=== PATIENT | female | born 1945 | race Caucasian/White ===

== ENCOUNTER 2020-01-05 12:52 | Outpatient (CLI) | payer MEDICARE, SELFPAY ==
--- NOTE | 2020-01-05 13:01 | CT_ITS ---
WS: [id number] CT LUMBAR SPINE TECHNIQUE: Noncontrast CT of the lumbar spine with coronal and sagittal reformatted images. CLINICAL INFORMATION: LOW BACK PAIN COMPARISON: None. DLP: 2000.[address] scans at [facility] use at least one of these dose optimization techniques: automat ed exposure control; mA and/or kV adjustment per patient size (includes targeted exams where dose is matched to clinical indication); or iterative reconstruction. FINDINGS: Mild lumbar curve convex right. No acute compression fractures. No high-grade central canal stenosis. Mild disc bulging L4-L5 and L5-S1. Bilobed abdominal aortic aneurysm with moderate calcification the largest segment measuring 2.3 x 2.8 x 3.3 cm. Normal adrenal glands. Hypoplastic right kidney. L1-L2: Normal. L2-L3: Mild disc bulging with slight effacement of ventral thecal sac. Mild left and no significant r ight foraminal narrowing. L3-L4: Mild disc bulging with slight narrowing of the left subarticular recess. Mild left and no sign ificant right foraminal narrowing. Moderate facet arthropathy. L4-L5: Mild disc bulging with slight effacement of ventral thecal sac. Mild central canal stenosis. M ild left and no right foraminal narrowing. Moderate facet arthropathy. L5-S1: Mild disc bulging with a shallow central protrusion. Mild central canal stenosis. Moderate to advanced facet arthropathy. Narrowing of the subarticular recess bilaterally. Mild right and no signi ficant left foraminal narrowing. CT/CT lumbar spine wo con* [id number] IMPRESSION: 1. Mild lumbar curve. No acute compression. 2. Mild disc bulging L4-L5 and L5-S1 3. No evidence of bony metastatic disease. 4. Mild central canal stenosis L3-L4, L4-L5, and L5-S1. 5. Mild foraminal narrowing worse at left L3-4 and left L4-5 6. Advanced facet arthropathy L5-S1. 7. Infrarenal lobulated bilobed abdominal aortic aneurysm the largest componen t measuring 2.3 x 2.8 x 3.3 cm AP by transverse by craniocaudal. 8. Aplastic right kidney.
--- NOTE | 2020-01-05 13:01 | XR_ITS ---
WS: [id number] LUMBAR SPINE FLEXION AND EXTENSION TECHNIQUE: 3 views of the lumbar spine: Lateral neutral, flexion, and extension views. CLINICAL INFORMATION: LOW BACK PAIN COMPARISON: None. FINDINGS: Slight anterolisthesis L5 on S1 measuring 3 mm. This increases on flexion to 4 mm and is stable on e xtension measuring 4 mm.Disc space narrowing worse L4-L5 and L5-S1. Moderate facet arthropathy L4-L5 and L5-S1. XR/XR lumbar spine f/e only [id number] IMPRESSION: 1. Mild flexion instability L5-S1. 2. Small abdominal aortic aneurysm described on the lumbar spine CT. 3. Disc space narrowing worse L4-L5 and L5-S1. 4. Moderate to advanced facet arthropathy L5-S1.
== END 2020-01-05 12:53 | disposition home or self-care (01) ==
LOC: RADWPI 13:00
PROVIDERS: Family Provider Nurse Practitioner Family; PCP Nurse Practitioner Family; Visit Provider Nurse Practitioner
DX: M53.2X7 Spinal instabilities, lumbosacral region (principal); I71.4 Abdominal aortic aneurysm, without rupture; M47.817 Spondylosis without myelopathy or radiculopathy, lumbosacral region; M51.26 Other intervertebral disc displacement, lumbar region; M51.27 Other intervertebral disc displacement, lumbosacral region; M48.061 Spinal stenosis, lumbar region without neurogenic claudication; M48.07 Spinal stenosis, lumbosacral region; N28.89 Other specified disorders of kidney and ureter
CPT/HCPCS: 72120; 72131

== ENCOUNTER 2020-01-17 19:51 | Emergency (ER) | payer MEDICARE, SELFPAY ==
[2020-01-17] VITALS (7 sets, daily range): BP systolic 132–162; BP diastolic 72–99; PULSE 63–77; RESP 17–21; TEMP 36.5; O2SAT 96–99; BMI 22.8
--- NOTE | 2020-01-17 | XRR_ITS ---
PROCEDURE INFORMATION: Exam: XR Chest, 1 View Exam date and time: 01/17/2020 10:21 PM Age: 74 years old Clinical indication: Cough; Additional info: SOB TECHNIQUE: Imaging protocol: XR of the chest Views: 1 view. COMPARISON: No relevant prior studies available. FINDINGS: Lungs: COPD and interstitial prominence. Pleural space: No significant pleural effusion. Heart/Mediastinum: No cardiomegaly. Bones/joints: Osteopenia and degenerative change. XR/XR chest 1V portable [id number] IMPRESSION: COPD and interstitial prominence.
--- NOTE | 2020-01-17 20:12 | ECG_ITS ---
[facility] Test Date: 2020-01-17 Pat Name: Michelle Lopez Department: Room: Gender: Female Medicine Man: : 1945 Requested By: Arcadio Parsons Order Number: [id number] Miguel MD: Nahomi Garcia M.D. Measurements Intervals [place] Rate: 63 P: 66 [place]: 124 QRS: 29 QRSD: 82 T: 51 QT: 403 QTc: 415 Interpretive Statements SINUS RHYTHM POSSIBLE RIGHT VENTRICULAR CONDUCTION DELAY [RSR (QR) IN V1/V2] No previous ECG available for comparison Electronically Signed On 01-18-2020 19:32:07 CDT by Nahomi Garcia M.D. [id number]
--- NOTE | 2020-01-17 20:18 | W.ED.SOB ---
HPI - SOB/Dyspnea General: Chief Complaint: Shortness of Breath/Dyspnea Stated Complaint: SOB Time Seen by Provider: 01/17/20 20:05 Source: patient Mode of arrival: ambulatory Limitations: no limitations History of Present Illness: HPI Narrative: 74-year-old female who has a history of COPD states she is been having increasing shortness of breath over the last 2 to 4 days. States she had a slight cough and is felt like she cannot get a great breath then. She denies any fever. Patient is currently on 3 L which is her baseline and is in no distress. She denies any chest pain. Denies any vomiting or diarrhea. MD elicited complaint: shortness of breath Associated symptoms: Deny abdominal pain, chest pain, fever(s), nausea or vomiting Review of Systems Const: Denies: fever(s), chills, body aches or change in appetite Eyes: Denies: blurry vision or eye discomfort ENMT: Denies: throat pain or dental pain Card: Denies: chest pain Resp: Reports: dyspnea and wheezing GI: Denies: abdominal pain, nausea, vomiting or diarrhea : Denies: dysuria Musc: Denies: neck pain or back pain Skin/Breast: Denies: rash Neuro: Denies: headache(s) Psych: Denies: depression Abhishek/Lymph: Denies: easy bruising All/Imm: Denies: urticaria Physical Exam Const: COMMON NORMALS: no acute distress, patient oriented x3 and healthy appearing HENMT: COMMON NORMALS: normocephalic and atraumatic HEAD & SCALP: normocephalic and atraumatic Eye: COMMON NORMALS: Equal, round and reactive pupils present and EOMs intact bilaterally PUPIL: Yes Equal, round and reactive pupils present Neck/C-Spine: COMMON NORMALS: full ROM and supple Chest: COMMONS NORMALS: normal inspection of the chest and normal palpation of entire chest wall Resp: COMMON NORMALS: normal respiratory effort, No retractions and No use of accessory muscles AUSCULTATION: wheezes Cardio: COMMON NORMALS: regular rate, regular rhythm and No murmurs present (Cardio) RATE: regular rate RHYTHM: regular rhythm GI: COMMON NORMALS: Normal to inspection, nondistended, normoactive bowel sounds present, Soft to palpation, non-tender and no masses PALPATION: Yes Soft to palpation Extremity: COMMON NORMALS: normal to inspection and full ROM Neuro: COMMON NORMALS: patient oriented x3, moves all extremities and no focal motor deficits Psych: COMMON NORMALS: mental status grossly normal, Normal thought process present and cooperative THOUGHT PROCESS: Normal thought process present Skin: COMMON NORMALS: no rashes or lesions noted and no wounds GENERAL SKIN EXAM: no rashes or lesions noted Course Vital Signs: Vital signs: Vital Signs Temperature 97.7 F 01/17/20 19:54 Pulse Rate 77 01/17/20 22:34 Respiratory Rate 20 H 01/17/20 22:34 Blood Pressure 132/72 01/17/20 22:34 Pulse Oximetry 98 01/17/20 22:34 MDM - SOB/Dyspnea MDM Narrative: Medical decision making narrative: Patient presents here with COPD exacerbation. Patient has no signs of pneumonia and is well-appearing here. Patient's blood work is normal. She is stable for discharge and is to follow-up with PCP in 2 to 4 days. Did do an outpatient COVID test will be sent out. Will follow. She is to return if her breathing worsens. Lab Data: Labs: Lab Results 01/17/20 01/17/20 01/17/20 Range/Units 21:00 21:00 21:00 WBC 7.6 (4.0-10.0) 10^3/ uL RBC 4.00 L (4.1-5.3) 10^6/u L Hgb 12.7 (11.5-15.3) g/dL Hct 39.3 (37.0-47.0) % MCV 98.3 (81-99) fL MCH 31.8 (28.0-34.0) pg MCHC 32.3 (30.0-36.0) g/dL RDW 12.5 (12.1-15.1) % Plt Count 242 (130-400) 10^3/c mm MPV 9.6 (7.4-10.4) fL Neut % (Auto) 72.8 % Lymph % (Auto) 16.3 % Pitkin % (Auto) 8.0 % Eos % (Auto) 2.1 % Baso % (Auto) 0.7 % Neut # (Auto) 5.54 (1.8-7.7) 10^3/u L Lymph # (Auto) 1.2 (0.8-4.8) 10^3/u L Pitkin # (Auto) 0.6 (0.2-0.9) 10^3/u L Eos # (Auto) 0.2 (0.0-0.8) 10^3/u L Baso # (Auto) 0.1 (0.0-0.1) 10^3/u L Nucleated RBC % (a uto) 0 % Nucleated RBCs # 0.0 /100WBC PT 12.40 (12.1-14.9) SECO NDS INR 0.90 (0.8-1.2) Sodium 140 (136-145) mmol/L Potassium 3.9 (3.5-5.1) mmol/L Chloride 102 (98-107) mmol/L Carbon Dioxide 25 (22-29) mmol/L Anion Gap 16.9 (5-19) BUN 33 H (8-23) mg/dL Creatinine 1.4 H (0.5-0.9) mg/dL GFR Calculation Not Reportable Glucose 106 (65-115) mg/dL Calculated Osmolal ity 298 H (285-295) mOsm/k g Calcium 9.1 (8.5-10.5) mg/dL Total Bilirubin 0.3 (0.15-1.2) mg/dL AST 28 (0-32) U/L ALT 17 (0-33) U/L Alkaline Phosphata se 65 (35-105) IU/L NT-Pro-B Natriuret Pep 556 H (0-450) pg/mL Total Protein 8.2 (6.6-8.7) g/dL Albumin 4.5 (3.5-5.2) g/dL Globulin 3.7 (1.3-4.6) g/dL Imaging Data^: CXR: Attestation: I personally reviewed and interpreted this imaging study as follows: My impression: no acute abnormality EKG Data^: EKG 1: Attestation: I personally reviewed and interpreted this EKG as follows: EKG Interpretation Date: 01/17/20 EKG interpretation time: 20:35 Interpretation: nsr hr [address] or t wave abnormalities qrs 82 qtc 411 Discharge Plan Discharge Patient Disposition: Home Clinical Impression: Acute exacerbation of chronic obstructive airways disease Condition: Stable Prescriptions: New prednisone 50 mg tablet 50 mg PO DAILY Qty: 5 RF: 0 No Action Advair Diskus 250-50 mcg/dose blister with device 1 inh INHALATION BID RF: 0 tizanidine 2 mg tablet 2 mg PO BID PRN (Reason: MUSCLE SPASMS) RF: 0 pravastatin 40 mg tablet 40 mg PO DAILY RF: 0 albuterol sulfate 1.25 mg/3 mL solution for nebulization See Rx Instructions .ROUTE .COMPLEX RF: 0 Synthroid 75 mcg tablet 75 mcg PO BID RF: 0 alprazolam 0.5 mg tablet 0.25 mg PO DAILY PRN (Reason: Anxiety) RF: 0 trazodone 100 mg tablet 100 mg PO BID RF: 0 hydrocodone-acetaminophen 7.5-325 mg tablet 1 tab PO BID PRN (Reason: Pain) RF: 0 penicillin V potassium 500 mg tablet 500 mg PO Q6H RF: 0 Discharge Orders: Discharge Order (Routine); Ordered 01/17/20 Ordered By: Arcadio Parsons Referrals: Koby Martinez NP [Primary Care Provider] - 1-3 days Discharge Diet: Advance as tolerated Discharge Activity: Resume usual activity Patient Instructions: Chronic Obstructive Pulmonary Disease (ED) Discharge Date/Time: 01/17/20 22:36 Coding Level of Care Code ED Oleo Hasher And Renderer for [place] Fwd Exam Comprehensive
--- NOTE | 2020-01-17 21:06 | PC.NURSE ---
patient swabbed for COVID at this time
[2020-01-17 21:16] LABS: Basophils # 0.1 10^3/uL (0.0-0.1); Basophils % 0.7 %; Eosinophils # 0.2 10^3/uL (0.0-0.8); Eosinophils % 2.1 %; Hematocrit 39.3 % (37.0-47.0); Hemoglobin 12.7 g/dL (11.5-15.3); Lymphocytes # 1.2 10^3/uL (0.8-4.8); Lymphocytes % 16.3 %; Mean Corpuscular HGB Conc 32.3 g/dL (30.0-36.0); Mean Corpuscular Hemoglobin 31.8 pg (28.0-34.0); Mean Corpuscular Volume 98.3 fL (81-99); Mean Platelet Volume 9.6 fL (7.4-10.4); Monocytes # 0.6 10^3/uL (0.2-0.9); Neutrophils # 5.54 10^3/uL (1.8-7.7); Neutrophils % 72.8 %; Nucleated Red Blood Cells % 0 %; Platelet Count 242 10^3/cmm (130-400); Red Cell Distribution Width 12.5 % (12.1-15.1); White Blood Count 7.6 10^3/uL (4.0-10.0)
[2020-01-17 21:43] LABS: Alanine Aminotransferase 17 U/L (0-33); Albumin Level 4.5 g/dL (3.5-5.2); Alkaline Phosphatase 65 IU/L (35-105); Anion Gap 16.9 (5-19); Aspartate Amino Transferase 28 U/L (0-32); Blood Urea Nitrogen 33 mg/dL (8-23); Calcium 9.1 mg/dL (8.5-10.5); Carbon Dioxide 25 mmol/L (22-29); Chloride 102 mmol/L (98-107); Globulin 3.7 g/dL (1.3-4.6); Glucose 106 mg/dL (65-115); NT Pro B Type Natriuretic Pept 556 pg/mL (0-450); Osmolality Calculated 298 mOsm/kg (285-295); Potassium 3.9 mmol/L (3.5-5.1); Sodium 140 mmol/L (136-145); Total Bilirubin 0.3 mg/dL (0.15-1.2); Total Protein 8.2 g/dL (6.6-8.7)
[2020-01-17] MEDS: albuterol 8 gm MDI 2 PUFF INHALATION (22:19)
[2020-01-19 17:32] LABS: Quest SARS-CoV-2 RNA NOT DETECTED (NOT DETECTED)
== END 2020-01-17 22:36 | disposition home or self-care (01) ==
PROVIDERS: Emergency Provider Emergency Medicine; Family Provider Nurse Practitioner Family; PCP Nurse Practitioner Family
DX: J44.1 Chronic obstructive pulmonary disease with (acute) exacerbation (principal)
CPT/HCPCS: 12345; 71045; 80053; 83880; 85025; 85610; 87635; 93005; 94640; 96374; 99284; J2930

== ENCOUNTER 2020-02-16 19:10 | Emergency (ER) | payer MEDICARE, SELFPAY ==
[2020-02-16 19:17] VITALS: BP 131/71; PULSE 72; RESP 20; TEMP 36.8; O2SAT 92; BMI 21.9
--- NOTE | 2020-02-16 19:55 | XRR_ITS ---
PROCEDURE INFORMATION: Exam: XR Chest, 1 View Exam date and time: 02/16/2020 8:09 PM Age: 74 years old Clinical indication: Shortness of breath; Prior surgery; Additional info: Increase SOB, history of copd TECHNIQUE: Imaging protocol: XR of the chest Views: 1 view. COMPARISON: CR XR chest 1V portable [id number] 01/17/2020 10:10 PM FINDINGS: Lungs: Linear parenchymal densities seen in the left perihilar region new since prior examination. There is mild interstitial congestion left lower lobe Pleural space: Small left lower lobe pleural effusion. No pneumothorax. Heart/Mediastinum: Unremarkable. No cardiomegaly. Bones/joints: Unremarkable. XR/XR chest 1V portable [id number] IMPRESSION: 1. Left perihilar fibrotic densities new since prior 2. Left lower lobe interstitial congestion 3. Small left lower lobe pleural effusion
--- NOTE | 2020-02-16 19:55 | W.ED.SOB ---
HPI - SOB/Dyspnea General: Chief Complaint: Shortness of Breath/Dyspnea Stated Complaint: copd flare up Time Seen by Provider: 02/16/20 19:54 Source: patient Mode of arrival: ambulatory Limitations: no limitations History of Present Illness: HPI Narrative: Well-appearing adult lady comes in today with feelings of malaise. Patient reports that she feels like her COPD just has not cleared up enough yet. Patient was seen at the end of January in the emergency room and diagnosed of exacerbation of COPD. Patient is in no acute respiratory distress. Skin is warm and dry. Vital signs are normal. Patient is on oxygen all the time at 3 L per nasal cannula. Patient has a history of COPD, hypothyroidism, hypercholesteremia, and muscle spasms Review of Systems General: Reports: 10 or more systems reviewed and unremarkable except in HPI and below Resp: Reports: dyspnea Physical Exam Const: COMMON NORMALS: no acute distress and patient oriented x3 GENERAL APPEARANCE: cooperative HENMT: COMMON NORMALS: normocephalic and Normal external nose present HEAD & SCALP: normal to inspection and normocephalic NOSE: Normal external nose present MOUTH: Normal oral and palatal mucosa present THROAT: posterior oropharynx normal Eye: GENERAL EYE: appearance normal, both eyes and all related structures Neck/C-Spine: COMMON NORMALS: full ROM Chest: COMMONS NORMALS: normal inspection of the chest Resp: COMMON NORMALS: normal respiratory effort EFFORT & INSPECTION: Yes able to speak in complete sentences Cardio: COMMON NORMALS: regular rate and regular rhythm RATE: regular rate RHYTHM: regular rhythm GI: COMMON NORMALS: non-tender Back/Pelvis: COMMON NORMALS: thoracic and lumbar spine normal to inspection Extremity: COMMON NORMALS: normal to inspection Neuro: COMMON NORMALS: patient oriented x3 and moves all extremities Psych: COMMON NORMALS: mental status grossly normal and cooperative Skin: COMMON NORMALS: no rashes or lesions noted GENERAL SKIN EXAM: no rashes or lesions noted Course Vital Signs: Vital signs: Vital Signs Temperature 98.2 F 02/16/20 19:17 Pulse Rate 72 02/16/20 19:17 Respiratory Rate 20 H 02/16/20 19:17 Blood Pressure 131/71 02/16/20 19:17 Pulse Oximetry 92 02/16/20 19:17 MDM - SOB/Dyspnea MDM Narrative: Medical decision making narrative: Patient comes in for concerns of not feeling at her baseline. Patient states that over 2 weeks ago she had been seen in the ER and diagnosed with exacerbation of COPD. Patient states that the medications did help but she does not feel like she is completely over her flare. Patient denies any fever or chills. Patient looks in no acute distress. Lungs have air movement throughout lung de la cruz. Differential diagnosis includes but not limited to COPD, pneumonia, CHF. X-rays noted atelectasis versus infiltrate to the left upper lung. COVID is negative. Reviewed exam with patient with recommendations for treatment and follow-up. Patient reported understanding. Lab Data: Labs: Lab Results 02/16/20 Range/Units 20:42 SARS-CoV-2 Ag (Rap id) Negative (Negative) Discharge Plan Discharge Patient Disposition: Home Clinical Impression: PND (post-nasal drip) Community acquired pneumonia Qualifiers: Laterality: left Lung location: upper lobe of lung Qualified Code(s): J18.9 - Pneumonia, unspecified organism COPD (chronic obstructive pulmonary disease) Qualifiers: COPD type: unspecified COPD Qualified Code(s): J44.9 - Chronic obstructive pulmonary disease, unspecified Condition: Stable Prescriptions: New doxycycline hyclate 100 mg capsule 100 mg PO BID 10 Days Qty: 20 RF: 0 azelastine-fluticasone 137-50 mcg/spray spray,non-aerosol 1 spray INTRANASAL BID Qty: 23 RF: 0 prednisone 50 mg tablet 50 mg PO DAILY Qty: 5 RF: 0 No Action Advair Diskus 250-50 mcg/dose blister with device 1 inh INHALATION BID RF: 0 tizanidine 2 mg tablet 2 mg PO BID PRN (Reason: MUSCLE SPASMS) RF: 0 pravastatin 40 mg tablet 40 mg PO DAILY RF: 0 albuterol sulfate 1.25 mg/3 mL solution for nebulization See Rx Instructions .ROUTE .COMPLEX RF: 0 Synthroid 75 mcg tablet 75 mcg PO BID RF: 0 alprazolam 0.5 mg tablet 0.25 mg PO DAILY PRN (Reason: Anxiety) RF: 0 trazodone 100 mg tablet 100 mg PO BID RF: 0 hydrocodone-acetaminophen 7.5-325 mg tablet 1 tab PO BID PRN (Reason: Pain) RF: 0 penicillin V potassium 500 mg tablet 500 mg PO Q6H RF: 0 prednisone 50 mg tablet 50 mg PO DAILY Qty: 5 RF: 0 Discharge Orders: Discharge Order (Routine); Ordered 02/16/20 Ordered By: Curt White Referrals: Koby Martinez NP [Primary Care Provider] - Discharge Diet: Usual diet Discharge Activity: Increase activity as tolerated Patient Instructions: Community-acquired Pneumonia (ED) Activity Restrictions/Additional Instructions: Take medications as directed. Drink plenty of fluids with medications. Follow-up with primary care in 1 week. Return to the emergency department for worsening symptoms. Coding Level of Care Code ED [employer] Attendant for Mari Zambrano Exam Comprehensive
[2020-02-16] MEDS: dexamethasone 10 mg/mL INJ IM (20:49)
[2020-02-16] MEDS: doxycycline 100 mg Tablet PO (20:49)
[2020-02-16 21:31] LABS: SARS Covid-2 Antigen Negative (Negative)
[2020-02-16 22:13] VITALS: PULSE 64; RESP 22; O2SAT 94
== END 2020-02-16 22:13 | disposition home or self-care (01) ==
PROVIDERS: Emergency Provider Nurse Practitioner Family; PCP Nurse Practitioner Family
DX: J18.9 Pneumonia, unspecified organism (principal); J44.9 Chronic obstructive pulmonary disease, unspecified; R09.82 Postnasal drip
CPT/HCPCS: 12345; 71045; 87426; 96372; 99282; 99283; J1100

== ENCOUNTER 2020-03-28 15:54 | Emergency (ER) | payer MEDICARE, SELFPAY ==
[2020-03-28 16:18] VITALS: BP 126/64; PULSE 63; RESP 20; TEMP 36.6; O2SAT 98; BMI 19.9
--- NOTE | 2020-03-28 16:28 | XRR_ITS ---
PROCEDURE INFORMATION: Exam: XR Chest, 1 View Exam date and time: 03/28/2020 4:30 PM Age: 75 years old Clinical indication: Cough and shortness of breath; Prior surgery; Surgery type: Breast; Additional info: Dyspnea/cough TECHNIQUE: Imaging protocol: XR of the chest Views: 1 view. COMPARISON: CR XR chest 1V portable [id number] 02/16/2020 7:57 PM FINDINGS: Lungs: Emphysema. Mild basilar and left mid lung atelectasis or scarring. The lungs are otherwise clear. Pleural space: Unremarkable. No pleural effusion. No pneumothorax. Heart/Mediastinum: Unremarkable. No cardiomegaly. Bones/joints: Unremarkable. XR/XR chest 1V portable [id number] IMPRESSION: No acute findings.
--- NOTE | 2020-03-28 16:28 | ECG_ITS ---
[facility] Test Date: 2020-03-28 Pat Name: Michelle Lopez Department: Room: Gender: Female Scientific Aide: : 1945 Requested By: Renan Licona Order Number: [id number] Miguel MD: ROSANNE MONIQUE Measurements Intervals [place] Rate: 58 P: 74 MN: 138 QRS: 32 QRSD: 86 T: 59 QT: 423 QTc: 416 Interpretive Statements SINUS BRADYCARDIA LOW QRS VOLTAGE IN PRECORDIAL LEADS [QRS DEFLECTION < 1.0 mV IN CHEST LEADS] POSSIBLE RIGHT VENTRICULAR CONDUCTION DELAY [RSR (QR) IN V1/V2] Compared to ECG 01/17/2020 20:35:00 Low QRS voltage now present Sinus rhythm no longer present Electronically Signed On 03-29-2020 20:05:54 DIRECTOR OF MEDICARE by ROSANNE MONIQUE [id number]
--- NOTE | 2020-03-28 16:31 | W.ED.SOB ---
Documented by User: Renan Ochoa DO 03/29/20 06:19 HPI - SOB/Dyspnea General: Chief Complaint: Shortness of Breath/Dyspnea Stated Complaint: cough,SOB Time Seen by Provider: 03/28/20 16:18 History of Present Illness: HPI Narrative: 75-year-old female comes in complaining of increasing cough and shortness of breath began within the last couple of days. Has had some loose stools no anosmia. She has had some myalgias but she states she has a certain baseline level of myalgias that has not really changed that much. She has had the increase in cough and shortness of breath. She has a history of COPD she is on maintenance meds as well as rescue meds they do not seem to be working as well. Cough is nonproductive. She denies any chest pain. MD elicited complaint: shortness of breath and cough Pertinent past history: COPD Onset (ago): day(s) Context: occurred during exertion Timing: constant Severity: moderate Exacerbating factors: exertion and coughing Relieving factors: rest Known history of: COPD Associated symptoms: Reports cough; Deny abdominal pain, chest congestion, chest pain, diaphoresis, dizziness, extremity pain, fever(s), hemoptysis, lightheadedness, myalgias, nausea, orthopnea, palpitations, paresthesias, polydipsia, polyuria, rash, sense of impending doom, syncope or vomiting Treatment prior to arrival: bronchodilator Review of Systems Const: Denies: fever(s) or diaphoresis ENMT: Denies: throat pain, ear or mastoid pain, nasal discharge or nasal congestion Card: Denies: chest pain, palpitations, lightheadedness, syncope or orthopnea Resp: Denies: hemoptysis or chest congestion GI: Denies: abdominal pain or nausea : Denies: flank pain, difficulty voiding, dysuria, urinary frequency or urinary urgency Musc: Denies: extremity pain Skin/Breast: Denies: rash or pruritus Neuro: Denies: dizziness Endo: Denies: polyuria or polydipsia PFS ED PFSH: Medical History (Updated 03/28/20 @ 19:36 by Arcadio Parsons MD) Chronic back pain COPD (chronic obstructive pulmonary disease) Hyperlipidemia Physical Exam Const: COMMON NORMALS: no acute distress GENERAL APPEARANCE: cooperative and comfortable HENMT: COMMON NORMALS: normocephalic, atraumatic and hearing grossly normal bilaterally HEAD & SCALP: normocephalic and atraumatic Eye: COMMON NORMALS: Equal, round and reactive pupils present, EOMs intact bilaterally, conjunctivae normal and no scleral icterus CONJUNCTIVA: Yes conjunctivae normal PUPIL: Yes Equal, round and reactive pupils present Neck/C-Spine: COMMON NORMALS: full ROM, no lymphadenopathy, supple and no JVD Lymph: LYMPHATIC: no lymphadenopathy noted and no lymphedema noted Resp: COMMON NORMALS: normal respiratory effort, No retractions, No use of accessory muscles and clear to auscultation bilaterally AUSCULTATION: clear to auscultation bilaterally and diminished lung sounds Cardio: COMMON NORMALS: no JVD, regular rate, regular rhythm and No murmurs present (Cardio) RATE: regular rate RHYTHM: regular rhythm GI: COMMON NORMALS: Soft to palpation and No hepatosplenomegaly present AUSCULTATION: Yes normoactive bowel sounds PALPATION: Yes Soft to palpation, No Tenderness to palpation present (GI), No Guarding due to palpation present (GI) and Yes No hepatosplenomegaly present Extremity: COMMON NORMALS: normal to inspection, capillary refill normal, no clubbing, cyanosis or edema, no calf tenderness and no pedal edema Skin: COMMON NORMALS: no rashes or lesions noted GENERAL SKIN EXAM: no rashes or lesions noted Course Vital Signs: Vital signs: Vital Signs Temperature 97.8 F 03/28/20 16:18 Pulse Rate 68 03/28/20 19:53 Respiratory Rate 20 H 03/28/20 19:53 Blood Pressure 156/90 03/28/20 19:53 Pulse Oximetry 100 03/28/20 19:53 MDM - SOB/Dyspnea MDM Narrative: Medical decision making narrative: Care turned over to Dr. Parsons at change of shift Lab Data: Labs: Lab Results 03/28/20 03/28/20 03/28/20 Range/Units 17:04 17:04 17:04 WBC 7.3 (4.0-10.0) 10^3/ uL RBC 3.51 L (4.1-5.3) 10^6/u L Hgb 10.9 L (11.5-15.3) g/dL Hct 35.7 L (37.0-47.0) % MCV 101.7 H (81-99) fL MCH 31.1 (28.0-34.0) pg MCHC 30.5 (30.0-36.0) g/dL RDW 15.1 (12.1-15.1) % Plt Count 159 (130-400) 10^3/c mm MPV 10.4 (7.4-10.4) fL Neut % (Auto) 69.0 % Lymph % (Auto) 18.6 % [place] % (Auto) 10.1 % Eos % (Auto) 1.4 % Baso % (Auto) 0.6 % Neut # (Auto) 5.02 (1.8-7.7) 10^3/u L Lymph # (Auto) 1.4 (0.8-4.8) 10^3/u L [place] # (Auto) 0.7 (0.2-0.9) 10^3/u L Eos # (Auto) 0.1 (0.0-0.8) 10^3/u L Baso # (Auto) 0.0 (0.0-0.1) 10^3/u L Nucleated RBC % (a uto) 0 % Nucleated RBCs # 0.0 /100WBC D-Dimer 1.74 H (0-0.59) ug/mIFE U Sodium 141 (136-145) mmol/L Potassium 3.8 (3.5-5.1) mmol/L Chloride 106 (98-107) mmol/L Carbon Dioxide 27 (22-29) mmol/L Anion Gap 11.8 (5-19) BUN 23 (8-23) mg/dL Creatinine 1.0 H (0.5-0.9) mg/dL GFR Calculation Not Reportable Glucose 112 (65-115) mg/dL Calculated Osmolal ity 296 H (285-295) mOsm/k g Calcium 8.9 (8.5-10.5) mg/dL Total Bilirubin 0.3 (0.15-1.2) mg/dL AST 19 (0-32) U/L ALT 11 (0-33) U/L Alkaline Phosphata se 61 (35-105) IU/L Total Protein 6.3 L (6.6-8.7) g/dL Albumin 3.6 (3.5-5.2) g/dL Globulin 2.7 (1.3-4.6) g/dL SARS-CoV-2 Ag (Rap id) (Negative) 03/28/20 Range/Units 17:18 WBC (4.0-10.0) 10^3/ uL RBC (4.1-5.3) 10^6/u L Hgb (11.5-15.3) g/dL Hct (37.0-47.0) % MCV (81-99) fL MCH (28.0-34.0) pg MCHC (30.0-36.0) g/dL RDW (12.1-15.1) % Plt Count (130-400) 10^3/c mm MPV (7.4-10.4) fL Neut % (Auto) % Lymph % (Auto) % [place] % (Auto) % Eos % (Auto) % Baso % (Auto) % Neut # (Auto) (1.8-7.7) 10^3/u L Lymph # (Auto) (0.8-4.8) 10^3/u L [place] # (Auto) (0.2-0.9) 10^3/u L Eos # (Auto) (0.0-0.8) 10^3/u L Baso # (Auto) (0.0-0.1) 10^3/u L Nucleated RBC % (a uto) % Nucleated RBCs # /100WBC D-Dimer (0-0.59) ug/mIFE U Sodium (136-145) mmol/L Potassium (3.5-5.1) mmol/L Chloride (98-107) mmol/L Carbon Dioxide (22-29) mmol/L Anion Gap (5-19) BUN (8-23) mg/dL Creatinine (0.5-0.9) mg/dL GFR Calculation Glucose (65-115) mg/dL Calculated Osmolal ity (285-295) mOsm/k g Calcium (8.5-10.5) mg/dL Total Bilirubin (0.15-1.2) mg/dL AST (0-32) U/L ALT (0-33) U/L Alkaline Phosphata se (35-105) IU/L Total Protein (6.6-8.7) g/dL Albumin (3.5-5.2) g/dL Globulin (1.3-4.6) g/dL SARS-CoV-2 Ag (Rap id) Negative (Negative) Discharge Plan Discharge Patient Disposition: Home Clinical Impression: COPD (chronic obstructive pulmonary disease) Qualifiers: COPD type: unspecified COPD Qualified Code(s): J44.9 - Chronic obstructive pulmonary disease, unspecified Condition: Stable Prescriptions: New prednisone 50 mg tablet 50 mg PO DAILY Qty: 5 RF: 0 No Action Advair Diskus 250-50 mcg/dose blister with device 1 inh INHALATION BID RF: 0 tizanidine 2 mg tablet 2 mg PO BID PRN (Reason: MUSCLE SPASMS) RF: 0 pravastatin 40 mg tablet 40 mg PO DAILY RF: 0 albuterol sulfate 1.25 mg/3 mL solution for nebulization See Rx Instructions .ROUTE .COMPLEX RF: 0 Synthroid 75 mcg tablet 75 mcg PO BID RF: 0 alprazolam 0.5 mg tablet 0.25 mg PO DAILY PRN (Reason: Anxiety) RF: 0 trazodone 100 mg tablet 100 mg PO BID RF: 0 hydrocodone-acetaminophen 7.5-325 mg tablet 1 tab PO BID PRN (Reason: Pain) RF: 0 penicillin V potassium 500 mg tablet 500 mg PO Q6H RF: 0 prednisone 50 mg tablet 50 mg PO DAILY Qty: 5 RF: 0 azelastine-fluticasone 137-50 mcg/spray spray,non-aerosol 1 spray INTRANASAL BID Qty: 23 RF: 0 prednisone 50 mg tablet 50 mg PO DAILY Qty: 5 RF: 0 Discharge Orders: Discharge Order (Routine); Ordered 03/28/20 Ordered By: Arcadio Parsons Referrals: Koby Martinez NP [Primary Care Provider] - 1-3 days Discharge Diet: Advance as tolerated Discharge Activity: Resume usual activity Patient Instructions: Chronic Obstructive Pulmonary Disease (ED) Coding Level of Care Code ED Food Porter for g Fwd Exam Comprehensive Documented by User: Arcadio Parsons MD 03/28/20 20:02 HPI - SOB/Dyspnea General: Chief Complaint: Shortness of Breath/Dyspnea Stated Complaint: cough,SOB Time Seen by Provider: 03/28/20 16:18 PFSH ED PFSH: Medical History (Updated 03/28/20 @ 19:36 by Arcadio Parsons MD) Chronic back pain COPD (chronic obstructive pulmonary disease) Hyperlipidemia Course Vital Signs: Vital signs: Vital Signs Temperature 97.8 F 03/28/20 16:18 Pulse Rate 68 03/28/20 19:53 Respiratory Rate 20 H 03/28/20 19:53 Blood Pressure 156/90 03/28/20 19:53 Pulse Oximetry 100 03/28/20 19:53 MDM - SOB/Dyspnea MDM Narrative: Medical decision making narrative: Patient presents here with shortness of breath likely COPD exacerbation. Patient CT showed no signs of pulmonary embolism and rapid Covid was negative. We will swab her with a PTC as well. We will place her on steroids and she is stable for discharge and return if worsening. Lab Data: Labs: Lab Results 03/28/20 03/28/20 03/28/20 Range/Units 17:04 17:04 17:04 WBC 7.3 (4.0-10.0) 10^3/ uL RBC 3.51 L (4.1-5.3) 10^6/u L Hgb 10.9 L (11.5-15.3) g/dL Hct 35.7 L (37.0-47.0) % MCV 101.7 H (81-99) fL MCH 31.1 (28.0-34.0) pg MCHC 30.5 (30.0-36.0) g/dL RDW 15.1 (12.1-15.1) % Plt Count 159 (130-400) 10^3/c mm MPV 10.4 (7.4-10.4) fL Neut % (Auto) 69.0 % Lymph % (Auto) 18.6 % [place] % (Auto) 10.1 % Eos % (Auto) 1.4 % Baso % (Auto) 0.6 % Neut # (Auto) 5.02 (1.8-7.7) 10^3/u L Lymph # (Auto) 1.4 (0.8-4.8) 10^3/u L [place] # (Auto) 0.7 (0.2-0.9) 10^3/u L Eos # (Auto) 0.1 (0.0-0.8) 10^3/u L Baso # (Auto) 0.0 (0.0-0.1) 10^3/u L Nucleated RBC % (a uto) 0 % Nucleated RBCs # 0.0 /100WBC D-Dimer 1.74 H (0-0.59) ug/mIFE U Sodium 141 (136-145) mmol/L Potassium 3.8 (3.5-5.1) mmol/L Chloride 106 (98-107) mmol/L Carbon Dioxide 27 (22-29) mmol/L Anion Gap 11.8 (5-19) BUN 23 (8-23) mg/dL Creatinine 1.0 H (0.5-0.9) mg/dL GFR Calculation Not Reportable Glucose 112 (65-115) mg/dL Calculated Osmolal ity 296 H (285-295) mOsm/k g Calcium 8.9 (8.5-10.5) mg/dL Total Bilirubin 0.3 (0.15-1.2) mg/dL AST 19 (0-32) U/L ALT 11 (0-33) U/L Alkaline Phosphata se 61 (35-105) IU/L Total Protein 6.3 L (6.6-8.7) g/dL Albumin 3.6 (3.5-5.2) g/dL Globulin 2.7 (1.3-4.6) g/dL SARS-CoV-2 Ag (Rap id) (Negative) 03/28/20 Range/Units 17:18 WBC (4.0-10.0) 10^3/ uL RBC (4.1-5.3) 10^6/u L Hgb (11.5-15.3) g/dL Hct (37.0-47.0) % MCV (81-99) fL MCH (28.0-34.0) pg MCHC (30.0-36.0) g/dL RDW (12.1-15.1) % Plt Count (130-400) 10^3/c mm MPV (7.4-10.4) fL Neut % (Auto) % Lymph % (Auto) % [place] % (Auto) % Eos % (Auto) % Baso % (Auto) % Neut # (Auto) (1.8-7.7) 10^3/u L Lymph # (Auto) (0.8-4.8) 10^3/u L [place] # (Auto) (0.2-0.9) 10^3/u L Eos # (Auto) (0.0-0.8) 10^3/u L Baso # (Auto) (0.0-0.1) 10^3/u L Nucleated RBC % (a uto) % Nucleated RBCs # /100WBC D-Dimer (0-0.59) ug/mIFE U Sodium (136-145) mmol/L Potassium (3.5-5.1) mmol/L Chloride (98-107) mmol/L Carbon Dioxide (22-29) mmol/L Anion Gap (5-19) BUN (8-23) mg/dL Creatinine (0.5-0.9) mg/dL GFR Calculation Glucose (65-115) mg/dL Calculated Osmolal ity (285-295) mOsm/k g Calcium (8.5-10.5) mg/dL Total Bilirubin (0.15-1.2) mg/dL AST (0-32) U/L ALT (0-33) U/L Alkaline Phosphata se (35-105) IU/L Total Protein (6.6-8.7) g/dL Albumin (3.5-5.2) g/dL Globulin (1.3-4.6) g/dL SARS-CoV-2 Ag (Rap id) Negative (Negative) Imaging Data^: CXR: Attestation: I personally reviewed and interpreted this imaging study as follows: Radiologist's impression: [address] [place] [address] XRay Report Signed Patient: Michelle Lopez Unit #: [id number] : 1945 Age/Sex: 75 / F ADM Date: 03/28/20 Loc: ER Room/Bed: Attending Dr: Ordering Provider/Ordering MD: Renan Ochoa DO Date of Service: 03/28/20 Procedure(s): XR chest 1V portable [id number] Accession Number(s): [id number] Report Number: [id number] PROCEDURE INFORMATION: Exam: XR Chest, 1 View Exam date and time: 03/28/2020 4:30 PM Age: 75 years old Clinical indication: Cough and shortness of breath; Prior surgery; Surgery type: Breast; Additional info: Dyspnea/cough TECHNIQUE: Imaging protocol: XR of the chest Views: 1 view. COMPARISON: CR XR chest 1V portable [id number] 02/16/2020 7:57 PM FINDINGS: Lungs: Emphysema. Mild basilar and left mid lung atelectasis or scarring. The lungs are otherwise clear. Pleural space: Unremarkable. No pleural effusion. No pneumothorax. Heart/Mediastinum: Unremarkable. No cardiomegaly. Bones/joints: Unremarkable. XR/XR chest 1V portable [id number] IMPRESSION: No acute findings. CT Chest: Radiologist's impression: [place] [address] CT Scan Report Signed Patient: Michelle Lopez Unit #: [id number] : 1945 Age/Sex: 75 / F ADM Date: 03/28/20 Loc: ER Room/Bed: Attending Dr: Ordering Provider/Ordering MD: Arcadio Parsons MD Date of Service: 03/28/20 Procedure(s): CT angio chest PE protcl [id number] Accession Number(s): [id number] Report Number: [id number] PROCEDURE INFORMATION: Exam: CT Angiography Chest With Contrast Exam date and time: 03/28/2020 5:59 PM Age: 75 years old Clinical indication: Shortness of breath; Additional info: SOB TECHNIQUE: Imaging protocol: Computed tomographic angiography of the chest with intravenous contrast. 3D rendering (Not supervised by radiologist): MIP and/or 3D reconstructed images were created by the technologist. Radiation optimization: All CT scans at this facility use at least one of these dose optimization techniques: automated exposure control; mA and/or kV adjustment per patient size (includes targeted exams where dose is matched to clinical indication); or iterative reconstruction. Contrast material: [id number]; Contrast volume: 45 ml; Contrast route: INTRAVENOUS (IV); COMPARISON: CR XR chest 1V portable [id number] 03/28/2020 4:32 PM RADIATION DOSE METRICS: Total DLP (mGy-cm): 438.78 FINDINGS: Pulmonary arteries: Normal. No pulmonary emboli. Aorta: Unremarkable. No aortic aneurysm. No aortic dissection. Lungs: Emphysema. Scarring in the lung apices. Scattered subpleural atelectasis and scarring in both lung bases Pleural space: Unremarkable. No pneumothorax. No pleural effusion. Heart: Coronary artery calcifications. Small pericardial effusion. Lymph nodes: Unremarkable. No enlarged lymph nodes. Gallbladder and bile ducts: Mildly dilated bile ducts which partially visualized. Kidneys and ureters: Atrophic right kidney. Cortical defect with dystrophic calcification in the posterior left kidney. Bones/joints: Mild scoliosis. No compression fracture. Soft tissues: Irregular density with coarse calcifications in the superior right breast is most likely postsurgical change. CT/CT angio chest PE protcl [id number] IMPRESSION: 1. No evidence for pulmonary embolus. 2. Emphysema with scattered atelectasis and scarring. 3. Small pericardial effusion. 4. Mildly dilated bile ducts which are incompletely visualized. This could represent reservoir effect from prior cholecystectomy. Correlation with prior surgical history recommended. Radiation Dose CTDIVOL = (mGy): DLP = 438.78 (mGy-cm) Discharge Plan Discharge Patient Disposition: Home Clinical Impression: COPD (chronic obstructive pulmonary disease) Qualifiers: COPD type: unspecified COPD Qualified Code(s): J44.9 - Chronic obstructive pulmonary disease, unspecified Condition: Stable Prescriptions: New prednisone 50 mg tablet 50 mg PO DAILY Qty: 5 RF: 0 No Action Advair Diskus 250-50 mcg/dose blister with device 1 inh INHALATION BID RF: 0 tizanidine 2 mg tablet 2 mg PO BID PRN (Reason: MUSCLE SPASMS) RF: 0 pravastatin 40 mg tablet 40 mg PO DAILY RF: 0 albuterol sulfate 1.25 mg/3 mL solution for nebulization See Rx Instructions .ROUTE .COMPLEX RF: 0 Synthroid 75 mcg tablet 75 mcg PO BID RF: 0 alprazolam 0.5 mg tablet 0.25 mg PO DAILY PRN (Reason: Anxiety) RF: 0 trazodone 100 mg tablet 100 mg PO BID RF: 0 hydrocodone-acetaminophen 7.5-325 mg tablet 1 tab PO BID PRN (Reason: Pain) RF: 0 penicillin V potassium 500 mg tablet 500 mg PO Q6H RF: 0 prednisone 50 mg tablet 50 mg PO DAILY Qty: 5 RF: 0 azelastine-fluticasone 137-50 mcg/spray spray,non-aerosol 1 spray INTRANASAL BID Qty: 23 RF: 0 prednisone 50 mg tablet 50 mg PO DAILY Qty: 5 RF: 0 Discharge Orders: Discharge Order (Routine); Ordered 03/28/20 Ordered By: Arcadio Parsons Referrals: Koby Martinez NP [Primary Care Provider] - 1-3 days Discharge Diet: Advance as tolerated Discharge Activity: Resume usual activity Patient Instructions: Chronic Obstructive Pulmonary Disease (ED) Coding Level of Care Code ED Food Porter for Mari Fwd Exam Comprehensive
[2020-03-28 17:00] VITALS: BP 126/64; PULSE 56; RESP 18; O2SAT 100
[2020-03-28 17:12] LABS: Basophils % 0.6 %; Eosinophils # 0.1 10^3/uL (0.0-0.8); Eosinophils % 1.4 %; Hematocrit 35.7 % (37.0-47.0); Hemoglobin 10.9 g/dL (11.5-15.3); Lymphocytes # 1.4 10^3/uL (0.8-4.8); Lymphocytes % 18.6 %; Mean Corpuscular HGB Conc 30.5 g/dL (30.0-36.0); Mean Corpuscular Hemoglobin 31.1 pg (28.0-34.0); Mean Corpuscular Volume 101.7 fL (81-99); Mean Platelet Volume 10.4 fL (7.4-10.4); Monocytes # 0.7 10^3/uL (0.2-0.9); Monocytes % 10.1 %; Neutrophils # 5.02 10^3/uL (1.8-7.7); Nucleated Red Blood Cells % 0 %; Platelet Count 159 10^3/cmm (130-400); Red Blood Count 3.51 10^6/uL (4.1-5.3); Red Cell Distribution Width 15.1 % (12.1-15.1); White Blood Count 7.3 10^3/uL (4.0-10.0)
[2020-03-28 17:24] LABS: D Dimer 1.74 ug/mIFEU (0-0.59)
[2020-03-28 17:26] LABS: Alanine Aminotransferase 11 U/L (0-33); Albumin Level 3.6 g/dL (3.5-5.2); Alkaline Phosphatase 61 IU/L (35-105); Anion Gap 11.8 (5-19); Aspartate Amino Transferase 19 U/L (0-32); Blood Urea Nitrogen 23 mg/dL (8-23); Calcium 8.9 mg/dL (8.5-10.5); Carbon Dioxide 27 mmol/L (22-29); Chloride 106 mmol/L (98-107); Globulin 2.7 g/dL (1.3-4.6); Glucose 112 mg/dL (65-115); Osmolality Calculated 296 mOsm/kg (285-295); Potassium 3.8 mmol/L (3.5-5.1); Sodium 141 mmol/L (136-145); Total Bilirubin 0.3 mg/dL (0.15-1.2); Total Protein 6.3 g/dL (6.6-8.7)
--- NOTE | 2020-03-28 17:57 | CTR_ITS ---
PROCEDURE INFORMATION: Exam: CT Angiography Chest With Contrast Exam date and time: 03/28/2020 5:59 PM Age: 75 years old Clinical indication: Shortness of breath; Additional info: SOB TECHNIQUE: Imaging protocol: Computed tomographic angiography of the chest with intravenous contrast. 3D rendering (Not supervised by radiologist): MIP and/or 3D reconstructed images were created by the technologist. Radiation optimization: All CT scans at this facility use at least one of these dose optimization techniques: automated exposure control; mA and/or kV adjustment per patient size (includes targeted exams where dose is matched to clinical indication); or iterative reconstruction. Contrast material: [id number]; Contrast volume: 45 ml; Contrast route: INTRAVENOUS (IV); COMPARISON: CR XR chest 1V portable [id number] 03/28/2020 4:32 PM RADIATION DOSE METRICS: Total DLP (mGy-cm): 438.78 FINDINGS: Pulmonary arteries: Normal. No pulmonary emboli. Aorta: Unremarkable. No aortic aneurysm. No aortic dissection. Lungs: Emphysema. Scarring in the lung apices. Scattered subpleural atelectasis and scarring in both lung bases Pleural space: Unremarkable. No pneumothorax. No pleural effusion. Heart: Coronary artery calcifications. Small pericardial effusion. Lymph nodes: Unremarkable. No enlarged lymph nodes. Gallbladder and bile ducts: Mildly dilated bile ducts which partially visualized. Kidneys and ureters: Atrophic right kidney. Cortical defect with dystrophic calcification in the posterior left kidney. Bones/joints: Mild scoliosis. No compression fracture. Soft tissues: Irregular density with coarse calcifications in the superior right breast is most likely postsurgical change. CT/CT angio chest PE protcl [id number] IMPRESSION: 1. No evidence for pulmonary embolus. 2. Emphysema with scattered atelectasis and scarring. 3. Small pericardial effusion. 4. Mildly dilated bile ducts which are incompletely visualized. This could represent reservoir effect from prior cholecystectomy. Correlation with prior surgical history recommended. Radiation Dose CTDIVOL = (mGy): DLP = 438.78 (mGy-cm)
[2020-03-28 18:00] VITALS: PULSE 55; RESP 18; O2SAT 100
[2020-03-28 18:08] LABS: SARS Covid-2 Antigen Negative (Negative)
[2020-03-28 18:35] VITALS: PULSE 55; RESP 22; O2SAT 100
[2020-03-28] MEDS: iodixanol 320 mg/mL 100mL Btl IV (19:15)
[2020-03-28 19:53] VITALS: BP 156/90; PULSE 68; RESP 20; O2SAT 100
[2020-04-01 06:43] LABS: Coronavirus Lab Test PTC Negative
== END 2020-03-28 19:54 | disposition home or self-care (01) ==
PROVIDERS: Family Medicine; Emergency Provider Emergency Medicine; PCP Nurse Practitioner Family
DX: J44.9 Chronic obstructive pulmonary disease, unspecified (principal); E78.5 Hyperlipidemia, unspecified
CPT/HCPCS: 12345; 71045; 71275; 80053; 85025; 85378; 87426; 87635; 93005; 99282; 99283; Q9967

== ENCOUNTER 2020-05-25 14:05 | Inpatient (IN) | payer MEDICARE, SELFPAY ==
[2020-05-25] VITALS (7 sets, daily range): BP systolic 132–167; BP diastolic 75–105; PULSE 56–82; RESP 14–19; TEMP 36.7–36.9; O2SAT 94–100; BMI 20.1
--- NOTE | 2020-05-25 14:31 | CTR_ITS ---
PROCEDURE INFORMATION: Exam: CT Abdomen And Pelvis Without Contrast Exam date and time: 05/25/2020 2:43 PM Age: 75 years old Clinical indication: Prior surgery; Surgery date: 6+ months; Surgery type: R neph; Patient HX: C/O constipation TECHNIQUE: Imaging protocol: Computed tomography of the abdomen and pelvis without contrast. Radiation optimization: All CT scans at this facility use at least one of these dose optimization techniques: automated exposure control; mA and/or kV adjustment per patient size (includes targeted exams where dose is matched to clinical indication); or iterative reconstruction. COMPARISON: CR Hip 2-3v LEFT wwo Pelv* [id number] 08/16/2017 3:35 PM RADIATION DOSE METRICS: Total DLP (mGy-cm): 274.74 FINDINGS: Lungs: There are multiple noncalcified nodular densities which appear to be in a tree in bud configuration in the bilateral lungs most consistent with sequela of atypical infection. Largest noncalcified nodular density measures 4.7 mm. Liver: Normal. No mass. Gallbladder and bile ducts: The gallbladder has been removed. Pancreas: Normal. No ductal dilation. Spleen: Normal. No splenomegaly. Adrenal glands: Normal. No mass. Kidneys and ureters: Atrophic right kidney. There is scarring with underlying parenchymal calcification in the left kidney. Stomach and bowel: Colonic constipation is present. There are multiple colonic diverticula. Associated mucosal thickening and mesenteric inflammatory stranding is present at the junction of the distal descending and sigmoid colon consistent with diverticulitis. There is a 2.2 by 1.9 cm adjacent fluid collection with mild internal complexity raising concern for a developing abscess formation. Appendix: No evidence of appendicitis. Intraperitoneal space: Unremarkable. No free air. No significant fluid collection. Vasculature: Multivessel atherosclerotic disease which involves the coronary arteries. Lymph nodes: Unremarkable. No enlarged lymph nodes. Urinary bladder: Unremarkable as visualized. Reproductive: The uterus is not visualized, consistent with hysterectomy. Bones/joints: Chronic left L5 pars defect. There are degenerative changes in the visualized spine. There is a transitional lumbosacral vertebra designated S1 for the purposes of this study. Soft tissues: There are postoperative changes in the ventral abdominal wall. CT/CT abdomen pelvis wo con [id number] IMPRESSION: 1. Findings consistent with acute diverticulitis. An adjacent 2.2 cm fluid collection with internal complexity raises concern for a developing abscess formation. 2. Colonic constipation is present. 3. There are multiple noncalcified nodular densities which appear to be in a tree in bud configuration in the bilateral lungs most consistent with sequela of atypical infection. Largest noncalcified nodular density measures 4.7 mm. For patients at low risk (minimal or absent history of smoking and of other known risk factors), no routine follow-up is indicated. For patients at high risk (history of smoking or of other known risk factors), consider optional CT Chest at 12 months. (Reference: Cathleen) REFERENCES: Cathleen Castillo, et al. Guidelines for Management of Incidental Pulmonary Nodules Detected on CT Images: From the Fleischner Society 2017. Radiology. 2017;284(1):228-243. Radiation Dose CTDIVOL = (mGy): DLP = 274.74 (mGy-cm)
--- NOTE | 2020-05-25 14:31 | XRR_ITS ---
PROCEDURE INFORMATION: Exam: XR Chest, 2 Views Exam date and time: 05/25/2020 2:38 PM Age: 75 years old Clinical indication: Shortness of breath; Patient HX: HX of copd C/O SOB TECHNIQUE: Imaging protocol: XR of the chest Views: 2 views. COMPARISON: CR XR chest 1V portable [id number] 03/28/2020 4:32 PM FINDINGS: Lungs: Unremarkable. No consolidation. Pleural space: Unremarkable. No pleural effusion. No pneumothorax. Heart/Mediastinum: Unremarkable. No cardiomegaly. Bones/joints: Generalized osteopenia. There are degenerative changes in the thoracic spine and across the acromioclavicular joints. Soft tissues: COPD morphology of the chest. XR/XR chest 2V* [id number] IMPRESSION: COPD morphology of the chest. No evidence for acute cardiopulmonary disease.
--- NOTE | 2020-05-25 14:52 | ED_ITS ---
HPI - General Adult General: Chief complaint: General Medical Stated complaint: CONSTIPATION Time Seen by Provider: 05/25/20 14:28 Source: patient Mode of arrival: ambulatory Limitations: no limitations History of Present Illness: HPI narrative: The patient is a 75 year old female with a history of COPD, hypothyroidism, who presents to the ED with constipation of a weeks duration. She says normal for her is every other day. She complains of pain in her LLQ and suprapubic pain. No fever, no nausea or vomiting. No fever. She also believes her COPD is flaring up and she is coughing more than usual with some shortness of breath Onset (ago): week(s) (1) Associated symptoms: Deny dyspnea, headache(s), nausea, rash, palpitations or vomiting Review of Systems General: Reports: 10 or more systems reviewed and unremarkable except in HPI and below Const: Denies: fever(s), chills or body aches Eyes: Denies: change in vision or blurry vision ENMT: Denies: throat pain, enlarged tonsils, odynophagia, hoarseness, mouth pain or swelling of lips/tongue Card: Denies: palpitations, irregular heart rhythm, edema or swelling of feet/ankles Resp: Denies: dyspnea, productive cough or non-productive cough GI: Reports: abdominal pain and constipation; Denies: nausea or vomiting : Denies: flank pain, difficulty voiding, dysuria, urinary frequency, urinary urgency or urinary hesitancy Musc: Denies: neck pain, back pain or extremity swelling Skin/Breast: Denies: rash, pruritus or erythema Neuro: Denies: headache(s), numbness in extremities or weakness in extremities Endo: Denies: polyuria, polydipsia or tired all the time [facility] PFSH: Medical History Chronic back pain COPD (chronic obstructive pulmonary disease) Hyperlipidemia Physical Exam Const: COMMON NORMALS: no acute distress, average body habitus, patient oriented x3, no limitations, healthy appearing, alert and well nourished HENMT: COMMON NORMALS: normocephalic, atraumatic and moist oral mucous membranes HEAD & SCALP: normocephalic and atraumatic Neck/C-Spine: COMMON NORMALS: no meningeal signs and no JVD Resp: COMMON NORMALS: normal respiratory effort, No retractions, No use of accessory muscles, clear to auscultation bilaterally and percussion normal AUSCULTATION: clear to auscultation bilaterally PERCUSSION: percussion normal Cardio: COMMON NORMALS: no JVD, regular rate, regular rhythm, S1 normal heart sound present, S2 normal heart sound present, No gallops present (Cardio), No clicks present (Cardio), No murmurs present (Cardio), No rub (Cardio) and Peripheral pulses 2+ throughout RATE: regular rate RHYTHM: regular rhythm HEART SOUNDS: S1 normal heart sound present and S2 normal heart sound present PERIPHERAL PULSES: Peripheral pulses 2+ throughout GI: COMMON NORMALS: Normal to inspection, nondistended, normoactive bowel sounds present, Soft to palpation, No hepatosplenomegaly present, no masses and no bruits PALPATION: Yes Soft to palpation, Yes Tenderness to palpation present (GI) Details: LLQ and other (suprapubic) and Yes No hepatosplenomegaly present Extremity: COMMON NORMALS: normal to inspection, full ROM, capillary refill normal, no calf tenderness and no pedal edema Neuro: COMMON NORMALS: patient oriented x3 SENSORIUM/ORIENTATION: Yes alert MENINGEAL SIGNS: Yes no meningeal signs Skin: COMMON NORMALS: no rashes or lesions noted, no wounds, turgor normal, no jaundice, no petechiae and no mottling GENERAL SKIN EXAM: no rashes or lesions noted and turgor normal Course Reevaluation(s): Reevaluation #1: Discussed her lab and imaging findings with her. She has acute diverticulitis and a possible abscess. Advised that she receive IV antibiotics and admission to the hospital. She voiced understanding and is in agreement with the plan. Time: 16:07 Consultations: Consultation #1: Discussed the patient with Dr. Quintanilla, hospitalist. He kindly accepted the patient to his service. Time: 16:10 Vital Signs: Vital signs: Vital Signs Temperature 98.2 F 05/25/20 18:34 Pulse Rate 56 L 05/25/20 18:34 Respiratory Rate 18 05/25/20 18:34 Blood Pressure 150/77 05/25/20 18:34 Pulse Oximetry 100 05/25/20 18:34 MDM - General Adult MDM Narrative: Medical decision making narrative: 75-year-old female patient who came to the emergency department with abdominal pain and constipation. Evaluation shows she has acute diverticulitis with a small abscess formation. Concerned about a COPD exacerbation. She is admitted to the hospital for further evaluation and management including IV antibiotics. Medical Records: Attestation: I reviewed the patient's medical records. Lab Data: Attestation: I reviewed the patient's lab results. Labs: Lab Results 05/25/20 05/25/20 05/25/20 Range/Units 14:40 14:40 15:05 WBC 11.6 H (4.0-10.0) 10^3/ uL RBC 3.62 L (4.1-5.3) 10^6/u L Hgb 11.3 L (11.5-15.3) g/dL Hct 36.9 L (37.0-47.0) % MCV 101.9 H (81-99) fL MCH 31.2 (28.0-34.0) pg MCHC 30.6 (30.0-36.0) g/dL RDW 13.7 (12.1-15.1) % Plt Count 276 (130-400) 10^3/c mm MPV 10.1 (7.4-10.4) fL Neut % (Auto) 80.3 % Lymph % (Auto) 12.1 % Nelson % (Auto) 6.6 % Eos % (Auto) 0.4 % Baso % (Auto) 0.3 % Neut # (Auto) 9.31 H (1.8-7.7) 10^3/u L Lymph # (Auto) 1.4 (0.8-4.8) 10^3/u L Nelson # (Auto) 0.8 (0.2-0.9) 10^3/u L Eos # (Auto) 0.1 (0.0-0.8) 10^3/u L Baso # (Auto) 0.0 (0.0-0.1) 10^3/u L Nucleated RBC % (a uto) 0 % Nucleated RBCs # 0.0 /100WBC Sodium 137 (136-145) mmol/L Potassium 3.9 (3.5-5.1) mmol/L Chloride 100 (98-107) mmol/L Carbon Dioxide 29 (22-29) mmol/L Anion Gap 11.9 (5-19) BUN 22 (8-23) mg/dL Creatinine 1.1 H (0.5-0.9) mg/dL GFR Calculation Not Reportable Glucose 142 H (65-115) mg/dL Calculated Osmolal ity 290 (285-295) mOsm/k g Calcium 9.2 (8.5-10.5) mg/dL Total Bilirubin 0.3 (0.15-1.2) mg/dL AST 13 (0-32) U/L ALT 6 (0-33) U/L Alkaline Phosphata se 62 (35-105) IU/L C-Reactive Protein 119.0 H (0.0-4.9) mg/L Total Protein 9.1 H (6.6-8.7) g/dL Albumin 3.7 (3.5-5.2) g/dL Globulin 5.4 H (1.3-4.6) g/dL Lipase 35 (13-60) U/L Urine Color (Yellow) Urine Appearance (CLEAR) Urine pH (5-7) Ur Specific Gravit y (1.005-1.030) Urine Protein (Negative) Urine Glucose (UA) (Normal) Urine Ketones (Negative) Urine Blood (Negative) Urine Nitrate (Negative) Urine Bilirubin (Negative) Urine Urobilinogen (Negative) mg/dL Ur Leukocyte Alondra ase (Negative) Urine RBC (0-2) /hpf Urine WBC (0-5) /hpf Ur Squamous Epith Cells (0-5) /hpf Amorphous Sediment Urine Bacteria (NONE) /hpf Hyaline Casts /lpf Urine Mucus /hpf Influenza Type A A g Negative (Negative) Influenza Type B A g Negative (Negative) SARS-CoV-2 Ag (Rap id) (Negative) 05/25/20 05/25/20 Range/Units 15:05 15:56 WBC (4.0-10.0) 10^3/ uL RBC (4.1-5.3) 10^6/u L Hgb (11.5-15.3) g/dL Hct (37.0-47.0) % MCV (81-99) fL MCH (28.0-34.0) pg MCHC (30.0-36.0) g/dL RDW (12.1-15.1) % Plt Count (130-400) 10^3/c mm MPV (7.4-10.4) fL Neut % (Auto) % Lymph % (Auto) % Nelson % (Auto) % Eos % (Auto) % Baso % (Auto) % Neut # (Auto) (1.8-7.7) 10^3/u L Lymph # (Auto) (0.8-4.8) 10^3/u L Nelson # (Auto) (0.2-0.9) 10^3/u L Eos # (Auto) (0.0-0.8) 10^3/u L Baso # (Auto) (0.0-0.1) 10^3/u L Nucleated RBC % (a uto) % Nucleated RBCs # /100WBC Sodium (136-145) mmol/L Potassium (3.5-5.1) mmol/L Chloride (98-107) mmol/L Carbon Dioxide (22-29) mmol/L Anion Gap (5-19) BUN (8-23) mg/dL Creatinine (0.5-0.9) mg/dL GFR Calculation Glucose (65-115) mg/dL Calculated Osmolal ity (285-295) mOsm/k g Calcium (8.5-10.5) mg/dL Total Bilirubin (0.15-1.2) mg/dL AST (0-32) U/L ALT (0-33) U/L Alkaline Phosphata se (35-105) IU/L C-Reactive Protein (0.0-4.9) mg/L Total Protein (6.6-8.7) g/dL Albumin (3.5-5.2) g/dL Globulin (1.3-4.6) g/dL Lipase (13-60) U/L Urine Color Yellow (Yellow) Urine Appearance Clear (CLEAR) Urine pH 5 (5-7) Ur Specific Gravit y 1.020 (1.005-1.030) Urine Protein Trace (Negative) Urine Glucose (UA) Norm (Normal) Urine Ketones Negative (Negative) Urine Blood Neg (Negative) Urine Nitrate Negative (Negative) Urine Bilirubin 1+ H (Negative) Urine Urobilinogen Norm (Negative) mg/dL Ur Leukocyte Alondra ase Negative (Negative) Urine RBC None (0-2) /hpf Urine WBC Rare (0-5) /hpf Ur Squamous Epith Cells 0-4 H (0-5) /hpf Amorphous Sediment Not Reportable Urine Bacteria Trace (NONE) /hpf Hyaline Casts 0-4 H /lpf Urine Mucus 2+ /hpf Influenza Type A A g (Negative) Influenza Type B A g (Negative) SARS-CoV-2 Ag (Rap id) Negative (Negative) Imaging Data^: CT Abd/Pel: Attestation: I personally reviewed and interpreted this imaging study as follows: Radiologist's impression: [facility] [address] [address] Scan Report Signed with Addenda Patient: Colette Lopez AUnit #: [id number] : [id number]#:[id number] Age/Sex: 75 / FADM Date: 05/25/20 Loc: [facility]/Bed: Attending Dr: Ordering Provider/Ordering MD: Eric Shelton MD, [facility] Date of Service: 05/25/20 Procedure(s): CT abdomen pelvis wo con [id number] Accession Number(s): [id number] Report Number: [id number]/CT abdomen pelvis wo con [id number] CRITICAL RESULT: The study was personally discussed on the telephone with ERIC Arteaga on 05/25/2020 4:00 PM COMPUTER SCIENCE PROFESSOR. The results were understood and acknowledged. Radiation Dose CTDIVOL = (mGy): DLP = 274.74 (mGy-cm) Addendum Dictated By: Ana Irene MD Addendum Signed By: Ana Irene MDSigned Date/Time:05/25/20 1601 Addendum Cosigned By: PROCEDURE INFORMATION: Exam: CT Abdomen And Pelvis Without Contrast Exam date and time: 05/25/2020 2:43 PM Age: 75 years old Clinical indication: Prior surgery; Surgery date: 6+ months; Surgery type: R neph; Patient HX: C/O constipation TECHNIQUE: Imaging protocol: Computed tomography of the abdomen and pelvis without contrast. Radiation optimization: All CT scans at this facility use at least one of these dose optimization techniques: automated exposure control; mA and/or kV adjustment per patient size (includes targeted exams where dose is matched to clinical indication); or iterative reconstruction. COMPARISON: CR Hip 2-3v LEFT wwo Pelv* [id number] 08/16/2017 3:35 PM RADIATION DOSE METRICS: Total DLP (mGy-cm): 274.74 FINDINGS: Lungs: There are multiple noncalcified nodular densities which appear to be in a tree in bud configuration in the bilateral lungs most consistent with sequela of atypical infection. Largest noncalcified nodular density measures 4.7 mm. Liver: Normal. No mass. Gallbladder and bile ducts: The gallbladder has been removed. Pancreas: Normal. No ductal dilation. Spleen: Normal. No splenomegaly. Adrenal glands: Normal. No mass. Kidneys and ureters: Atrophic right kidney. There is scarring with underlying parenchymal calcification in the left kidney. Stomach and bowel: Colonic constipation is present. There are multiple colonic diverticula. Associated mucosal thickening and mesenteric inflammatory stranding is present at the junction of the distal descending and sigmoid colon consistent with diverticulitis. There is a 2.2 by 1.9 cm adjacent fluid collection with mild internal complexity raising concern for a developing abscess formation. Appendix: No evidence of appendicitis. Intraperitoneal space: Unremarkable. No free air. No significant fluid collection. Vasculature: Multivessel atherosclerotic disease which involves the coronary arteries. Lymph nodes: Unremarkable. No enlarged lymph nodes. Urinary bladder: Unremarkable as visualized. Reproductive: The uterus is not visualized, consistent with hysterectomy. Bones/joints: Chronic left L5 pars defect. There are degenerative changes in the visualized spine. There is a transitional lumbosacral vertebra designated S1 for the purposes of this study. Soft tissues: There are postoperative changes in the ventral abdominal wall. CT/CT abdomen pelvis wo con [id number] IMPRESSION: 1. Findings consistent with acute diverticulitis. An adjacent 2.2 cm fluid collection with internal complexity raises concern for a developing abscess formation. 2. Colonic constipation is present. 3. There are multiple noncalcified nodular densities which appear to be in a tree in bud configuration in the bilateral lungs most consistent with sequela of atypical infection. Largest noncalcified nodular density measures 4.7 mm. For patients at low risk (minimal or absent history of smoking and of other known risk factors), no routine follow-up is indicated. For patients at high risk (history of smoking or of other known risk factors), consider optional CT Chest at 12 months. (Reference: Cathleen) REFERENCES: Cathleen Castillo, et al. Guidelines for Management of Incidental Pulmonary Nodules Detected on CT Images: From the Fleischner Society 2017. Radiology. 2017;284(1):228-243. Radiation Dose CTDIVOL = (mGy): DLP = 274.74 (mGy-cm) Dictated By:Ana Irene MD Signed By:Ana Irene MDSigned Date/Time:05/25/201551 DD/ 51 CXR: Attestation: I personally reviewed and interpreted this imaging study as follows: Radiologist's impression: [address] [address] XRay Report Signed Patient: Colette Lopez #: [id number] : [id number]#:[id number] Age/Sex: 75 / FADM Date: 05/25/20 Loc: [facility]/Bed: Attending Dr: Ordering Provider/Ordering MD: Eric Shelton MD, [facility] [place] Date of Service: 05/25/20 Procedure(s): XR chest 2V* [id number] Accession Number(s): [id number] Report Number: [id number] PROCEDURE INFORMATION: Exam: XR Chest, 2 Views Exam date and time: 05/25/2020 2:38 PM Age: 75 years old Clinical indication: Shortness of breath; Patient HX: HX of copd C/O SOB TECHNIQUE: Imaging protocol: XR of the chest Views: 2 views. COMPARISON: CR XR chest 1V portable [id number] 03/28/2020 4:32 PM FINDINGS: Lungs: Unremarkable. No consolidation. Pleural space: Unremarkable. No pleural effusion. No pneumothorax. Heart/Mediastinum: Unremarkable. No cardiomegaly. Bones/joints: Generalized osteopenia. There are degenerative changes in the thoracic spine and across the acromioclavicular joints. Soft tissues: COPD morphology of the chest. XR/XR chest 2V* [id number] IMPRESSION: COPD morphology of the chest. No evidence for acute cardiopulmonary disease. 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
[2020-05-25 14:57] LABS: Basophils % 0.3 %; Eosinophils # 0.1 10^3/uL (0.0-0.8); Eosinophils % 0.4 %; Hematocrit 36.9 % (37.0-47.0); Hemoglobin 11.3 g/dL (11.5-15.3); Lymphocytes # 1.4 10^3/uL (0.8-4.8); Lymphocytes % 12.1 %; Mean Corpuscular HGB Conc 30.6 g/dL (30.0-36.0); Mean Corpuscular Hemoglobin 31.2 pg (28.0-34.0); Mean Corpuscular Volume 101.9 fL (81-99); Mean Platelet Volume 10.1 fL (7.4-10.4); Monocytes # 0.8 10^3/uL (0.2-0.9); Monocytes % 6.6 %; Neutrophils # 9.31 10^3/uL (1.8-7.7); Neutrophils % 80.3 %; Nucleated Red Blood Cells % 0 %; Platelet Count 276 10^3/cmm (130-400); Red Blood Count 3.62 10^6/uL (4.1-5.3); Red Cell Distribution Width 13.7 % (12.1-15.1); White Blood Count 11.6 10^3/uL (4.0-10.0)
[2020-05-25 15:25] LABS: Alanine Aminotransferase 6 U/L (0-33); Albumin Level 3.7 g/dL (3.5-5.2); Alkaline Phosphatase 62 IU/L (35-105); Anion Gap 11.9 (5-19); Aspartate Amino Transferase 13 U/L (0-32); Blood Urea Nitrogen 22 mg/dL (8-23); Calcium 9.2 mg/dL (8.5-10.5); Carbon Dioxide 29 mmol/L (22-29); Chloride 100 mmol/L (98-107); Globulin 5.4 g/dL (1.3-4.6); Glucose 142 mg/dL (65-115); Lipase 35 U/L (13-60); Osmolality Calculated 290 mOsm/kg (285-295); Potassium 3.9 mmol/L (3.5-5.1); Sodium 137 mmol/L (136-145); Total Bilirubin 0.3 mg/dL (0.15-1.2); Total Protein 9.1 g/dL (6.6-8.7)
[2020-05-25 15:44] LABS: Influenza A by IFA Negative (Negative); Influenza B by IFA Negative (Negative); SARS Covid-2 Antigen Negative (Negative)
[2020-05-25] MEDS: ciprofloxacin 400 MG/200 ML PREMIX 200 MG IV (16:08)
[2020-05-25 16:30] LABS: Urine Appearance Clear (CLEAR); Urine Color Yellow (Yellow); pH Urine 5 (5-7)
[2020-05-25 16:31] LABS: Add Urine Microscopic? YES; Bilirubin Urine 1+ (Negative); Blood Urine Neg (Negative); Glucose Urine UA Norm (Normal); Ketones Urine Negative (Negative); Leukocyte Esterase Urine Negative (Negative); Nitrate Urine Negative (Negative); Protein Urine Trace (Negative); Urobilinogen Urine Norm (Negative)
[2020-05-25 16:32] LABS: Add Urine Culture? No; Bacteria Urine TRACE /hpf; Hyaline Casts Urine 0-4 /lpf; Mucus Urine 2+ /hpf; Squamous Epithelial Cell Urine 0-4 /hpf (0-5); WBC Urine RARE /hpf (0-5)
[2020-05-25] MEDS: metroNIDAZOLE IV 500 MG/100 ML PREMIX 100 MG IV (17:17)
--- NOTE | 2020-05-25 17:22 | PC.NURSE ---
report called to sonido hough
--- NOTE | 2020-05-25 18:18 | P.HP_ITS ---
Providers/Chief Complaint Admitting Physician: Ema Quintanilla Primary Care Provider: Koby Martinez NP Chief Complaint: CONSTIPATION History of Present Illness 75 year old female with a past medical history significant for anxiety, depression, arthritis, hypertension, hypercholesterolemia, invasive ductal carcinoma right breast in 2010, hypothyroidism, tobacco abuse and O2 dependent chronic obstructive pulmonary disease on 3 L via nasal cannula who is presenting to ER with Left lower quadrant abdominal pain. Patient stated the symptoms have been going on for the past 3 days. Pain has been fairly constant. Denied nausea however chest had a poor appetite. In addition to this she stated her COPD has been worsening as well. However this has been mild and primary with exertion, She denies fever, chills, nausea vomiting. Denies chest pain. Laboratory workup on arrival showed a WBC of 11.6, hemoglobin of 11, hematocrit of 36.9 and platelet count of 276. sodium 137, potassium 3.9, chloride 100, bicarb 29, BUN 22 and creatinine of 1.1. Glucose of 142. CRP of 119. lipase of 35. Urinalysis was negative. Influenza A/B and COVID-19 antigen were negative. Imaging studies included chest x-ray which did not show any acute cardiopulmonary abnormalities. CT abdomen pelvis was then performed which showed findings consistent with acute diverticulitis with an adjacent 2.2 cm fluid collection with internal complexity raising the concern for possible developing abscess formation. Additionally was found to have colonic constipation. also was noted to have multiple noncalcified nodular densities which appear to be in a tree-in-bud configuration bilateral lungs. Patient was given ciprofloxacin 400 mg IV x1, metronidazole 500 mg IV x1 and DuoNeb treatment. Of note initial vital signs on arrival showed a blood pressure 167/86, heart rate of 57, respiratory rate 15, pulse ox of 100 with a temperature of 98.2?. Review of Systems General: Reports: 10 or more systems reviewed and unremarkable except in HPI and below Medications/Allergies Home Medications Medication Instructions Recorded Confirmed Last Taken Type albuterol sulfate See Rx Instructions .ROUTE .COMPLEX 01/17/20 05/25/20 01/17/20 History hydrocodone-acetaminophen 1 tab PO TID@ PRN 01/17/20 05/25/20 05/25/20 09:00 History levothyroxine [Synthroid] 37.5 mcg PO DAILY@01/17/20 05/25/20 05/25/20 History pravastatin 40 mg PO DAILY@17 01/17/20 05/25/20 05/24/20 History trazodone 200 mg PO DAILY@21 01/17/20 05/25/20 05/24/20 History albuterol sulfate [ProAir HFA] 1 - 2 puff INHALATION Q4H PRN 05/25/20 05/25/20 Unknown History azelastine-fluticasone 1 spray INTRANASAL BID PRN 05/25/20 05/25/20 Unknown History mbzuecpqrhv-hyulitmuy-omkeaqxz 1 inh INHALATION DAILY 05/25/20 05/25/20 Unknown History [Trelegy Ellipta] ondansetron HCl 4 mg PO Q8H PRN 05/25/20 05/25/20 Unknown History paroxetine HCl See Rx Instructions .ROUTE .COMPLEX 05/25/20 05/25/20 Unknown History Allergies Allergy/AdvReac Type Severity Reaction Status Date / Time ibuprofen Allergy ALGY-Rash Verified 05/25/20 16:29 naproxen [From Aleve] Allergy ALGY-Rash Verified 05/25/20 16:29 PFSH Acute PFSH: Medical History Chronic back pain COPD (chronic obstructive pulmonary disease) Hyperlipidemia Vitals/I&O/Wt Last Vital Signs Temp 98.4 F 05/25/20 19:25 Pulse 56 L 05/25/20 19:25 Resp 18 05/25/20 19:25 BP 148/80 05/25/20 19:25 Pulse Ox 100 05/25/20 19:25 Weight last 48 hrs Weight 49.895 kg Physical Exam Narrative: EXAM NARRATIVE: General -alert awake oriented no apparent distress HEENT -grossly unremarkable CVS- bradycardia, no obvious murmurs Chest-clear to auscultation bilaterally Abdomen- mild tenderness to deep palpation in left lower quadrant Extremities-no edema Data : 05/25/20 14:40 05/25/20 14:40 A&P Assessment and plan (1) Acute diverticulitis: Status: Acute (2) Constipation: Status: Acute Qualifiers: Constipation type: unspecified constipation type Qualified Code(s): K59.00 - Constipation, unspecified (3) Pulmonary nodules: Status: Acute (4) Hyperlipidemia: Status: Acute (5) Chronic back pain: Status: Acute (6) Hypothyroidism: Status: Acute (7) COPD (chronic obstructive pulmonary disease): Status: Acute Qualifiers: COPD type: unspecified COPD Qualified Code(s): J44.9 - Chronic obstructive pulmonary disease, unspecified Acute Diverticulitis with suspected abscess - S/p Ciprofloxacin / Flagyl x 1 in ER - Will change to Zosyn 3.375g IV q8hr - Follow up on blood culture - CLD for now - NPO if pain increasing - Louis plan to consult surgery in am - NS at 75 cc/hr - Zofran PRN for nausea 02 dependent COPD on 3L via NC - Does not appear to be in exacerbation - At baseline 02 - Use patients home trilogy - Duoneb q6hr - Will hold off on steroids - Chest -xray - Negative Hypothyroidism - Synthroid 37.5 mg PO daily Dyslipidemia - Statin Anxiety/depression - Paroxitine 10 mg PO daily GI ppx - Protonix 40 mg PO daily DVT ppx - Lovenox 40 mg SQ daily Attestations Medical Necessity Statement*: Anticipate over 2 midnights stay in hospital for evaluation treatment of acute diverticulitis requiring IV antibiotics with the possibility of abscess development. Time Spent in Patient Care: Greater than 35 minutes (>than 50% of time spent in counselling and/or direct pt care on unit) . Coding Level of Care Code Acute Building Maintenance Supervisor for [facility] Fwd Diagnoses Acute diverticulitis K57.92 Constipation K59.00 Constipation type: unspecified constipation type Pulmonary nodules R91.8 Hyperlipidemia E78.5 Chronic back pain M54.9; G89.29 Hypothyroidism E03.9 COPD (chronic obstructive pulmonary disease) J44.9 COPD type: unspecified COPD
[2020-05-25] MEDS: sodium chloride 0.9% 1,000 ML 75 ML IV (21:55)
[2020-05-25] MEDS: enoxaparin 40 mg/0.4 mL Syringe SUBCUT (21:56)
[2020-05-25] MEDS: piperacillin-tazobactam 3.375 GM in sodium chloride 0.9% (plus) 50 ML IV (22:06)
--- NOTE | 2020-05-25 22:14 | PC.NURSE ---
Patient states, If I do not get my home medications and my Trelegy Ellipta that I use at night I am going to get up and go home. I have been sitting here watching TV and waiting for my night medications. I want my Trazodone and my Hydrocodone 7.5mgs that I take every night at bedtime. This development writer has messaged Dr. Farah and Dr. Quintanilla and requested this medications.
--- NOTE | 2020-05-25 22:30 | PC.NURSE ---
Patient's grandson brought patient her Trelegy Ellipta inhaler which only had one dose left on it. Patient used inhaler stating, Thank you I feel so much better. I won't have to leave now if you give me my night medications. Awaiting an order for patient's trazodone and hydrocodone from Dr. Farah . Patient has home medication of Pravastatin in her room box of 267.
[2020-05-25] MEDS: trazodone 100 mg Tablet 200 MG PO (23:06)
[2020-05-25] MEDS: HYDROcodone-acetaminophen 7.5-325 mg Tablet 1 TAB PO (23:06)
[2020-05-26] VITALS (8 sets, daily range): BP systolic 113–168; BP diastolic 74–87; PULSE 54–77; RESP 17–19; TEMP 36.3–36.8; O2SAT 96–100
[2020-05-26] MEDS: piperacillin-tazobactam 3.375 GM in sodium chloride 0.9% (plus) 50 ML IV ×3 (05:26→20:43)
[2020-05-26 05:49] LABS: Procalcitonin 0.11 ng/mL (0-0.5)
[2020-05-26 06:06] LABS: Alanine Aminotransferase 7 U/L (0-33); Alkaline Phosphatase 50 IU/L (35-105); Anion Gap 11.1 (5-19); Aspartate Amino Transferase 13 U/L (0-32); Blood Urea Nitrogen 19 mg/dL (8-23); Calcium 8.7 mg/dL (8.5-10.5); Carbon Dioxide 27 mmol/L (22-29); Chloride 108 mmol/L (98-107); Globulin 2.7 g/dL (1.3-4.6); Glucose 96 mg/dL (65-115); Osmolality Calculated 296 mOsm/kg (285-295); Potassium 4.1 mmol/L (3.5-5.1); Sodium 142 mmol/L (136-145); Total Bilirubin 0.3 mg/dL (0.15-1.2); Total Protein 5.7 g/dL (6.6-8.7)
[2020-05-26] MEDS: levothyroxine 75 mcg Tablet 37.5 MCG PO (08:15)
[2020-05-26] MEDS: pantoprazole DR 40 mg Tablet PO (08:16)
[2020-05-26] MEDS: sodium chloride 0.9% 1,000 ML 75 ML IV (10:10)
--- NOTE | 2020-05-26 10:32 | PC.CHAP ---
Pastoral Care Encounter/Spiritual Assessment Type of Contact [] Declined professor of education visit [] Patient/Family/Request visit [] Outpatient visit [] Follow-up visit [] Physician referral [] Code/Alert [x] Routine visit [] Staff referral [] Actively dying [] Patient sleeping [] Family support [] [] Out of room [] Palliative care [] [] Receiving care in room [] Pre-surgical visit [] Trauma [] Long length of stay [] ICU visit [] Other: Relational/Emotional Strength [x] Patient feels connected with others/family/visitors/staff [] Distress [] Loneliness/isolation [] Abandonment Spirituality of Patient [x] Person of Ita [] Attends Latter-Day of their Ita [x] Believes in Prayer [] Reads Bible or Holiness materials [] There are Spiritual issues to be addressed [place] Interventions [x] Prayer [x] Active listening [x] Non-anxious presence [x] Spiritual/emotional support [] Crisis/trauma care [] Spiritual counseling [] Bereavement support [] Provided bereavement packet [] Provided Bible/devotional materials [] Provided toy/stuffed animal, coloring book to patient or family member [] Provided Communion [] Anointing/[place] [] Salvation [x] Completed spiritual assessment [] Other: Impact on Illness or Injury [] Angry [] Fearful [] Anxious [] Often cries [] Exhaustion [] Unable to work [] Unable to attend anabaptist [] Unable to walk/stand [] Unable to read [] Unable to drive [] Unable to eat/drink [] Unable to sleep [] Unable to be with family [] Patient intubated [] Other: Summary Chaplains talked to and prayed with Patient. Time spent with patient 7 minutes.
[2020-05-26] MEDS: HYDROcodone-acetaminophen 7.5-325 mg Tablet 1 TAB PO ×2 (12:14→21:26)
--- NOTE | 2020-05-26 15:08 | PM.PN ---
Subjective Subjective: Interval history: Doing well overnight. Noted a BM in am, no longer having abdominal discomfort, No fever, or chills. Respiratory status is stable Medications: Reviewed: Yes Vitals/I&O/Wt Last Vital Signs Temp 97.5 F L 05/26/20 12:00 Pulse 57 L 05/26/20 12:00 Resp 17 05/26/20 12:00 BP 152/78 05/26/20 12:00 Pulse Ox 98 05/26/20 12:00 05/26/20 05/26/20 05/26/20 06:59 14:59 22:59 Intake Total 50 / 50 1088.75 / 1088.75 Output Total 450 / 450 300 / 300 Balance -400 / -400 788.75 / 788.75 Weight last 48 hrs Weight 49.895 kg Physical Exam Narrative: EXAM NARRATIVE: General -alert awake oriented no apparent distress HEENT -grossly unremarkable CVS- bradycardia, no obvious murmurs Chest-clear to auscultation bilaterally Abdomen- Soft, NT,ND Extremities-no edema Data : 05/25/20 14:40 05/26/20 04:50 A&P Assessment and plan (1) Acute diverticulitis: Status: Acute (2) Constipation: Status: Acute Qualifiers: Constipation type: unspecified constipation type Qualified Code(s): K59.00 - Constipation, unspecified (3) Pulmonary nodules: Status: Acute (4) Hyperlipidemia: Status: Acute (5) Chronic back pain: Status: Acute (6) Hypothyroidism: Status: Acute (7) COPD (chronic obstructive pulmonary disease): Status: Acute Qualifiers: COPD type: unspecified COPD Qualified Code(s): J44.9 - Chronic obstructive pulmonary disease, unspecified Acute Diverticulitis with suspected abscess - S/p Ciprofloxacin / Flagyl x 1 in ER - Will change to Zosyn 3.375g IV q8hr - Follow up on blood culture - NGTD - CLD - > increase to FLD - D/W surgery - will advance diet slowly - If tolerating khadar go to low residue in am - NS at 75 cc/hr - decrease to 50 cc/hr - Zofran PRN for nausea 02 dependent COPD on 3L via NC - Does not appear to be in exacerbation - At baseline 02 - Use patients home trilogy - Duoneb q6hr - Will hold off on steroids - Chest -xray - Negative - Stable Hypothyroidism - Synthroid 37.5 mg PO daily Dyslipidemia - Statin Anxiety/depression - Paroxitine 10 mg PO daily GI ppx - Protonix 40 mg PO daily DVT ppx - Lovenox 40 mg SQ daily Attestations Medical Necessity Statement*: Continue hospitalization for management of acute diverticulitis. Time Spent in Patient Care: Greater than 35 minutes (>than 50% of time spent in counselling and/or direct pt care on unit). Coding Level of Care Code Acute [place] Agent for [facility] Fwd Diagnoses Acute diverticulitis K57.92 Constipation K59.00 Constipation type: unspecified constipation type Pulmonary nodules R91.8 Hyperlipidemia E78.5 Chronic back pain M54.9; G89.29 Hypothyroidism E03.9 COPD (chronic obstructive pulmonary disease) J44.9 COPD type: unspecified COPD
[2020-05-26] MEDS: atorvastatin 40 mg Tablet 20 MG PO (17:51)
[2020-05-26] MEDS: trazodone 100 mg Tablet 200 MG PO (21:26)
[2020-05-26] MEDS: enoxaparin 40 mg/0.4 mL Syringe SUBCUT (21:27)
[2020-05-27] VITALS: BP 134/80; PULSE 51; RESP 18; TEMP 36.8; O2SAT 98
[2020-05-27] MEDS: sodium chloride 0.9% 1,000 ML 75 ML IV (00:04)
[2020-05-27 04:00] VITALS: BP 169/79; PULSE 48; RESP 16; TEMP 36.6; O2SAT 100
[2020-05-27] MEDS: piperacillin-tazobactam 3.375 GM in sodium chloride 0.9% (plus) 50 ML IV (05:14)
[2020-05-27 05:26] LABS: Alanine Aminotransferase 7 U/L (0-33); Alkaline Phosphatase 48 IU/L (35-105); Anion Gap 13.3 (5-19); Aspartate Amino Transferase 13 U/L (0-32); Blood Urea Nitrogen 11 mg/dL (8-23); Calcium 8.6 mg/dL (8.5-10.5); Carbon Dioxide 25 mmol/L (22-29); Chloride 111 mmol/L (98-107); Glucose 86 mg/dL (65-115); Osmolality Calculated 299 mOsm/kg (285-295); Potassium 4.3 mmol/L (3.5-5.1); Sodium 145 mmol/L (136-145); Total Bilirubin 0.2 mg/dL (0.15-1.2)
--- NOTE | 2020-05-27 07:15 | PC.NURSE ---
Report to Jennifer HERNANDEZ
[2020-05-27 07:27] VITALS: BP 138/76; PULSE 78; RESP 18; TEMP 36.2; O2SAT 98
[2020-05-27] MEDS: levothyroxine 75 mcg Tablet 37.5 MCG PO (09:17)
[2020-05-27] MEDS: pantoprazole DR 40 mg Tablet PO (09:17)
[2020-05-27] MEDS: HYDROcodone-acetaminophen 7.5-325 mg Tablet 1 TAB PO (11:43)
[2020-05-27 11:53] VITALS: BP 169/80; PULSE 51; RESP 18; TEMP 36.6; O2SAT 98
[2020-05-27 11:55] LABS: Basophils # 0.1 10^3/uL (0.0-0.1); Basophils % 1.3 %; Eosinophils # 0.2 10^3/uL (0.0-0.8); Hematocrit 32.9 % (37.0-47.0); Lymphocytes % 19.7 %; Mean Corpuscular HGB Conc 30.4 g/dL (30.0-36.0); Mean Corpuscular Hemoglobin 30.7 pg (28.0-34.0); Mean Corpuscular Volume 100.9 fL (81-99); Monocytes # 0.5 10^3/uL (0.2-0.9); Monocytes % 9.1 %; Neutrophils # 3.46 10^3/uL (1.8-7.7); Neutrophils % 65.5 %; Nucleated Red Blood Cells % 0 %; Platelet Count 237 10^3/cmm (130-400); Red Blood Count 3.26 10^6/uL (4.1-5.3); Red Cell Distribution Width 13.2 % (12.1-15.1); White Blood Count 5.3 10^3/uL (4.0-10.0)
--- NOTE | 2020-05-27 13:02 | PM.DCS ---
Discharge Providers Date of Admission: 05/25/20 16:16 Date of Discharge: May 27, 2020 Attending Provider at Admission: Ema Quintanilla Attending Provider at Discharge: Ema Quintanilla Primary Care Provider: Koby Martinez NP Diagnoses at Discharge Discharge Diagnosis (1) Acute diverticulitis: Status: Acute (2) Constipation: Status: Acute Qualifiers: Constipation type: unspecified constipation type Qualified Code(s): K59.00 - Constipation, unspecified (3) Pulmonary nodules: Status: Acute (4) Hyperlipidemia: Status: Acute (5) Chronic back pain: Status: Acute (6) Hypothyroidism: Status: Acute (7) COPD (chronic obstructive pulmonary disease): Status: Acute Qualifiers: COPD type: unspecified COPD Qualified Code(s): J44.9 - Chronic obstructive pulmonary disease, unspecified Reason for Visit Reason for Visit: CONSTIPATION Hospital Course Hospital Course 75 year old female with a past medical history significant for anxiety, depression, arthritis, hypertension, hypercholesterolemia, invasive ductal carcinoma right breast in 2010, hypothyroidism, tobacco abuse and O2 dependent chronic obstructive pulmonary disease on 3 L via nasal cannula who is presenting to ER with Left lower quadrant abdominal pain. Patient stated the symptoms have been going on for the past 3 days. Pain has been fairly constant. Denied nausea however chest had a poor appetite. In addition to this she stated her COPD has been worsening as well. However this has been mild and primary with exertion, She denies fever, chills, nausea vomiting. Denies chest pain. Laboratory workup on arrival showed a WBC of 11.6, hemoglobin of 11, hematocrit of 36.9 and platelet count of 276. sodium 137, potassium 3.9, chloride 100, bicarb 29, BUN 22 and creatinine of 1.1. Glucose of 142. CRP of 119. lipase of 35. Urinalysis was negative. Influenza A/B and COVID-19 antigen were negative. Imaging studies included chest x-ray which did not show any acute cardiopulmonary abnormalities. CT abdomen pelvis was then performed which showed findings consistent with acute diverticulitis with an adjacent 2.2 cm fluid collection with internal complexity raising the concern for possible developing abscess formation. Additionally was found to have colonic constipation. also was noted to have multiple noncalcified nodular densities which appear to be in a tree-in-bud configuration bilateral lungs. Patient was given ciprofloxacin 400 mg IV x1, metronidazole 500 mg IV x1 and DuoNeb treatment. Of note initial vital signs on arrival showed a blood pressure 167/86, heart rate of 57, respiratory rate 15, pulse ox of 100 with a temperature of 98.2?. Upon admission patient was started on zosyn 3.375g IV q8hr. After first night in hospital patient did have a bowel movement and subsequently felt back to baseline. Did not have any recurrence of abdominal pain. Was very upset with slow advancement of diet. She was started on CLD which she tolerated well. No episode of fever during stay. Diet was further advanced to full liquid diet. Patient was adamant on being discharged. She was advised to remain on FLD diet for an additional few days post discharge and then increase to low residue diet, her antibiotics were change to oral Augmentin. close outpatient follow up with general surgery was scheduled. Patient understood plan. Physical Exam Narrative: EXAM NARRATIVE: General -alert awake oriented no apparent distress HEENT -grossly unremarkable CVS- bradycardia, no obvious murmurs Chest-clear to auscultation bilaterally Abdomen- Soft, NT,ND Extremities-no edema Discharge Data Data Completed and Pending: Completed Studies During Hospitalization Category Date Time Status CT abdomen pelvis wo con [id number] Urge nt Cat Scan 05/25/20 14:31 Completed XR chest 2V* [id number] Urgent Exams 05/25/20 14:31 Completed Pending at discharge Category Date Time Status Basic Metabolic P humphrey AM LABS Lab 05/28/20 04:00 Ordered Comprehensive Met abolic Panel AM LA BS Lab 05/28/20 04:00 Ordered Labs from last 24 hours 05/27/20 05/27/20 05/27/20 11:32 04:35 04:35 WBC 5.3 Cancelled Corrected WBC Cancelled RBC 3.26 L Cancelled Hgb 10.0 L Cancelled Hct 32.9 L Cancelled MCV 100.9 H Cancelled MCH 30.7 Cancelled MCHC 30.4 Cancelled RDW 13.2 Cancelled Plt Count 237 Cancelled MPV 10.0 Cancelled Gran % Cancelled Neut % (Auto) 65.5 Cancelled Lymph % (Auto) 19.7 Cancelled [place] % (Auto) 9.1 Cancelled Eos % (Auto) 4.0 Cancelled Baso % (Auto) 1.3 Cancelled Neut # (Auto) 3.46 Cancelled Lymph # (Auto) 1.0 Cancelled [place] # (Auto) 0.5 Cancelled Eos # (Auto) 0.2 Cancelled Baso # (Auto) 0.1 Cancelled Absolute Gran (aut o) Cancelled Nucleated RBC % (a uto) 0 Cancelled Nucleated RBCs # 0.0 Cancelled Sodium 145 Potassium 4.3 Chloride 111 H Carbon Dioxide 25 Anion Gap 13.3 BUN 11 Creatinine 1.0 H GFR Calculation Not Reportable Glucose 86 Calculated Osmolal ity 299 H Calcium 8.6 Total Bilirubin 0.2 AST 13 ALT 7 Alkaline Phosphata se 48 Total Protein 7.0 D Albumin 3.0 L Globulin 4.0 Vitals: Last Vital Signs Temp 97.8 F 05/27/20 11:53 Pulse 51 L 05/27/20 11:53 Resp 18 05/27/20 11:53 BP 169/80 05/27/20 11:53 Pulse Ox 98 05/27/20 11:53 Discharge Plan Discharge Patient Disposition: Home Condition: Stable Prescriptions: New Augmentin 875-125 mg tablet 1 tab PO BID Qty: 20 RF: 0 Continued pravastatin 40 mg tablet 40 mg PO DAILY@17 RF: 0 albuterol sulfate 1.25 mg/3 mL solution for nebulization See Rx Instructions .ROUTE .COMPLEX RF: 0 levothyroxine [Synthroid] 75 mcg tablet 37.5 mcg PO DAILY@09 RF: 0 trazodone 100 mg tablet 200 mg PO DAILY@21 RF: 0 hydrocodone-acetaminophen 7.5-325 mg tablet 1 tab PO TID@09,16,21 PRN (Reason: Pain) RF: 0 paroxetine HCl 10 mg tablet See Rx Instructions .ROUTE .COMPLEX RF: 0 ondansetron HCl 4 mg tablet 4 mg PO Q8H PRN (Reason: Nausea And Vomiting) RF: 0 Trelegy Ellipta 100-62.5-25 mcg blister with device 1 inh INHALATION DAILY RF: 0 azelastine-fluticasone 137-50 mcg/spray spray,non-aerosol 1 spray INTRANASAL BID PRN (Reason: unknown) RF: 0 ProAir HFA 90 mcg/actuation Hfa Aerosol Inhaler 1 - 2 puff INHALATION Q4H PRN (Reason: Shortness Of Breath) RF: 0 Discharge Orders: Discharge Order (Routine); Ordered 05/27/20 Ordered By: Ema Quintanilla Referrals: Otto Sanches MD [Physician] - 06/04/20 2:00 pm (Please make appoint prior to discharge) Koby Martinez NP [Primary Care Provider] - 06/05/20 2:30 pm Discharge Diet: As Directed Discharge Activity: Resume usual activity Patient Instructions: Diverticulitis, Amoxicillin/Clavulanate Potassium (By mouth), Diverticulitis Diet (GEN), Perforated Bowel (GEN) Activity Restrictions/Additional Instructions: Please continue a low residue diet until seen by general surgery. Return to hospital if any recurrence of abdominal pain, fever, or chills. Discharge Attestations Time Spent in Discharge Care*: greater than 30 min Specific Discharge Activities: educating patient, educating and/or supporting family/caregiver, discussing with pcp/other providers, discussing with case operator/social workers/dc planners, documenting/other paperwork and evaluating patient/reviewing data Status at Discharge: Cognitive status at discharge: cognitively intact, Behavioral status at discharge: cooperative, Functional status at discharge: independent ambulation Overall status at discharge: patient is back to baseline Quality Metrics Clinical Quality Measures During this hospital stay, did patient experience: None Coding Level of Care Code Acute [employer] Sales Specialist for [facility] Fwd Diagnoses Acute diverticulitis K57.92 Constipation K59.00 Constipation type: unspecified constipation type Pulmonary nodules R91.8 Hyperlipidemia E78.5 Chronic back pain M54.9; G89.29 Hypothyroidism E03.9 COPD (chronic obstructive pulmonary disease) J44.9 COPD type: unspecified COPD
--- NOTE | 2020-05-27 14:48 | PC.NURSE ---
Patient discharged at this time in stable condition. IV removed. Patients home meds sent home with her. Gave patient discharge instructions. All questions answered.
[2020-05-27 14:50] VITALS: BP 169/80; PULSE 51; RESP 18; TEMP 36.6; O2SAT 98
[2020-05-27 14:51] LABS: Globulin 2.2 g/dL (1.3-4.6); Total Protein 5.2 g/dL (6.6-8.7)
--- NOTE | 2020-05-27 16:27 | PC.RESP ---
Pulmonary Rehab information sent to patient.
== END 2020-05-27 14:35 | disposition home or self-care (01) | DRG 392 ==
LOC: ER 14:28 → MEDSURG 16:50
PROVIDERS: Admitting Provider Hospitalist; Emergency Provider Family Medicine; PCP Nurse Practitioner Family; Visit Provider Hospitalist
DX: K57.92 Diverticulitis of intestine, part unspecified, without perforation or abscess without bleeding (principal); J44.9 Chronic obstructive pulmonary disease, unspecified; E78.5 Hyperlipidemia, unspecified; E03.9 Hypothyroidism, unspecified; G89.29 Other chronic pain; M54.9 Dorsalgia, unspecified; K59.00 Constipation, unspecified; F41.8 Other specified anxiety disorders; M19.90 Unspecified osteoarthritis, unspecified site; I10 Essential (primary) hypertension; E78.00 Pure hypercholesterolemia, unspecified; Z99.81 Dependence on supplemental oxygen; Z85.3 Personal history of malignant neoplasm of breast
CPT/HCPCS: 12345; 36415; 71046; 74176; 80048; 80053; 81001; 83690; 84145; 85025; 86140; 87426; 87804; 94664; 96372; 97161; 99282; J0744; J1650; J2543; J7030; S0030

== ENCOUNTER 2021-05-17 15:11 | Emergency (ER) | payer OTHER, SELFPAY ==
[2021-05-17 15:18] VITALS: BP 159/75; PULSE 71; RESP 16; TEMP 36.9; O2SAT 94
--- NOTE | 2021-05-17 16:45 | XRR_ITS ---
PROCEDURE INFORMATION: Exam: XR Chest Exam date and time: 05/17/2021 4:45 PM Age: 76 years old Clinical indication: Cough and dyspnea; Additional info: Dyspnea/cough TECHNIQUE: Imaging protocol: XR of the chest. Views: 1 view. COMPARISON: CR XR chest 2V* [id number] 05/25/2020 2:36 PM FINDINGS: Lungs: Lungs are clear bilaterally. Pleural spaces: No pleural effusion. No pneumothorax. Heart/Mediastinum: Stable mild enlargement of the cardiac silhouette. Mediastinal contours are unremarkable. Vasculature: Stable vascular calcifications in the aorta. Bones/joints: Unremarkable for age. XR/XR chest 1V portable [id number] IMPRESSION: 1. No acute cardiopulmonary process. 2. Incidental/nonacute findings are listed in the report.
--- NOTE | 2021-05-17 16:55 | W.ED.SOB ---
Documented by User: Renan Ochoa DO 05/27/21 16:29 HPI - SOB/Dyspnea General: Chief Complaint: Shortness of Breath/Dyspnea Stated Complaint: Diff Breathing, Congestion all through chest Time Seen by Provider: 05/17/21 16:43 History of Present Illness: HPI Narrative: 76-year-old female presents emergency room complaining difficulty breathing congestion and cough. She has had it for the last week getting progressively worse she denies any fever denies any diarrhea no anosmia. No myalgias. She has not previously been diagnosed with COVID nor is she been vaccinated. Patient is normally on oxygen at 2 and half liters per minute for her COPD. She has not had to increase her oxygen use. MD elicited complaint: shortness of breath and cough Pertinent past history: COPD Onset (ago): week(s) Timing: constant Severity: mild Exacerbating factors: exertion and coughing Relieving factors: nothing Known history of: COPD Associated symptoms: Deny abdominal pain, chest congestion, chest pain, cough, diaphoresis, dizziness, extremity pain, fever(s), hemoptysis, lightheadedness, myalgias, nausea, orthopnea, palpitations, paresthesias, polydipsia, polyuria, rash, sense of impending doom, syncope or vomiting Treatment prior to arrival: oxygen Review of Systems Const: Denies: fever(s) or diaphoresis ENMT: Denies: throat pain, ear or mastoid pain, nasal discharge or nasal congestion Card: Denies: chest pain, palpitations, lightheadedness, syncope or orthopnea Resp: Denies: hemoptysis or chest congestion GI: Denies: abdominal pain, nausea or vomiting : Denies: flank pain, difficulty voiding, dysuria, urinary frequency or urinary urgency Musc: Denies: extremity pain Skin/Breast: Denies: rash or pruritus Neuro: Denies: dizziness Endo: Denies: polyuria or polydipsia PFS ED PFSH: Medical History Chronic back pain COPD (chronic obstructive pulmonary disease) Hyperlipidemia Physical Exam Const: GENERAL APPEARANCE: cooperative and comfortable ORIENTATION/CONSCIOUSNESS: Yes awake, Yes oriented to person, Yes oriented to place and Yes oriented to time HENMT: COMMON NORMALS: normocephalic, atraumatic and hearing grossly normal bilaterally HEAD & SCALP: normocephalic and atraumatic Neck/C-Spine: COMMON NORMALS: no JVD Lymph: LYMPHATIC: no lymphadenopathy noted and no lymphedema noted Resp: COMMON NORMALS: normal respiratory effort and No use of accessory muscles AUSCULTATION: rales, wheezes and diminished lung sounds Cardio: COMMON NORMALS: no JVD, regular rate, regular rhythm and No murmurs present (Cardio) RATE: regular rate RHYTHM: regular rhythm GI: COMMON NORMALS: Soft to palpation and No hepatosplenomegaly present AUSCULTATION: Yes normoactive bowel sounds PALPATION: Yes Soft to palpation, No Tenderness to palpation present (GI), No Guarding due to palpation present (GI) and Yes No hepatosplenomegaly present Extremity: COMMON NORMALS: normal to inspection, capillary refill normal, no clubbing, cyanosis or edema, no calf tenderness and no pedal edema Neuro: SENSORIUM/ORIENTATION: Yes oriented to person, Yes oriented to place and Yes oriented to time Skin: COMMON NORMALS: no rashes or lesions noted GENERAL SKIN EXAM: no rashes or lesions noted Course Vital Signs: Vital signs: Vital Signs Temperature 98.4 F 05/17/21 15:18 Pulse Rate 71 05/17/21 15:18 Respiratory Rate 16 05/17/21 15:18 Blood Pressure 159/75 05/17/21 15:18 Pulse Oximetry 94 05/17/21 15:18 MDM - SOB/Dyspnea MDM Narrative Medical decision making narrative: Care turned over to Dr. Parsons at change of shifr see his notes for final diagnosis and disposition. Medical Records Attestation: I reviewed the patient's medical records. Lab Data Attestation: I reviewed the patient's lab results. Result diagrams: 05/17/21 17:53 05/17/21 17:53 Labs: Lab Results 05/17/21 05/17/21 05/17/21 17:25 17:53 17:53 WBC 8.1 10^3/uL 10^3/uL (4.0-10.0) RBC 3.63 10^6/uL L 10^6/uL (4.1-5.3) Hgb 11.5 g/dL g/dL (11.5-15.3) Hct 36.7 % L % (37.0-47.0) MCV 101.1 fl H fl (81-99) MCH 31.7 pg pg (28.0-34.0) MCHC 31.3 g/dL g/dL (30.0-36.0) RDW 14.0 % % (12.1-15.1) Plt Count 235 10^3/cmm 10^3/cmm (130-400) MPV 9.7 fL fL (7.4-10.4) Neut % (Auto) 63.4 % % Lymph % (Auto) 25.4 % % [place] % (Auto) 8.4 % % Eos % (Auto) 1.7 % % Baso % (Auto) 0.7 % % Neut # (Auto) 5.11 10^3/uL 10^3/uL (1.8-7.7) Lymph # (Auto) 2.1 10^3/uL 10^3/uL (0.8-4.8) [place] # (Auto) 0.7 10^3/uL 10^3/uL (0.2-0.9) Eos # (Auto) 0.1 10^3/uL 10^3/uL (0.0-0.8) Baso # (Auto) 0.1 10^3/uL 10^3/uL (0.0-0.1) Nucleated RBC % (auto) 0 % % Nucleated RBCs # 0.0 /100WBC /100WBC Sodium 142 mmol/L mmol/L (136-145) Potassium 4.3 mmol/L mmol/L (3.5-5.1) Chloride 103 mmol/L mmol/L (98-107) Carbon Dioxide 25 mmol/L mmol/L (22-29) Anion Gap 18.3 (5-19) BUN 24 mg/dL H mg/dL (8-23) Creatinine 1.2 mg/dL H mg/dL (0.5-0.9) GFR Calculation Not Reportable Glucose 83 mg/dL mg/dL (65-115) Calculated Osmolality 297 mOsm/kg H mOsm/kg (285-295) Calcium 9.0 mg/dL mg/dL (8.5-10.5) Total Bilirubin 0.3 mg/dL mg/dL (0.15-1.2) AST 17 U/L U/L (0-32) ALT 8 U/L U/L (0-33) Alkaline Phosphatase 79 IU/L IU/L (35-105) Total Protein 7.1 g/dL g/dL (6.6-8.7) Albumin 4.0 g/dL g/dL (3.5-5.2) Globulin 3.1 g/dL g/dL (1.3-4.6) SARS-CoV-2 RNA (RT-PCR) Not detected (NOT DETECTED) Discharge Plan Discharge Patient Disposition: Home Clinical Impression: COPD (chronic obstructive pulmonary disease) Qualifiers: COPD type: unspecified COPD Qualified Code(s): J44.9 - Chronic obstructive pulmonary disease, unspecified Condition: Stable Prescriptions: New prednisone 50 mg tablet 50 mg PO DAILY Qty: 5 0RF No Action pravastatin 40 mg tablet 40 mg PO DAILY@17 0RF albuterol sulfate 1.25 mg/3 mL solution for nebulization See Rx Instructions .ROUTE .COMPLEX 0RF Rx Instructions: USE DIRECTED levothyroxine [Synthroid] 75 mcg tablet 37.5 mcg PO DAILY@09 0RF trazodone 100 mg tablet 200 mg PO DAILY@21 0RF hydrocodone-acetaminophen 7.5-325 mg tablet 1 tab PO TID@09,16,21 PRN (Reason: Pain) 0RF paroxetine HCl 10 mg tablet See Rx Instructions .ROUTE .COMPLEX 0RF Rx Instructions: see pharmacy comments ondansetron HCl 4 mg tablet 4 mg PO Q8H PRN (Reason: Nausea And Vomiting) 0RF Trelegy Ellipta 100-62.5-25 mcg blister with device 1 inh INHALATION DAILY 0RF azelastine-fluticasone 137-50 mcg/spray spray,non-aerosol 1 spray INTRANASAL BID PRN (Reason: unknown) 0RF Rx Instructions: administer into each nostril ProAir HFA 90 mcg/actuation Hfa Aerosol Inhaler 1 - 2 puff INHALATION Q4H PRN (Reason: Shortness Of Breath) 0RF Augmentin 875-125 mg tablet 1 tab PO BID Qty: 20 0RF Discharge Orders: Discharge ED (Routine); Ordered 05/17/21 Ordered By: Arcadio Parsons Referrals: Koby Martinez NP [Primary Care Provider] - 1-3 days Discharge Diet: Advance as tolerated Discharge Activity: Resume usual activity Patient Instructions: COPD (Chronic Obstructive Pulmonary Disease) (ED) Coding Level of Care Code ED Coffee Farmer for [facility] Fwd Exam Comprehensive Documented by User: Arcadio Parsons MD 05/17/21 18:44 HPI - SOB/Dyspnea General: Chief Complaint: Shortness of Breath/Dyspnea Stated Complaint: Diff Breathing, Congestion all through chest Time Seen by Provider: 05/17/21 16:43 PFSH ED PFSH: Medical History Chronic back pain COPD (chronic obstructive pulmonary disease) Hyperlipidemia Course Vital Signs: Vital signs: Vital Signs Temperature 98.4 F 05/17/21 15:18 Pulse Rate 71 05/17/21 15:18 Respiratory Rate 16 05/17/21 15:18 Blood Pressure 159/75 05/17/21 15:18 Pulse Oximetry 94 05/17/21 15:18 MDM - SOB/Dyspnea MDM Narrative Medical decision making narrative: Patient presents here with a COPD exacerbation. X-ray here shows no pneumonia blood work is normal as well she is on her baseline 2 L oxygen and having no increased work of breathing at this time we will start her on prednisone 5-day course have her follow-up with PCP in 4 to 5 days return if worsening. Lab Data Result diagrams: 05/17/21 17:53 05/17/21 17:53 Labs: Lab Results 05/17/21 05/17/21 05/17/21 17:25 17:53 17:53 WBC 8.1 10^3/uL 10^3/uL (4.0-10.0) RBC 3.63 10^6/uL L 10^6/uL (4.1-5.3) Hgb 11.5 g/dL g/dL (11.5-15.3) Hct 36.7 % L % (37.0-47.0) MCV 101.1 fl H fl (81-99) MCH 31.7 pg pg (28.0-34.0) MCHC 31.3 g/dL g/dL (30.0-36.0) RDW 14.0 % % (12.1-15.1) Plt Count 235 10^3/cmm 10^3/cmm (130-400) MPV 9.7 fL fL (7.4-10.4) Neut % (Auto) 63.4 % % Lymph % (Auto) 25.4 % % [place] % (Auto) 8.4 % % Eos % (Auto) 1.7 % % Baso % (Auto) 0.7 % % Neut # (Auto) 5.11 10^3/uL 10^3/uL (1.8-7.7) Lymph # (Auto) 2.1 10^3/uL 10^3/uL (0.8-4.8) [place] # (Auto) 0.7 10^3/uL 10^3/uL (0.2-0.9) Eos # (Auto) 0.1 10^3/uL 10^3/uL (0.0-0.8) Baso # (Auto) 0.1 10^3/uL 10^3/uL (0.0-0.1) Nucleated RBC % (auto) 0 % % Nucleated RBCs # 0.0 /100WBC /100WBC Sodium 142 mmol/L mmol/L (136-145) Potassium 4.3 mmol/L mmol/L (3.5-5.1) Chloride 103 mmol/L mmol/L (98-107) Carbon Dioxide 25 mmol/L mmol/L (22-29) Anion Gap 18.3 (5-19) BUN 24 mg/dL H mg/dL (8-23) Creatinine 1.2 mg/dL H mg/dL (0.5-0.9) GFR Calculation Not Reportable Glucose 83 mg/dL mg/dL (65-115) Calculated Osmolality 297 mOsm/kg H mOsm/kg (285-295) Calcium 9.0 mg/dL mg/dL (8.5-10.5) Total Bilirubin 0.3 mg/dL mg/dL (0.15-1.2) AST 17 U/L U/L (0-32) ALT 8 U/L U/L (0-33) Alkaline Phosphatase 79 IU/L IU/L (35-105) Total Protein 7.1 g/dL g/dL (6.6-8.7) Albumin 4.0 g/dL g/dL (3.5-5.2) Globulin 3.1 g/dL g/dL (1.3-4.6) SARS-CoV-2 RNA (RT-PCR) Not detected (NOT DETECTED) Imaging Data^ CXR: Attestation: I personally reviewed and interpreted this imaging study as follows: Radiologist's impression: 1. No acute cardiopulmonary process. 2. Incidental/nonacute findings are listed in the report. Discharge Plan Discharge Patient Disposition: Home Clinical Impression: COPD (chronic obstructive pulmonary disease) Qualifiers: COPD type: unspecified COPD Qualified Code(s): J44.9 - Chronic obstructive pulmonary disease, unspecified Condition: Stable Prescriptions: New prednisone 50 mg tablet 50 mg PO DAILY Qty: 5 0RF No Action pravastatin 40 mg tablet 40 mg PO DAILY@17 0RF albuterol sulfate 1.25 mg/3 mL solution for nebulization See Rx Instructions .ROUTE .COMPLEX 0RF Rx Instructions: USE DIRECTED levothyroxine [Synthroid] 75 mcg tablet 37.5 mcg PO DAILY@09 0RF trazodone 100 mg tablet 200 mg PO DAILY@21 0RF hydrocodone-acetaminophen 7.5-325 mg tablet 1 tab PO TID@09,16,21 PRN (Reason: Pain) 0RF paroxetine HCl 10 mg tablet See Rx Instructions .ROUTE .COMPLEX 0RF Rx Instructions: see pharmacy comments ondansetron HCl 4 mg tablet 4 mg PO Q8H PRN (Reason: Nausea And Vomiting) 0RF Trelegy Ellipta 100-62.5-25 mcg blister with device 1 inh INHALATION DAILY 0RF azelastine-fluticasone 137-50 mcg/spray spray,non-aerosol 1 spray INTRANASAL BID PRN (Reason: unknown) 0RF Rx Instructions: administer into each nostril ProAir HFA 90 mcg/actuation Hfa Aerosol Inhaler 1 - 2 puff INHALATION Q4H PRN (Reason: Shortness Of Breath) 0RF Augmentin 875-125 mg tablet 1 tab PO BID Qty: 20 0RF Discharge Orders: Discharge ED (Routine); Ordered 05/17/21 Ordered By: Arcadio Parsons Referrals: Koby Martinez NP [Primary Care Provider] - 1-3 days Discharge Diet: Advance as tolerated Discharge Activity: Resume usual activity Patient Instructions: COPD (Chronic Obstructive Pulmonary Disease) (ED) Coding Level of Care Code ED Coffee Farmer for [facility] Fwd Exam Comprehensive
[2021-05-17 18:01] LABS: Basophils # 0.1 10^3/uL (0.0-0.1); Basophils % 0.7 %; Eosinophils # 0.1 10^3/uL (0.0-0.8); Eosinophils % 1.7 %; Hematocrit 36.7 % (37.0-47.0); Hemoglobin 11.5 g/dL (11.5-15.3); Lymphocytes # 2.1 10^3/uL (0.8-4.8); Lymphocytes % 25.4 %; Mean Corpuscular HGB Conc 31.3 g/dL (30.0-36.0); Mean Corpuscular Hemoglobin 31.7 pg (28.0-34.0); Mean Corpuscular Volume 101.1 fl (81-99); Mean Platelet Volume 9.7 fL (7.4-10.4); Monocytes # 0.7 10^3/uL (0.2-0.9); Monocytes % 8.4 %; Neutrophils # 5.11 10^3/uL (1.8-7.7); Neutrophils % 63.4 %; Nucleated Red Blood Cells % 0 %; Platelet Count 235 10^3/cmm (130-400); Red Blood Count 3.63 10^6/uL (4.1-5.3); White Blood Count 8.1 10^3/uL (4.0-10.0)
[2021-05-17 18:21] LABS: Alanine Aminotransferase 8 U/L (0-33); Alkaline Phosphatase 79 IU/L (35-105); Anion Gap 18.3 (5-19); Aspartate Amino Transferase 17 U/L (0-32); Blood Urea Nitrogen 24 mg/dL (8-23); Carbon Dioxide 25 mmol/L (22-29); Chloride 103 mmol/L (98-107); Globulin 3.1 g/dL (1.3-4.6); Glucose 83 mg/dL (65-115); Osmolality Calculated 297 mOsm/kg (285-295); Potassium 4.3 mmol/L (3.5-5.1); Sodium 142 mmol/L (136-145); Total Bilirubin 0.3 mg/dL (0.15-1.2); Total Protein 7.1 g/dL (6.6-8.7)
[2021-05-19 20:13] LABS: Quest SARS-CoV-2 RNA NOT DETECTED (NOT DETECTED)
== END 2021-05-17 18:45 | disposition home or self-care (01) ==
PROVIDERS: Family Medicine; Emergency Provider Emergency Medicine; PCP Nurse Practitioner Family
DX: J44.9 Chronic obstructive pulmonary disease, unspecified (principal); E78.5 Hyperlipidemia, unspecified; Z20.822 Contact with and (suspected) exposure to COVID-19
CPT/HCPCS: 71045; 80053; 85025; 87635; 96374; 99283; J2930

== ENCOUNTER 2021-06-24 16:38 | Outpatient (CLI) | payer MEDICARE, SELFPAY ==
--- NOTE | 2021-06-24 | XR_ITS ---
WS: [id number] Exam: XR foot LT min 3V* [id number] Date/Time of Exam: 06/24/2021 12:00 AM Reason For Exam: LEFT HEEL PAIN No acute fracture or dislocation. Osteopenia. Degenerative changes in the midfoot joints. No soft tis maddie foreign bodies are seen. XR/XR foot LT min 3V* [id number] IMPRESSION: 1. Degenerative changes and osteopenia. Number 2. No fracture or other significant finding.
== END 2021-06-24 16:39 | disposition home or self-care (01) ==
PROVIDERS: PCP Nurse Practitioner Family; Visit Provider Nurse Practitioner Family
DX: M79.672 Pain in left foot (principal)
CPT/HCPCS: 73630

== ENCOUNTER 2021-08-24 08:51 | Emergency (ER) | payer MEDICARE, SELFPAY ==
[2021-08-24 09:15] VITALS: BP 166/69; PULSE 61; RESP 16; TEMP 36.6; O2SAT 94; BMI 22.6
--- NOTE | 2021-08-24 09:19 | ED_ITS ---
HPI - Extremity Problem General: Chief complaint: Extremity Injury, Upper Stated complaint: Rt arm injury Time Seen by Provider: 08/24/21 08:52 Source: patient Mode of arrival: ambulatory Limitations: no limitations History of Present Illness: Patient is a 76-year-old female presents to ED today with a complaint of a skin tear to her right forearm that she sustained after getting tangled in her oxygen cord and bumping it against a wall. Tetanus is up-to-date. She has no other complaints at this time. No bony tenderness or decreased range of motion. MD Complaint: extremity pain Onset (ago): hour(s) Pain Consistency: constant Location: right and upper extremity Radiation: none Exacerbating factors: palpation Associated symptoms: Reports no associated symptoms Review of Systems Musc: Reports: extremity pain; Denies: extremity swelling, joint pain or joint swelling Skin/Breast: Reports: other (skin tear) Neuro: Denies: numbness in extremities, weakness in extremities or sensory changes PFS ED PFSH: Medical History Chronic back pain COPD (chronic obstructive pulmonary disease) Hyperlipidemia Physical Exam Const: COMMON NORMALS: no acute distress, average body habitus, patient oriented x3, no limitations, healthy appearing, alert and well nourished Extremity: COMMON NORMALS: full ROM NARRATIVE EXTREMITY EXAM: large skin tear present to dorsal surface of proximal forearm; no bleeding GENERAL: Yes normal exam except as noted Neuro: COMMON NORMALS: patient oriented x3, moves all extremities, no focal motor deficits and no sensory deficits noted SENSORIUM/ORIENTATION: Yes alert Skin: NARRATIVE SKIN EXAM: see extremity assessment Course Vital Signs: Vital signs: Vital Signs Temperature 97.9 F 08/24/21 09:15 Pulse Rate 61 08/24/21 09:15 Respiratory Rate 16 08/24/21 09:15 Blood Pressure 166/69 08/24/21 09:15 Pulse Oximetry 94 08/24/21 09:15 MDM - Extremity (Nontraumatic) Medical Decision Making Area cleansed and skin flap was re-approximated. Skin is so thin that it would not hold a suture. We discussed possibly applying some steri strips but patient states she would just like it dressed. Tetanus UTD. No bleeding/oozing present. Patient states she will follow up with primary care this week for re-evaluation if needed. Discharge Plan Discharge Patient Disposition: Home Clinical Impression: Skin tear of right forearm without complication Qualifiers: Encounter type: initial encounter Qualified Code(s): S51.811A - Laceration without foreign body of right forearm, initial encounter Condition: Stable Prescriptions: No Action pravastatin 40 mg tablet 40 mg PO DAILY@17 0RF albuterol sulfate 1.25 mg/3 mL solution for nebulization See Rx Instructions .ROUTE .COMPLEX 0RF Rx Instructions: USE DIRECTED levothyroxine [Synthroid] 75 mcg tablet 37.5 mcg PO DAILY@09 0RF trazodone 100 mg tablet 200 mg PO DAILY@21 0RF hydrocodone-acetaminophen 7.5-325 mg tablet 1 tab PO TID@09,16,21 PRN (Reason: Pain) 0RF paroxetine HCl 10 mg tablet See Rx Instructions .ROUTE .COMPLEX 0RF Rx Instructions: see pharmacy comments ondansetron HCl 4 mg tablet 4 mg PO Q8H PRN (Reason: Nausea And Vomiting) 0RF Trelegy Ellipta 100-62.5-25 mcg blister with device 1 inh INHALATION DAILY 0RF azelastine-fluticasone 137-50 mcg/spray spray,non-aerosol 1 spray INTRANASAL BID PRN (Reason: unknown) 0RF Rx Instructions: administer into each nostril ProAir HFA 90 mcg/actuation Hfa Aerosol Inhaler 1 - 2 puff INHALATION Q4H PRN (Reason: Shortness Of Breath) 0RF Augmentin 875-125 mg tablet 1 tab PO BID Qty: 20 0RF prednisone 50 mg tablet 50 mg PO DAILY Qty: 5 0RF Discharge Orders: Discharge ED (Routine); Ordered 08/24/21 Ordered By: Therese Carrero Referrals: Koby Martinez NP [Primary Care Provider] - Patient Instructions: Skin Tear (ED) Coding Level of Care Code ED Waste Water Treatment Plant Operator for Mari Zambrano
[2021-08-24 10:20] VITALS: BP 157/93; PULSE 55; RESP 18; O2SAT 97
== END 2021-08-24 10:15 | disposition home or self-care (01) ==
PROVIDERS: Emergency Provider Physician Assistant; PCP Nurse Practitioner Family
DX: S51.811A Laceration without foreign body of right forearm, initial encounter (principal); W18.49XA Other slipping, tripping and stumbling without falling, initial encounter; J44.9 Chronic obstructive pulmonary disease, unspecified; Z79.891 Long term (current) use of opiate analgesic; Z99.81 Dependence on supplemental oxygen
CPT/HCPCS: 99282

== ENCOUNTER 2022-03-09 18:35 | Inpatient (IN) | payer MEDICARE, SELFPAY ==
[2022-03-09] VITALS (7 sets, daily range): BP systolic 125–169; BP diastolic 70–95; PULSE 68–75; RESP 13–22; TEMP 36.5–36.6; O2SAT 93–100
--- NOTE | 2022-03-09 18:49 | ECG_ITS ---
[facility] Test Date: 2022-03-09 Pat Name: Colette Lopez Department: Room: Gender: Female Management Lead: : 1945 Requested By: Arcadio Parsons Order Number: [id number] Miguel MD: Stacy Juarez M.D. Measurements Intervals [place] Rate: 70 P: 66 VA: 138 QRS: 63 QRSD: 82 T: 66 QT: 409 QTc: 443 Interpretive Statements SINUS RHYTHM LOW QRS VOLTAGE IN PRECORDIAL LEADS [QRS DEFLECTION < 1.0 mV IN CHEST LEADS] Compared to ECG 03/28/2020 17:07:41 Sinus bradycardia no longer present Electronically Signed On 03-10-2022 12:10:56 SURVEY WORKER by Stacy Juarez M.D. [id number] f
--- NOTE | 2022-03-09 18:54 | XRR_ITS ---
PROCEDURE INFORMATION: Exam: XR Chest Exam date and time: 03/09/2022 8:21 PM Age: 76 years old Clinical indication: Other: Burning in chest; Additional info: Cp TECHNIQUE: Imaging protocol: Radiologic exam of the chest. Views: 1 view. COMPARISON: CR (CHEST, ) 05/17/2021 4:51 PM FINDINGS: Lungs: Linear scarring along the left mid lung. No consolidation. Pleural spaces: Unremarkable. No pleural effusion. No pneumothorax. Heart/Mediastinum: Unremarkable. No cardiomegaly. Bones/joints: Unremarkable. XR/XR chest 1V portable [id number] IMPRESSION: No acute findings.
--- NOTE | 2022-03-09 19:30 | W.ED.SOB ---
HPI - SOB/Dyspnea General: Chief Complaint: Shortness of Breath/Dyspnea Stated Complaint: sob Time Seen by Provider: 03/09/22 19:14 Source: patient Mode of arrival: ambulatory Limitations: no limitations History of Present Illness: HPI Narrative: 76-year-old female who states that she had bent over at 5:00 and stood back up and had this headache along with some chest pain and pain in her gums she states that lasted for few minutes and then resolved she had some slight lightheadedness. States and since then she been feeling completely normal and denies any chest pain currently denies a headache currently states she does have some dyspnea but has chronic shortness of breath due to her COPD her pulse ox 100% on 2 L she wears 2 L at home. Associated symptoms: Reports chest pain; Deny abdominal pain, fever(s), nausea or vomiting Review of Systems Const: Denies: fever(s), chills, body aches or change in appetite Eyes: Denies: blurry vision or eye discomfort ENMT: Denies: throat pain or dental pain Card: Reports: chest pain Resp: Reports: wheezing; Denies: dyspnea GI: Denies: abdominal pain, nausea, vomiting or diarrhea : Denies: dysuria Musc: Denies: neck pain or back pain Skin/Breast: Denies: rash Neuro: Reports: headache(s) Psych: Denies: depression Abhishek/Lymph: Denies: easy bruising All/Imm: Denies: urticaria PFS ED PFSH: Medical History Chronic back pain COPD (chronic obstructive pulmonary disease) Hyperlipidemia Physical Exam Const: COMMON NORMALS: no acute distress, patient oriented x3 and healthy appearing HENMT: COMMON NORMALS: normocephalic and atraumatic HEAD & SCALP: normocephalic and atraumatic Eye: COMMON NORMALS: Equal, round and reactive pupils present and EOMs intact bilaterally PUPIL: Yes Equal, round and reactive pupils present Neck/C-Spine: COMMON NORMALS: full ROM and supple Chest: COMMONS NORMALS: normal inspection of the chest and normal palpation of entire chest wall Resp: COMMON NORMALS: normal respiratory effort, No retractions, No use of accessory muscles and clear to auscultation bilaterally AUSCULTATION: clear to auscultation bilaterally Cardio: COMMON NORMALS: regular rate, regular rhythm and No murmurs present (Cardio) RATE: regular rate RHYTHM: regular rhythm GI: COMMON NORMALS: Normal to inspection, nondistended, normoactive bowel sounds present, Soft to palpation, non-tender and no masses PALPATION: Yes Soft to palpation Extremity: COMMON NORMALS: normal to inspection and full ROM Neuro: COMMON NORMALS: patient oriented x3, moves all extremities and no focal motor deficits Psych: COMMON NORMALS: mental status grossly normal, Normal thought process present and cooperative THOUGHT PROCESS: Normal thought process present Skin: COMMON NORMALS: no rashes or lesions noted and no wounds GENERAL SKIN EXAM: no rashes or lesions noted Course Vital Signs: Vital signs: Vital Signs Temperature 97.7 F 03/09/22 18:43 Pulse Rate 71 03/09/22 20:00 Respiratory Rate 14 03/09/22 20:00 Blood Pressure 137/78 03/09/22 20:00 Pulse Oximetry 98 03/09/22 20:00 MDM - SOB/Dyspnea Medical Decision Making Patient presents for chest pain is since resolved she is well-appearing here EKG is normal she does have an elevated troponin consistent with an NSTEMI spoke to the hospitalist along with cardiology and will admit at this time. Lab Data : 03/09/22 19:54 03/09/22 19:54 Labs/Radiology: Radiology Impressions Chest X-Ray 03/09/22 18:54 IMPRESSION: No acute findings. Laboratory Results WBC 11.3 10^3/uL (4.0-10.0) H 03/09/22 19:54 RBC 4.13 10^6/uL (4.1-5.3) 03/09/22 19:54 Hgb 12.7 g/dL (11.5-15.3) 03/09/22 19:54 Hct 40.4 % (37.0-47.0) 03/09/22 19:54 MCV 97.8 fl (81-99) 03/09/22 19:54 MCH 30.8 pg (28.0-34.0) 03/09/22 19:54 MCHC 31.4 g/dL (30.0-36.0) 03/09/22 19:54 RDW 14.3 % (12.1-15.1) 03/09/22 19:54 Plt Count 288 10^3/cmm (130-400) 03/09/22 19:54 MPV 9.6 fL (7.4-10.4) 03/09/22 19:54 Neut % (Auto) 80.2 % 03/09/22 19:54 Lymph % (Auto) 11.0 % 03/09/22 19:54 [place] % (Auto) 6.9 % 03/09/22 19:54 Eos % (Auto) 1.0 % 03/09/22 19:54 Baso % (Auto) 0.6 % 03/09/22 19:54 Neut # (Auto) 9.05 10^3/uL (1.8-7.7) H 03/09/22 19:54 Lymph # (Auto) 1.2 10^3/uL (0.8-4.8) 03/09/22 19:54 [place] # (Auto) 0.8 10^3/uL (0.2-0.9) 03/09/22 19:54 Eos # (Auto) 0.1 10^3/uL (0.0-0.8) 03/09/22 19:54 Baso # (Auto) 0.1 10^3/uL (0.0-0.1) 03/09/22 19:54 Nucleated RBC % (auto) 0 % 03/09/22 19:54 Nucleated RBCs # 0.0 /100WBC 03/09/22 19:54 Sodium 138 mmol/L (136-145) 03/09/22 19:54 Potassium 3.9 mmol/L (3.5-5.1) 03/09/22 19:54 Chloride 101 mmol/L (98-107) 03/09/22 19:54 Carbon Dioxide 26 mmol/L (22-29) 03/09/22 19:54 Anion Gap 14.9 (5-19) 03/09/22 19:54 BUN 23 mg/dL (8-23) 03/09/22 19:54 Creatinine 1.1 mg/dL (0.5-0.9) H 03/09/22 19:54 GFR Calculation Not Reportable 03/09/22 19:54 Glucose 102 mg/dL (65-115) 03/09/22 19:54 Calculated Osmolality 290 mOsm/kg (285-295) 03/09/22 19:54 Calcium 9.6 mg/dL (8.5-10.5) 03/09/22 19:54 Total Bilirubin 0.3 mg/dL (0.15-1.2) 03/09/22 19:54 AST 27 U/L (0-32) 03/09/22 19:54 ALT 10 U/L (0-33) 03/09/22 19:54 Alkaline Phosphatase 84 U/L (35-105) 03/09/22 19:54 Troponin T Baseline 860 ng/L (0-10) H* 03/09/22 19:54 Total Protein 7.8 g/dL (6.6-8.7) 03/09/22 19:54 Albumin 4.0 g/dL (3.5-5.2) 03/09/22 19:54 Globulin 3.8 g/dL (1.3-4.6) 03/09/22 19:54 EKG Data EKG 1: I personally reviewed and interpreted this EKG as follows: EKG Interpretation Date: 03/09/22 EKG interpretation time: 19:47 Interpretation: nsr hr [address] or t wave abnormalities qrs 79 qtc 420 Discharge Plan Discharge Patient Disposition: Admitted As Inpatient Clinical Impression: Non-ST elevation MS (NSTEMI) Condition: Stable Coding Level of Care Code ED Progressive Assembler And Fitter for Chg Fwd Exam Comprehensive
--- NOTE | 2022-03-09 19:47 | ECG_ITS ---
[facility] Test Date: 2022-03-09 Pat Name: Colette Lopez Department: Room: Gender: Female Application Helper: : 1945 Requested By: Arcadio Parsons Order Number: [id number] Miguel MD: Stacy Juarez M.D. Measurements Intervals [place] Rate: 66 P: 43 UT: 124 QRS: 23 QRSD: 79 T: 40 QT: 407 QTc: 426 Interpretive Statements SINUS RHYTHM LOW QRS VOLTAGE IN PRECORDIAL LEADS [QRS DEFLECTION < 1.0 mV IN CHEST LEADS] POSSIBLE ANTERIOR MYOCARDIAL INFARCTION , OF INDETERMINATE AGE Compared to ECG 03/28/2020 17:07:41 Myocardial infarct finding now present Sinus bradycardia no longer present Electronically Signed On 03-10-2022 12:01:15 DRAWING MACHINE OPERATOR by Stacy Juarez M.D. [id number] f
[2022-03-09] MEDS: hyDRALAzine 20 mg/mL INJ 1 mL 10 MG IVP (19:52)
[2022-03-09 20:01] LABS: Basophils # 0.1 10^3/uL (0.0-0.1); Basophils % 0.6 %; Eosinophils # 0.1 10^3/uL (0.0-0.8); Hematocrit 40.4 % (37.0-47.0); Hemoglobin 12.7 g/dL (11.5-15.3); Lymphocytes # 1.2 10^3/uL (0.8-4.8); Mean Corpuscular HGB Conc 31.4 g/dL (30.0-36.0); Mean Corpuscular Hemoglobin 30.8 pg (28.0-34.0); Mean Corpuscular Volume 97.8 fl (81-99); Mean Platelet Volume 9.6 fL (7.4-10.4); Monocytes # 0.8 10^3/uL (0.2-0.9); Monocytes % 6.9 %; Neutrophils # 9.05 10^3/uL (1.8-7.7); Neutrophils % 80.2 %; Nucleated Red Blood Cells % 0 %; Platelet Count 288 10^3/cmm (130-400); Red Blood Count 4.13 10^6/uL (4.1-5.3); Red Cell Distribution Width 14.3 % (12.1-15.1); White Blood Count 11.3 10^3/uL (4.0-10.0)
[2022-03-09] MEDS: ipratropium-albuterol 3 mL Neb INHALATION (20:17)
[2022-03-09 20:24] LABS: Alanine Aminotransferase 10 U/L (0-33); Alkaline Phosphatase 84 U/L (35-105); Anion Gap 14.9 (5-19); Aspartate Amino Transferase 27 U/L (0-32); Blood Urea Nitrogen 23 mg/dL (8-23); Calcium 9.6 mg/dL (8.5-10.5); Carbon Dioxide 26 mmol/L (22-29); Chloride 101 mmol/L (98-107); Globulin 3.8 g/dL (1.3-4.6); Glucose 102 mg/dL (65-115); Osmolality Calculated 290 mOsm/kg (285-295); Potassium 3.9 mmol/L (3.5-5.1); Sodium 138 mmol/L (136-145); Total Bilirubin 0.3 mg/dL (0.15-1.2); Total Protein 7.8 g/dL (6.6-8.7)
[2022-03-09 20:46] LABS: Troponin(5th) Baseline 860 ng/L (0-10)
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
[2022-03-09] MEDS: enoxaparin 60 mg/0.6 mL Syringe SUBCUT (21:43)
[2022-03-09] MEDS: clopidogrel 300 mg Tablet PO (21:44)
[2022-03-09] MEDS: aspirin 81 mg Chew Tablet 324 MG PO (21:44)
[2022-03-09] MEDS: metoprolol tartrate 25 mg Tablet PO (21:45)
--- NOTE | 2022-03-09 23:08 | USCV_ITS ---
Colette Lopez Age: 76 Gender: F : 1945 Exam Date: 03/09/2022 23:26 Ordering Phys: Edy Harris MD Technologist: FREDDY Exam Location: [facility] Indication: chest pain this evening. No history of cardiac intervention per patient. BP: 141 / 78 HR: 68 Rhythm: Sinus Technical Quality: Adequate MEASUREMENTS (Male / Female) Normal Values 2D ECHO LV Diastolic Diameter PLAX 4.2 cm 4.2 - 5.9 / 3.9 - 5.3 cm LV Systolic Diameter PLAX 2.8 cm IVS Diastolic Thickness 1.1 cm 0.6 - 1.0 / 0.6 - 0.9 cm IVS Systolic Thickness 1.5 cm LVPW Diastolic Thickness 1.1 cm 0.6 - 1.0 / 0.6 - 0.9 cm LVPW Systolic Thickness 1.4 cm LVOT Diameter 1.8 cm LV Ejection Fraction 2D Teich 61.0 % LV Ejection Fraction MOD 2C 49.5 % LV Ejection Fraction 2C AL 48.9 % LA Diameter 3.7 cm LA Width 3.8 cm LA Height 5.0 cm RA Width 2.2 cm RA Height 4.5 cm Aorta at Sinotubular Diameter 2.4 cm IVC Diameter 1.7 cm M-MODE Aortic Annulus Diameter 2.3 cm LA Ao Ratio MM 1.6 MV E Point Septal Separation 0.5 cm DOPPLER AV Peak Velocity 111.0 cm/s LVOT Peak Velocity 81.0 cm/s AV Area Cont Eq vti 1.7 cm squared AV Area Cont Eq pk 1.8 cm squared MV Area PHT 4.0 cm squared Mitral E to A Ratio 1.5 MV E' Velocity 51.0 cm/s Mitral E to MV E' Ratio 10.9 Mitral E to LV E' Lateral Ratio 10.2 Mitral E to LV E' Septal Ratio 11.9 TR Peak Velocity 322.7 cm/s TR Peak Gradient 41.6 mmHg TV Peak E Velocity 37.0 cm/s Right Atrial Pressure 5.0 mmHg Pulmonary Artery Systolic Pressu 46.6 mmHg PV Peak Velocity 85.0 cm/s RV Acceleration Time 0.1 s RV Ejection Time 0.4 s RV AcT/ET 0.3 FINDINGS Left Ventricle Normal LV size with diminished ejection fraction of 45%(visual). Severe diffuse hypokinesis of the LV apex. Echodensity at the LV apex, suggesting organized thrombus.Grade I/IV diastolic dysfunction (abnormal relaxation filling pattern), normal to mildly elevated filling pressures. Right Ventricle Normal right ventricular size and systolic function. Right Atrium Normal right atrial size. Left Atrium Mildly increased left atrial size. Mitral Valve Moderate mitral valve regurgitation. Moderate mitral annular calcification. Aortic Valve Thickened aortic valve. Tricuspid Valve Brdf-yy-aylskujo tricuspid valve regurgitation. Estimated pulmonary artery peak systolic pressure 47 mmHg Pulmonic Valve Mild pulmonary valve regurgitation. Pericardium Echo-free space posteriorly suggesting pericardial effusion Aorta Normal aortic annulus size. IVC Normal inferior vena cava. CONCLUSIONS Normal LV size with diminished ejection fraction of 45%(visual). Severe diffuse hypokinesis of the LV apex. Echodensity at the LV apex, suggesting organized thrombus. Grade 1 left-ventricular diastolic dysfunction Mildly increased left atrial size. Moderate mitral valve regurgitation. Moderate mitral annular calcification. Vhdh-mu-lijgzljc tricuspid valve regurgitation. Mild pulmonary hypertension.Estimated pulmonary artery peak systolic pressure 47 mmHg. Mild pulmonary valve regurgitation. Features of small pericardial effusion. Thickened aortic valve. No similar previous studies are available for comparison Dr Nahomi Garcia MD [facility] (Electronically Signed) Final Date: 10 March 2022 08:11 S
--- NOTE | 2022-03-09 23:10 | PM.HP ---
Providers/Chief Complaint Admitting Physician: Edy Harris Primary Care Provider: Koby Martinez NP Chief Complaint: sob, chest pain History of Present Illness 76-year-old lady presented for evaluation due to episode of burning in her chest, reports previously it was worse, although with some improvement now after initial treatment in ER. She is minimally hypertensive in ER. CXR is unremarkable. EKG nonspecific. Some flattening of T wave in aVL. Initial troponin 860. 2-hour troponin 950. In ER she receives aspirin, Lovenox, beta-lebron, is also seen by cardiology and started on loading dose of Plavix. She is currently still having some mild burning sensation in central chest. She denies prior history of [place], has not had a work-up previously. She is normally on oxygen and so states because of that has never had a stress test. Her brother has had history of [place] at a younger age than she is currently. Review of Systems Const: Denies: fever(s), chills, body aches or malaise Eyes: Denies: change in vision, eye discomfort or eye redness ENMT: Denies: throat pain, oral sores or ear or mastoid pain Card: Reports: chest pain; Denies: edema, pre-syncope or dyspnea on exertion Resp: Denies: dyspnea, productive cough, change in phlegm color or hemoptysis GI: Denies: abdominal pain, nausea, vomiting, diarrhea, constipation, hematochezia or melena : Denies: flank pain, urinary frequency or hematuria Musc: Denies: back pain, joint swelling or joint redness Skin/Breast: Denies: rash or new lesions Neuro: Denies: headache(s), numbness in extremities, weakness in extremities, dizziness, confusion or seizure-like activity Endo: Denies: polyuria or polydipsia Abhishek/Lymph: Denies: easy bleeding or tender lymph nodes All/Imm: Denies: urticaria or tongue swelling Medications/Allergies Home Medications Medication Instructions Recorded Confirmed Last Taken Type albuterol sulfate 1.25 mg/3 mL See Rx Instructions .Route .COMPLEX 01/17/20 05/25/20 01/17/20 History solution for nebulization hydrocodone 7.5 mg-acetaminophen 1 tab PO TID@ PRN Pain 01/17/20 05/25/20 05/25/20 09:00 History 325 mg tablet levothyroxine 75 mcg tablet 37.5 mcg PO DAILY@01/17/20 05/25/20 05/25/20 History (Synthroid) pravastatin 40 mg tablet 40 mg PO DAILY@17 01/17/20 05/25/20 05/24/20 History trazodone 100 mg tablet 200 mg PO DAILY@01/17/20 05/25/20 05/24/20 History albuterol sulfate 90 mcg/actuation 1 - 2 puff inhalation Q4H PRN 05/25/20 05/25/20 Unknown History aerosol inhaler (ProAir HFA) Shortness Of Breath azelastine-fluticasone 137 mcg-50 1 spray intranasal BID PRN unknown 05/25/20 05/25/20 Unknown History mcg/spray nasal spray fluticasone fur. 100 mcg-umeclid 1 inh inhalation DAILY 05/25/20 05/25/20 Unknown History 62.5 mcg-vilant 25 mcg inhalat.powder (Trelegy Ellipta) ondansetron HCl 4 mg tablet 4 mg PO Q8H PRN Nausea And Vomiting 05/25/20 05/25/20 Unknown History paroxetine HCl 10 mg tablet See Rx Instructions .Route .COMPLEX 05/25/20 05/25/20 Unknown History amoxicillin 875 mg-potassium 1 tab PO BID #20 tabs 05/27/20 Unknown Rx clavulanate 125 mg tablet (Augmentin) prednisone 50 mg tablet 50 mg PO DAILY #5 tabs 05/17/21 Unknown Rx Allergies Allergy/AdvReac Type Severity Reaction Status Date / Time ibuprofen Allergy ALGY-Rash Verified 05/17/21 15:23 naproxen [From Aleve] Allergy ALGY-Rash Verified 05/17/21 15:23 PFSH Acute PFSH: Medical History Breast cancer Chronic back pain COPD (chronic obstructive pulmonary disease) Depression HTN (hypertension) Hyperlipidemia Supplemental oxygen dependent Surgical History H/O lumpectomy Family History Other CAD (coronary artery disease) Social History Smoking and tobacco status: former smoker Alcohol intake: never Substance/Drug Use: never Marital status: / Marital status details: She lost her 6 months ago Vitals/I&O/Wt Last Vital Signs Temp 97.7 F 03/09/22 18:43 Pulse 75 03/09/22 21:53 Resp 16 03/09/22 21:53 BP 141/78 03/09/22 21:53 Pulse Ox 97 03/09/22 21:53 O2 Del Method 03/09/22 21:00 O2 Flow Rate 2 03/09/22 21:00 Weight last 48 hrs Weight 56.699 kg Physical Exam Const: COMMON NORMALS: patient oriented x3 and alert GENERAL APPEARANCE: cooperative ORIENTATION/CONSCIOUSNESS: Yes awake HENMT: COMMON NORMALS: oropharynx normal Neck/C-Spine: COMMON NORMALS: no JVD Resp: COMMON NORMALS: normal respiratory effort and clear to auscultation bilaterally AUSCULTATION: clear to auscultation bilaterally Cardio: COMMON NORMALS: no JVD, regular rhythm, S1 normal heart sound present, S2 normal heart sound present and No murmurs present (Cardio) RHYTHM: regular rhythm HEART SOUNDS: S1 normal heart sound present and S2 normal heart sound present GI: COMMON NORMALS: Normal to inspection, nondistended, normoactive bowel sounds present, Soft to palpation and non-tender PALPATION: Yes Soft to palpation Extremity: COMMON NORMALS: no joint enlargement and no pedal edema Neuro: COMMON NORMALS: patient oriented x3 and moves all extremities SENSORIUM/ORIENTATION: Yes alert Skin: COMMON NORMALS: no rashes or lesions noted GENERAL SKIN EXAM: no rashes or lesions noted Data : 03/09/22 19:54 03/09/22 19:54 A&P Assessment and plan (1) Non-ST elevation [place] (NSTEMI): Noted instead with troponin elevation. Nonspecific changes on EKG. Former smoker, history of HTN, HLD, family history of CAD. Discussed with cardiology. As she is having residual symptoms, start nitroglycerin drip. Continue anticoagulation, continue aspirin, has been loaded with Plavix. Continue. Continue B-lebron, statin. Complete troponin EKG series. Monitor on telemetry. Assess TTE. Further cardiac recommendations to follow. Plan MedicationSupplemental oxygen dependent COPD: Feels has been having some phlegm, will bit harder time to bring it up. Add flutter valve, Mucinex. Continue breathing treatments with DuoNeb scheduled and as needed. Budesonide. Depression HTN HLD To be confirmed. Please review and reconcile once available. Attestations Medical Necessity Statement*: Admission of over 2 midnights anticipated for assessment of management due to NSTEMI. Coding Level of Care Code Acute Fire Safety Inspector for Mari Zambrano Diagnoses Non-ST elevation [place] (NSTEMI) I21.4
[2022-03-10] VITALS (48 sets, daily range): BP systolic 91–137; BP diastolic 51–92; PULSE 59–85; RESP 11–29; TEMP 36.7–37.1; O2SAT 93–100
[2022-03-10] MEDS: pantoprazole DR 40 mg Tablet PO ×2 (00:16→10:27)
[2022-03-10] MEDS: guaiFENesin 600 mg Tablet PO ×3 (00:16→18:37)
[2022-03-10] MEDS: nitroglycerin drip 50 MG/250 ML PREMIX IV (00:18)
[2022-03-10] MEDS: trazodone 100 mg Tablet 200 MG PO (01:27)
--- NOTE | 2022-03-10 01:59 | ECG_ITS ---
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 Measurements Intervals [place] Rate: 63 P: 74 MI: 141 QRS: 41 QRSD: 81 T: 59 QT: 433 QTc: 444 Interpretive Statements SINUS RHYTHM LOW QRS VOLTAGE IN PRECORDIAL LEADS [QRS DEFLECTION < 1.0 mV IN CHEST LEADS] POSSIBLE ANTERIOR MYOCARDIAL INFARCTION , OF INDETERMINATE AGE [30 ms Q WAVE IN V3/V4, OR R < 0.2 mV IN V4] Compared to ECG 03/09/2022 20:54:41 No significant changes Electronically Signed On 03-10-2022 21:05:08 CLINICAL MASSAGE THERAPIST by Nahomi Garcia M.D. [id number]
[2022-03-10] MEDS: ipratropium-albuterol 3 mL Neb INHALATION ×3 (02:09→22:31)
[2022-03-10 03:12] LABS: Basophils # 0.1 10^3/uL (0.0-0.1); Basophils % 0.6 %; Eosinophils # 0.1 10^3/uL (0.0-0.8); Eosinophils % 0.7 %; Hematocrit 39.5 % (37.0-47.0); Hemoglobin 11.7 g/dL (11.5-15.3); Lymphocytes # 1.7 10^3/uL (0.8-4.8); Lymphocytes % 15.8 %; Mean Corpuscular HGB Conc 29.6 g/dL (30.0-36.0); Mean Corpuscular Hemoglobin 30.5 pg (28.0-34.0); Mean Corpuscular Volume 102.9 fl (81-99); Mean Platelet Volume 10.3 fL (7.4-10.4); Monocytes # 0.7 10^3/uL (0.2-0.9); Monocytes % 6.3 %; Neutrophils # 8.24 10^3/uL (1.8-7.7); Nucleated Red Blood Cells % 0 %; Platelet Count 274 10^3/cmm (130-400); Red Blood Count 3.84 10^6/uL (4.1-5.3); Red Cell Distribution Width 14.5 % (12.1-15.1); White Blood Count 10.8 10^3/uL (4.0-10.0)
[2022-03-10 04:20] LABS: Troponin 5 6HR 1127 ng/L (0-10); Troponin 5 6HR Delta 267 ng/L (0-12)
[2022-03-10 05:16] LABS: Alanine Aminotransferase 10 U/L (0-33); Albumin Level 3.4 g/dL (3.5-5.2); Alkaline Phosphatase 69 U/L (35-105); Anion Gap 15.1 (5-19); Aspartate Amino Transferase 48 U/L (0-32); Blood Urea Nitrogen 21 mg/dL (8-23); Calcium 9.1 mg/dL (8.5-10.5); Carbon Dioxide 22 mmol/L (22-29); Chloride 104 mmol/L (98-107); Glucose 95 mg/dL (65-115); Osmolality Calculated 287 mOsm/kg (285-295); Potassium 4.1 mmol/L (3.5-5.1); Sodium 137 mmol/L (136-145); Total Bilirubin 0.5 mg/dL (0.15-1.2); Total Protein 6.4 g/dL (6.6-8.7)
--- NOTE | 2022-03-10 07:59 | XACV_ITS ---
Exam Room: [facility] Ht: 157 cm Wt: 59 kg BSA: 1.62 m2 Gender: Female : 1945 Exam Priority: Routine Procedure(s): Procedure Description: Diagnostic procedure Procedure Description: PCI procedure Procedure Description: Left Heart Catheterization Procedure Description: Drug Eluting Coronary Stent Procedure Description: PTCA Procedure Description: Coronary Angiography Diagnostic Cath Status: Urgent Diagnostic Findings * Left main is extremely short vessel. The left anterior descending artery and the circumflex artery appears to have almost separate ostia. * The left anterior descending artery is a medium caliber vessel which appears to wrap around the LV apex minimally. Exam proximal and mid LAD was found to mild diffuse disease. The first diagonal branch was found to have an ostial around 60% stenosis. After giving of his small side branch, the artery appears to have a high-grade around 90% segmental stenosis. No other significant stenotic lesions were noted.. * The left circumflex artery is a medium to large caliber dominant vessel which was found to have mild to moderate diffuse irregular narrowing in the proximal of the mid segment. The lesions were ranging anywhere from 30 to 60%. The terminal circumflex artery was found to give off the PDA branch. There is a 95% stenosis at the ostium of this vessel. No other significant is noted lesions were noted.. * The right coronary artery is a small to medium caliber nondominant vessel with no significant stenotic lesions. PCI Status: Urgent PCI LVEF Assessed: No PCI Indication: NSTE - ACS Interventional Findings * Initially, the first small diagonal underwent plain old balloon angioplasty with a 2.5 x 15 mm balloon with an excellent result. Secondly, the distal circumflex which would be the third obtuse marginal or also the ostial posterior descending artery underwent balloon angioplasty followed by stenting with a 2.5 x 12 mm stent. The second lesion required predilatation with a balloon. The final result was excellent. Patient has a left dominant system. Decision for PCI with Surgical Consult: No PCI for Multi-vessel Disease: Yes Multi-vessel Procedure Type: Initial PCI Conclusions 1. This is a 76-year-old white female with a history of dyslipidemia and smoking abuse, presented with a features of an acute non-ST relation myocardial infarction. She was having episodes of burning sensation in the chest while being in the hospital. Her troponin I kept going up to 1100 from 800 at the time of admission. The echocardiogram revealed a severe diffuse hypokinesia of the LV apex with an apical thrombus. Ejection fraction was around 40%. For further management of her condition, cardiac relative this was told to be appropriate. Risk and benefits were explained to the patient in detail which is understood well and consented to proceed. Patient underwent left heart catheterization with left and right coronary angiogram today. The findings are as follows. 2. Left main is extremely short vessel with a separate ostia for the LAD and circumflex artery. A high-grade lesion in the first diagonal branch of the left anterior descending artery of around 80%. Ostium of this vessel was found to have around 50 to 60% narrowing. Left circumflex artery was found to be the dominant vessel which gives of the PDA branch. At the ostium of the PDA, there was a high-grade 95% lesion. Mild to moderate diffuse disease was noted circumflex artery. Right coronary was found to be a small caliber nondominant vessel with no significant stenotic lesion. LVEDP of 14 mmHg. 3. I have reviewed and discussed the cardiac catheterization data with the Dr. Beckman. Does not to be appropriate to consider PCI of the diagonal and the PLV branch of the left circumflex artery. Dr. Beckman concurred with this plan and took over further management of this patient at this point. Diagnostic RX Recommendation: PCI w/o planned CABG LV EDP: 14 mmHg Left Ventriculography Findings: * The LV gram was not performed because of the concern about dye overload. The LVEDP was 14 mmHg. Pressures Phase:Rest AO : 92 / 61 ( 76 ) @ 8:44:00 AM 101 / 67 ( 84 ) @ 8:52:00 AM 127 / 52 ( 83 ) @ 8:57:00 AM 127 / 50 ( 84 ) @ 8:57:00 AM 109 / 66 ( 86 ) @ 9:12:00 AM LV : 130 / -5 / 14 @ 8:57:00 AM 120 / -7 / 13 @ 8:57:00 AM Valves Phase:DefaultPhase AV : 0.0 @ 9:53:15 AM AV Mean Gradient: 0.0 @ 9:53:15 AM Clinical Evaluation EBL: 5mL-10mL Procedural Details Procedure Consent Obtained. Admit Source: In Patient. Pre-Procedure Time Out. Identified patient by full name and date of as verbalized by the patient/guarantor. Does the consent match the physician's order: Yes. Accurate & Complete Informed Consent: Yes. Inpatient/Outpatient History & Physical on Chart: Yes. If H&P is completed, is and addenduem needed: No; If yes, is the addendum complete: N/A. Visualize and Verify Site with Patient/Guarantor: N/A. Relevant Radiology Images available: N/A. The risks, benefits, and alternatives of sedation and/or procedure were discussed by physician. The patient agrees to continue. Procedure started. Correct patient, site and procedure confirmed by cath team. PERRLA. Strong, equal hand land conservation specialist bilaterally. Lungs clear x 5 lobes. IV Site on Arrival: 22 gauge in the left anticubital. IV Fluids: 0.9% NaCl at KVO. 0 mL infused prior to pathology laboratory aides teacher. Pre Procedural Pulses: bilateral radial was 2+. Oxygen started at 2liters/min via nasal canula. right groin was prepped with chloroprep then draped in the usual sterile fashion. Physician notified. Baseline sample Acquired. HR: 75 BPM. Current diagnosis: NSTEMI. Physician arrived. Physician scrubbed in. Immediate Pre-Procedure Time Out. Correct Patient: Yes; Correct Procedure: Yes; Correct Site: Yes; Correct Patient Position: Yes; Correct Supplies: Yes; Dried Flammable Prep: Yes; Blood Products Available: N/A;. Lidocaine 1% infiltrated to the right groin. Arterial access obtained with micropuncture set. A 5 mexican JL4 catheter in over wire. wire out. Multiple views taken of left coronary artery. Catheter removed over the standard wire. A 5 mexican JR4 catheter in over wire. wire out. Multiple views taken of right coronary artery. Physician review of cine films. Catheter out. A 5 mexican Angled Pig catheter in over wire. wire out. EDP Sample taken: LV 130/-6,14; HR: 68 BPM; SpO2: 99%. Pullback taken: LV 120/-8,13; AO 127/52(83); Mean: 0mmHg, Peak to Peak: 0mmHg, SEP: 7sec/min; HR: 68 BPM; SpO2: 99%. Catheter out. wire out. dr garcia scrubbed out and dr beckman scrubbed in to perform intervention. [facility] Clinical Fraility Score: 3: Managing Well. Joint Machine Operator Indications: ACS <= 24 hours. Chest Pain Symptom Assessment: Typical Angina Symptoms. Cardiovascular Instability: No,. Patient's family updated. Sheath upsized to a 6 Fr. 6 mexican XB 3 guide catheter was inserted over the wire. wire out. Inventory is HealthyTweetgar XT .014 190cm Str. Guidewire. Avalon guidewire was advanced through the guide catheter to lesion in the diaganol. Balloon inserted to lesion in the diaganol. Inflation number : 1 A AB TREK 2.50X12 RX BALLOON was prepped and advanced across the 1st Diag , then inflated to 8 MARIO for 0:31 seconds. Results checked. Avalon guidewire was advanced through the guide catheter to lesion in the LPDA. baloon postitioned to 3rd om. unable to cross lesion with baloon. new 2.5x12mm baloon inserted. Inflation number : 1 A AB TREK 2.50X12 RX BALLOON was prepped and advanced across the 3rd Ob Marg1 , then inflated to 8 MARIO for 0:31 seconds. balloon out. Stent inserted to lesion in the 3rdOM. Inflation Number : 2 A WINIFRED Yuen MALGORZATA 2.5X12 DEBORAH -Lot Number# [id number] exp. 11/11/24 was prepped and advanced across the 3rd Ob Marg1. The stent was deployed at 12 MARIO for 0:31 seconds. Results checked. guide and stent balloon and wire out. Sheath(s) sutured into position with 2-0 silk and sterile 4x4's and Op-site applied over the site. No oozing or signs and symptoms of hematoma noted. A Suture was successful obtaining hemostatsis at the Right Femoral artery insertion site. Post Procedure: Pulses reassessed and unchanged. Arterial sheath flushed and connected to tranducer and pressure bag with heparinized saline. PERRLA. Strong, equal hand land conservation specialist bilaterally. No VTE prophylaxis required. Medication's Wasted: Heparin = 4000 unit. Total IV fluids: 391 mL. PCI Indication: NSTE. Post-op diagnosis: NSTEMI. Estimated blood loss: 5mL-10mL. Responsiveness - Normal response to verbal stimuli; alert and oriented, PERRLA. Complications: none. Airway - Unaffected, no intervention required; spontaneous ventilation. Circulation: W/N/L, pulses unchanged. Nausea/Vomiting: No. Procedure completed. Patient transferred by bed to 1st floor. Vital chart was stopped. Access Site Site: Right Femoral artery Sheath Size: 5 Fr Hemostasis Method: Suture Hemostasis Success: Successful Procedure Medications Start: 8:34 AM Stop: 8:34 AM Medication: Versed 1 mg and Fentanyl 25 mcg Start: 8:35 AM Stop: 8:35 AM Medication: Fentanyl Amount: 25 mcg Route: I.V. Start: 8:37 AM Stop: 8:37 AM Medication: Versed Amount: 1 mg Route: I.V. Start: 8:42 AM Stop: 8:42 AM Medication: 0.9% Saline Amount: ml/hr Route: I.V. bolus Start: 9:08 AM Stop: 9:08 AM Medication: Versed Amount: 1 mg Route: I.V. Start: 9:14 AM Stop: 9:14 AM Medication: Versed 1 mg and Fentanyl 25 mcg Start: 9:16 AM Stop: 9:16 AM Medication: Heparin Amount: 5000 units Route: I.V. Start: 9:29 AM Stop: 9:29 AM Medication: Versed Amount: 1 mg Route: I.V. Start: 9:36 AM Stop: 9:36 AM Medication: Fentanyl Amount: 25 mcg Route: I.V. Start: 9:42 AM Stop: 9:42 AM Medication: Fentanyl Amount: 25 mcg Route: I.V. I, the attending physician, have reviewed and verified all procedure medications. Yes, all medications given per verbal order History/Risk Factors Hypertension: Yes Dyslipidemia: Yes Peripheral Arterial Disease (PAD): No Myocardial Infarction (GA): No Obesity: No Renal Disease: No Prior Interventions PCI: No CABG: No Valve Surgery: No Report Signatures Diagnostic Workflow Finalized by Dr Nahomi Garcia MD [facility] on 03/10/2022 07:26 PM Interventional Workflow Finalized by Dr. Neal Beckman MD on 03/10/2022 09:57 AM
--- NOTE | 2022-03-10 08:29 | W.PM.OPSUD ---
Surgery/Procedure H&P Update DATE OF PROCEDURE: March 10, 2022 DATE H&P PERFORMED: 03/09/22 H&P UPDATE INFORMATION: I have reviewed H&P completed within last 30 days, I have examined patient prior to procedure and No changes to prior documentation PREOP DIAGNOSIS: NSTEMI PRIMARY INDICATION FOR PROCEDURE: NSTEMI/ Rising troponin T PLANNED PROCEDURE: Left heart catheterization with left and right coronary angiogram and possible PCI PATIENT REASSESSED PRIOR TO SEDATION, WITH NO CHANGE NOTED: Yes PHYSICAL EXAM: alert, oriented x 3, clear to auscultation bilaterally and regular rate & rhythm AIRWAY EVAL/ANESTHESIA PLAN: normal airway, see other exam findings, ASA III, Monitored Anesthesia, Local Anesthesia, Risks, benefits & alternatives of sedation and/or procedure discussed and Patient agrees to continue as planned
--- NOTE | 2022-03-10 08:37 | PC.PHAR ---
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
[2022-03-10] MEDS: clopidogrel 75 mg Tablet PO (10:27)
[2022-03-10] MEDS: metoprolol tartrate 25 mg Tablet PO ×2 (10:27→21:13)
[2022-03-10] MEDS: sodium chloride 0.9% 1,000 ML 100 ML IV ×2 (10:28→21:10)
--- NOTE | 2022-03-10 11:23 | PM.MISC ---
Miscellaneous Note Note: Patient had lesion in posterior descending artery and diagonal Dr. Garcia notified about the results Patient was chest pain-free blood pressure stable On nitro drip [address] Garcia also noted left apical thrombus Awake and alert S1, S2 Abdomen soft Pleasant and cooperative Nonfocal neuro exam Considering left apical thrombus and recent stent placement she will get Eliquis with Plavix Wean off nitro drip Blood pressure is stable currently chest pain-free Wean off oxygen She was with a friend who is also 80 years old Will start Eliquis 24 hours after that she has been removed She will have cardiac diet after her procedure
[2022-03-10 11:41] LABS: Partial Thromboplastin Time 237.8 SECONDS (23.9-36.7)
--- NOTE | 2022-03-10 11:53 | PC.CHAP ---
Pastoral Care Encounter/Spiritual Assessment Type of Contact [] Declined technology trainer visit [] Patient/Family/Request visit [] Outpatient visit [] Follow-up visit [] Physician referral [] Code/Alert [] Routine visit [] Staff referral [] Actively dying [] Patient sleeping [] Family support [] [x] Out of room [] Palliative care [] [] Receiving care in room [] Pre-surgical visit [] Trauma [] Long length of stay [] ICU visit [x] Other: testing Relational/Emotional Strength [] Patient feels connected with others/family/visitors/staff [] Distress [] Loneliness/isolation [] Abandonment Spirituality of Patient [] Person of Ita [] Attends Protestant of their Ita [] Believes in Prayer [] Reads Bible or Jewish materials [] There are Spiritual issues to be addressed Tare Worker Interventions [x] Prayer [] Active listening [] Non-anxious presence [] Spiritual/emotional support [] Crisis/trauma care [] Spiritual counseling [] Bereavement support [] Provided bereavement packet [] Provided Bible/devotional materials [] Provided toy/stuffed animal, coloring book to patient or family member [] Provided Communion [] Anointing/[place] [] Salvation [x] Completed spiritual assessment [] Other: Impact on Illness or Injury [] Angry [] Fearful [] Anxious [] Often cries [] Exhaustion [] Unable to work [] Unable to attend anabaptism [] Unable to walk/stand [] Unable to read [] Unable to drive [] Unable to eat/drink [] Unable to sleep [] Unable to be with family [] Patient intubated [] Other: Summary Time spent with patient
[2022-03-10 14:01] LABS: Partial Thromboplastin Time 69.1 SECONDS (23.9-36.7)
[2022-03-10] MEDS: HYDROcodone-acetaminophen 7.5-325 mg Tablet 1 TAB PO ×2 (14:56→21:14)
[2022-03-10 15:54] LABS: Partial Thromboplastin Time 24.5 SECONDS (23.9-36.7)
[2022-03-10] MEDS: fentaNYL 50 mcg/mL INJ 2mL IVP ×2 (16:16→17:29)
--- NOTE | 2022-03-10 16:55 | PC.NURSE ---
sheath removal explained procedure to pt. premedicated pt w/fentanyl as ordered prior to sheath removal. right femoral artery palpated. Pressure held but puncture site started to ooze and small hematoma formation noted. 2nd dose of fentanyl given as ordered. pressure held for 20 mins and hemostasis achieved. bruising noted on right groin, hematoma dessipated, small blood oozing noted on puncture site. pt denies any back pain or unusual burning sensation, no more increase hematoma formation noted. educated pt to call nurse if any unusual pain, burning sensation or wetness on groin areas. educated pt on bedrest for 6 hrs and hob elevated no more than 30 deg. call light provided. pt verbalizes understanding.
--- NOTE | 2022-03-10 18:56 | P.PN_ITS ---
Subjective Subjective: Patient had an echocardiogram which revealed severe diffuse hypokinesia of the LV apex. LV ejection fraction was around 40%. Apical thrombus was noted. She underwent left heart catheterization with left and right coronary angiogram today. Was found to have a high-grade lesion in the first diagonal branch and the of the left artery descending artery .other high-grade lesion was noted at the proximal segment of the PDA branch of the left circumflex artery. She underwent PCI of these lesions by Dr. Beckman. Medications: Medication Review Details: Current Medications Acetaminophen (Acetaminophen 325 Mg Tablet) 650 mg PO Q6H PRN PRN Reason: Mild/Mod Pain Or Temp >/= 101 Hydrocodone Bitart/Acetaminophen (Hydrocodone-Acetaminophen 7.5-325 Mg Tablet) 1 tab PO QID PRN PRN Reason: MODERATE PAIN Last Admin: 03/10/22 14:56 Dose: 1 tab Albuterol/Ipratropium (Ipratropium-Albuterol 3 Ml Neb) 3 ml INHALATION Q4H PRN PRN Reason: SHORTNESS OF BREATH Albuterol/Ipratropium (Ipratropium-Albuterol 3 Ml Neb) 3 ml INHALATION Q6H.RESP RACHNA Last Admin: 03/10/22 14:03 Dose: 3 ml Alprazolam (Alprazolam 0.5 Mg Tablet) 0.25 mg PO TID PRN PRN Reason: ANXIETY Apixaban (Apixaban 5 Mg Tablet) 5 mg PO BID@0900,2100 RACHNA Atorvastatin Calcium (Atorvastatin 40 Mg Tablet) 40 mg PO BEDTIME RACHNA Budesonide (Budesonide 0.5 Mg/2 Ml Neb) 0.25 mg INHALATION BID.RESPIRATORY RACHNA Last Admin: 03/10/22 14:02 Dose: Not Given Clopidogrel Bisulfate (Clopidogrel 75 Mg Tablet) 75 mg PO DAILY RACHNA Last Admin: 03/10/22 10:27 Dose: 75 mg Guaifenesin (Guaifenesin 600 Mg Tablet) 600 mg PO BID RACHNA Last Admin: 03/10/22 18:37 Dose: 600 mg Sodium Chloride (Sodium Chloride 0.9%) 1,000 mls @ 100 mls/hr IV .Q10H RACHNA Last Admin: 03/10/22 10:28 Dose: 100 mls/hr Magnesium Hydroxide (Magnesium Hydroxide 30 Ml Udc) 30 ml PO DAILY PRN PRN Reason: CONSTIPATION Metoprolol Tartrate (Metoprolol Tartrate 25 Mg Tablet) 25 mg PO BID@0900,2100 [facility] Last Admin: 03/10/22 10:27 Dose: 25 mg Nitroglycerin (Nitroglycerin 0.4 Mg Sublingual Tablet) 0.4 mg SUBLINGUAL Q5M PRN PRN Reason: CHEST PAIN Ondansetron HCl (Ondansetron 2 Mg/Ml Sdv 2 Ml) 4 mg IVP Q8H PRN PRN Reason: vomiting, or N/V if npo Pantoprazole Sodium (Pantoprazole Dr 40 Mg Tablet) 40 mg PO DAILY [facility] Last Admin: 03/10/22 10:27 Dose: 40 mg Temazepam (Temazepam 15 Mg Capsule) 15 mg PO BEDTIME PRN PRN Reason: INSOMNIA Vitals/I&O/Wt Last Vital Signs Temp 98.5 F 03/10/22 16:00 Pulse 71 03/10/22 16:00 Resp 28 H 03/10/22 16:00 BP 135/73 03/10/22 16:00 Pulse Ox 97 03/10/22 16:00 O2 Del Method 03/10/22 14:00 O2 Flow Rate 2 03/10/22 14:00 03/10/22 03/10/22 03/10/22 06:59 14:59 22:59 Intake Total 0.675 / 0.675 200 / 200 Output Total Balance -0.325 / -0.325 199 / 199 Weight last 48 hrs Weight 131 lb 14.4 oz Weight 125 lb Physical Exam Narrative: GENERAL: The patient is alert and oriented times three. Not in any acute distress. HEENT: No significant pallor, icterus or lymphadenopathy.Oral cavity: There are no mucous membrane lesions. NECK: Trachea appears to be central. No masses noted. No JVD or thyromegaly appreciated. RESPIRATORY: Chest is symmetrical. No intercostals muscle retraction or any accessory muscle activation. There is no chest wall tenderness. Breath sounds are heard bilaterally. The intensity of breath sounds are diminished in the bases. No rales or rhonchi heard. No evidence of any consolidation. BREASTS: Deferred. HEART: The heart sounds are normal. No S3 or S4. Short systolic murmur in the left sternal border. No diastolic murmurs. No pericardial rub ABDOMEN: No vessel pulsations or distention. No tenderness. No organomegaly appreciated. Bowel sounds are normally heard. : Deferred. RECTAL: Deferred. LYMPHATIC: No lymphadenopathy noted in the neck. EXTREMITIES: No edema or cyanosis. No clubbing. Peripheral pulses are palpable but weak bilaterally. Right groin has no hematoma bleeding. MUSCULOSKELETAL: No acute joint deformities or swelling SKIN: Multiple healed superficial ecchymosis in the upper extremities. NEUROPSYCHIATRIC: The patient is alert and oriented x3. Appears to be in a good mood. No tremors or rigidity noted. Data : 03/10/22 02:14 03/10/22 04:43 Other Labs: Laboratory Last Values WBC 10.8 10^3/uL (4.0-10.0) H 03/10/22 02:14 RBC 3.84 10^6/uL (4.1-5.3) L 03/10/22 02:14 Hgb 11.7 g/dL (11.5-15.3) 03/10/22 02:14 Hct 39.5 % (37.0-47.0) 03/10/22 02:14 MCV 102.9 fl (81-99) H D 03/10/22 02:14 MCH 30.5 pg (28.0-34.0) 03/10/22 02:14 MCHC 29.6 g/dL (30.0-36.0) L D 03/10/22 02:14 RDW 14.5 % (12.1-15.1) 03/10/22 02:14 Plt Count 274 10^3/cmm (130-400) 03/10/22 02:14 MPV 10.3 fL (7.4-10.4) 03/10/22 02:14 Neut % (Auto) 76.0 % 03/10/22 02:14 Lymph % (Auto) 15.8 % 03/10/22 02:14 [place] % (Auto) 6.3 % 03/10/22 02:14 Eos % (Auto) 0.7 % 03/10/22 02:14 Baso % (Auto) 0.6 % 03/10/22 02:14 Neut # (Auto) 8.24 10^3/uL (1.8-7.7) H 03/10/22 02:14 Lymph # (Auto) 1.7 10^3/uL (0.8-4.8) 03/10/22 02:14 [place] # (Auto) 0.7 10^3/uL (0.2-0.9) 03/10/22 02:14 Eos # (Auto) 0.1 10^3/uL (0.0-0.8) 03/10/22 02:14 Baso # (Auto) 0.1 10^3/uL (0.0-0.1) 03/10/22 02:14 Nucleated RBC % (auto) 0 % 03/10/22 02:14 Nucleated RBCs # 0.0 /100WBC 03/10/22 02:14 APTT 24.5 SECONDS (23.9-36.7) D 03/10/22 15:33 Sodium 137 mmol/L (136-145) 03/10/22 04:43 Potassium 4.1 mmol/L (3.5-5.1) 03/10/22 04:43 Chloride 104 mmol/L (98-107) 03/10/22 04:43 Carbon Dioxide 22 mmol/L (22-29) 03/10/22 04:43 Anion Gap 15.1 (5-19) 03/10/22 04:43 BUN 21 mg/dL (8-23) 03/10/22 04:43 Creatinine 1.0 mg/dL (0.5-0.9) H 03/10/22 04:43 GFR Calculation Not Reportable 03/10/22 04:43 Glucose 95 mg/dL (65-115) 03/10/22 04:43 Calculated Osmolality 287 mOsm/kg (285-295) 03/10/22 04:43 Calcium 9.1 mg/dL (8.5-10.5) 03/10/22 04:43 Total Bilirubin 0.5 mg/dL (0.15-1.2) 03/10/22 04:43 AST 48 U/L (0-32) H 03/10/22 04:43 ALT 10 U/L (0-33) 03/10/22 04:43 Alkaline Phosphatase 69 U/L (35-105) 03/10/22 04:43 Troponin T Baseline 860 ng/L (0-10) H* 03/09/22 19:54 Troponin T 120 Minute 950.0 ng/L (0-10) H 03/09/22 21:39 Delta Troponin T 90.0 ABS# (0-10) H* 03/09/22 21:39 Troponin T Hi Sens 6Hr 1127 ng/L (0-10) H 03/10/22 02:14 Troponin T Hi Sens 6Hr Delta 267 ng/L (0-12) H* 03/10/22 02:14 Total Protein 6.4 g/dL (6.6-8.7) L 03/10/22 04:43 Albumin 3.4 g/dL (3.5-5.2) L 03/10/22 04:43 Globulin 3.0 g/dL (1.3-4.6) 03/10/22 04:43 A&P Assessment and plan (1) Non-ST elevation CT (NSTEMI): Negative for exertion revealing high-grade motion of the diagonal branch of the left anterior descending artery and PDA branch and circumflex artery. Mild to moderate diffuse disease in the other vessels. Patient underwent PCI of the above-mentioned lesions. Currently she seems to be doing okay. (2) Ischemic cardiomyopathy: Patient will be carefully treated with optimal releasing agents, as needed diuretics and other symptomatic measures. We will try to initiate GDMT. We will start her on a low-dose of ARB-losartan 25 mg p.o. daily. Also started on spironolactone 25 mg p.o. daily. (3) LV (left ventricular) mural thrombus: Patient restarted on Eliquis after 24 hours of discontinuing the arterial sheath. Because of bleeding risk, we may discontinue the aspirin and continue the Plavix. (4) Hyperlipidemia: Patient may be started on Lipitor in place of pravastatin. May continue on the current medications. (5) COPD (chronic obstructive pulmonary disease): May be treated with a bronchodilators as needed. Qualifiers: COPD type: unspecified COPD Qualified Code(s): J44.9 - Chronic obstructive pulmonary disease, unspecified (6) Stage 2 acute kidney injury: May be carefully treated with IV fluids. Repeat BMP in the morning Plan Patiently clinical progress, further management decisions will be made. BMP in the morning. Attestations Medical Necessity Statement*: Patient requires continued hospital stay for close monitoring and further management Coding Level of Care Code Acute Handicraft Or Hobby Shop Manager for Chg Fwd History Expanded Problem Focused Exam Expanded Problem Focused Medical Decision Making Moderate Complexity Diagnoses Non-ST elevation CT (NSTEMI) I21.4 Ischemic cardiomyopathy I25.5 LV (left ventricular) mural thrombus I51.3 Hyperlipidemia E78.5 COPD (chronic obstructive pulmonary disease) J44.9 COPD type: unspecified COPD Stage 2 acute kidney injury N17.9
[2022-03-10] MEDS: atorvastatin 40 mg Tablet PO (21:13)
[2022-03-10] MEDS: budesonide 0.5 mg/2 mL Neb 0.25 MG INHALATION (22:33)
[2022-03-10] MEDS: ALPRAZolam 0.5 mg Tablet 0.25 MG PO (23:11)
[2022-03-11] VITALS (8 sets, daily range): BP systolic 100–110; BP diastolic 58–63; PULSE 65–78; RESP 16–22; TEMP 36.4–37.2; O2SAT 93–98
[2022-03-11] MEDS: acetaminophen 325 mg Tablet 650 MG PO (03:36)
[2022-03-11] MEDS: ipratropium-albuterol 3 mL Neb INHALATION ×2 (03:37→09:40)
[2022-03-11 05:47] LABS: Basophils % 0.4 %; Eosinophils # 0.1 10^3/uL (0.0-0.8); Eosinophils % 1.3 %; Hematocrit 32.1 % (37.0-47.0); Hemoglobin 10.2 g/dL (11.5-15.3); Lymphocytes # 0.8 10^3/uL (0.8-4.8); Lymphocytes % 11.6 %; Mean Corpuscular HGB Conc 31.8 g/dL (30.0-36.0); Mean Corpuscular Hemoglobin 29.4 pg (28.0-34.0); Mean Corpuscular Volume 92.5 fl (81-99); Mean Platelet Volume 10.2 fL (7.4-10.4); Monocytes # 0.7 10^3/uL (0.2-0.9); Monocytes % 9.8 %; Neutrophils # 5.43 10^3/uL (1.8-7.7); Neutrophils % 76.2 %; Nucleated Red Blood Cells % 0 %; Platelet Count 253 10^3/cmm (130-400); Red Blood Count 3.47 10^6/uL (4.1-5.3); Red Cell Distribution Width 14.4 % (12.1-15.1); White Blood Count 7.1 10^3/uL (4.0-10.0)
[2022-03-11] MEDS: sodium chloride 0.9% 1,000 ML 100 ML IV (06:02)
[2022-03-11 06:13] LABS: Alanine Aminotransferase 53 U/L (0-33); Albumin Level 3.7 g/dL (3.5-5.2); Alkaline Phosphatase 92 U/L (35-105); Anion Gap 18.8 (5-19); Aspartate Amino Transferase 42 U/L (0-32); Blood Urea Nitrogen 28 mg/dL (8-23); Calcium 8.9 mg/dL (8.5-10.5); Carbon Dioxide 21 mmol/L (22-29); Chloride 99 mmol/L (98-107); Globulin 2.4 g/dL (1.3-4.6); Glucose 101 mg/dL (65-115); Osmolality Calculated 286 mOsm/kg (285-295); Potassium 3.8 mmol/L (3.5-5.1); Sodium 135 mmol/L (136-145); Total Bilirubin 0.6 mg/dL (0.15-1.2); Total Protein 6.1 g/dL (6.6-8.7)
[2022-03-11] MEDS: HYDROcodone-acetaminophen 7.5-325 mg Tablet 1 TAB PO (06:16)
--- NOTE | 2022-03-11 08:07 | PC.CHAP ---
Pastoral Care Encounter/Spiritual Assessment Type of Contact [] Declined profile saw setup operator visit [] Patient/Family/Request visit [] Outpatient visit [] Follow-up visit [] Physician referral [] Code/Alert [x] Routine visit [] Staff referral [] Actively dying [] Patient sleeping [] Family support [] [] Out of room [] Palliative care [] [] Receiving care in room [] Pre-surgical visit [] Trauma [] Long length of stay [] ICU visit [] Other: Relational/Emotional Strength [x] Patient feels connected with others/family/visitors/staff [] Distress [] Loneliness/isolation [] Abandonment Spirituality of Patient [x] Person of Ita [x] Attends Voodoo of their Ita [x] Believes in Prayer [x] Reads Bible or Church materials [] There are Spiritual issues to be addressed Healthcare Administration Intern Interventions [x] Prayer [x] Active listening [x] Non-anxious presence [x] Spiritual/emotional support [] Crisis/trauma care [] Spiritual counseling [] Bereavement support [] Provided bereavement packet [] Provided Bible/devotional materials [] Provided toy/stuffed animal, coloring book to patient or family member [] Provided Communion [] Anointing/[place] [] Salvation [x] Completed spiritual assessment [] Other: Impact on Illness or Injury [] Angry [] Fearful [] Anxious [] Often cries [] Exhaustion [] Unable to work [] Unable to attend nondenominational [] Unable to walk/stand [] Unable to read [] Unable to drive [] Unable to eat/drink [] Unable to sleep [] Unable to be with family [] Patient intubated [] Other: Summary Pt's son was in room when Chaplian visted. Pt feeling some better, still kind of weak. Both are persons of strong ita. Time spent with patient 10m
--- NOTE | 2022-03-11 08:10 | PC.CHAP ---
Pastoral Care Encounter/Spiritual Assessment Type of Contact [] Declined elementary science teacher visit [] Patient/Family/Request visit [] Outpatient visit [] Follow-up visit [] Physician referral [] Code/Alert [x] Routine visit [] Staff referral [] Actively dying [] Patient sleeping [] Family support [] [] Out of room [] Palliative care [] [] Receiving care in room [] Pre-surgical visit [] Trauma [] Long length of stay [] ICU visit [] Other: Relational/Emotional Strength [x] Patient feels connected with others/family/visitors/staff [] Distress [] Loneliness/isolation [] Abandonment Spirituality of Patient [x] Person of Ita [x] Attends L[employer] of their Ita [x] Believes in Prayer [] Reads Bible or Buddhism materials [] There are Spiritual issues to be addressed Track Worker Interventions [x] Prayer [x] Active listening [x] Non-anxious presence [x] Spiritual/emotional support [] Crisis/trauma care [] Spiritual counseling [] Bereavement support [] Provided bereavement packet [] Provided Bible/devotional materials [] Provided toy/stuffed animal, coloring book to patient or family member [] Provided Communion [] Anointing/[place] [] Salvation [x] Completed spiritual assessment [] Other: Impact on Illness or Injury [] Angry [] Fearful [] Anxious [] Often cries [] Exhaustion [] Unable to work [] Unable to attend jain [] Unable to walk/stand [] Unable to read [] Unable to drive [] Unable to eat/drink [] Unable to sleep [] Unable to be with family [] Patient intubated [] Other: Summary Pt lives with friend to share expenses and to care for one another. Also has children who check on her often. Hoping to be released today. Time spent with patient 10m
[2022-03-11] MEDS: pantoprazole DR 40 mg Tablet PO (08:41)
[2022-03-11] MEDS: clopidogrel 75 mg Tablet PO (08:41)
[2022-03-11] MEDS: metoprolol tartrate 25 mg Tablet PO (08:41)
[2022-03-11] MEDS: lisinopril 5 mg Tablet PO (08:41)
[2022-03-11] MEDS: guaiFENesin 600 mg Tablet PO (08:41)
[2022-03-11] MEDS: apixaban 5 mg Tablet PO (08:41)
[2022-03-11] MEDS: spironolactone 25 mg Tablet PO (08:41)
[2022-03-11] MEDS: budesonide 0.5 mg/2 mL Neb 0.25 MG INHALATION (09:40)
--- NOTE | 2022-03-11 09:40 | PM.DCS ---
Discharge Providers Date of Admission: 03/09/22 21:16 Date of Discharge: March 11, 2022 Attending Provider at Admission: Edy Harris Attending Provider at Discharge: Odilia Farah MD Primary Care Provider: Koby Martinez NP Diagnoses at Discharge Discharge Diagnosis (1) Non-ST elevation SD (NSTEMI): Status: Acute (2) Ischemic cardiomyopathy: Status: Acute (3) LV (left ventricular) mural thrombus: Status: Acute (4) Hyperlipidemia: Status: Acute (5) COPD (chronic obstructive pulmonary disease): Status: Acute Qualifiers: COPD type: unspecified COPD Qualified Code(s): J44.9 - Chronic obstructive pulmonary disease, unspecified (6) Stage 2 acute kidney injury: Status: Acute Reason for Visit Reason for Visit: sob, chest pain Hospital Course Hospital Course 76-year female who was admitted for management and evaluation of NSTEMI. Cardiology was consulted.Patient had an echocardiogram which revealed severe diffuse hypokinesia of the LV apex.? LV ejection fraction was around 40%.? Apical thrombus was noted. She underwent left heart catheterization with left and right coronary angiogram today.? Was found to have a high-grade lesion in the first diagonal branch and the of the left artery descending artery .other high-grade lesion was noted at the proximal segment of the PDA branch of the left circumflex artery.? She underwent PCI of these lesions by Dr. Beckman. She will be discharged on Plavix and Eliquis Follow-up with cardiology Patient was counseled. All questions were answered. She has remained normotensive added low-dose lisinopril holding off on spironolactone and metoprolol succinate for now Patient at baseline uses 2 L of oxygen on as needed basis Physical Exam Narrative: Awake and alert S1, S2 Abdomen soft No signs of edema Family at the bedside EOMI, PERRLA Nonfocal neuro exam currently on 2 L Discharge Data Studies Completed and Pending Completed Studies During Hospitalization Category Date Time Status RECREATION PROGRAM SPECIALIST request for service Routine Exams 03/10/22 07:59 Completed XR chest 1V portable [id number] Stat Exams 03/09/22 18:54 Completed CV. echo complete* [id number] Routine Ultrasound 03/09/22 23:08 Completed Pending at discharge Category Date Time Status Complete Blood Count w/Auto AM LABS Lab 03/12/22 04:00 Ordered Comprehensive Metabolic Panel AM LABS Lab 03/12/22 04:00 Ordered Radiology Impressions Chest X-Ray 03/09/22 18:54 IMPRESSION: No acute findings. Laboratory Results WBC 7.1 10^3/uL (4.0-10.0) 03/11/22 04:53 RBC 3.47 10^6/uL (4.1-5.3) L 03/11/22 04:53 Hgb 10.2 g/dL (11.5-15.3) L 03/11/22 04:53 Hct 32.1 % (37.0-47.0) L 03/11/22 04:53 MCV 92.5 fl (81-99) D 03/11/22 04:53 MCH 29.4 pg (28.0-34.0) 03/11/22 04:53 MCHC 31.8 g/dL (30.0-36.0) D 03/11/22 04:53 RDW 14.4 % (12.1-15.1) 03/11/22 04:53 Plt Count 253 10^3/cmm (130-400) 03/11/22 04:53 MPV 10.2 fL (7.4-10.4) 03/11/22 04:53 Neut % (Auto) 76.2 % 03/11/22 04:53 Lymph % (Auto) 11.6 % 03/11/22 04:53 [place] % (Auto) 9.8 % 03/11/22 04:53 Eos % (Auto) 1.3 % 03/11/22 04:53 Baso % (Auto) 0.4 % 03/11/22 04:53 Neut # (Auto) 5.43 10^3/uL (1.8-7.7) 03/11/22 04:53 Lymph # (Auto) 0.8 10^3/uL (0.8-4.8) 03/11/22 04:53 [place] # (Auto) 0.7 10^3/uL (0.2-0.9) 03/11/22 04:53 Eos # (Auto) 0.1 10^3/uL (0.0-0.8) 03/11/22 04:53 Baso # (Auto) 0.0 10^3/uL (0.0-0.1) 03/11/22 04:53 Nucleated RBC % (auto) 0 % 03/11/22 04:53 Nucleated RBCs # 0.0 /100WBC 03/11/22 04:53 APTT 24.5 SECONDS (23.9-36.7) D 03/10/22 15:33 Sodium 135 mmol/L (136-145) L 03/11/22 04:53 Potassium 3.8 mmol/L (3.5-5.1) 03/11/22 04:53 Chloride 99 mmol/L (98-107) 03/11/22 04:53 Carbon Dioxide 21 mmol/L (22-29) L 03/11/22 04:53 Anion Gap 18.8 (5-19) 03/11/22 04:53 BUN 28 mg/dL (8-23) H 03/11/22 04:53 Creatinine 1.2 mg/dL (0.5-0.9) H 03/11/22 04:53 GFR Calculation Not Reportable 03/11/22 04:53 Glucose 101 mg/dL (65-115) 03/11/22 04:53 Calculated Osmolality 286 mOsm/kg (285-295) 03/11/22 04:53 Calcium 8.9 mg/dL (8.5-10.5) 03/11/22 04:53 Total Bilirubin 0.6 mg/dL (0.15-1.2) 03/11/22 04:53 AST 42 U/L (0-32) H 03/11/22 04:53 ALT 53 U/L (0-33) H 03/11/22 04:53 Alkaline Phosphatase 92 U/L (35-105) 03/11/22 04:53 Troponin T Baseline 860 ng/L (0-10) H* 03/09/22 19:54 Troponin T 120 Minute 950.0 ng/L (0-10) H 03/09/22 21:39 Delta Troponin T 90.0 ABS# (0-10) H* 03/09/22 21:39 Troponin T Hi Sens 6Hr 1127 ng/L (0-10) H 03/10/22 02:14 Troponin T Hi Sens 6Hr Delta 267 ng/L (0-12) H* 03/10/22 02:14 Total Protein 6.1 g/dL (6.6-8.7) L 03/11/22 04:53 Albumin 3.7 g/dL (3.5-5.2) 03/11/22 04:53 Globulin 2.4 g/dL (1.3-4.6) 03/11/22 04:53 Vitals Last Vital Signs Temp 97.6 F 03/11/22 07:54 Pulse 78 03/11/22 07:54 Resp 22 H 03/11/22 07:54 BP 110/63 03/11/22 07:54 Pulse Ox 97 03/11/22 07:54 O2 Del Method 03/11/22 04:00 O2 Flow Rate 2 03/11/22 04:00 Discharge Plan Discharge Patient Disposition: Home Condition: Stable Prescriptions: New Eliquis 5 mg Tablet 5 mg PO BID@0900,2100 Qty: 180 3RF atorvastatin 40 mg Tablet 40 mg PO BEDTIME Qty: 90 3RF clopidogrel 75 mg Tablet 75 mg PO DAILY Qty: 90 3RF lisinopril 5 mg Tablet 5 mg PO DAILY Qty: 60 2RF Continued albuterol sulfate 1.25 mg/3 mL solution for nebulization 1.25 mg inhalation Q6H PRN (Reason: Shortness Of Breath) levothyroxine [Synthroid] 75 mcg tablet 37.5 mcg PO QAM trazodone 100 mg tablet 200 mg PO DAILY@21 hydrocodone-acetaminophen 7.5-325 mg tablet 1 tab PO QID PRN (Reason: Pain) Trelegy Ellipta 100-62.5-25 mcg blister with device 1 inh INHALATION BEDTIME albuterol sulfate [ProAir HFA] 90 mcg/actuation Hfa Aerosol Inhaler 1 - 2 puff INHALATION Q4H PRN (Reason: Shortness Of Breath) hydroxyzine pamoate 25 mg capsule 25 mg PO TID PRN (Reason: Anxiety) Vitamin D3 25 mcg (1,000 unit) Capsule 25 mcg PO QAM Discontinued pravastatin 40 mg tablet 40 mg PO DAILY@17 amoxicillin 500 mg capsule 500 mg PO TID Rx Instructions: rx filled 02/26/22 10d/s Discharge Orders: Discharge Order (Routine); Ordered 03/11/22 Ordered By: Odilia Farah Referrals: Nahomi Garcia MD [Physician] - 1 month (Your follow up appointment with Dr. Garcia will be determined and scheduled at your next appointment with Sarah Beth Anaya on March 25 at 10:30. Thank you.) Koby Martinez, TULIO [Primary Care Provider] - 03/18/22 1:30 pm Sarah Beth Anaya FNP [Nurse Practitioner] - 03/25/22 10:30 am Patient Instructions: Lisinopril (By mouth) (Prinivil, Zestril), Atorvastatin (By mouth) (Lipitor), Clopidogrel (By mouth) (Plavix), Apixaban (By mouth) (Eliquis), Opioid Safety, Post Angiogram Home Care Instructions Discharge Attestations Time Spent in Discharge Care*: less than 30 min Status at Discharge: Cognitive status at discharge: cognitively intact, Behavioral status at discharge: cooperative, Quality Metrics Clinical Quality Measures [ No reported AMI, CVA or VTE this stay] Coding Level of Care Code Acute Chg FW DC note Diagnoses Non-ST elevation SD (NSTEMI) I21.4 Ischemic cardiomyopathy I25.5 LV (left ventricular) mural thrombus I51.3 Hyperlipidemia E78.5 COPD (chronic obstructive pulmonary disease) J44.9 COPD type: unspecified COPD Stage 2 acute kidney injury N17.9
--- NOTE | 2022-03-11 11:15 | PC.NURSE ---
Discharge Note Patient discharged to home via wheelchair accompanied by family. Discharge instructions reviewed with patient and/or in home sales representative. Mobile pharmacy medications and/or prescriptions provided. Belongings/home medications returned.
== END 2022-03-11 11:16 | disposition home or self-care (01) | DRG 247 ==
LOC: ER 21:02 → CSU 21:16
PROVIDERS: Internal Medicine Cardiovascular Disease; Admitting Provider Internal Medicine; Emergency Provider Emergency Medicine; PCP Nurse Practitioner Family; Visit Provider Internal Medicine
PROC: 027034Z Dilation of Coronary Artery, One Artery with Drug-eluting Intraluminal Device, Percutaneous Approach (ICD-10-PCS; 2022-03-10 08:30)
DX: I21.4 Non-ST elevation (NSTEMI) myocardial infarction (principal); N17.9 Acute kidney failure, unspecified; E78.5 Hyperlipidemia, unspecified; Z87.891 Personal history of nicotine dependence; Z85.3 Personal history of malignant neoplasm of breast; E03.9 Hypothyroidism, unspecified; J44.9 Chronic obstructive pulmonary disease, unspecified; K21.9 Gastro-esophageal reflux disease without esophagitis; G89.29 Other chronic pain; M54.9 Dorsalgia, unspecified; F32.A Depression, unspecified; I10 Essential (primary) hypertension; Z99.81 Dependence on supplemental oxygen; I25.5 Ischemic cardiomyopathy; I25.10 Atherosclerotic heart disease of native coronary artery without angina pectoris; Z82.49 Family history of ischemic heart disease and other diseases of the circulatory system
CPT/HCPCS: 36415; 71045; 80053; 84484; 85025; 85730; 93005; 93306; 93458; 94640; 96360; 96361; 96372; 96374; 99152; 99153; 99285; C1725; C1769; C1874; C1887; C1894; C9600; J0360; J1644; J1650; J2250; J3010; J3490; J7030; J7626; Q9967

== ENCOUNTER → 2022-03-25 10:20 | Outpatient (BNVA) | payer MEDICARE, SELFPAY | PROVIDERS: PCP Nurse Practitioner Family; Visit Provider Nurse Practitioner Family | DX: I25.5 Ischemic cardiomyopathy (principal); I25.2 Old myocardial infarction; I10 Essential (primary) hypertension; Z87.891 Personal history of nicotine dependence | CPT/HCPCS: 36415; 80048; 99214 ==

== ENCOUNTER 2022-04-22 13:49 | Observation (INO) | payer MEDICARE, SELFPAY ==
[2022-04-22] VITALS (10 sets, daily range): BP systolic 89–113; BP diastolic 48–92; PULSE 62–111; RESP 16–22; TEMP 36.6–37.3; O2SAT 88–96
--- NOTE | 2022-04-22 14:04 | XR_ITS ---
WS: [id number] Exam: XR chest 2V* [id number] Date/Time of Exam: 04/22/2022 2:04 PM Reason For Exam: dyspnea Comparison 03/09/2022. There is infiltrate in the middle and lower lobes of the right lung suggesting pneumonia. The left valentín ng is clear. No pleural effusion or pneumothorax. Heart size is top limits normal. The mediastinum is normal in contour. Bony structures are intact. XR/XR chest 2V* [id number] IMPRESSION: 1. Infiltrate in the middle and lower lobes the right lung suggesting pneumonia .
--- NOTE | 2022-04-22 14:52 | ECG_ITS ---
[facility] Test Date: 2022-04-22 Pat Name: Colette Lopez Department: Room: Gender: Female Pressroom Foreman: : 1945 Requested By: Curt Feliz Order Number: [id number] Miguel MD: Stacy Juarez M.D. Measurements Intervals [place] Rate: 104 P: 46 IN: 128 QRS: 21 QRSD: 89 T: 51 QT: 316 QTc: 416 Interpretive Statements SINUS TACHYCARDIA LOW QRS VOLTAGE IN PRECORDIAL LEADS [QRS DEFLECTION < 1.0 mV IN CHEST LEADS] ABNORMAL RHYTHM ECG Compared to ECG 03/10/2022 01:59:11 Sinus rhythm no longer present Myocardial infarct finding no longer present Electronically Signed On 04-23-2022 9:10:31 KILN DRAWER by Stacy Juarez M.D. [id number]
[2022-04-22 15:36] LABS: Basophils # 0.1 10^3/uL (0.0-0.1); Basophils % 0.3 %; Hematocrit 36.2 % (37.0-47.0); Hemoglobin 11.2 g/dL (11.5-15.3); Lymphocytes # 0.7 10^3/uL (0.8-4.8); Lymphocytes % 3.7 %; Mean Corpuscular HGB Conc 30.9 g/dL (30.0-36.0); Mean Corpuscular Hemoglobin 30.9 pg (28.0-34.0); Mean Corpuscular Volume 99.7 fl (81-99); Mean Platelet Volume 9.8 fL (7.4-10.4); Monocytes # 1.4 10^3/uL (0.2-0.9); Monocytes % 7.6 %; Neutrophils # 15.86 10^3/uL (1.8-7.7); Neutrophils % 87.4 %; Nucleated Red Blood Cells % 0 %; Platelet Count 262 10^3/cmm (130-400); Red Blood Count 3.63 10^6/uL (4.1-5.3); Red Cell Distribution Width 14.6 % (12.1-15.1); White Blood Count 18.2 10^3/uL (4.0-10.0)
--- NOTE | 2022-04-22 15:44 | ED_ITS ---
HPI - SOB/Dyspnea General: Chief Complaint: Shortness of Breath/Dyspnea Stated Complaint: sob Time Seen by Provider: 04/22/22 15:22 Source: patient and other (Roommate) Mode of arrival: ambulatory Limitations: no limitations History of Present Illness: HPI Narrative: This patient presents to the emergency department because she has had a couple of episodes of feeling short of breath both yesterday and today. She states she has had a nonproductive cough but is unaware of any fever. She states that she is not had chest pain but just the after mentioned shortness of breath sensation.Patient with recent Twin diagnosed influenza She has known coronary artery disease and was recently hospitalized at this facility with a NSTEMI and had a subsequent angiogram and stent placement. She is oxygen dependent COPD and does not use tobacco. She states that her nebulizer did not seem to improve her symptoms yesterday and today is much as she would like. She states she has had a decreased appetite over the last 2 to 3 days but is not had any vomiting or diarrhea and has been drinking water well. MD elicited complaint: shortness of breath and cough Pertinent past history: COPD Timing: intermittent Associated symptoms: Reports chest congestion and cough; Deny abdominal pain, dizziness, extremity pain, fever(s), nausea or vomiting Review of Systems Const: Reports: change in appetite; Denies: fever(s) or chills Eyes: Denies: change in vision ENMT: Denies: throat pain, odynophagia, nasal discharge or nasal congestion Resp: Reports: dyspnea, non-productive cough, wheezing and chest congestion GI: Denies: abdominal pain, nausea, vomiting or diarrhea : Denies: flank pain, difficulty voiding, dysuria or urinary frequency Musc: Denies: neck pain, back pain, extremity pain or extremity swelling Skin/Breast: Denies: rash Neuro: Denies: headache(s), numbness in extremities, weakness in extremities, difficulty walking or dizziness Psych: Denies: anxiety or depression Abhishek/Lymph: Denies: easy bruising or easy bleeding [facility] ED PFSH: Medical History Breast cancer Chronic back pain COPD (chronic obstructive pulmonary disease) Depression HTN (hypertension) Hyperlipidemia Ischemic cardiomyopathy LV (left ventricular) mural thrombus Non-ST elevation MS (NSTEMI) Stage 2 acute kidney injury Supplemental oxygen dependent Surgical History H/O lumpectomy Family History Other CAD (coronary artery disease) Social History Smoking and tobacco status: former smoker Alcohol intake: never Marital status: / Marital status details: She lost her 6 months ago Physical Exam Narrative: EXAM NARRATIVE: She is alert she makes good eye contact. She appears to be in no acute distress and is able to converse in complete sentences without dyspnea. Const: COMMON NORMALS: patient oriented x3 and no limitations GENERAL APPEARANCE: cooperative and comfortable NUTRITIONAL APPEARANCE: thin HENMT: COMMON NORMALS: normocephalic, atraumatic, Normal nasal mucous membranes and turbinates present, moist oral mucous membranes and oropharynx normal HEAD & SCALP: normocephalic and atraumatic NOSE: Normal nasal mucous membranes and turbinates present Eye: COMMON NORMALS: Equal, round and reactive pupils present, EOMs intact bilaterally and conjunctivae normal CONJUNCTIVA: Yes conjunctivae normal PUPIL: Yes Equal, round and reactive pupils present Neck/C-Spine: COMMON NORMALS: full ROM, supple, no JVD and No carotid bruits Chest: COMMONS NORMALS: normal inspection of the chest Resp: COMMON NORMALS: normal respiratory effort and No use of accessory muscles EFFORT & INSPECTION: Yes able to speak in complete sentences AUS CULTATION: rhonchi right lower and diminished lung sounds on the right in the lower lung de la cruz and on the left in the lower lung de la cruz Cardio: COMMON NORMALS: no JVD, regular rate, regular rhythm, No murmurs present (Cardio) and Peripheral pulses 2+ throughout RATE: regular rate RHYTHM: regular rhythm PERIPHERAL PULSES: Peripheral pulses 2+ throughout GI: COMMON NORMALS: Soft to palpation, non-tender and no masses PALPATION: Yes Soft to palpation Back/Pelvis: COMMON NORMALS: thoracic and lumbar spine normal to inspection, no thoracic nor lumbar tenderness and thoraco-lumbar ROM normal Extremity: COMMON NORMALS: normal to inspection, full ROM, capillary refill normal, no calf tenderness and no pedal edema Neuro: COMMON NORMALS: patient oriented x3, moves all extremities, no focal motor deficits and no sensory deficits noted CRANIAL NERVES: Yes CN normal except as noted Psych: COMMON NORMALS: mental status grossly normal Skin: COMMON NORMALS: no rashes or lesions noted and turgor normal GENERAL SKIN EXAM: no rashes or lesions noted and turgor normal Course Consultations: Consultation #1: Hospitalist was consulted. Time: 19:00 Vital Signs: Vital signs: Vital Signs Temperature 99.1 F 04/22/22 14:53 Pulse Rate 82 04/22/22 19:19 Respiratory Rate 16 04/22/22 19:19 Blood Pressure 109/71 04/22/22 19:19 Pulse Oximetry 96 04/22/22 19:19 Oxygen Delivery Me thod 04/22/22 19:19 Oxygen Flow Rate 4 04/22/22 18:03 MDM - SOB/Dyspnea Medical Decision Making Patient with known history of COPD that is oxygen dependent presents to our emergency department with increasing shortness of breath and a nonproductive cough for the past several days. He is also had documented fever at home. Upon presentation she was noted to have infiltrate on her chest x-ray as well as a leukocytosis and increased oxygen requirement. Her curb 65 score is indicative of pneumonia that would likely benefit from hospitalization given her comorbidities as well as her elevated troponin levels. She was loaded with Rocephin and azithromycin. And placed in observation for continued therapy and monitoring. Medical Records I reviewed the patient's medical records. Lab Data I reviewed the patient's lab results. 04/22/22 15:23 04/22/22 15:23 Labs/Radiology: Radiology Impressions Chest X-Ray 04/22/22 14:04 IMPRESSION: 1. Infiltrate in the middle and lower lobes the right lung suggesting pneumonia. Laboratory Results WBC 18.2 10^3/uL (4.0-10.0) H 04/22/22 15:23 RBC 3.63 10^6/uL (4.1-5.3) L 04/22/22 15:23 Hgb 11.2 g/dL (11.5-15.3) L 04/22/22 15:23 Hct 36.2 % (37.0-47.0) L 04/22/22 15:23 MCV 99.7 fl (81-99) H 04/22/22 15:23 MCH 30.9 pg (28.0-34.0) 04/22/22 15: MCHC 30.9 g/dL (30.0-36.0) 04/22/22 15: RDW 14.6 % (12.1-15.1) 04/22/22 15: Plt Count 262 10^3/cmm (130-400) 04/22/22 15: MPV 9.8 fL (7.4-10.4) 04/22/22 15: Neut % (Auto) 87.4 % 04/22/22 15:23 Lymph % (Auto) 3.7 % 04/22/22 15:23 [place] % (Auto) 7.6 % 04/22/22 15: Eos % (Auto) 0.0 % 04/22/22 15: Baso % (Auto) 0.3 % 04/22/22 15: Neut # (Auto) 15.86 10^3/uL (1.8-7.7) H 04/22/22 15: Lymph # (Auto) 0.7 10^3/uL (0.8-4.8) L 04/22/22 15:23 [place] # (Auto) 1.4 10^3/uL (0.2-0.9) H 04/22/22 15: Eos # (Auto) 0.0 10^3/uL (0.0-0.8) 04/22/22 15:23 Baso # (Auto) 0.1 10^3/uL (0.0-0.1) 04/22/22 15: Nucleated RBC % (auto) 0 % 04/22/22 15: Nucleated RBCs # 0.0 /100WBC 04/22/22 15: Sodium 137 mmol/L (136-145) 04/22/22 15:23 Potassium 4.5 mmol/L (3.5-5.1) 04/22/22 15: Chloride 100 mmol/L (98-107) 04/22/22 15: Carbon Dioxide 24 mmol/L (22-29) 04/22/22 15:23 Anion Gap 17.5 (5-19) 04/22/22 15:23 BUN 36 mg/dL (8-23) H 04/22/22 15:23 Creatinine 1.8 mg/dL (0.5-0.9) H 04/22/22 15:23 GFR Calculation Not Reportable 04/22/22 15: Glucose 102 mg/dL (65-115) 04/22/22 15: Calculated Osmolality 293 mOsm/kg (285-295) 04/22/22 15: Calcium 9.7 mg/dL (8.5-10.5) 04/22/22 15: Total Bilirubin 0.7 mg/dL (0.15-1.2) 04/22/22 15: AST 12 U/L (0-32) 04/22/22 15: ALT 6 U/L (0-33) 04/22/22 15: Alkaline Phosphatase 78 U/L (35-105) 04/22/22 15: Troponin T Baseline 69 ng/L (0-10) H 04/22/22 15: Troponin T 120 Minute 58.98 ng/L (0-10) H 04/22/22 17:20 Delta Troponin T -10.02 ABS# (0-10) L 04/22/22 17:20 NT-Pro-B Natriuret Pep 1052 pg/mL (0-450) H 04/22/22 15:23 Total Protein 8.0 g/dL (6.6-8.7) 04/22/22 15:23 Albumin 4.0 g/dL (3.5-5.2) 04/22/22 15: Globulin 4.0 g/dL (1.3-4.6) 04/22/22 15:23 EKG Data EKG 1: I personally reviewed and interpreted this EKG as follows: Interpretation: Contemporaneous review of the initial EKG this visit reveals a sinus tachycardia of 104 bpm with a normal narrow complex. Normal intervals, normal axis, no acute ST-T wave changes noted. EKG 2: I personally reviewed and interpreted this EKG as follows: Interpretation: Second resting EKG this visit reveals a ventricular rate of 88 bpm consistent with normal sinus rhythm. She has low voltage QRS complexes in the precordial leads. No change in this EKG from prior EKGs. No acute ST-T wave changes noted. Discharge Plan Discharge Patient Disposition: Placed in Observation Clinical Impression: Community acquired pneumonia, Elevated troponin level, COPD (chronic obstructive pulmonary disease) Condition: Stable Prescriptions: No Action spironolactone 25 mg tablet 25 mg PO DAILY Qty: 90 3RF albuterol sulfate 1.25 mg/3 mL solution for nebulization 1.25 mg inhalation Q6H PRN (Reason: Shortness Of Breath) levothyroxine [Synthroid] 75 mcg tablet 37.5 mcg PO QAM trazodone 100 mg tablet 200 mg PO DAILY@21 hydrocodone-acetaminophen 7.5-325 mg tablet 1 tab PO QID PRN (Reason: Pain) Trelegy Ellipta 100-62.5-25 mcg blister with device 1 inh INHALATION BEDTIME albuterol sulfate [ProAir HFA] 90 mcg/actuation Hfa Aerosol Inhaler 1 - 2 puff INHALATION Q4H PRN (Reason: Shortness Of Breath) cholecalciferol (vitamin D3) [Vitamin D3] 25 mcg (1,000 unit) Capsule 25 mcg PO QAM Eliquis 5 mg Tablet 5 mg PO BID@0900,2100 Qty: 180 3RF atorvastatin 40 mg Tablet 40 mg PO BEDTIME Qty: 90 3RF clopidogrel 75 mg Tablet 75 mg PO DAILY Qty: 90 3RF lisinopril 5 mg Tablet 5 mg PO DAILY Qty: 60 2RF Referrals: Koby Martinez NP [Primary Care Provider] - Coding Level of Care Code ED Relief Salesperson for Chg Fwd Exam Comprehensive
[2022-04-22 16:01] LABS: Troponin(5th) Baseline 69 ng/L (0-10)
[2022-04-22] MEDS: cefTRIAXone 1,000 MG in sodium chloride 0.9% (plus) 50 ML 100 MG IV (16:01)
--- NOTE | 2022-04-22 16:04 | ECG_ITS ---
[facility] Test Date: 2022-04-22 Pat Name: Colette Lopez Department: Room: Gender: Female Hog Driver: : 1945 Requested By: Curt Feliz Order Number: [id number] Miguel MD: Stacy Juarez M.D. Measurements Intervals [place] Rate: 88 P: 48 ND: 127 QRS: 20 QRSD: 82 T: 63 QT: 345 QTc: 419 Interpretive Statements SINUS RHYTHM LOW QRS VOLTAGE IN PRECORDIAL LEADS [QRS DEFLECTION < 1.0 mV IN CHEST LEADS] Compared to ECG 04/22/2022 14:52:09 Sinus tachycardia no longer present Electronically Signed On 04-23-2022 9:22:33 MUSIC VIDEO PRODUCER by Stacy Juarez M.D. [id number]
[2022-04-22 16:08] LABS: Alanine Aminotransferase 6 U/L (0-33); Alkaline Phosphatase 78 U/L (35-105); Anion Gap 17.5 (5-19); Aspartate Amino Transferase 12 U/L (0-32); Blood Urea Nitrogen 36 mg/dL (8-23); Calcium 9.7 mg/dL (8.5-10.5); Carbon Dioxide 24 mmol/L (22-29); Chloride 100 mmol/L (98-107); Glucose 102 mg/dL (65-115); NT Pro B Type Natriuretic Pept 1052 pg/mL (0-450); Osmolality Calculated 293 mOsm/kg (285-295); Potassium 4.5 mmol/L (3.5-5.1); Sodium 137 mmol/L (136-145); Total Bilirubin 0.7 mg/dL (0.15-1.2)
[2022-04-22 17:50] LABS: Troponin 5 2HR 58.98 ng/L (0-10)
[2022-04-22 17:52] LABS: Troponin 5 2HR Delta -10.02 ABS# (0-10)
--- NOTE | 2022-04-22 19:04 | P.HP_ITS ---
Providers/Chief Complaint Primary Care Provider: Koby Martinez NP Chief Complaint: sob History of Present Illness Colette Lopez is a 77 year old female who has a history of oxygen dependent COPD uses 2 L of oxygen at baseline, recent coronary angioplasty, presented with chief complaint of worsening of shortness of breath. Patient is stating that her symptoms are just 48 hours ago with worsening of shortness of breath, generalized fatigue without any chest pain, nausea, vomiting. She has not taken temperature but endorsing subjective fevers. She thinks she caught something from her grandkids were sick with vital illness. She is not showing any signs of sepsis, active this point she is requiring 4 L of oxygen Significant leukocytosis Recent angiogram 03/10 LV ejection fraction was around 40%.? Apical thrombus was noted. She underwent left heart catheterization with left and right coronary angiogram.? Was found to have a high-grade lesion in the first diagonal branch and the of the left artery descending artery .other high-grade lesion was noted at the proximal segment of the PDA branch of the left circumflex artery.? She underwent PCI of these lesions by Dr. Beckman. Review of Systems Const: Reports: fever(s), chills, body aches and fatigue Eyes: Denies: change in vision ENMT: Denies: throat pain Card: Denies: chest pain Resp: Reports: dyspnea GI: Denies: abdominal pain or change in bowel habits : Denies: flank pain Musc: Reports: back pain; Denies: neck pain Skin/Breast: Denies: rash Neuro: Denies: headache(s) Psych: Denies: anxiety Endo: Denies: polyuria Abhishek/Lymph: Denies: easy bruising All/Imm: Denies: urticaria Medications/Allergies Home Medications Medication Instructions Recorded Confirmed Last Taken Type albuterol sulfate 1.25 mg/3 mL 1.25 mg inhalation Q6H PRN 01/17/20 04/22/22 01/17/20 History solution for nebulization Shortness Of Breath hydrocodone 7.5 mg-acetaminophen 1 tab PO QID PRN Pain 01/17/20 04/22/22 05/25/20 09:00 History 325 mg tablet levothyroxine 75 mcg tablet 37.5 mcg PO QAM 01/17/20 04/22/22 04/22/22 History (Synthroid) trazodone 100 mg tablet 200 mg PO DAILY@ 01/17/20 04/22/22 04/21/22 History albuterol sulfate 90 mcg/actuation 1 - 2 puff inhalation Q4H PRN 05/25/20 04/22/22 04/22/22 History aerosol inhaler (ProAir HFA) Shortness Of Breath fluticasone fur. 100 mcg-umeclid 1 inh inhalation BEDTIME 05/25/20 04/22/22 Unknown History 62.5 mcg-vilant 25 mcg inhalat.powder (Trelegy Ellipta) cholecalciferol (vitamin D3) 25 25 mcg PO QAM 03/10/22 04/22/22 04/22/22 History mcg (1,000 unit) capsule (Vitamin D3) apixaban 5 mg tablet (Eliquis) 5 mg PO BID@0900,2100 #180 tabs 03/11/22 04/22/22 04/22/22 Rx atorvastatin 40 mg tablet 40 mg PO BEDTIME #90 tabs 03/11/22 04/22/22 04/21/22 Rx clopidogrel 75 mg tablet 75 mg PO DAILY #90 tabs 03/11/22 04/22/22 04/22/22 Rx lisinopril 5 mg tablet 5 mg PO DAILY #60 tabs 03/11/22 04/22/22 04/22/22 Rx spironolactone 25 mg tablet 25 mg PO DAILY #90 tabs 03/25/22 04/22/22 04/22/22 Rx Allergies Allergy/AdvReac Type Severity Reaction Status Date / Time ibuprofen Allergy ALGY-Rash Verified 04/22/22 15:55 naproxen [From Aleve] Allergy ALGY-Rash Verified 04/22/22 15:55 PFSH Acute PFSH: Medical History Breast cancer Chronic back pain COPD (chronic obstructive pulmonary disease) Depression HTN (hypertension) Hyperlipidemia Ischemic cardiomyopathy LV (left ventricular) mural thrombus Non-ST elevation MS (NSTEMI) Stage 2 acute kidney injury Supplemental oxygen dependent Surgical History H/O lumpectomy Family History Other CAD (coronary artery disease) Social History Smoking and tobacco status: former smoker Alcohol intake: never Marital status: / Marital status details: She lost her 6 months ago Vitals/I&O/Wt Last Vital Signs Temp 99.1 F 04/22/22 14:53 Pulse 80 04/22/22 18:03 Resp 16 04/22/22 18:03 BP 103/48 04/22/22 18:03 Pulse Ox 95 04/22/22 18:03 O2 Del Method 04/22/22 18:03 O2 Flow Rate 4 04/22/22 18:03 04/22/22 04/22/22 04/22/22 06:59 14:59 22:59 Intake Total 50 / 50 Balance 50 / 50 Weight last 48 hrs Weight 52.163 kg Physical Exam Narrative: Elderly female Pleasant and cooperative Currently on 4 L No active wheezing S1, S2 Clinically does not look fluid overloaded Euvolemic Abdomen soft Currently no acute respiratory distress Nonfocal neuro exam Appropriate mood and affect Data 04/22/22 15:23 04/22/22 15:23 A&P Assessment and plan (1) Community acquired pneumonia: (2) COPD (chronic obstructive pulmonary disease): (3) Hypothyroidism: Plan Acute COPD exacerbation Secondary to pneumonia Acute on chronic hypoxia at baseline uses 2 L of oxygen We will give her ceftriaxone azithromycin Check MRSA PCR and sputum culture DuoNeb every 4 as needed No active wheezing I will hold off on adding steroids Her troponins are trending down Recent angioplasty 03/10 please review cardiology note Patient is stating she is compliant with her medications She does not smoke Lives with a friend Cardiac diet DNR/DNI discussed with the patient in front of her friend DVT prophylaxis covered with Eliquis History of left ventricular thrombus, patient is on Plavix and Eliquis which I would resume Patient thinks she caught something from her grandchildren who were sick with RSV: I will request viral panel Attestations Medical Necessity Statement*: Anticipating discharge within 48 hours Time Spent in Patient Care: 40 Coding Level of Care Code Acute Traffic Analysis Technician for Chg Fwd Diagnoses Community acquired pneumonia J18.9 COPD (chronic obstructive pulmonary disease) J44.9 Hypothyroidism E03.9
[2022-04-22] MEDS: azithromycin 250 MG in sodium chloride 0.9% 250 ML IV (20:24)
[2022-04-22 20:45] LABS: D Dimer 1.05 ug/mIFEU (0-0.59)
[2022-04-22 21:11] LABS: Procalcitonin 0.97 ng/mL (0-0.5)
[2022-04-22 21:14] LABS: Troponin 5 6HR 53.43 ng/L (0-10)
[2022-04-22] MEDS: sodium chloride 0.9% 1,000 ML 75 ML IV (22:48)
[2022-04-22] MEDS: apixaban 5 mg Tablet PO (22:48)
[2022-04-22] MEDS: trazodone 100 mg Tablet 200 MG PO (22:48)
[2022-04-22] MEDS: atorvastatin 40 mg Tablet PO (22:48)
[2022-04-23] VITALS (10 sets, daily range): BP systolic 99–114; BP diastolic 61–68; PULSE 59–74; RESP 14–95; TEMP 36.4–37.1; O2SAT 95–100
[2022-04-23 02:13] LABS: Thyroid Stimulating Hormone 0.46 uIU/mL (0.27-4.20); Vitamin B12 246 pg/mL (232-1245)
[2022-04-23] MEDS: levothyroxine 75 mcg Tablet 37.5 MCG PO (05:12)
[2022-04-23 05:42] LABS: Basophils % 0.2 %; Eosinophils % 0.2 %; Hematocrit 30.1 % (37.0-47.0); Lymphocytes # 1.4 10^3/uL (0.8-4.8); Lymphocytes % 10.7 %; Mean Corpuscular HGB Conc 29.9 g/dL (30.0-36.0); Mean Corpuscular Hemoglobin 30.1 pg (28.0-34.0); Mean Corpuscular Volume 100.7 fl (81-99); Mean Platelet Volume 10.1 fL (7.4-10.4); Monocytes # 1.1 10^3/uL (0.2-0.9); Monocytes % 8.1 %; Neutrophils # 10.67 10^3/uL (1.8-7.7); Neutrophils % 80.3 %; Nucleated Red Blood Cells % 0 %; Platelet Count 230 10^3/cmm (130-400); Red Blood Count 2.99 10^6/uL (4.1-5.3); Red Cell Distribution Width 14.6 % (12.1-15.1); White Blood Count 13.3 10^3/uL (4.0-10.0)
[2022-04-23 06:05] LABS: Blood Urea Nitrogen 34 mg/dL (8-23); Calcium 9.1 mg/dL (8.5-10.5); Carbon Dioxide 24 mmol/L (22-29); Chloride 106 mmol/L (98-107); Glucose 91 mg/dL (65-115); Osmolality Calculated 299 mOsm/kg (285-295); Sodium 141 mmol/L (136-145)
[2022-04-23 07:37] LABS: Adenovirus Not Detected (NOT DETECT); Chlamydia Pneumoniae Not Detected (NOT DETECT); Coronavirus 229E,HKU1,NL63,OC4 Not Detected (NOT DETECT); Human Metapneumovirus Not Detected (NOT DETECT); Human Rhinovirus/Enterovirus Not Detected (NOT DETECT); Influenza A Not Detected (NOT DETECT); Influenza A H1 Not Detected (NOT DETECT); Influenza A H1-2009 Not Detected (NOT DETECT); Influenza A H3 Not Detected (NOT DETECT); Influenza B Not Detected (NOT DETECT); Mycoplasma Pneumoniae Not Detected (NOT DETECT); Parainfluenza Virus Type 1 Not Detected (NOT DETECT); Parainfluenza Virus Type 2 Not Detected (NOT DETECT); Parainfluenza Virus Type 3 Not Detected (NOT DETECT); Parainfluenza Virus Type 4 Not Detected (NOT DETECT); Respiratory Syncytial Virus A Not Detected (NOT DETECT); Respiratory Syncytial Virus B Not Detected (NOT DETECT); SARS-COV-2 Not Detected (NOT DETECT)
[2022-04-23] MEDS: ipratropium-albuterol 3 mL Neb INHALATION ×2 (08:21→18:18)
[2022-04-23] MEDS: azithromycin 250 mg Tablet 500 MG PO (09:07)
[2022-04-23] MEDS: spironolactone 25 mg Tablet PO (09:07)
[2022-04-23] MEDS: sennosides-docusate Tablet 1 TAB PO (09:07)
[2022-04-23] MEDS: cefTRIAXone 1,000 MG in sodium chloride 0.9% (plus) 50 ML 100 MG IV (09:07)
[2022-04-23] MEDS: HYDROcodone-acetaminophen 7.5-325 mg Tablet 1 TAB PO ×2 (09:08→20:08)
[2022-04-23] MEDS: clopidogrel 75 mg Tablet PO (09:08)
[2022-04-23] MEDS: apixaban 5 mg Tablet PO ×2 (09:12→20:08)
--- NOTE | 2022-04-23 10:52 | PC.CHAP ---
Pastoral Care Encounter/Spiritual Assessment Type of Contact [] Declined appian bpm developer visit [] Patient/Family/Request visit [] Outpatient visit [] Follow-up visit [] Physician referral [] Code/Alert [x] Routine visit [] Staff referral [] Actively dying [] Patient sleeping [] Family support [] [] Out of room [] Palliative care [] [] Receiving care in room [] Pre-surgical visit [] Trauma [] Long length of stay [] ICU visit [x] Other: isolation Relational/Emotional Strength [] Patient feels connected with others/family/visitors/staff [] Distress [] Loneliness/isolation [] Abandonment Spirituality of Patient [] Person of Ita [] Attends Temple of their Ita [] Believes in Prayer [] Reads Bible or Congregational materials [] There are Spiritual issues to be addressed Machine Set Up Technician Interventions [] Prayer [] Active listening [] Non-anxious presence [] Spiritual/emotional support [] Crisis/trauma care [] Spiritual counseling [] Bereavement support [] Provided bereavement packet [] Provided Bible/devotional materials [] Provided toy/stuffed animal, coloring book to patient or family member [] Provided Communion [] Anointing/[place] [] Salvation [] Completed spiritual assessment [] Other: Impact on Illness or Injury [] Angry [] Fearful [] Anxious [] Often cries [] Exhaustion [] Unable to work [] Unable to attend religion [] Unable to walk/stand [] Unable to read [] Unable to drive [] Unable to eat/drink [] Unable to sleep [] Unable to be with family [] Patient intubated [] Other: Summary Time spent with patient
[2022-04-23] MEDS: sodium chloride 0.9% 1,000 ML 75 ML IV (11:33)
--- NOTE | 2022-04-23 14:55 | P.PN_ITS ---
Subjective Subjective: Patient was seen and examined this morning, her SOB has improved as compared to yesterday,has been afebrile so far. on 4Ls oxygen through [place] usually is at 2ls at home. Medications: Medication Review Details: Generic Name Dose Route Start Last Admin Trade Name Freq PRN Reason Stop Dose Admin Hydrocodone Bitart /Acetaminophen 1 tab 04/22/22 21:48 04/23/22 09:08 Hydrocodone-Acet aminophen 7.5-325 Mg Tablet PO 1 tab QID PRN Administration Pain Albuterol/Ipratrop ium 3 ml 04/22/22 21:48 04/23/22 08:21 Ipratropium-Albu terol 3 Ml Neb INHALATION 3 ml Q6H PRN Administration SHORTNESS OF NEGRITO TH Apixaban 5 mg 04/22/22 21:48 04/23/22 09:12 Apixaban 5 Mg Ta blet PO 5 mg BID@0900,2100 RACHNA Administration Atorvastatin Calci um 40 mg 04/22/22 21:48 04/22/22 22:48 Atorvastatin 40 Mg Tablet PO 40 mg BEDTIME RACHNA Administration Azithromycin 500 mg 04/23/22 09:00 04/23/22 09:07 Azithromycin 250 Mg Tablet PO 500 mg DAILY RACHNA Administration Protocol Clopidogrel Bisulf ate 75 mg 04/23/22 09:00 04/23/22 09:08 Clopidogrel 75 M g Tablet PO 75 mg DAILY RACHNA Administration Sodium Chloride 1,000 mls @ 75 ml s/hr 04/22/22 21:48 04/23/22 11:33 Sodium Chloride 0.9% IV 75 mls/hr .[id number] RACHNA Administration Ceftriaxone Sodium 1,000 mg/ 50 mls @ 100 mls/ hr 04/23/22 09:00 04/23/22 09:59 Sodium Chloride IV Infused DAILY RACHNA Infusion Protocol Levothyroxine Sodi um 37.5 mcg 04/23/22 06:00 04/23/22 05:12 Levothyroxine 75 Mcg Tablet PO 37.5 mcg QAM RACHNA Administration Lisinopril 5 mg 04/23/22 09:00 04/23/22 09:59 Lisinopril 5 Mg Tablet PO Not Given DAILY RACHNA Senna/Docusate Sod ium 1 tab 04/23/22 09:00 04/23/22 09:07 Sennosides-Docus ate Tablet PO 1 tab DAILY RACHNA Administration Spironolactone 25 mg 04/23/22 09:00 04/23/22 09:07 Spironolactone 2 5 Mg Tablet PO 25 mg DAILY RACHNA Administration Trazodone HCl 200 mg 04/22/22 21:48 04/22/22 22:48 Trazodone 100 Mg Tablet PO 200 mg DAILY@21 RACHNA Administration Vitals/I&O/Wt Last Vital Signs Temp 97.9 F 04/23/22 12:38 Pulse 65 04/23/22 12:38 Resp 16 04/23/22 12:38 BP 100/61 04/23/22 12:38 Pulse Ox 96 04/23/22 12:38 O2 Del Method 04/23/22 08:23 O2 Flow Rate 3 04/23/22 08:23 04/22/22 04/23/22 04/23/22 22:59 06:59 14:59 Intake Total 300 / 300 1726.25 / 1726.25 Output Total 350 / 350 Balance 300 / 300 -350 / -50 1726.25 / 1726.25 Weight last 48 hrs Weight 52.163 kg Physical Exam Const: COMMON NORMALS: patient oriented x3 Resp: COMMON NORMALS: clear to auscultation bilaterally AUSCULTATION: clear to auscultation bilaterally Cardio: COMMON NORMALS: regular rate, regular rhythm, S1 normal heart sound present, S2 normal heart sound present, No gallops present (Cardio), No murmurs present (Cardio), No rub (Cardio) and Peripheral pulses 2+ throughout RATE: regular rate RHYTHM: regular rhythm HEART SOUNDS: S1 normal heart sound present and S2 normal heart sound present PERIPHERAL PULSES: Peripheral pulses 2+ throughout GI: COMMON NORMALS: Normal to inspection, nondistended, normoactive bowel sounds present, Soft to palpation, non-tender, No hepatosplenomegaly present and no masses AUSCULTATION: Yes normoactive bowel sounds PALPATION: Yes Soft to palpation and Yes No hepatosplenomegaly present RECTAL EXAM: deferred Extremity: COMMON NORMALS: no clubbing, cyanosis or edema and no pedal edema Neuro: COMMON NORMALS: patient oriented x3 Data 04/23/22 05:20 04/23/22 05:20 Micro: Microbiology 04/23/22 04:55 Bacterial Antigens - Final Urine,Voided 04/23/22 04:58 Gram Stain - Final Sputum - Expectorated Sputum A&P Assessment and plan (1) Community acquired pneumonia: (2) COPD (chronic obstructive pulmonary disease): (3) Hypothyroidism: Plan 77 Y O F with PMH of COPD on 2Ls home oxygen, CAD s/p recent PCI, LV Apical thrombus, HTN, HFrEF, came in with c/o worsening sob,cough generalized weakness going on for last 2-3 days. Currently she is being managed for. Assessment : CAP COPD Exacerbation 2/2 PNA H/O CAD S/P PCI LV Apical thrombus HTN HFrEF VY ON CKD Plan : X-ray chest : Infiltrate in the middle and lower lobes the right lung suggesting pneumonia Urine Bacterial :Antigen:Negative Sputum Gram stain : Results appreciated MRSA PCR: Negative Continue Cef and Azithromycin Continue Plavix, and eliquis Continue levothyroxine Hold lisinopril and spirionlactone Monitor BMP Attestations Medical Necessity Statement*: Patient needs to be in hospital for the management of PNA Coding Level of Care Code Acute Structural Engineer for [facility] Fwd Exam Detailed Diagnoses Community acquired pneumonia J18.9 COPD (chronic obstructive pulmonary disease) J44.9 Hypothyroidism E03.9
[2022-04-23] MEDS: atorvastatin 40 mg Tablet PO (20:08)
[2022-04-23] MEDS: trazodone 100 mg Tablet 200 MG PO (20:08)
[2022-04-24] VITALS (10 sets, daily range): BP systolic 93–148; BP diastolic 52–73; PULSE 65–86; RESP 14–18; TEMP 36.4–36.9; O2SAT 92–99
[2022-04-24] MEDS: levothyroxine 75 mcg Tablet 37.5 MCG PO (05:15)
[2022-04-24] MEDS: ipratropium-albuterol 3 mL Neb INHALATION ×3 (07:50→20:20)
[2022-04-24] MEDS: azithromycin 250 mg Tablet 500 MG PO (08:10)
[2022-04-24] MEDS: HYDROcodone-acetaminophen 7.5-325 mg Tablet 1 TAB PO ×2 (08:11→20:09)
[2022-04-24] MEDS: clopidogrel 75 mg Tablet PO (08:12)
[2022-04-24] MEDS: cefTRIAXone 1,000 MG in sodium chloride 0.9% (plus) 50 ML 100 MG IV (08:13)
[2022-04-24 08:19] LABS: Basophils % 0.4 %; Eosinophils # 0.1 10^3/uL (0.0-0.8); Eosinophils % 1.4 %; Hematocrit 31.9 % (37.0-47.0); Hemoglobin 9.4 g/dL (11.5-15.3); Lymphocytes % 9.8 %; Mean Corpuscular HGB Conc 29.5 g/dL (30.0-36.0); Mean Corpuscular Hemoglobin 30.3 pg (28.0-34.0); Mean Corpuscular Volume 102.9 fl (81-99); Mean Platelet Volume 10.4 fL (7.4-10.4); Monocytes # 0.9 10^3/uL (0.2-0.9); Monocytes % 9.1 %; Neutrophils # 8.09 10^3/uL (1.8-7.7); Neutrophils % 78.8 %; Nucleated Red Blood Cells % 0 %; Platelet Count 218 10^3/cmm (130-400); Red Cell Distribution Width 14.6 % (12.1-15.1); White Blood Count 10.3 10^3/uL (4.0-10.0)
[2022-04-24] MEDS: apixaban 5 mg Tablet PO ×2 (08:19→20:10)
[2022-04-24 08:50] LABS: Blood Urea Nitrogen 29 mg/dL (8-23); Carbon Dioxide 25 mmol/L (22-29); Chloride 111 mmol/L (98-107); Glucose 111 mg/dL (65-115); Osmolality Calculated 305 mOsm/kg (285-295); Sodium 144 mmol/L (136-145)
[2022-04-24 08:53] LABS: Anion Gap 12.3 (5-19); Potassium 4.3 mmol/L (3.5-5.1)
[2022-04-24] MEDS: spironolactone 25 mg Tablet PO (11:59)
--- NOTE | 2022-04-24 17:44 | PM.PN ---
Subjective Subjective: Patient was seen and examined this morning, shortness of breath on exertion, weakness.Serum creatinine is improving progressing towards baseline. Medications: Medication Review Details: Generic Name Dose Route Start Last Admin Trade Name Freq PRN Reason Stop Dose Admin Hydrocodone Bitart /Acetaminophen 1 tab 04/22/22 21:48 04/24/22 08:11 Hydrocodone-Acet aminophen 7.5-325 Mg Tablet PO 1 tab QID PRN Administration Pain Albuterol/Ipratrop ium 3 ml 04/22/22 21:48 04/24/22 14:25 Ipratropium-Albu terol 3 Ml Neb INHALATION 3 ml Q6H PRN Administration SHORTNESS OF NEGRITO TH Albuterol/Ipratrop ium 3 ml 04/22/22 22:38 04/23/22 18:18 Ipratropium-Albu terol 3 Ml Neb INHALATION 3 ml Q4H PRN Administration SHORTNESS OF NEGRITO TH Apixaban 5 mg 04/22/22 21:48 04/24/22 08:19 Apixaban 5 Mg Ta blet PO 5 mg BID@0900,2100 RACHNA Administration Atorvastatin Calci um 40 mg 04/22/22 21:48 04/23/22 20:08 Atorvastatin 40 Mg Tablet PO 40 mg BEDTIME RACHNA Administration Azithromycin 500 mg 04/23/22 09:00 04/24/22 08:10 Azithromycin 250 Mg Tablet PO 500 mg DAILY RACHNA Administration Protocol Clopidogrel Bisulf ate 75 mg 04/23/22 09:00 04/24/22 08:12 Clopidogrel 75 M g Tablet PO 75 mg DAILY RACHNA Administration Ceftriaxone Sodium 1,000 mg/ 50 mls @ 100 mls/ hr 04/23/22 09:00 04/24/22 09:13 Sodium Chloride IV Infused DAILY RACHNA Infusion Protocol Levothyroxine Sodi um 37.5 mcg 04/23/22 06:00 04/24/22 05:15 Levothyroxine 75 Mcg Tablet PO 37.5 mcg QAM RACHNA Administration Lisinopril 5 mg 04/23/22 09:00 04/23/22 09:59 Lisinopril 5 Mg Tablet PO Not Given DAILY RACHNA Senna/Docusate Sod ium 1 tab 04/23/22 09:00 04/24/22 08:14 Sennosides-Docus ate Tablet PO Not Given DAILY RACHNA Spironolactone 25 mg 04/24/22 09:40 04/24/22 11:59 Spironolactone 2 5 Mg Tablet PO 25 mg DAILY RACHNA Administration Trazodone HCl 200 mg 04/22/22 21:48 04/23/22 20:08 Trazodone 100 Mg Tablet PO 200 mg DAILY@21 RACHNA Administration Vitals/I&O/Wt Last Vital Signs Temp 98.4 F 04/24/22 15:00 Pulse 75 04/24/22 15:00 Resp 18 04/24/22 15:00 BP 111/65 04/24/22 15:00 Pulse Ox 93 04/24/22 15:00 O2 Del Method 04/24/22 15:00 O2 Flow Rate 3 04/24/22 14:27 04/24/22 04/24/22 04/24/22 06:59 14:59 22:59 Intake Total 120 / 2690.00 530 / 530 Balance 120 / 2690.00 530 / 530 Physical Exam Const: COMMON NORMALS: patient oriented x3 Resp: COMMON NORMALS: clear to auscultation bilaterally AUSCULTATION: clear to auscultation bilaterally Cardio: COMMON NORMALS: regular rate, regular rhythm, S1 normal heart sound present, S2 normal heart sound present, No gallops present (Cardio), No murmurs present (Cardio), No rub (Cardio) and Peripheral pulses 2+ throughout RATE: regular rate RHYTHM: regular rhythm HEART SOUNDS: S1 normal heart sound present and S2 normal heart sound present PERIPHERAL PULSES: Peripheral pulses 2+ throughout GI: COMMON NORMALS: Normal to inspection, nondistended, normoactive bowel sounds present, Soft to palpation, non-tender, No hepatosplenomegaly present and no masses AUSCULTATION: Yes normoactive bowel sounds PALPATION: Yes Soft to palpation and Yes No hepatosplenomegaly present RECTAL EXAM: deferred Extremity: COMMON NORMALS: no clubbing, cyanosis or edema and no pedal edema Neuro: COMMON NORMALS: patient oriented x3 Data 04/24/22 07:42 04/24/22 07:42 Micro: Microbiology 04/23/22 04:58 Gram Stain - Final Sputum - Expectorated Sputum Sputum Culture - Preliminary 04/22/22 23:51 MRSA Culture - Final Nose 04/23/22 04:55 Bacterial Antigens - Final Urine,Voided A&P Assessment and plan (1) Community acquired pneumonia: (2) COPD (chronic obstructive pulmonary disease): (3) Hypothyroidism: Plan 77 Y O F with PMH of COPD on 2Ls home oxygen, CAD s/p recent PCI, LV Apical thrombus, HTN, HFrEF, came in with c/o worsening sob,cough generalized weakness going on for last 2-3 days. Currently she is being managed for. Assessment : CAP COPD Exacerbation 2/2 PNA H/O CAD S/P PCI LV Apical thrombus: On Eliquis HTN HFrEF: Currently compensated VY ON CKD Plan : X-ray chest : Infiltrate in the middle and lower lobes the right lung suggesting pneumonia Urine Bacterial :Antigen:Negative Sputum Gram stain : Results appreciated MRSA PCR: Negative Continue Cef and Azithromycin Continue Plavix, and eliquis Continue levothyroxine Hold lisinopril Resume spirionlactone Monitor BMP Plan for today: Continue with current antibiotics, hopefully discharge tomorrow on oral antibiotics. Attestations Medical Necessity Statement*: Patient is still in hospital management of pneumonia Coding Level of Care Code Acute Sap Basis Consultant for Mari Zambrano Diagnoses Community acquired pneumonia J18.9 COPD (chronic obstructive pulmonary disease) J44.9 Hypothyroidism E03.9
[2022-04-24] MEDS: atorvastatin 40 mg Tablet PO (20:10)
[2022-04-24] MEDS: trazodone 100 mg Tablet 200 MG PO (20:10)
[2022-04-25] VITALS (12 sets, daily range): BP systolic 108–125; BP diastolic 66–76; PULSE 67–82; RESP 14–18; TEMP 36.6–37.1; O2SAT 86–99
[2022-04-25] MEDS: ipratropium-albuterol 3 mL Neb INHALATION ×4 (02:03→20:58)
[2022-04-25 05:10] LABS: Basophils % 0.4 %; Eosinophils # 0.1 10^3/uL (0.0-0.8); Eosinophils % 1.4 %; Hematocrit 29.7 % (37.0-47.0); Lymphocytes # 1.2 10^3/uL (0.8-4.8); Lymphocytes % 12.9 %; Mean Corpuscular HGB Conc 30.3 g/dL (30.0-36.0); Mean Corpuscular Hemoglobin 30.5 pg (28.0-34.0); Mean Corpuscular Volume 100.7 fl (81-99); Mean Platelet Volume 9.8 fL (7.4-10.4); Monocytes % 10.1 %; Neutrophils # 7.01 10^3/uL (1.8-7.7); Neutrophils % 74.7 %; Nucleated Red Blood Cells % 0 %; Platelet Count 223 10^3/cmm (130-400); Red Blood Count 2.95 10^6/uL (4.1-5.3); Red Cell Distribution Width 14.5 % (12.1-15.1); White Blood Count 9.4 10^3/uL (4.0-10.0)
[2022-04-25 05:27] LABS: Anion Gap 12.8 (5-19); Blood Urea Nitrogen 23 mg/dL (8-23); Carbon Dioxide 25 mmol/L (22-29); Chloride 107 mmol/L (98-107); Potassium 3.8 mmol/L (3.5-5.1); Sodium 141 mmol/L (136-145)
[2022-04-25 05:28] LABS: Calcium 9.1 mg/dL (8.5-10.5); Glucose 98 mg/dL (65-115); Osmolality Calculated 296 mOsm/kg (285-295)
[2022-04-25] MEDS: levothyroxine 75 mcg Tablet 37.5 MCG PO (05:49)
[2022-04-25] MEDS: azithromycin 250 mg Tablet 500 MG PO (09:36)
[2022-04-25] MEDS: spironolactone 25 mg Tablet PO (09:37)
[2022-04-25] MEDS: clopidogrel 75 mg Tablet PO (09:37)
[2022-04-25] MEDS: sennosides-docusate Tablet 1 TAB PO (09:37)
[2022-04-25] MEDS: cefTRIAXone 1,000 MG in sodium chloride 0.9% (plus) 50 ML 100 MG IV (09:38)
[2022-04-25] MEDS: apixaban 5 mg Tablet PO ×2 (09:46→20:25)
[2022-04-25] MEDS: HYDROcodone-acetaminophen 7.5-325 mg Tablet 1 TAB PO ×2 (09:46→20:25)
--- NOTE | 2022-04-25 16:40 | PM.PN ---
Subjective Subjective: Patient was seen and examined this morning, continues to complain of shortness of breath and weakness. Medications: Medication Review Details: Generic Name Dose Route Start Last Admin Trade Name Freq PRN Reason Stop Dose Admin Hydrocodone Bitart /Acetaminophen 1 tab 04/22/22 21:48 04/25/22 09:46 Hydrocodone-Acet aminophen 7.5-325 Mg Tablet PO 1 tab QID PRN Administration Pain Albuterol/Ipratrop ium 3 ml 04/22/22 21:48 04/25/22 13:56 Ipratropium-Albu terol 3 Ml Neb INHALATION 3 ml Q6H PRN Administration SHORTNESS OF NEGRITO TH Albuterol/Ipratrop ium 3 ml 04/22/22 22:38 04/23/22 18:18 Ipratropium-Albu terol 3 Ml Neb INHALATION 3 ml Q4H PRN Administration SHORTNESS OF NEGRITO TH Apixaban 5 mg 04/22/22 21:48 04/25/22 09:46 Apixaban 5 Mg Ta blet PO 5 mg BID@0900,2100 RACHNA Administration Atorvastatin Calci um 40 mg 04/22/22 21:48 04/24/22 20:10 Atorvastatin 40 Mg Tablet PO 40 mg BEDTIME RACHNA Administration Azithromycin 500 mg 04/23/22 09:00 04/25/22 09:36 Azithromycin 250 Mg Tablet PO 500 mg DAILY RACHNA Administration Protocol Clopidogrel Bisulf ate 75 mg 04/23/22 09:00 04/25/22 09:37 Clopidogrel 75 M g Tablet PO 75 mg DAILY RACHNA Administration Ceftriaxone Sodium 1,000 mg/ 50 mls @ 100 mls/ hr 04/23/22 09:00 04/25/22 10:15 Sodium Chloride IV Infused DAILY RACHNA Infusion Protocol Levothyroxine Sodi um 37.5 mcg 04/23/22 06:00 04/25/22 05:49 Levothyroxine 75 Mcg Tablet PO 37.5 mcg QAM RACHNA Administration Lisinopril 5 mg 04/23/22 09:00 04/23/22 09:59 Lisinopril 5 Mg Tablet PO Not Given DAILY RACHNA Senna/Docusate Sod ium 1 tab 04/23/22 09:00 04/25/22 09:37 Sennosides-Docus ate Tablet PO 1 tab DAILY RACHNA Administration Spironolactone 25 mg 04/24/22 09:40 12/24/22 09:37 Spironolactone 2 5 Mg Tablet PO 25 mg DAILY RACHNA Administration Trazodone HCl 200 mg 04/22/22 21:48 04/24/22 20:10 Trazodone 100 Mg Tablet PO 200 mg DAILY@21 RACHNA Administration Vitals/I&O/Wt Last Vital Signs Temp 97.8 F 04/25/22 14:59 Pulse 82 04/25/22 14:59 Resp 15 04/25/22 14:59 BP 125/76 04/25/22 14:59 Pulse Ox 95 04/25/22 14:59 O2 Del Method 04/25/22 14:59 O2 Flow Rate 2 04/25/22 13:57 04/25/22 04/25/22 04/25/22 06:59 14:59 22:59 Intake Total 240 / 890 170 / 170 Balance 240 / 890 170 / 170 Physical Exam Const: COMMON NORMALS: patient oriented x3 Resp: COMMON NORMALS: clear to auscultation bilaterally AUSCULTATION: clear to auscultation bilaterally Cardio: COMMON NORMALS: regular rate, regular rhythm, S1 normal heart sound present, S2 normal heart sound present, No gallops present (Cardio), No murmurs present (Cardio), No rub (Cardio) and Peripheral pulses 2+ throughout RATE: regular rate RHYTHM: regular rhythm HEART SOUNDS: S1 normal heart sound present and S2 normal heart sound present PERIPHERAL PULSES: Peripheral pulses 2+ throughout GI: COMMON NORMALS: Normal to inspection, nondistended, normoactive bowel sounds present, Soft to palpation, non-tender, No hepatosplenomegaly present and no masses AUSCULTATION: Yes normoactive bowel sounds PALPATION: Yes Soft to palpation and Yes No hepatosplenomegaly present RECTAL EXAM: deferred Extremity: COMMON NORMALS: no clubbing, cyanosis or edema and no pedal edema Neuro: COMMON NORMALS: patient oriented x3 Data 04/25/22 04:55 04/25/22 04:55 Micro: Microbiology 04/23/22 04:58 Gram Stain - Final Sputum - Expectorated Sputum Sputum Culture - Preliminary Yeast species A&P Assessment and plan (1) Community acquired pneumonia: (2) COPD (chronic obstructive pulmonary disease): (3) Hypothyroidism: Plan 77 Y O F with PMH of COPD on 2Ls home oxygen, CAD s/p recent PCI, LV Apical thrombus, HTN, HFrEF, came in with c/o worsening sob,cough generalized weakness going on for last 2-3 days. Currently she is being managed for. Assessment : CAP COPD Exacerbation 2/2 PNA H/O CAD S/P PCI LV Apical thrombus: On Eliquis HTN HFrEF: Currently compensated VY ON CKD Plan : X-ray chest : Infiltrate in the middle and lower lobes the right lung suggesting pneumonia Urine Bacterial :Antigen:Negative Sputum Gram stain : : Growing yeast: Does not appear to be true infection. MRSA PCR: Negative Continue Cef and Azithromycin Continue Plavix, and eliquis Continue levothyroxine Hold lisinopril Resume spirionlactone Monitor BMP Plan for today: Continue with current antibiotics, hopefully discharge tomorrow on oral antibiotics. Attestations Medical Necessity Statement*: Patient is to be in hospital management of pneumonia, continued need for IV antibiotics nebs. Coding Level of Care Code Acute Manager Progressive Care for Mari Zambrano Diagnoses Community acquired pneumonia J18.9 COPD (chronic obstructive pulmonary disease) J44.9 Hypothyroidism E03.9
[2022-04-25] MEDS: trazodone 100 mg Tablet 200 MG PO (20:25)
[2022-04-25] MEDS: atorvastatin 40 mg Tablet PO (20:25)
[2022-04-26 02:33] VITALS: PULSE 70; RESP 17; O2SAT 98
[2022-04-26] MEDS: ipratropium-albuterol 3 mL Neb INHALATION ×2 (02:33→08:22)
[2022-04-26 04:00] VITALS: BP 118/74; PULSE 68; RESP 17; TEMP 36.8; O2SAT 94
[2022-04-26 05:22] LABS: Basophils % 0.5 %; Eosinophils # 0.2 10^3/uL (0.0-0.8); Eosinophils % 2.1 %; Hematocrit 29.8 % (37.0-47.0); Hemoglobin 9.1 g/dL (11.5-15.3); Lymphocytes # 1.4 10^3/uL (0.8-4.8); Lymphocytes % 16.8 %; Mean Corpuscular HGB Conc 30.5 g/dL (30.0-36.0); Mean Corpuscular Hemoglobin 30.3 pg (28.0-34.0); Mean Corpuscular Volume 99.3 fl (81-99); Monocytes # 0.8 10^3/uL (0.2-0.9); Monocytes % 9.4 %; Neutrophils # 5.97 10^3/uL (1.8-7.7); Neutrophils % 70.4 %; Nucleated Red Blood Cells % 0 %; Platelet Count 225 10^3/cmm (130-400); Red Cell Distribution Width 14.6 % (12.1-15.1); White Blood Count 8.5 10^3/uL (4.0-10.0)
[2022-04-26] MEDS: levothyroxine 75 mcg Tablet 37.5 MCG PO (05:27)
[2022-04-26] MEDS: HYDROcodone-acetaminophen 7.5-325 mg Tablet 1 TAB PO (05:34)
[2022-04-26 05:40] LABS: Blood Urea Nitrogen 20 mg/dL (8-23); Calcium 9.4 mg/dL (8.5-10.5); Carbon Dioxide 25 mmol/L (22-29); Chloride 106 mmol/L (98-107); Glucose 87 mg/dL (65-115); Osmolality Calculated 296 mOsm/kg (285-295); Sodium 142 mmol/L (136-145)
[2022-04-26 08:00] VITALS: BP 122/71; PULSE 61; RESP 15; TEMP 36.6; O2SAT 95
[2022-04-26 08:24] VITALS: PULSE 61; RESP 15; O2SAT 96
[2022-04-26] MEDS: apixaban 5 mg Tablet PO (09:46)
[2022-04-26] MEDS: azithromycin 250 mg Tablet 500 MG PO (09:48)
[2022-04-26] MEDS: clopidogrel 75 mg Tablet PO (09:49)
[2022-04-26] MEDS: cefTRIAXone 1,000 MG in sodium chloride 0.9% (plus) 50 ML 100 MG IV (09:49)
[2022-04-26] MEDS: spironolactone 25 mg Tablet PO (09:49)
[2022-04-26] MEDS: sennosides-docusate Tablet 1 TAB PO (11:49)
[2022-04-26] MEDS: amoxicillin-clav 500-125 mg Tablet 1 TAB PO (11:53)
--- NOTE | 2022-04-26 12:46 | PC.NURSE ---
1241 dischargeingtructions given to patient who voiced understanding. patient dressed in street chothes, and personal belongings pack and with patient. Patient waiting on ride
--- NOTE | 2022-04-26 14:15 | PC.NURSE ---
1320 Patient discharged to home with friend.Patient in stable condition, personal belongings and home 02 on and with patient taken to private car per wheel chair per staff
[2022-04-26 14:16] VITALS: BP 122/71; PULSE 61; RESP 15; TEMP 36.6; O2SAT 96
--- NOTE | 2022-05-14 11:09 | P.DS_ITS ---
Discharge Providers Date of Admission: 04/22/22 20:57 Date of Discharge: April 26, 2022 Attending Provider at Admission: Odilia Farah MD Attending Provider at Discharge: Josesito Leon MD Primary Care Provider: Koby Martinez NP Diagnoses at Discharge Discharge Diagnosis (1) Community acquired pneumonia: Status: Inactive (2) COPD (chronic obstructive pulmonary disease): Status: Acute (3) Hypothyroidism: Status: Inactive Reason for Visit Reason for Visit: sob Hospital Course Hospital Course 77 Y O F with PMH of COPD on 2Ls home oxygen, CAD s/p recent PCI, LV Apical thr ombus, HTN, HFrEF, came in with c/o worsening sob,cough generalized weakness going on for last 2-3 days.She was admitted for the management of Currently she is being managed for. CAP,COPD Exacerbation 2/2 PNA,H/O CAD S/P PCI,LV Apical thrombus: On Eliquis,HTN,HFrEF: Currently compensated,mild pre renal VY ON CKD,she was kept on I.V abxs, nebs, gentle I.V hydration,supplemental oxygen as needed, and other conservative respiratory support measures,to which she responded well at the time of discharge VY has resolved,she was evuvolemic and compensated,lasix as well as losrtan was breifly kept on hold on discharge,given just recovered kidney function,she was discharged on po abxs to complete the course of PNA.She was afebrile and hemodynymically stable at the time of discharge.She was discharged in stable condition to home.She will continue to follow cardiology as well as her pcp as outpatient. Physical Exam Const: COMMON NORMALS: patient oriented x3 Resp: COMMON NORMALS: clear to auscultation bilaterally AUSCULTATION: clear to auscultation bilaterally Cardio: COMMON NORMALS: regular rate, regular rhythm, S1 normal heart sound present, S2 normal heart sound present, No gallops present (Cardio), No murmurs present (Cardio), No rub (Cardio) and Peripheral pulses 2+ throughout RATE: regular rate RHYTHM: regular rhythm HEART SOUNDS: S1 normal heart sound present and S2 normal heart sound present PERIPHERAL PULSES: Peripheral pulses 2+ throughout GI: COMMON NORMALS: Normal to inspection, nondistended, normoactive bowel sounds present, Soft to palpation, non-tender, No hepatosplenomegaly present and no masses AUSCULTATION: Yes normoactive bowel sounds PALPATION: Yes Soft to palpation and Yes No hepatosplenomegaly present RECTAL EXAM: deferred Extremity: COMMON NORMALS: no clubbing, cyanosis or edema and no pedal edema Neuro: COMMON NORMALS: patient oriented x3 Discharge Data Studies Completed and Pending Completed Studies During Hospitalization Category Date Time Status XR chest 2V* [id number] Stat Exams 04/22/22 14:04 Completed Radiology Impressions Chest X-Ray 04/22/22 14:04 IMPRESSION: 1. Infiltrate in the middle and lower lobes the right lung suggesting pneumonia. Laboratory Results WBC 8.5 10^3/uL (4.0-10.0) 04/26/22 04:55 RBC 3.00 10^6/uL (4.1-5.3) L 04/26/22 04:55 Hgb 9.1 g/dL (11.5-15.3) L 04/26/22 04:55 Hct 29.8 % (37.0-47.0) L 04/26/22 04:55 MCV 99.3 fl (81-99) H 04/26/22 04:55 MCH 30.3 pg (28.0-34.0) 04/26/22 04:55 MCHC 30.5 g/dL (30.0-36.0) 04/26/22 04:55 RDW 14.6 % (12.1-15.1) 04/26/22 04:55 Plt Count 225 10^3/cmm (130-400) 04/26/22 04:55 MPV 10.0 fL (7.4-10.4) 04/26/22 04:55 Neut % (Auto) 70.4 % 04/26/22 04:55 Lymph % (Auto) 16.8 % 04/26/22 04:55 [place] % (Auto) 9.4 % 04/26/22 04:55 Eos % (Auto) 2.1 % 04/26/22 04:55 Baso % (Auto) 0.5 % 04/26/22 04:55 Neut # (Auto) 5.97 10^3/uL (1.8-7.7) 04/26/22 04:55 Lymph # (Auto) 1.4 10^3/uL (0.8-4.8) 04/26/22 04:55 [place] # (Auto) 0.8 10^3/uL (0.2-0.9) 04/26/22 04:55 Eos # (Auto) 0.2 10^3/uL (0.0-0.8) 04/26/22 04:55 Baso # (Auto) 0.0 10^3/uL (0.0-0.1) 04/26/22 04:55 Nucleated RBC % (auto) 0 % 04/26/22 04:55 Nucleated RBCs # 0.0 /100WBC 04/26/22 04:55 D-Dimer 1.05 ug/mIFEU (0-0.59) H 04/22/22 15:23 Sodium 142 mmol/L (136-145) 04/26/22 04:55 Potassium 4.0 mmol/L (3.5-5.1) 04/26/22 04:55 Chloride 106 mmol/L (98-107) 04/26/22 04:55 Carbon Dioxide 25 mmol/L (22-29) 04/26/22 04:55 Anion Gap 15.0 (5-19) 04/26/22 04:55 BUN 20 mg/dL (8-23) 04/26/22 04:55 Creatinine 1.1 mg/dL (0.5-0.9) H 04/26/22 04:55 GFR Calculation Not Reportable 04/26/22 04:55 Glucose 87 mg/dL (65-115) 04/26/22 04:55 Calculated Osmolality 296 mOsm/kg (285-295) H 04/26/22 04:55 Calcium 9.4 mg/dL (8.5-10.5) 04/26/22 04:55 Phosphorus 3.0 mg/dL (2.5-4.5) 04/23/22 05:20 Magnesium 2.0 mg/dL (1.7-2.3) 04/23/22 05:20 Total Bilirubin 0.7 mg/dL (0.15-1.2) 04/22/22 15:23 AST 12 U/L (0-32) 04/22/22 15:23 ALT 6 U/L (0-33) 04/22/22 15:23 Alkaline Phosphatase 78 U/L (35-105) 04/22/22 15:23 Troponin T Baseline 69 ng/L (0-10) H 04/22/22 15:23 Troponin T 120 Minute 58.98 ng/L (0-10) H 04/22/22 17:20 Delta Troponin T -10.02 ABS# (0-10) L 04/22/22 17:20 Troponin T Hi Sens 6Hr 53.43 ng/L (0-10) H 04/22/22 20:51 Troponin T Hi Sens 6Hr Delta -15.57 ng/L (0-12) L 04/22/22 20:51 C-Reactive Protein 252.0 mg/L (0.0-4.9) H 04/23/22 05:20 NT-Pro-B Natriuret Pep 1052 pg/mL (0-450) H 04/22/22 15:23 Total Protein 8.0 g/dL (6.6-8.7) 04/22/22 15:23 Albumin 4.0 g/dL (3.5-5.2) 04/22/22 15:23 Globulin 4.0 g/dL (1.3-4.6) 04/22/22 15:23 Vitamin B12 246 pg/mL (232-1245) 04/22/22 17:20 Procalcitonin 0.97 ng/mL (0-0.5) H 04/22/22 17:20 TSH 0.46 uIU/mL (0.27-4.20) 04/22/22 17:20 Coronavirus 229E (PCR) Not detected (NOT DETECT) 04/22/22 23:51 SARS-CoV-2 (PCR) Not detected (NOT DETECT) 04/22/22 23:51 Vitals Last Vital Signs Temp 97.8 F 04/26/22 14:16 Pulse 61 04/26/22 14:16 Resp 15 04/26/22 14:16 BP 122/71 04/26/22 14:16 Pulse Ox 96 04/26/22 14:16 O2 Del Method 04/26/22 08:24 O2 Flow Rate 3 04/26/22 08:24 Discharge Plan Discharge Patient Disposition: Home Condition: Stable Prescriptions: Continued spironolactone 25 mg tablet 25 mg PO DAILY Qty: 90 3RF albuterol sulfate 1.25 mg/3 mL solution for nebulization 1.25 mg inhalation Q6H PRN (Reason: Shortness Of Breath) levothyroxine [Synthroid] 75 mcg tablet 37.5 mcg PO QAM trazodone 100 mg tablet 200 mg PO DAILY@21 hydrocodone-acetaminophen 7.5-325 mg tablet 1 tab PO QID PRN (Reason: Pain) Trelegy Ellipta 100-62.5-25 mcg blister with device 1 inh INHALATION BEDTIME albuterol sulfate [ProAir HFA] 90 mcg/actuation Hfa Aerosol Inhaler 1 - 2 puff INHALATION Q4H PRN (Reason: Shortness Of Breath) cholecalciferol (vitamin D3) [Vitamin D3] 25 mcg (1,000 unit) Capsule 25 mcg PO QAM Eliquis 5 mg Tablet 5 mg PO BID@0900,2100 Qty: 180 3RF atorvastatin 40 mg Tablet 40 mg PO BEDTIME Qty: 90 3RF clopidogrel 75 mg Tablet 75 mg PO DAILY Qty: 90 3RF No Action escitalopram oxalate 10 mg tablet 10 mg PO DAILY PRN losartan 25 mg tablet 25 mg PO DAILY Qty: 30 0RF Rx Instructions: Stop lisinopril; Start Losartan 25mg take 1 tab by mouth daily & f/u with Sarah Beth on 06/19/22 09:00 Discharge Orders: Discharge Order (Routine); Ordered 04/26/22 Ordered By: Josesito Leon Other Ambulatory Orders: DME: Oxygen (Order) Location: None Selected Ordered By: Josesito Leon Referrals: Koby Martinez CHIMNEY MECHANIC [Primary Care Provider] - 7-10 days (Please call Wednesday to make your follow up appointment with primary care provider. ) Patient Instructions: Amoxicillin/Clavulanate Potassium (By mouth), Viral Pneumonia (DC), COPD (Chronic Obstructive Pulmonary Disease) (DC), Opioid Safety Discharge Attestations Time Spent in Discharge Care*: greater than 30 min Status at Discharge: Cognitive status at discharge: cognitively intact , Behavioral status at discharge: cooperative , Quality Metrics Clinical Quality Measures [ No reported AMI, CVA or VTE this stay] Coding Level of Care Code Acute Chg FW DC note Diagnoses Community acquired pneumonia J18.9 COPD (chronic obstructive pulmonary disease) J44.9 Hypothyroidism E03.9
== END 2022-04-26 13:20 | disposition home or self-care (01) ==
LOC: ER 20:06 → MEDSURG 20:57
PROVIDERS: Nurse Practitioner Family; Admitting Provider Internal Medicine; Emergency Provider Emergency Medicine; PCP Nurse Practitioner Family; Visit Provider Internal Medicine
DX: J18.9 Pneumonia, unspecified organism (principal); J44.9 Chronic obstructive pulmonary disease, unspecified; E03.9 Hypothyroidism, unspecified; Z99.81 Dependence on supplemental oxygen; I25.10 Atherosclerotic heart disease of native coronary artery without angina pectoris; I50.20 Unspecified systolic (congestive) heart failure; N17.9 Acute kidney failure, unspecified; E11.22 Type 2 diabetes mellitus with diabetic chronic kidney disease; I13.0 Hypertensive heart and chronic kidney disease with heart failure and stage 1 through stage 4 chronic kidney disease, or unspecified chronic kidney disease; N18.2 Chronic kidney disease, stage 2 (mild); Z66 Do not resuscitate; Z87.891 Personal history of nicotine dependence
CPT/HCPCS: 36415; 71046; 80048; 80053; 82607; 83735; 83880; 84100; 84145; 84443; 84484; 85025; 85378; 86140; 86403; 87070; 87205; 87635; 87641; 93005; 94640; 94664; 94760; 96361; 96365; 96367; 99285; G0378; J0456; J0696; J7030; J7050; Q0144

== ENCOUNTER → 2022-05-11 17:03 | Outpatient (BNVA) | payer MEDICARE, SELFPAY | PROVIDERS: PCP Nurse Practitioner Family; Visit Provider Internal Medicine Cardiovascular Disease | DX: Z79.01 Long term (current) use of anticoagulants (principal); R06.02 Shortness of breath; R53.1 Weakness; N18.9 Chronic kidney disease, unspecified; I25.5 Ischemic cardiomyopathy; R00.2 Palpitations; E78.5 Hyperlipidemia, unspecified; J44.9 Chronic obstructive pulmonary disease, unspecified; I51.3 Intracardiac thrombosis, not elsewhere classified; Z87.81 Personal history of (healed) traumatic fracture | CPT/HCPCS: 80053; 83880; 84443; 85025; 99214 ==

== ENCOUNTER → 2022-06-19 10:25 | Outpatient (BNVA) | payer MEDICARE, SELFPAY | PROVIDERS: PCP Nurse Practitioner Family; Visit Provider Nurse Practitioner Family | DX: I25.10 Atherosclerotic heart disease of native coronary artery without angina pectoris (principal); I25.5 Ischemic cardiomyopathy; Z87.891 Personal history of nicotine dependence; I10 Essential (primary) hypertension | CPT/HCPCS: 99214 ==

== ENCOUNTER 2022-06-24 14:25 | Emergency (ER) | payer MEDICARE, SELFPAY ==
[2022-06-24 14:29] VITALS: BP 145/74; PULSE 82; RESP 16; TEMP 36.8; O2SAT 91
--- NOTE | 2022-06-24 15:03 | ED_ITS ---
HPI - Nausea/Vomiting/Diarrhea General: Chief complaint: Nausea/Vomiting/Diarrhea Stated complaint: n/v/weak Time Seen by Provider: 06/24/22 14:35 Source: patient Mode of arrival: ambulatory Limitations: no limitations History of Present Illness: Patient is a 77-year-old female who presents to ED today with a complaint of nausea and vomiting that began about 48 hours ago. Patient states since onset she has had approximately 4-5 episodes of nonbloody emesis. She has not noted any changes in her bowel movements. She is not having any abdominal pain. She does report eating some chicken prior to symptoms starting however other members of the family ate the same chicken and are not ill. Patient states she did strike her head 4 to 5 days ago after hitting it on a car door. She has a small hematoma to her frontal region. Patient denies headache. She is not having any lightheadedness or dizziness. MD elicited complaint: nausea and vomiting Onset (ago): day(s) Associated nausea: Yes Associated abdominal pain: No Location of pain: None Severity: mild Exacerbating factors: eating Relieving factors: none Associated symtoms: Reports nausea; Denies change in vision, chest pain, dizziness, dysuria, fatigue, headache(s), malaise, palpitations or syncope Review of Systems Const: Denies: fever(s), chills, body aches, fatigue or malaise Eyes: Denies: change in vision, blurry vision, photophobia, floaters or seeing flashes ENMT: Denies: throat pain, odynophagia, nasal discharge or nasal congestion Card: Denies: chest pain, palpitations, irregular heart rhythm, edema, swelli ng of feet/ankles, lightheadedness, syncope, pre-syncope, dyspnea on exertion, orthopnea, leg pain with exertion or acrocyanosis Resp: Denies: dyspnea, productive cough or pain on inspiration GI: Reports: nausea and vomiting; Denies: abdominal pain, hematemesis, heartburn, diarrhea or change in bowel habits : Denies: flank pain, difficulty voiding, dysuria or hematuria Musc: Denies: neck pain, back pain, extremity pain, extremity swelling or joint pain Skin/Breast: Denies: rash Neuro: Denies: headache(s), numbness in extremities, weakness in extremities, sensory changes, lack of coordination, difficulty walking, dizziness, confusion, behavioral changes, Slurred speech present or seizure-like activity [facility] ED PFSH: Medical History Breast cancer Chronic back pain Community acquired pneumonia COPD (chronic obstructive pulmonary disease) COPD (chronic obstructive pulmonary disease) Depression Elevated troponin level HTN (hypertension) Hyperlipidemia Hypothyroidism Ischemic cardiomyopathy LV (left ventricular) mural thrombus Non-ST elevation CA (NSTEMI) Stage 2 acute kidney injury Supplemental oxygen dependent Surgical History H/O lumpectomy Family History Brother CAD (coronary artery disease) Cancer Chronic kidney disease (CKD) Denies family history of Clotting disorder Dementia Suicide Anesthesia complication Bleeding disorder Lung disease Stroke Social History Smoking and tobacco status: former smoker Alcohol intake: never Marital status: / Marital status details: She lost her 6 months ago Physical Exam 2 Const: COMMON NORMALS: no acute distress, average body habitus, patient oriented x3, no limitations, healthy appearing, alert and well nourished GENERAL APPEARANCE: cooperative ORIENTATION/CONSCIOUSNESS: Yes awake, Yes oriented to person, Yes oriented to place and Yes oriented to time HENMT: COMMON NORMALS: normocephalic HEAD & SCALP: normal to inspection and normocephalic HEAD IMAGES: 1. small ecchymosis/hematoma Eye: GENERAL EYE: appearance normal, both eyes and all related structures Neck/C-Spine: COMMON NORMALS: full ROM, no lymphadenopathy, supple and no meningeal signs Chest: COMMONS NORMALS: normal inspection of the chest and normal palpation of entire chest wall Resp: COMMON NORMALS: normal respiratory effort and clear to auscultation bilaterally AUSCULTATION: clear to auscultation bilaterally Cardio: COMMON NORMALS: regular rate and regular rhythm RATE: regular rate RHYTHM: regular rhythm GI: COMMON NORMALS: Normal to inspection, nondistended, normoactive bowel sounds present, Soft to palpation, non-tender, No hepatosplenomegaly present and no masses INSPECTION: Yes scar AUSCULTATION: Yes normoactive bowel sounds PALPATION: Yes Soft to palpation, No Tenderness to palpation present (GI), No Guarding due to palpation present (GI), No Rigid due to palpation and Yes No he patosplenomegaly present : COMMON NORMALS: Yes no CVA tenderness BLADDER/KIDNEY EXAM: Yes no CVA tenderness Back/Pelvis: COMMON NORMALS: no CVA tenderness, thoracic and lumbar spine normal to inspection, no thoracic nor lumbar tenderness and thoraco-lumbar ROM normal Extremity: COMMON NORMALS: normal to inspection GENERAL: Yes normal exam except as noted Neuro: EVY COMA SCALE: document GCS findings Evy coma scale eye opening: Spontaneous Evy coma scale verbal response: Orientated [place] coma scale motor response: Obey commands Evy coma scale total score: 15 COMMON NORMALS: patient oriented x3, CN's II-XII intact bilaterally, moves all extremities, no focal motor deficits, no sensory deficits noted and gait normal SENSORIUM/ORIENTATION: Yes alert, Yes oriented to person, Yes oriented to place and Yes oriented to time MENINGEAL SIGNS: Yes no meningeal signs SPEECH: speech normal Course Vital Signs: Vital signs: Vital Signs Temperature 98.2 F 06/24/22 14:29 Pulse Rate 82 06/24/22 14:29 Respiratory Rate 16 06/24/22 14:29 Blood Pressure 126/97 06/24/22 15:06 Pulse Oximetry 95 06/24/22 15:06 Oxygen Delivery Me thod 06/24/22 14:29 MDM - Nausea/Vomiting/Diarrhea Medical Decision Making Patient feels much better after given Zofran. She is eating and drinking in the room without difficulty. No need for emergent imaging based on her history and clinical examination. She has no abdominal tenderness. Patient does not want to wait for the results of her urine. She states she feels much better and wants to go home. Return ED precautions given. Lab Data 06/24/22 14:55 06/24/22 14:55 Laboratory Results WBC 5.9 10^3/uL (4.0-10.0) 06/24/22 14:55 RBC 3.53 10^6/uL (4.1-5.3) L 06/24/22 14:55 Hgb 10.7 g/dL (11.5-15.3) L 06/24/22 14:55 Hct 35.3 % (37.0-47.0) L 06/24/22 14:55 MCV 100.0 fl (81-99) H 06/24/22 14:55 MCH 30.3 pg (28.0-34.0) 06/24/22 14:55 MCHC 30.3 g/dL (30.0-36.0) 06/24/22 14:55 RDW 15.9 % (12.1-15.1) H 06/24/22 14:55 Plt Count 196 10^3/cmm (130-400) 06/24/22 14:55 MPV 9.9 fL (7.4-10.4) 06/24/22 14:55 Neut % (Auto) 64.0 % 06/24/22 14:55 Lymph % (Auto) 21.1 % 06/24/22 14:55 Garfield % (Auto) 12.3 % 06/24/22 14:55 Eos % (Auto) 1.9 % 06/24/22 14:55 Baso % (Auto) 0.5 % 06/24/22 14:55 Neut # (Auto) 3.80 10^3/uL (1.8-7.7) 06/24/22 14:55 Lymph # (Auto) 1.3 10^3/uL (0.8-4.8) 06/24/22 14:55 Garfield # (Auto) 0.7 10^3/uL (0.2-0.9) 06/24/22 14:55 Eos # (Auto) 0.1 10^3/uL (0.0-0.8) 06/24/22 14:55 Baso # (Auto) 0.0 10^3/uL (0.0-0.1) 06/24/22 14:55 Nucleated RBC % (auto) 0 % 06/24/22 14:55 Nucleated RBCs # 0.0 /100WBC 06/24/22 14:55 Sodium 139 mmol/L (136-145) 06/24/22 14:55 Potassium 5.0 mmol/L (3.5-5.1) 06/24/22 14:55 Chloride 104 mmol/L (98-107) 06/24/22 14:55 Carbon Dioxide 25 mmol/L (22-29) 06/24/22 14:55 Anion Gap 15.0 (5-19) 06/24/22 14:55 BUN 26 mg/dL (8-23) H 06/24/22 14:55 Creatinine 1.2 mg/dL (0.5-0.9) H 06/24/22 14:55 GFR Calculation Not Reportable 06/24/22 14:55 Glucose 99 mg/dL (65-115) 06/24/22 14:55 Calculated Osmolality 293 mOsm/kg (285-295) 06/24/22 14:55 Calcium 8.9 mg/dL (8.5-10.5) 06/24/22 14:55 Total Bilirubin 0.5 mg/dL (0.15-1.2) 06/24/22 14:55 AST 15 U/L (0-32) 06/24/22 14:55 ALT 10 U/L (0-33) 06/24/22 14:55 Alkaline Phosphatase 59 U/L (35-105) 06/24/22 14:55 Total Protein 6.5 g/dL (6.6-8.7) L 06/24/22 14:55 Albumin 3.7 g/dL (3.5-5.2) 06/24/22 14:55 Globulin 2.8 g/dL (1.3-4.6) 06/24/22 14:55 Lipase 64 U/L (13-60) H 06/24/22 14:55 Discharge Plan Discharge Patient Disposition: Home Clinical Impression: Nausea and vomiting Qualifiers: Vomiting type: unspecified Qualified Code(s): R11.2 - Nausea with vomiting, unspecified Condition: Stable Prescriptions: New ondansetron 4 mg tablet,disintegrating 4 mg PO Q8H PRN (Reason: nausea and vomiting) Qty: 14 0RF No Action spironolactone 25 mg tablet 25 mg PO DAILY Qty: 90 3RF sacubitril-valsartan 49-51 mg tablet 1 tab PO BID Qty: 56 0RF Rx Instructions: Take this for 4 weeks and recheck escitalopram oxalate 10 mg tablet 10 mg PO DAILY PRN albuterol sulfate 1.25 mg/3 mL solution for nebulization 1.25 mg inhalation Q6H PRN (Reason: Shortness Of Breath) levothyroxine [Synthroid] 75 mcg tablet 37.5 mcg PO QAM hydrocodone-acetaminophen 7.5-325 mg tablet 1 tab PO QID PRN (Reason: Pain) trazodone 100 mg tablet 250 mg PO DAILY@21 Trelegy Ellipta 100-62.5-25 mcg blister with device 1 inh INHALATION BEDTIME albuterol sulfate [ProAir HFA] 90 mcg/actuation Hfa Aerosol Inhaler 1 - 2 puff INHALATION Q4H PRN (Reason: Shortness Of Breath) cholecalciferol (vitamin D3) [Vitamin D3] 25 mcg (1,000 unit) Capsule 25 mcg PO QAM Eliquis 5 mg Tablet 5 mg PO BID@0900,2100 Qty: 180 3RF atorvastatin 40 mg Tablet 40 mg PO BEDTIME Qty: 90 3RF clopidogrel 75 mg Tablet 75 mg PO DAILY Qty: 90 3RF Discharge Orders: Discharge ED (Routine); Ordered 06/24/22 Ordered By: Therese Carrero Referrals: Koby Martinez NP [Primary Care Provider] - Patient Instructions: Acute Nausea and Vomiting (DC) Coding Level of Care Code ED Lounge Car Attendant for Mari Zambrano
[2022-06-24 15:06] VITALS: BP 126/97; O2SAT 95
[2022-06-24 15:09] LABS: Basophils % 0.5 %; Eosinophils # 0.1 10^3/uL (0.0-0.8); Eosinophils % 1.9 %; Hematocrit 35.3 % (37.0-47.0); Hemoglobin 10.7 g/dL (11.5-15.3); Lymphocytes # 1.3 10^3/uL (0.8-4.8); Lymphocytes % 21.1 %; Mean Corpuscular HGB Conc 30.3 g/dL (30.0-36.0); Mean Corpuscular Hemoglobin 30.3 pg (28.0-34.0); Mean Platelet Volume 9.9 fL (7.4-10.4); Monocytes # 0.7 10^3/uL (0.2-0.9); Monocytes % 12.3 %; Nucleated Red Blood Cells % 0 %; Platelet Count 196 10^3/cmm (130-400); Red Blood Count 3.53 10^6/uL (4.1-5.3); Red Cell Distribution Width 15.9 % (12.1-15.1); White Blood Count 5.9 10^3/uL (4.0-10.0)
[2022-06-24] MEDS: ondansetron 2 mg/ML SDV 2 mL 4 MG IVP (15:10)
[2022-06-24] MEDS: sodium chloride 0.9% 1,000 ML 999 ML IV (15:11)
[2022-06-24 15:27] LABS: Alanine Aminotransferase 10 U/L (0-33); Albumin Level 3.7 g/dL (3.5-5.2); Alkaline Phosphatase 59 U/L (35-105); Aspartate Amino Transferase 15 U/L (0-32); Blood Urea Nitrogen 26 mg/dL (8-23); Calcium 8.9 mg/dL (8.5-10.5); Carbon Dioxide 25 mmol/L (22-29); Chloride 104 mmol/L (98-107); Globulin 2.8 g/dL (1.3-4.6); Glucose 99 mg/dL (65-115); Lipase 64 U/L (13-60); Osmolality Calculated 293 mOsm/kg (285-295); Sodium 139 mmol/L (136-145); Total Bilirubin 0.5 mg/dL (0.15-1.2); Total Protein 6.5 g/dL (6.6-8.7)
[2022-06-24 15:30] VITALS: BP 132/77; O2SAT 94
[2022-06-24 16:00] VITALS: BP 123/68; O2SAT 93
[2022-06-24 16:30] VITALS: O2SAT 98
[2022-06-24 16:39] LABS: Add Urine Microscopic? NO; Charge for UA Resulting for Rev
[2022-06-24 16:53] LABS: Bilirubin Urine Neg (Negative); Blood Urine Neg (Negative); Glucose Urine UA Norm (Normal); Ketones Urine Negative (Negative); Leukocyte Esterase Urine Negative (Negative); Nitrate Urine Negative (Negative); Protein Urine Neg (Negative); Urine Appearance Clear (CLEAR); Urine Color Yellow (Yellow); Urobilinogen Urine Neg (Negative); pH Urine 6.5 (5-7)
== END 2022-06-24 16:35 | disposition home or self-care (01) ==
PROVIDERS: Emergency Provider Physician Assistant; PCP Nurse Practitioner Family
DX: R11.2 Nausea with vomiting, unspecified (principal); Z79.01 Long term (current) use of anticoagulants; Z79.02 Long term (current) use of antithrombotics/antiplatelets; Z87.891 Personal history of nicotine dependence; Z85.3 Personal history of malignant neoplasm of breast; J44.9 Chronic obstructive pulmonary disease, unspecified; I10 Essential (primary) hypertension; E78.5 Hyperlipidemia, unspecified; I25.2 Old myocardial infarction; Z99.81 Dependence on supplemental oxygen
CPT/HCPCS: 80053; 81003; 83690; 85025; 96361; 96374; 99284; J2405; J7030

== ENCOUNTER 2022-06-26 15:52 | Outpatient (CLI) | payer MEDICARE, SELFPAY ==
[2022-06-26 16:43] LABS: Anion Gap 15.7 (5-19); Blood Urea Nitrogen 29 mg/dL (8-23); Calcium 9.4 mg/dL (8.5-10.5); Carbon Dioxide 25 mmol/L (22-29); Chloride 105 mmol/L (98-107); Glucose 84 mg/dL (65-115); Osmolality Calculated 297 mOsm/kg (285-295); Potassium 4.7 mmol/L (3.5-5.1); Sodium 141 mmol/L (136-145)
== END 2022-06-26 15:53 | disposition home or self-care (01) ==
PROVIDERS: PCP Nurse Practitioner Family; Visit Provider Nurse Practitioner Family
DX: I25.10 Atherosclerotic heart disease of native coronary artery without angina pectoris (principal); I25.5 Ischemic cardiomyopathy
CPT/HCPCS: 36415; 80048

== ENCOUNTER 2022-07-16 10:09 | Outpatient (CLI) | payer MEDICARE, SELFPAY ==
--- NOTE | 2022-07-16 11:00 | USCV_ITS ---
Colette Lopez Age: 77 Gender: F : 1945 Exam Date: 07/16/2022 10:22 Ordering Phys: Sarah Beth Anaya Technologist: Milagros Kc Exam Location: [facility] [place] Indication: Checking for LV clot seen in Cardiac Cath BP: 120 / 60 HR: 66 Rhythm: Sinus Technical Quality: Adequate MEASUREMENTS (Male / Female) Normal Values 2D ECHO LV Diastolic Diameter PLAX 3.4 cm 4.2 - 5.9 / 3.9 - 5.3 cm LV Systolic Diameter PLAX 2.4 cm LV Chamber Size 3.3 cm IVS Diastolic Thickness 1.0 cm 0.6 - 1.0 / 0.6 - 0.9 cm IVS Systolic Thickness 1.1 cm LVPW Diastolic Thickness 1.1 cm 0.6 - 1.0 / 0.6 - 0.9 cm LVPW Systolic Thickness 1.2 cm RV Chamber Size 2.4 cm LVOT Diameter 2.0 cm LV Ejection Fraction 2D Teich 60.0 % LV Ejection Fraction MOD 2C 67.2 % LV Ejection Fraction 2C AL 69.9 % LA Diameter 2.3 cm LA Width 3.0 cm LA Height 3.6 cm RA Width 2.3 cm RA Height 2.7 cm Aorta at Sinotubular Diameter 1.8 cm IVC Diameter 1.1 cm M-MODE Aortic Annulus Diameter 3.0 cm LA Ao Ratio MM 0.9 MV E Point Septal Separation 0.4 cm DOPPLER AV Peak Velocity 146.0 cm/s LVOT Peak Velocity 120.0 cm/s AV Area Cont Eq vti 2.8 cm squared AV Area Cont Eq pk 2.6 cm squared MV Peak Velocity 112.0 cm/s MV Area PHT 2.3 cm squared Mitral E to A Ratio 0.8 MV E' Velocity 42.5 cm/s Mitral E to MV E' Ratio 7.8 Mitral E to LV E' Lateral Ratio 6.3 Mitral E to LV E' Septal Ratio 10.4 TR Peak Velocity 122.2 cm/s TR Peak Gradient 6.0 mmHg TR Mean Velocity 71.3 cm/s TR Mean Gradient 2.3 mmHg TR Velocity Time Integral 24.7 cm TV Peak E Velocity 63.0 cm/s Right Atrial Pressure 3.0 mmHg Pulmonary Artery Systolic Pressu 9.0 mmHg RV Acceleration Time 0.1 s RV Ejection Time 0.3 s RV AcT/ET 0.3 FINDINGS Left Ventricle Normal left ventricular size, systolic function and wall thickness, with no regional wall motion abnormalities. Left ventricular ejection fraction is estimated at 60 %. Grade I/IV diastolic dysfunction (abnormal relaxation filling pattern), normal to mildly elevated filling pressures. Right Ventricle The right ventricle is normal in size and function. Right Atrium The right atrium is normal in size. Left Atrium The left atrium is normal in size. Mitral Valve Structurally normal mitral valve without significant stenosis or prolapse. There is no mitral regurgitation. Aortic Valve Structurally normal aortic valve without significant sclerosis or stenosis. There is no aortic regurgitation. Tricuspid Valve Structurally normal tricuspid valve without significant stenosis or regurgitation. Pulmonary artery systolic pressure is normal. Pulmonic Valve Structurally normal pulmonic valve without significant stenosis. There is no pulmonic regurgitation. Pericardium Moderate pericardial effusion. Echocardiographic findings suggest a non hemodynamically significant pericardial effusion. Aorta Normal ascending aorta dimension. IVC The inferior vena cava appears normal. CONCLUSIONS 1-Normal left ventricular size, systolic function and wall thickness, with no regional wall motion abnormalities. Left ventricular ejection fraction is estimated at 60 %. Grade I/IV diastolic dysfunction (abnormal relaxation filling pattern), normal to mildly elevated filling pressures. 2-Moderate pericardial effusion. Echocardiographic findings suggest a non hemodynamically significant pericardial effusion. 3-No significant valve abnormalities. 4-Right atrial pressure is around 5 mm of mercury. Odilia Lemon MD (Electronically Signed) Final Date: 16 July 2022 21:57 S
== END 2022-07-16 10:10 | disposition home or self-care (01) ==
LOC: RAD 10:13
PROVIDERS: PCP Nurse Practitioner Family; Visit Provider Nurse Practitioner Family
DX: I51.3 Intracardiac thrombosis, not elsewhere classified (principal); I31.39 Other pericardial effusion (noninflammatory)
CPT/HCPCS: 93306; 99214

== ENCOUNTER 2022-07-22 14:30 | Outpatient (CLI) | payer MEDICARE, SELFPAY ==
[2022-07-22 15:31] LABS: Anion Gap 17.1 (5-19); Blood Urea Nitrogen 24 mg/dL (8-23); Calcium 9.4 mg/dL (8.5-10.5); Carbon Dioxide 25 mmol/L (22-29); Chloride 105 mmol/L (98-107); Glucose 153 mg/dL (65-115); NT Pro B Type Natriuretic Pept 229 pg/mL (0-450); Osmolality Calculated 303 mOsm/kg (285-295); Potassium 4.1 mmol/L (3.5-5.1); Sodium 143 mmol/L (136-145)
== END 2022-07-22 14:31 | disposition home or self-care (01) ==
PROVIDERS: PCP Nurse Practitioner Family; Visit Provider Nurse Practitioner Family
DX: I31.39 Other pericardial effusion (noninflammatory) (principal); I25.5 Ischemic cardiomyopathy
CPT/HCPCS: 80048; 83880; 99214

== ENCOUNTER 2022-08-14 08:45 | Emergency (ER) | payer MEDICARE, SELFPAY ==
--- NOTE | 2022-08-14 08:48 | XR_ITS ---
WS: [id number] EXAMINATION: XR foot RT min 3V* [id number] REASON FOR EXAM: Foot pain COMPARISON: None available. ORDER DATE: 08/14/2022 9:19 AM TECHNIQUE: 2 views of the right foot were obtained. X-RAY FINDINGS: There are no fractures or dislocations. There is bunion hypertrophy of the first metatarsal head with narrowed MCP joint space. No focal abnormal soft tissue swelling. Joint spaces are preserved. XR/XR foot RT min 3V* [id number] IMPRESSION: No fractures or dislocations of the right foot. Bunion noted
[2022-08-14 08:49] VITALS: BP 143/67; PULSE 68; RESP 14; TEMP 36.7; O2SAT 92; BMI 20.8
--- NOTE | 2022-08-14 09:13 | ED_ITS ---
HPI - Extremity Problem General: Chief complaint: Extremity Injury, Lower Stated complaint: hurt right foot Time Seen by Provider: 08/14/22 08:48 Source: patient Mode of arrival: EMS History of Present Illness: 77-year-old female presents emergency room via EMS. She is complaining of right foot pain with some bruising she has a history of being on Eliquis. She stumbled at home as she got out of a chair and fell caught herself but her right foot is painful. This happened yesterday in the evening this morning she had difficult time walking on it because of discomfort. Patient denies pain while at rest but with movement or exam complains of discomfort no other injuries not strike her head did not lose consciousness. MD Complaint: joint swelling and joint pain Onset (ago): hour(s) Pain Consistency: constant Location: right (Foot) Quality: sharp Relieving factors: rest Exacerbating factors: weight bearing and walking Associated symptoms: Deny arthralgias, chest pain, fever(s), myalgias, rash or short of breath Review of Systems Const: Denies: fever(s) or chills Card: Denies: chest pain Resp: Denies: dyspnea, productive cough or non-productive cough Skin/Breast: Denies: rash PFSH ED PFSH: Medical History Breast cancer Chronic back pain Community acquired pneumonia COPD (chronic obstructive pulmonary disease) COPD (chronic obstructive pulmonary disease) Depression Elevated troponin level HTN (hypertension) Hyperlipidemia Hypothyroidism Ischemic cardiomyopathy LV (left ventricular) mural thrombus Non-ST elevation CA (NSTEMI) Stage 2 acute kidney injury Supplemental oxygen dependent Surgical History H/O lumpectomy Family History Brother CAD (coronary artery disease) Cancer Chronic kidney disease (CKD) Denies family history of Clotting disorder Dementia Suicide Anesthesia complication Bleeding disorder Lung disease Stroke Social History Smoking and tobacco status: former smoker Alcohol intake: never Marital status: / Marital status details: She lost her 6 months ago Physical Exam Const: GENERAL APPEARANCE: cooperative and comfortable ORIENTATION/CONSCIOUSNESS: Yes awake HENMT: COMMON NORMALS: normocephalic, atraumatic and hearing grossly normal bilaterally HEAD & SCALP: normocephalic and atraumatic Resp: COMMON NORMALS: normal respiratory effort, No retractions, No use of accessory muscles and clear to auscultation bilaterally AUSCULTATION: clear to auscultation bilaterally Cardio: COMMON NORMALS: regular rate, regular rhythm and No murmurs present (Cardio) RATE: regular rate RHYTHM: regular rhythm Extremity: OTHER: Right back tender pulp drier and swollen over the distal metatarsals especially laterally. No obvious deformity no ecchymosis at this time no rash or skin changes no laceration or abrasion Skin: COMMON NORMALS: no rashes or lesions noted GENERAL SKIN EXAM: no rashes or lesions noted Course Vital Signs: Vital signs: Vital Signs Temperature 98.0 F 08/14/22 08:49 Pulse Rate 68 08/14/22 11:12 Respiratory Rate 14 08/14/22 08:49 Blood Pressure 143/73 08/14/22 11:12 Pulse Oximetry 100 08/14/22 11:12 Oxygen Delivery Me thod Room Air 08/14/22 09:58 MDM - Extremity (Nontraumatic) Medical Decision Making X-rays of the foot do not show any acute fracture. Rest ice elevation would avoid compression I think that will actually probably worsen her pain. This likely worsened by her dual anticoagulation with clopidogrel and Eliquis. Ice avoid heat. Follow-up with her primary care doctor. Medical Records I reviewed the patient's medical records. Lab Data I reviewed the patient's lab results. Radiology Impressions Foot X-Ray 08/14/22 08:48 IMPRESSION: No fractures or dislocations of the right foot. Bunion noted Discharge Plan Discharge Patient Disposition: Home Clinical Impression: Foot sprain Condition: Stable Prescriptions: No Action spironolactone 25 mg tablet 25 mg PO DAILY Qty: 90 3RF escitalopram oxalate 10 mg tablet 10 mg PO DAILY PRN sacubitril-valsartan 49-51 mg tablet 1 tab PO BID Qty: 180 3RF albuterol sulfate 1.25 mg/3 mL solution for nebulization 1.25 mg inhalation Q6H PRN (Reason: Shortness Of Breath) levothyroxine [Synthroid] 75 mcg tablet 37.5 mcg PO QAM hydrocodone-acetaminophen 7.5-325 mg tablet 1 tab PO QID PRN (Reason: Pain) trazodone 100 mg tablet 250 mg PO DAILY@21 Trelegy Ellipta 100-62.5-25 mcg blister with device 1 inh INHALATION BEDTIME albuterol sulfate [ProAir HFA] 90 mcg/actuation Hfa Aerosol Inhaler 1 - 2 puff INHALATION Q4H PRN (Reason: Shortness Of Breath) cholecalciferol (vitamin D3) [Vitamin D3] 25 mcg (1,000 unit) Capsule 25 mcg PO QAM Eliquis 5 mg Tablet 5 mg PO BID@0900,2100 Qty: 180 3RF atorvastatin 40 mg Tablet 40 mg PO BEDTIME Qty: 90 3RF clopidogrel 75 mg Tablet 75 mg PO DAILY Qty: 90 3RF ondansetron 4 mg tablet,disintegrating 4 mg PO Q8H PRN (Reason: nausea and vomiting) Qty: 14 0RF Discharge Orders: Discharge ED (Routine); Ordered 08/14/22 Ordered By: Renan Ochoa Referrals: Koby Martinez NP [Primary Care Provider] - Discharge Diet: Usual diet Discharge Activity: Increase activity as tolerated Patient Instructions: Opioid Safety, Pain Management Activity Restrictions/Additional Instructions: You were seen today for bruising in your right foot there is no fracture evident on plain x-ray. It is likely painful because of bruising in the tissue due to your blood thinner. Recommend that you continue all your medications elevate do not wrap the foot as it likely will increase pain you can use ice on the foot as needed weightbearing as tolerated follow-up with your primary care doctor Coding Level of Care Code ED Senior Quality Engineer for Mari Zambrano
[2022-08-14 09:29] VITALS: BP 143/73; O2SAT 99
[2022-08-14 09:58] VITALS: BP 143/73; O2SAT 100
[2022-08-14 11:12] VITALS: BP 143/73; PULSE 68; O2SAT 100
== END 2022-08-14 11:13 | disposition home or self-care (01) ==
PROVIDERS: Emergency Provider Family Medicine; PCP Nurse Practitioner Family
DX: S93.601A Unspecified sprain of right foot, initial encounter (principal); Z79.01 Long term (current) use of anticoagulants; Z79.02 Long term (current) use of antithrombotics/antiplatelets; Z85.3 Personal history of malignant neoplasm of breast; J44.9 Chronic obstructive pulmonary disease, unspecified; I10 Essential (primary) hypertension; E78.5 Hyperlipidemia, unspecified; I25.2 Old myocardial infarction; Z99.81 Dependence on supplemental oxygen; Z87.891 Personal history of nicotine dependence; W01.0XXA Fall on same level from slipping, tripping and stumbling without subsequent striking against object, initial encounter
CPT/HCPCS: 73630; 99283

== ENCOUNTER 2022-08-20 09:02 | Outpatient (CLI) | payer MEDICARE, SELFPAY ==
[2022-08-20 09:20] VITALS: PULSE 67; RESP 18; O2SAT 94
[2022-08-20] MEDS: albuterol 2.5 mg/3 mL Neb INHALATION (09:20)
[2022-08-20 09:25] VITALS: PULSE 63
== END 2022-08-20 09:03 | disposition home or self-care (01) ==
LOC: RT 09:08
PROVIDERS: PCP Nurse Practitioner Family; Visit Provider Nurse Practitioner Family
DX: R91.8 Other nonspecific abnormal finding of lung field (principal); R06.02 Shortness of breath
CPT/HCPCS: 94060; 94726; 94729; J7613

== ENCOUNTER → 2022-09-21 11:04 | Outpatient (BNVA) | payer MEDICARE, SELFPAY | PROVIDERS: PCP Nurse Practitioner Family; Visit Provider Internal Medicine Pulmonary Disease | DX: J44.9 Chronic obstructive pulmonary disease, unspecified (principal); Z99.81 Dependence on supplemental oxygen; I25.5 Ischemic cardiomyopathy; Z87.891 Personal history of nicotine dependence; Z85.3 Personal history of malignant neoplasm of breast; Z92.21 Personal history of antineoplastic chemotherapy; Z92.3 Personal history of irradiation; Z79.01 Long term (current) use of anticoagulants | CPT/HCPCS: 99204 ==

== ENCOUNTER → 2022-10-19 15:44 | Outpatient (BNVA) | payer MEDICARE, SELFPAY | PROVIDERS: PCP Nurse Practitioner Family; Visit Provider Specialist | DX: I25.10 Atherosclerotic heart disease of native coronary artery without angina pectoris (principal); J44.9 Chronic obstructive pulmonary disease, unspecified; E78.5 Hyperlipidemia, unspecified; I10 Essential (primary) hypertension; I25.5 Ischemic cardiomyopathy; Z87.891 Personal history of nicotine dependence | CPT/HCPCS: 99214 ==

== ENCOUNTER 2022-11-20 20:31 | Emergency (ER) | payer MEDICARE, SELFPAY ==
[2022-11-20 20:50] VITALS: BP 127/59; PULSE 85; RESP 20; TEMP 37.4; O2SAT 95; BMI 20.2
--- NOTE | 2022-11-20 21:47 | XRR_ITS ---
PROCEDURE INFORMATION: Exam: XR Chest Exam date and time: 11/20/2022 9:57 PM Age: 77 years old Clinical indication: Shortness of breath; Additional info: SOB TECHNIQUE: Imaging protocol: Radiologic exam of the chest. Views: 1 view. COMPARISON: CR XR chest 2V* [id number] 04/22/2022 2:19 PM FINDINGS: Lungs: Bibasilar atelectasis versus minimal infiltrate left greater than right. Pleural spaces: Trace bilateral pleural effusions. Heart/Mediastinum: Unremarkable. No cardiomegaly. Bones/joints: Unremarkable. XR/XR chest 1V portable [id number] IMPRESSION: 1. Bibasilar atelectasis versus minimal infiltrate left greater than right. 2. Trace bilateral pleural effusions.
[2022-11-20 22:34] VITALS: PULSE 74; RESP 29
[2022-11-20] MEDS: methylPREDNISolone sod succ 40 mg SDV 60 MG IV (22:35)
[2022-11-20 22:40] VITALS: BP 135/79
[2022-11-20] MEDS: ipratropium-albuterol 3 mL Neb INHALATION (22:42)
[2022-11-20 22:43] VITALS: PULSE 69; RESP 20; O2SAT 100
[2022-11-20 22:57] LABS: Basophils # 0.1 10^3/uL (0.0-0.1); Basophils % 0.5 %; Eosinophils # 0.1 10^3/uL (0.0-0.8); Hematocrit 32.5 % (37.0-47.0); Hemoglobin 9.8 g/dL (11.5-15.3); Lymphocytes # 1.7 10^3/uL (0.8-4.8); Lymphocytes % 17.1 %; Mean Corpuscular HGB Conc 30.2 g/dL (30.0-36.0); Mean Corpuscular Hemoglobin 29.5 pg (28.0-34.0); Mean Corpuscular Volume 97.9 fl (81-99); Mean Platelet Volume 10.2 fL (7.4-10.4); Monocytes # 1.2 10^3/uL (0.2-0.9); Monocytes % 12.2 %; Neutrophils # 6.67 10^3/uL (1.8-7.7); Neutrophils % 68.9 %; Nucleated Red Blood Cells % 0 %; Platelet Count 274 10^3/cmm (130-400); Red Blood Count 3.32 10^6/uL (4.1-5.3); Red Cell Distribution Width 15.2 % (12.1-15.1); White Blood Count 9.7 10^3/uL (4.0-10.0)
[2022-11-20] MEDS: cefTRIAXone 1,000 MG in sodium chloride 0.9% (plus) 50 ML 100 MG IV (23:12)
[2022-11-20] MEDS: ondansetron 2 mg/ML SDV 2 mL 4 MG IVP (23:22)
[2022-11-20] MEDS: morphine 4 mg/mL SDV 1 mL 2 MG IVP (23:22)
[2022-11-20 23:26] LABS: Alanine Aminotransferase 9 U/L (0-33); Albumin Level 3.9 g/dL (3.5-5.2); Alkaline Phosphatase 73 U/L (35-105); Anion Gap 16.3 (5-19); Aspartate Amino Transferase 14 U/L (0-32); Blood Urea Nitrogen 26 mg/dL (8-23); Calcium 9.1 mg/dL (8.5-10.5); Carbon Dioxide 26 mmol/L (22-29); Chloride 105 mmol/L (98-107); Globulin 3.6 g/dL (1.3-4.6); Glucose 113 mg/dL (65-115); NT Pro B Type Natriuretic Pept 681 pg/mL (0-450); Osmolality Calculated 302 mOsm/kg (285-295); Potassium 4.3 mmol/L (3.5-5.1); Sodium 143 mmol/L (136-145); Total Bilirubin 0.3 mg/dL (0.15-1.2); Total Protein 7.5 g/dL (6.6-8.7)
--- NOTE | 2022-11-20 23:28 | ED_ITS ---
HPI - SOB/Dyspnea General: Chief Complaint: Shortness of Breath/Dyspnea Stated Complaint: cough, back pain, sob Time Seen by Provider: 11/20/22 21:44 History of Present Illness: HPI Narrative: 77 years old female with a history of COPD presents emergency room with cough, shortness of breath and back pain with cough for the past few days. Patient with oxygen dependent COPD and normally wears 2 L of oxygen ambulating wearing 3 L. Described the cough as productive cough with some green sputum. Denies coughing up blood or vomiting blood. No leg pain, leg swelling or calf tenderness. Tenderness currently on Eliquis as taken as directed. No fever, chills, sick contacts or recent foreign travel. No body aches, dysuria, hematuria or urinary frequency. Associated symptoms: Deny chest congestion or hemoptysis Review of Systems General: Reports: 10 or more systems reviewed and unremarkable except in HPI and below Resp: Reports: dyspnea, productive cough and wheezing; Denies: hemoptysis or chest congestion PFSH ED PFSH: Medical History Breast cancer Chronic back pain Community acquired pneumonia COPD (chronic obstructive pulmonary disease) COPD (chronic obstructive pulmonary disease) Depression Elevated troponin level HTN (hypertension) Hyperlipidemia Hypothyroidism Ischemic cardiomyopathy LV (left ventricular) mural thrombus Non-ST elevation NM (NSTEMI) Stage 2 acute kidney injury Supplemental oxygen dependent Surgical History H/O lumpectomy Family History Brother CAD (coronary artery disease) Cancer Chronic kidney disease (CKD) Denies family history of Clotting disorder Dementia Suicide Anesthesia complication Bleeding disorder Lung disease Stroke Social History Smoking and tobacco status: former smoker Alcohol intake: never Substance/Drug Use: never Marital status: / Marital status details: She lost her 6 months ago Physical Exam Const: COMMON NORMALS: no acute distress, average body habitus, patient oriented x3, no limitations, healthy appearing, alert and well nourished Neck/C-Spine: COMMON NORMALS: no JVD GENERAL: Yes normal visual inspection, Yes trachea midline, No anterior neck swelling, No lymphadenopathy and No tender Chest: COMMONS NORMALS: normal inspection of the chest, normal palpation of entire chest wall, normal inspection of the breasts and normal palpation of the breasts Breast/axilla inspection: Yes normal inspection of the breasts BREAST/AXILLA PALPATION: Yes normal palpation of the breasts Resp: AUSCULTATION: crackles, no rales, rhonchi, wheezes, breath sounds present, diminished lung sounds and no bronchial breath sounds Cardio: COMMON NORMALS: no JVD, regular rate, regular rhythm, S1 normal heart sound present, S2 normal heart sound present, No gallops present (Cardio), No clicks present (Cardio), No murmurs present (Cardio), No rub (Cardio) and Peripheral pulses 2+ throughout RATE: regular rate RHYTHM: regular rhythm HEART SOUNDS: S1 normal heart sound present and S2 normal heart sound present PERIPHERAL PULSES: Peripheral pulses 2+ throughout Neuro: COMMON NORMALS: patient oriented x3 SENSORIUM/ORIENTATION: Yes alert Course Vital Signs: Vital signs: Vital Signs Temperature 99.3 F 11/20/22 20:50 Pulse Rate 73 11/21/22 00:05 Respiratory Rate 21 H 11/21/22 00:05 Blood Pressure 131/66 11/21/22 00:05 Pulse Oximetry 96 11/21/22 00:05 Oxygen Delivery Me thod Nasal Cannula 11/20/22 22:43 Oxygen Flow Rate 3 11/20/22 22:43 MDM - SOB/Dyspnea Medical Decision Making Patient was made comfortable emergency room. Patient states of work-up done and was given IV antibiotics, IV steroids, DuoNebs, cough medication and pain medication. Home the x-ray and lab findings with the patient. Patient is willing to be discharged and follow-up with the PCP. Told to return to emergency room if her symptoms persist or worsen within the next 12 to 24 hours. Differential Diagnosis Likely acute exacerbation of chronic obstructive airways disease, congestive heart failure, community acquired pneumonia, asthma with exacerbation and pulmonary embolism Lab Data 11/20/22 22:30 11/20/22 22:30 Labs/Radiology: Radiology Impressions Chest X-Ray 11/20/22 21:47 IMPRESSION: 1. Bibasilar atelectasis versus minimal infiltrate left greater than right. 2. Trace bilateral pleural effusions. Laboratory Results WBC 9.7 10^3/uL (4.0-10.0) 11/20/22 22:30 RBC 3.32 10^6/uL (4.1-5.3) L 11/20/22 22: Hgb 9.8 g/dL (11.5-15.3) L 11/20/22 22: Hct 32.5 % (37.0-47.0) L 11/20/22 22: MCV 97.9 fl (81-99) 11/20/22 22: MCH 29.5 pg (28.0-34.0) 11/20/22 22: MCHC 30.2 g/dL (30.0-36.0) 11/20/22 22: RDW 15.2 % (12.1-15.1) H 11/20/22: Plt Count 274 10^3/cmm (130-400) 11/20/22 22: MPV 10.2 fL (7.4-10.4) 11/20/22 22: Neut % (Auto) 68.9 % 11/20/22 22: Lymph % (Auto) 17.1 % 11/20/22 22: [place] % (Auto) 12.2 % 11/20/22 22: Eos % (Auto) 1.0 % 11/20/22: Baso % (Auto) 0.5 % 11/20/22: Neut # (Auto) 6.67 10^3/uL (1.8-7.7) 11/20/22 22: Lymph # (Auto) 1.7 10^3/uL (0.8-4.8) 11/20/22 22: [place] # (Auto) 1.2 10^3/uL (0.2-0.9) H 11/20/22 22: Eos # (Auto) 0.1 10^3/uL (0.0-0.8) 11/20/22 22: Baso # (Auto) 0.1 10^3/uL (0.0-0.1) 11/20/22: Nucleated RBC % (auto) 0 % 11/20/22: Nucleated RBCs # 0.0 /100WBC 11/20/22 22: Sodium 143 mmol/L (136-145) 11/20/22 22:30 Potassium 4.3 mmol/L (3.5-5.1) 11/20/22 22:30 Chloride 105 mmol/L (98-107) 11/20/22 22:30 Carbon Dioxide 26 mmol/L (22-29) 11/20/22 22:30 Anion Gap 16.3 (5-19) 11/20/22 22:30 BUN 26 mg/dL (8-23) H 11/20/22 22:30 Creatinine 1.4 mg/dL (0.5-0.9) H 11/20/22 22:30 GFR Calculation Not Reportable 11/20/22 22:30 Glucose 113 mg/dL (65-115) 11/20/22 22:30 Calculated Osmolality 302 mOsm/kg (285-295) H 11/20/22 22:30 Calcium 9.1 mg/dL (8.5-10.5) 11/20/22 22:30 Total Bilirubin 0.3 mg/dL (0.15-1.2) 11/20/22 22:30 AST 14 U/L (0-32) 11/20/22 22:30 ALT 9 U/L (0-33) 11/20/22 22:30 Alkaline Phosphatase 73 U/L (35-105) 11/20/22 22:30 NT-Pro-B Natriuret Pep 681 pg/mL (0-450) H 11/20/22 22:30 Total Protein 7.5 g/dL (6.6-8.7) 11/20/22 22:30 Albumin 3.9 g/dL (3.5-5.2) 11/20/22 22:30 Globulin 3.6 g/dL (1.3-4.6) 11/20/22 22:30 Discharge Plan Discharge Patient Disposition: Home Clinical Impression: Acute exacerbation of chronic obstructive airways disease, PNA (pneumonia) Condition: Stable Prescriptions: New codeine-guaifenesin 6.3-100 mg/5 mL liquid 5 ml PO Q6H PRN (Reason: cough) Qty: 125 0RF Medrol (Ryan) 4 mg tablets,dose pack 4 mg PO DAILY Qty: 21 0RF Zithromax Z-Ryan 250 mg tablet 250 mg PO DAILY 5 Days Qty: 6 0RF No Action spironolactone 25 mg tablet 25 mg PO DAILY Qty: 90 3RF escitalopram oxalate 10 mg tablet 10 mg PO DAILY PRN sacubitril-valsartan 49-51 mg tablet 1 tab PO BID Qty: 180 3RF albuterol sulfate 1.25 mg/3 mL solution for nebulization 1.25 mg inhalation Q6H PRN (Reason: Shortness Of Breath) levothyroxine [Synthroid] 75 mcg tablet 37.5 mcg PO QAM hydrocodone-acetaminophen 7.5-325 mg tablet 1 tab PO QID PRN (Reason: Pain) trazodone 100 mg tablet 250 mg PO DAILY@21 Trelegy Ellipta 100-62.5-25 mcg blister with device 1 inh INHALATION BEDTIME albuterol sulfate [ProAir HFA] 90 mcg/actuation Hfa Aerosol Inhaler 1 - 2 puff INHALATION Q4H PRN (Reason: Shortness Of Breath) cholecalciferol (vitamin D3) [Vitamin D3] 25 mcg (1,000 unit) Capsule 25 mcg PO QAM Eliquis 5 mg Tablet 5 mg PO BID@0900,2100 Qty: 180 3RF atorvastatin 40 mg Tablet 40 mg PO BEDTIME Qty: 90 3RF clopidogrel 75 mg Tablet 75 mg PO DAILY Qty: 90 3RF ondansetron 4 mg tablet,disintegrating 4 mg PO Q8H PRN (Reason: nausea and vomiting) Qty: 14 0RF Discharge Orders: Discharge ED (Routine); Ordered 11/20/22 Ordered By: Noe Heller Referrals: Koby Martinez NP [Primary Care Provider] - Discharge Diet: Advance as tolerated Discharge Activity: Resume usual activity Patient Instructions: Opioid Safety, Pain Management Coding Level of Care Code ED Electric Power Machine Operator for Mari Zambrano
[2022-11-20] MEDS: azithromycin 500 MG in sodium chloride 0.9% 250 ML 250 MG IV (23:55)
[2022-11-21 00:05] VITALS: BP 131/66; PULSE 73; RESP 21; O2SAT 96
== END 2022-11-21 01:54 | disposition home or self-care (01) ==
PROVIDERS: Emergency Provider Family Medicine; PCP Nurse Practitioner Family
DX: J44.0 Chronic obstructive pulmonary disease with (acute) lower respiratory infection (principal); J18.9 Pneumonia, unspecified organism; J44.1 Chronic obstructive pulmonary disease with (acute) exacerbation; Z79.02 Long term (current) use of antithrombotics/antiplatelets; Z87.891 Personal history of nicotine dependence; Z85.3 Personal history of malignant neoplasm of breast; I10 Essential (primary) hypertension; E78.5 Hyperlipidemia, unspecified; I25.2 Old myocardial infarction
CPT/HCPCS: 71045; 80053; 83880; 85025; 87040; 94640; 96365; 96366; 96367; 96375; 99284; J0456; J0696; J2270; J2405; J2920; J7050

== ENCOUNTER 2022-12-21 18:46 | Emergency (ER) | payer MEDICARE, SELFPAY ==
[2022-12-21 19:09] VITALS: BMI 20.2
[2022-12-21 19:11] VITALS: BP 148/74; PULSE 76; RESP 18; TEMP 36.7; O2SAT 99
--- NOTE | 2022-12-21 19:11 | ECG_ITS ---
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 Measurements Intervals [place] Rate: 75 P: 67 CT: 124 QRS: 47 QRSD: 81 T: 66 QT: 365 QTc: 408 Interpretive Statements SINUS RHYTHM WITH OCCASIONAL ECTOPIC PREMATURE COMPLEXES LOW QRS VOLTAGE IN PRECORDIAL LEADS [QRS DEFLECTION < 1.0 mV IN CHEST LEADS] Compared to ECG 04/22/2022 16:33:36 No significant changes Electronically Signed On 12-22-2022 6:42:11 CDT by Stacy Juarez M.D. [id number]
[2022-12-21 19:47] VITALS: BP 137/69; PULSE 75; RESP 16; O2SAT 100
[2022-12-21 20:02] LABS: Glucose Point of Care 90 mg/dL (70-110)
--- NOTE | 2022-12-21 20:33 | XRR_ITS ---
PROCEDURE INFORMATION: Exam: XR Chest Exam date and time: 12/21/2022 8:52 PM Age: 77 years old Clinical indication: Shortness of breath; Prior surgery; Surgery date: 6+ months; Surgery type: Breast; Additional info: SOB TECHNIQUE: Imaging protocol: Radiologic exam of the chest. Views: 1 view. COMPARISON: CR (CHEST, ) 11/20/2022 9:57 PM FINDINGS: Lungs: Emphysema. Stable atelectasis or scarring in the lung bases, left greater than right. No consolidation. Pleural spaces: Unremarkable. No pleural effusion. No pneumothorax. Heart/Mediastinum: Unremarkable. No cardiomegaly. Bones/joints: Unremarkable. XR/XR chest 1V portable [id number] IMPRESSION: No acute findings.
--- NOTE | 2022-12-21 20:34 | W.ED.SOB ---
HPI - SOB/Dyspnea General: Chief Complaint: Shortness of Breath/Dyspnea Stated Complaint: hard time breathing, irregular heart rate Time Seen by Provider: 12/21/22 20:01 Source: patient and other Mode of arrival: ambulatory Limitations: no limitations History of Present Illness: HPI Narrative: This patient presents to the emergency department because over the last 2 days she has felt like she was winded with both activity and at rest. She describes as feeling like a fluttery or jitteriness in her chest. She has a mild nonproductive cough over the past few days but no documented fevers or chills. She states she has been eating and drinking pretty normally. She states that she actually felt some better this afternoon and did laundry today. She states she has been eating and drinking normally no nausea vomiting or diarrhea. She had a prior MN in the past year and had 2 stents placed. She also has a history of COPD and requires 2 to 3 L of oxygen daily. She states that she was at her doctor's office last week for COPD and given 2 steroid shots 1 short acting and 1 long-acting according to her physicians explanation. She has not been exposed to any infectious disease and she has an air conditioned home that she shares with another individual. She otherwise denies any constitutional complaints. Pertinent past history: COPD Known history of: COPD Associated symptoms: Reports palpitations; Deny abdominal pain, chest pain, extremity pain, fever(s), nausea, syncope or vomiting Review of Systems Const: Denies: fever(s) or chills Eyes: Denies: change in vision ENMT: Denies: odynophagia or nasal congestion Card: Reports: palpitations and dyspnea on exertion; Denies: chest pain, syncope or pre-syncope Resp: Reports: dyspnea and non-productive cough; Denies: wheezing or stridor GI: Denies: abdominal pain, nausea, vomiting or diarrhea : Denies: flank pain, difficulty voiding or dysuria Musc: Denies: neck pain, back pain, extremity pain or extremity swelling Skin/Breast: Denies: rash Neuro: Denies: headache(s), numbness in extremities or weakness in extremities Abhishek/Lymph: Denies: easy bruising PFS ED PFSH: Medical History Breast cancer Chronic back pain Community acquired pneumonia COPD (chronic obstructive pulmonary disease) COPD (chronic obstructive pulmonary disease) Depression Elevated troponin level HTN (hypertension) Hyperlipidemia Hypothyroidism Ischemic cardiomyopathy LV (left ventricular) mural thrombus Non-ST elevation MN (NSTEMI) Stage 2 acute kidney injury Supplemental oxygen dependent Surgical History H/O lumpectomy Family History Brother CAD (coronary artery disease) Cancer Chronic kidney disease (CKD) Denies family history of Clotting disorder Dementia Suicide Anesthesia complication Bleeding disorder Lung disease Stroke Social History Smoking and tobacco status: former smoker Alcohol intake: never Substance/Drug Use: never Marital status: / Marital status details: She lost her 6 months ago Physical Exam Narrative: EXAM NARRATIVE: She is alert and answers questions in complete sentences with goal-directed fluent voice. Const: COMMON NORMALS: no acute distress, patient oriented x3 and alert GENERAL APPEARANCE: cooperative NUTRITIONAL APPEARANCE: thin ORIENTATION/CONSCIOUSNESS: Yes awake HENMT: COMMON NORMALS: normocephalic, moist oral mucous membranes and oropharynx normal HEAD & SCALP: normocephalic Eye: COMMON NORMALS: Equal, round and reactive pupils present and EOMs intact bilaterally PUPIL: Yes Equal, round and reactive pupils present Neck/C-Spine: COMMON NORMALS: full ROM, no lymphadenopathy, no JVD and No carotid bruits Chest: COMMONS NORMALS: normal inspection of the chest and normal palpation of entire chest wall Resp: COMMON NORMALS: normal respiratory effort, No retractions and No use of accessory muscles AUSCULTATION: crackles and diminished lung sounds (At bases) Cardio: COMMON NORMALS: no JVD, regular rate, regular rhythm, No murmurs present (Cardio) and Peripheral pulses 2+ throughout RATE: regular rate RHYTHM: regular rhythm PERIPHERAL PULSES: Peripheral pulses 2+ throughout GI: COMMON NORMALS: Normal to inspection, nondistended, normoactive bowel sounds present, Soft to palpation and non-tender PALPATION: Yes Soft to palpation : COMMON NORMALS: Yes no CVA tenderness BLADDER/KIDNEY EXAM: Yes no CVA tenderness Back/Pelvis: COMMON NORMALS: no CVA tenderness, thoracic and lumbar spine normal to inspection, no thoracic nor lumbar tenderness and thoraco-lumbar ROM normal Extremity: COMMON NORMALS: normal to inspection, full ROM, capillary refill normal, no calf tenderness and no pedal edema Neuro: COMMON NORMALS: patient oriented x3, moves all extremities, no focal motor deficits and no sensory deficits noted SENSORIUM/ORIENTATION: Yes alert CRANIAL NERVES: Yes CN normal except as noted Psych: COMMON NORMALS: mental status grossly normal Skin: COMMON NORMALS: no rashes or lesions noted, no wounds and turgor normal GENERAL SKIN EXAM: no rashes or lesions noted and turgor normal Course Reevaluation(s): Reevaluation #1: Remains stable pain-free and very comfortable. I explained to her that her findings were reassuring with the exception of her elevated troponin. Given her clinical picture is certainly does not suggest ACS or ongoing ischemia but a second troponin will help mitigate against that likelihood. She voices understanding and agrees to wait for that test. Time: 22:20 Vital Signs: Vital signs: Vital Signs Temperature 98.0 F 12/21/22 19:11 Pulse Rate 75 12/21/22 19:47 Respiratory Rate 16 12/21/22 19:47 Blood Pressure 137/69 12/21/22 19:47 Pulse Oximetry 100 12/21/22 19:47 Oxygen Delivery Me thod Nasal Cannula 12/21/22 19:47 Oxygen Flow Rate 3 12/21/22 19:47 MDM - SOB/Dyspnea Medical Decision Making This lady made her way to the emergency department because of concerns about feeling some shortness of breath and dyspnea over the past 2 days and associated felt like heart fluttering and/or palpitations. She denies any overt chest pain nausea diaphoresis etc. She has had a known history of coronary disease but also has a known history of oxygen dependent COPD. Otherwise not had any fevers or chills or any other symptoms to suggest infectious disease etc. She apparently had a COPD exacerbation week to 10 days ago and was given steroid injections in the office. Clinical exam reveals her to be alert no acute distress without any significant findings on clinical exam other than diminished breath sounds at the bases and occasional crackle but no sustained wheezes or other adventitious sounds. Work-up ensued to include chest x-ray, troponin and EKG and other usual laboratory parameters to evaluate for any ongoing emergency medical condition. Her initial troponin was elevated over the cutoff and given her history of coronary disease it is going to be important to determine if she has any significant change in her troponin level. Therefore a 2-hour troponin and repeat EKGs will be obtained to help with risk stratification of this patient. 2-hour troponin was reassuring and actually the delta was negative. Unlikely that this represents ACS. Likely rate related chronic troponin elevation. Patient is very comfortable and desires to be discharged at this time and understands that diagnosis is not firmly established but likely she had a Marc palpitations which could be possibly attributed to her steroids or possibly attributed to her underlying cardiovascular disease. Nonetheless she is stable and desires to be discharged at this time. Medical Records I reviewed the patient's medical records. Lab Data I reviewed the patient's lab results. 12/21/22 20:54 12/21/22 20:54 Labs/Radiology: Radiology Impressions Chest X-Ray 12/21/22 20:33 IMPRESSION: No acute findings. Laboratory Results WBC 7.1 10^3/uL (4.0-10.0) 12/21/22 20:54 RBC 3.87 10^6/uL (4.1-5.3) L 12/21/22 20:54 Hgb 11.5 g/dL (11.5-15.3) 12/21/22 20:54 Hct 38.4 % (37.0-47.0) 12/21/22 20:54 MCV 99.2 fl (81-99) H 12/21/22 20:54 MCH 29.7 pg (28.0-34.0) 12/21/22 20:54 MCHC 29.9 g/dL (30.0-36.0) L 12/21/22 20:54 RDW 16.6 % (12.1-15.1) H 12/21/22 20:54 Plt Count 256 10^3/cmm (130-400) 12/21/22 20:54 MPV 9.8 fL (7.4-10.4) 12/21/22 20:54 Neut % (Auto) 62.6 % 12/21/22 20:54 Lymph % (Auto) 24.7 % 12/21/22 20:54 [place] % (Auto) 9.4 % 12/21/22 20:54 Eos % (Auto) 2.3 % 12/21/22 20:54 Baso % (Auto) 0.6 % 12/21/22 20:54 Neut # (Auto) 4.44 10^3/uL (1.8-7.7) 12/21/22 20:54 Lymph # (Auto) 1.8 10^3/uL (0.8-4.8) 12/21/22 20:54 [place] # (Auto) 0.7 10^3/uL (0.2-0.9) 12/21/22 20:54 Eos # (Auto) 0.2 10^3/uL (0.0-0.8) 12/21/22 20:54 Baso # (Auto) 0.0 10^3/uL (0.0-0.1) 12/21/22 20:54 Nucleated RBC % (auto) 0 % 12/21/22 20:54 Nucleated RBCs # 0.0 /100WBC 12/21/22 20:54 Sodium 142 mmol/L (136-145) 12/21/22 20:54 Potassium 4.3 mmol/L (3.5-5.1) 12/21/22 20:54 Chloride 108 mmol/L (98-107) H 12/21/22 20:54 Carbon Dioxide 20 mmol/L (22-29) L 12/21/22 20:54 Anion Gap 18.3 (5-19) 12/21/22 20:54 BUN 23 mg/dL (8-23) 12/21/22 20:54 Creatinine 1.1 mg/dL (0.5-0.9) H 12/21/22 20:54 GFR Calculation Not Reportable 12/21/22 20:54 Glucose 94 mg/dL (65-115) 12/21/22 20:54 POC Glucose 90 mg/dL (70-110) 12/21/22 19:57 Calculated Osmolality 297 mOsm/kg (285-295) H 12/21/22 20:54 Calcium 9.3 mg/dL (8.5-10.5) 12/21/22 20:54 Magnesium 1.7 mg/dL (1.7-2.3) 12/21/22 20:54 Total Bilirubin 0.3 mg/dL (0.15-1.2) 12/21/22 20:54 AST 19 U/L (0-32) 12/21/22 20:54 ALT 10 U/L (0-33) 12/21/22 20:54 Alkaline Phosphatase 74 U/L (35-105) 12/21/22 20:54 Troponin T Baseline 38 ng/L (0-10) H 12/21/22 20:54 Troponin T 120 Minute 32.47 ng/L (0-10) H 12/21/22 22:55 Delta Troponin T -5.53 ABS# (0-10) L 12/21/22 22:55 NT-Pro-B Natriuret Pep 561 pg/mL (0-450) H 12/21/22 20:54 Total Protein 7.4 g/dL (6.6-8.7) 12/21/22 20:54 Albumin 4.0 g/dL (3.5-5.2) 12/21/22 20:54 Globulin 3.4 g/dL (1.3-4.6) 12/21/22 20:54 EKG Data EKG 1: I personally reviewed and interpreted this EKG as follows: Computer Generated Interpretation: Contemporaneous review of EKG reveals a ventricular rate of 75 bpm. Generally sinus rhythm with occasional ectopics which are ill-defined based upon morphology at this time. Normal MA interval, QRS duration, corrected QT interval and somewhat leftward axis suggestive of left anterior block. No acute ST-T wave changes noted. EKG 2: I personally reviewed and interpreted this EKG as follows: Computer Generated Interpretation: Repeat EKG this visit reveals a ventricular rate of 61 bpm. I do not believe that this tracing is accurate and regarding his presumption of electronic atrial pacemaker. She has a normal interval, normal axis. No acute ST-T wave changes and EKG is essentially unchanged from prior tracings this visit as well as past history. Discharge Plan Discharge Patient Disposition: Home Clinical Impression: Palpitations, COPD (chronic obstructive pulmonary disease) Condition: Stable Prescriptions: No Action spironolactone 25 mg tablet 25 mg PO DAILY Qty: 90 3RF escitalopram oxalate 10 mg tablet 10 mg PO DAILY PRN sacubitril-valsartan 49-51 mg tablet 1 tab PO BID Qty: 180 3RF albuterol sulfate 1.25 mg/3 mL solution for nebulization 1.25 mg inhalation Q6H PRN (Reason: Shortness Of Breath) levothyroxine [Synthroid] 75 mcg tablet 37.5 mcg PO QAM hydrocodone-acetaminophen 7.5-325 mg tablet 1 tab PO QID PRN (Reason: Pain) trazodone 100 mg tablet 250 mg PO DAILY@21 Trelegy Ellipta 100-62.5-25 mcg blister with device 1 inh INHALATION BEDTIME albuterol sulfate [ProAir HFA] 90 mcg/actuation Hfa Aerosol Inhaler 1 - 2 puff INHALATION Q4H PRN (Reason: Shortness Of Breath) cholecalciferol (vitamin D3) [Vitamin D3] 25 mcg (1,000 unit) Capsule 25 mcg PO QAM Eliquis 5 mg Tablet 5 mg PO BID@0900,2100 Qty: 180 3RF atorvastatin 40 mg Tablet 40 mg PO BEDTIME Qty: 90 3RF clopidogrel 75 mg Tablet 75 mg PO DAILY Qty: 90 3RF ondansetron 4 mg tablet,disintegrating 4 mg PO Q8H PRN (Reason: nausea and vomiting) Qty: 14 0RF codeine-guaifenesin 6.3-100 mg/5 mL liquid 5 ml PO Q6H PRN (Reason: cough) Qty: 125 0RF Medrol (Ryan) 4 mg tablets,dose pack 4 mg PO DAILY Qty: 21 0RF Discharge Orders: Discharge ED (Routine); Ordered 12/21/22 Ordered By: Faizan Park Referrals: Zachery Orourke MD [Primary Care Provider] - Discharge Diet: Usual diet Discharge Activity: Increase activity as tolerated and Oxygen as instructed Patient Instructions: Opioid Safety, Pain Management Activity Restrictions/Additional Instructions: Take all your usual medications. Use your inhalers and other COPD medicine as well as prescribed. If you develop any sustained chest pain, increasing shortness of breath, other concerns return to this or the nearest emergency department immediately. Coding Level of Care Code ED Railroad Car Repair Supervisor for Mari Zambrano
[2022-12-21 20:59] LABS: Basophils % 0.6 %; Eosinophils # 0.2 10^3/uL (0.0-0.8); Eosinophils % 2.3 %; Hematocrit 38.4 % (37.0-47.0); Hemoglobin 11.5 g/dL (11.5-15.3); Lymphocytes # 1.8 10^3/uL (0.8-4.8); Lymphocytes % 24.7 %; Mean Corpuscular HGB Conc 29.9 g/dL (30.0-36.0); Mean Corpuscular Hemoglobin 29.7 pg (28.0-34.0); Mean Corpuscular Volume 99.2 fl (81-99); Mean Platelet Volume 9.8 fL (7.4-10.4); Monocytes # 0.7 10^3/uL (0.2-0.9); Monocytes % 9.4 %; Neutrophils # 4.44 10^3/uL (1.8-7.7); Neutrophils % 62.6 %; Nucleated Red Blood Cells % 0 %; Platelet Count 256 10^3/cmm (130-400); Red Blood Count 3.87 10^6/uL (4.1-5.3); Red Cell Distribution Width 16.6 % (12.1-15.1); White Blood Count 7.1 10^3/uL (4.0-10.0)
[2022-12-21 21:23] LABS: Troponin(5th) Baseline 38 ng/L (0-10)
[2022-12-21 21:52] LABS: Alkaline Phosphatase 74 U/L (35-105); Blood Urea Nitrogen 23 mg/dL (8-23); Calcium 9.3 mg/dL (8.5-10.5); Carbon Dioxide 20 mmol/L (22-29); Chloride 108 mmol/L (98-107); Globulin 3.4 g/dL (1.3-4.6); Glucose 94 mg/dL (65-115); Magnesium 1.7 mg/dL (1.7-2.3); NT Pro B Type Natriuretic Pept 561 pg/mL (0-450); Osmolality Calculated 297 mOsm/kg (285-295); Sodium 142 mmol/L (136-145); Total Bilirubin 0.3 mg/dL (0.15-1.2); Total Protein 7.4 g/dL (6.6-8.7)
[2022-12-21 22:00] LABS: Alanine Aminotransferase 10 U/L (0-33); Anion Gap 18.3 (5-19); Aspartate Amino Transferase 19 U/L (0-32); Potassium 4.3 mmol/L (3.5-5.1)
--- NOTE | 2022-12-21 23:05 | ECG_ITS ---
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 Measurements Intervals [place] Rate: 61 P: 223 VA: 280 QRS: 43 QRSD: 82 T: 64 QT: 392 QTc: 395 Interpretive Statements Sinus rhythm LOW QRS VOLTAGE IN PRECORDIAL LEADS [QRS DEFLECTION < 1.0 mV IN CHEST LEADS] ABNORMAL RHYTHM ECG Compared to ECG 12/21/2022 19:20:02 Sinus rhythm no longer present Electronically Signed On 12-23-2022 20:11:08 CDT by Nahomi Garcia M.D. [id number]
[2022-12-21 23:23] LABS: Troponin 5 2HR 32.47 ng/L (0-10)
[2022-12-21 23:28] LABS: Troponin 5 2HR Delta -5.53 ABS# (0-10)
== END 2022-12-21 23:45 | disposition home or self-care (01) ==
PROVIDERS: Emergency Provider Emergency Medicine; PCP Family Medicine
DX: J44.9 Chronic obstructive pulmonary disease, unspecified (principal); R00.2 Palpitations; Z79.02 Long term (current) use of antithrombotics/antiplatelets; Z79.01 Long term (current) use of anticoagulants; Z87.891 Personal history of nicotine dependence; Z85.3 Personal history of malignant neoplasm of breast; I10 Essential (primary) hypertension; E78.5 Hyperlipidemia, unspecified; I25.2 Old myocardial infarction; Z99.81 Dependence on supplemental oxygen
CPT/HCPCS: 36415; 36416; 71045; 80053; 82962; 83735; 83880; 84484; 85025; 93005; 99285

== ENCOUNTER → 2023-01-12 13:33 | Outpatient (BNVA) | payer MEDICARE, SELFPAY | PROVIDERS: PCP Family Medicine; Visit Provider Internal Medicine Cardiovascular Disease | DX: J44.9 Chronic obstructive pulmonary disease, unspecified (principal); Z99.81 Dependence on supplemental oxygen; R00.2 Palpitations; I25.10 Atherosclerotic heart disease of native coronary artery without angina pectoris; I51.3 Intracardiac thrombosis, not elsewhere classified; E78.5 Hyperlipidemia, unspecified; I10 Essential (primary) hypertension; Z87.891 Personal history of nicotine dependence | CPT/HCPCS: 99214 ==

== ENCOUNTER → 2023-04-06 15:09 | Outpatient (BNVA) | payer MEDICARE, SELFPAY | PROVIDERS: PCP Family Medicine; Visit Provider Internal Medicine Pulmonary Disease | DX: J22 Unspecified acute lower respiratory infection (principal); J43.2 Centrilobular emphysema; Z99.81 Dependence on supplemental oxygen; I25.5 Ischemic cardiomyopathy; Z12.2 Encounter for screening for malignant neoplasm of respiratory organs; Z87.891 Personal history of nicotine dependence; Z85.3 Personal history of malignant neoplasm of breast; Z79.01 Long term (current) use of anticoagulants; Z79.02 Long term (current) use of antithrombotics/antiplatelets | CPT/HCPCS: 99214 ==

== ENCOUNTER 2023-04-07 12:24 | Outpatient (CLI) | payer MEDICARE, SELFPAY ==
--- NOTE | 2023-04-07 12:27 | XRR_ITS ---
PROCEDURE INFORMATION: Exam: XR Chest Exam date and time: 04/07/2023 12:40 PM Age: 78 years old Clinical indication: Cough; Prior surgery; Surgery date: 6+ months; Patient HX: HX of breast cancer; Additional info: Rule out pneumonia TECHNIQUE: Imaging protocol: Radiologic exam of the chest. Views: 2 views. COMPARISON: CR (CHEST, ) 12/21/2022 8:52 PM FINDINGS: Lungs: Emphysema. No infiltrate or edema. Pleural spaces: Unremarkable. No pleural effusion. No pneumothorax. Heart/Mediastinum: Unremarkable. No cardiomegaly. Bones/joints: Unremarkable. Soft tissues: 9 mm calcified nodule projecting over the right lower lung zone most likely in the right breast. XR/XR chest 2V* [id number] IMPRESSION: No acute findings.
== END 2023-04-07 12:25 | disposition home or self-care (01) ==
LOC: RAD 12:25
PROVIDERS: PCP Family Medicine; Visit Provider Internal Medicine Pulmonary Disease
DX: J22 Unspecified acute lower respiratory infection (principal); Z85.3 Personal history of malignant neoplasm of breast
CPT/HCPCS: 71046

== ENCOUNTER → 2023-04-19 15:06 | Outpatient (BNVA) | payer MEDICARE, SELFPAY | PROVIDERS: PCP Family Medicine; Visit Provider Internal Medicine Cardiovascular Disease | DX: R06.02 Shortness of breath (principal); Z79.01 Long term (current) use of anticoagulants; I48.91 Unspecified atrial fibrillation; I25.10 Atherosclerotic heart disease of native coronary artery without angina pectoris; E78.2 Mixed hyperlipidemia; R23.3 Spontaneous ecchymoses; I51.3 Intracardiac thrombosis, not elsewhere classified; I25.5 Ischemic cardiomyopathy; I10 Essential (primary) hypertension; Z87.891 Personal history of nicotine dependence | CPT/HCPCS: 36415; 80048; 83880; 85025; 85610; 99214 ==

== ENCOUNTER 2023-04-24 13:09 | Emergency (ER) | payer MEDICARE, SELFPAY ==
[2023-04-24 13:16] VITALS: BP 143/73; PULSE 75; RESP 18; TEMP 36.6; O2SAT 99; BMI 20.2
--- NOTE | 2023-04-24 13:53 | XRR_ITS ---
PROCEDURE INFORMATION: Exam: XR Chest Exam date and time: 04/24/2023 2:22 PM Age: 78 years old Clinical indication: Shortness of breath; Prior surgery; Surgery date: 6+ months; Surgery type: Cardiac stent x 2; Patient HX: SOB; Weakness; HX mi with cardiac stents x 2 (last 2021); Additional info: SOB; Weakness; HX mi with cardiac stents x 2 (last 2021) TECHNIQUE: Imaging protocol: Radiologic exam of the chest. Views: 1 view. COMPARISON: CR XR chest 2V* [id number] 04/07/2023 12:40 PM FINDINGS: Lungs: Left lower lobe atelectasis. Emphysematous changes. Pleural spaces: Unremarkable. No pleural effusion. No pneumothorax. Heart/Mediastinum: Cardiomegaly. Bones/joints: Unremarkable. XR/XR chest 1V portable [id number] IMPRESSION: 1. Left lower lobe atelectasis. 2. Cardiomegaly. 3. Emphysematous changes.
[2023-04-24 14:36] VITALS: BP 132/78; PULSE 65; O2SAT 100
--- NOTE | 2023-04-24 14:48 | ED_ITS ---
HPI - Weakness 2 General: Chief complaint: Weakness Stated complaint: sob, weakness Time Seen by Provider: 04/24/23 14:16 Source: patient Mode of arrival: ambulatory Limitations: no limitations History of Present Illness: Patient made her way to the emergency department because she has had increasing cough and shortness of breath over the past 3 to 4 days. She is unaware if she has had any documented fevers. She states that she feels more short of breath when she lies flat. She states that she was wheezing yesterday but used her nebulizer which is improved her wheezing. She is not knowingly been exposed to infectious disease but she does get out in public and the does have a roommate who has been coughing recently. She denies any chest pain. She denies any nausea vomiting or diarrhea. She states she has been drinking fluids and taking all her prescribed medications. She has a history of oxygen dependent COPD and her oxygen requirement is stayed the same. She has been immunized against influenza this year as well as had Pneumovax. She has not received RSV vaccination. She thinks she may have had COVID a couple years ago but was very mild case. No recent travel. She has had a history of coronary disease had 2 stents placed last year. Associated symptoms: Reports easy bruising; Denies chest pain, chills, dysuria, fever(s), headache(s), nausea, syncope or vomiting Review of Systems 2 Const: Reports: fatigue; Denies: fever(s), chills or body aches Eyes: Denies: change in vision ENMT: Denies: throat pain, odynophagia, nasal discharge or nasal congestion Card: Denies: chest pain, palpitations, irregular heart rhythm, lightheadedness, syncope or pre-syncope Resp: Reports: dyspnea, non-productive cough and wheezing GI: Denies: abdominal pain, nausea, vomiting or diarrhea : Denies: flank pain, difficulty voiding, dysuria or urinary frequency Musc: Denies: neck pain, back pain, extremity pain or extremity swelling Skin/Breast: Denies: rash Neuro: Denies: headache(s), numbness in extremities or weakness in extremities Psych: Denies: anxiety or depression Abhishek/Lymph: Reports: easy bruising PFS ED 2 PFSH: Medical History COPD (chronic obstructive pulmonary disease) Elevated troponin level Community acquired pneumonia LV (left ventricular) mural thrombus Ischemic cardiomyopathy Stage 2 acute kidney injury Supplemental oxygen dependent HTN (hypertension) Depression Breast cancer Non-ST elevation CT (NSTEMI) Hyperlipidemia Chronic back pain Hypothyroidism COPD (chronic obstructive pulmonary disease) Surgical History H/O lumpectomy Family History Brother CAD (coronary artery disease) Cancer Chronic kidney disease (CKD) Denies family history of Clotting disorder Dementia Suicide Anesthesia complication Bleeding disorder Lung disease Stroke Social History Smoking and tobacco/nicotine status: former use of tobacco/nicotine Alcohol intake: never Substance/Drug Use: never Marital status: / Marital status details: She lost her 6 months ago Physical Exam 2 Narrative: EXAM NARRATIVE: Elderly female who looks comfortable. She answers questions in a goal-directed fashion and speaks in complete sentences without dyspnea. Const: COMMON NORMALS: no acute distress, average body habitus, patient oriented x3 and alert GENERAL APPEARANCE: cooperative and comfortable HENMT: COMMON NORMALS: normocephalic, Normal nasal mucous membranes and turbinates present, moist oral mucous membranes and oropharynx normal HEAD & SCALP: normocephalic NOSE: Normal nasal mucous membranes and turbinates present Eye: COMMON NORMALS: Equal, round and reactive pupils present, EOMs intact bilaterally, conjunctivae normal and no scleral icterus CONJUNCTIVA: Yes conjunctivae normal PUPIL: Yes Equal, round and reactive pupils present Neck/C-Spine: COMMON NORMALS: full ROM, no lymphadenopathy, supple, no JVD and No carotid bruits Chest: COMMONS NORMALS: normal inspection of the chest Resp: COMMON NORMALS: normal respiratory effort, No retractions and clear to auscultation bilaterally AUSCULTATION: clear to auscultation bilaterally and diminished lung sounds Cardio: COMMON NORMALS: no JVD, regular rate, regular rhythm, No murmurs present (Cardio) and Peripheral pulses 2+ throughout RATE: regular rate R HYTHM: regular rhythm PERIPHERAL PULSES: Peripheral pulses 2+ throughout GI: COMMON NORMALS: Normal to inspection, nondistended, normoactive bowel sounds present, Soft to palpation and non-tender PALPATION: Yes Soft to palpation : COMMON NORMALS: Yes no CVA tenderness BLADDER/KIDNEY EXAM: Yes no CVA tenderness Back/Pelvis: COMMON NORMALS: no CVA tenderness, thoracic and lumbar spine normal to inspection, no thoracic nor lumbar tenderness and thoraco-lumbar ROM normal Extremity: COMMON NORMALS: normal to inspection, full ROM, capillary refill normal, no calf tenderness and no pedal edema Neuro: COMMON NORMALS: patient oriented x3, moves all extremities, no focal motor deficits and no sensory deficits noted SENSORIUM/ORIENTATION: Yes alert CRANIAL NERVES: Yes CN normal except as noted Psych: COMMON NORMALS: mental status grossly normal Skin: COMMON NORMALS: no rashes or lesions noted GENERAL SKIN EXAM: no rashes or lesions noted and ecchymosis (Various areas of ecchymosis on the skin of the extremities.) Course 2 Vital Signs: Vital signs: Vital Signs Temperature 98 F 04/24/23 13:16 Pulse Rate 65 04/24/23 14:36 Respiratory Rate 18 04/24/23 13:16 Blood Pressure 133/69 04/24/23 15:42 Pulse Oximetry 100 04/24/23 14:36 Oxygen Delivery Me thod Nasal Cannula 04/24/23 14:36 Oxygen Flow Rate 2 04/24/23 14:36 MDM - Weakness Medical Decision Making This patient who presented to the emergency department because of increasing nonproductive cough and sensation of shortness of breath yesterday without any known or associated chest pain recent travel etc. She has a history of oxygen dependent COPD as well as coronary artery disease. She has been drinking fluids and her oxygen level requirement has not changed. Clinical examination revealed her to be clinically stable with respect to her vital signs with no evidence of tachypnea, tachycardia hypoxia or increased oxygen requirement over baseline. Her chest was clear and respirations were nonlabored. Workup ensued to ensure no evidence of pneumonia, exacerbation of heart failure etc. Ancillary studies were reassuring other than she is COVID-19 antigen positive. She was given a single dose of dexamethasone in the emergency department and we discussed the expected course and home care. She is certainly clinically stable at this time and has adequate wherewithal to take care of herself at home. We also discussed return precautions. Lab Data I reviewed the patient's lab results. 04/24/23 14:47 04/24/23 14:47 Radiology Impressions Chest X-Ray 04/24/23 13:53 IMPRESSION: 1. Left lower lobe atelectasis. 2. Cardiomegaly. 3. Emphysematous changes. Laboratory Results WBC 5.64 10^3/uL (3.29-11.43) 04/24/23 14:47 RBC 3.53 10^6/uL (3.85-5.65) L 04/24/23 14:47 Hgb 10.80 g/dL (11.27-16.99) L 04/24/23 14:47 Hct 36.1 % (36-47) 04/24/23 14:47 MCV 102.3 fl (85-98) H 04/24/23 14:47 MCH 30.6 pg (27-33) 04/24/23 14:47 MCHC 29.9 g/dL (30-55) L 04/24/23 14:47 RDW 14.0 % (12.1-15.1) 04/24/23 14:47 Plt Count 196 10^3/cmm (157-399) 04/24/23 14:47 MPV 10.1 fL (7.4-10.4) 04/24/23 14:47 Neut % (Auto) 60.8 % 04/24/23 14:47 Lymph % (Auto) 25.2 % 04/24/23 14:47 [place] % (Auto) 12.6 % 04/24/23 14:47 Eos % (Auto) 0.7 % 04/24/23 14:47 Baso % (Auto) 0.5 % 04/24/23 14:47 Neut # (Auto) 3.43 10^3/uL (1.8-7.7) 04/24/23 14:47 Lymph # (Auto) 1.4 10^3/uL (0.8-4.8) 04/24/23 14:47 [place] # (Auto) 0.7 10^3/uL (0.2-0.9) 04/24/23 14:47 Eos # (Auto) 0.0 10^3/uL (0.0-0.8) 04/24/23 14:47 Baso # (Auto) 0.0 10^3/uL (0.0-0.1) 04/24/23 14:47 Nucleated RBC % (auto) 0 % 04/24/23 14:47 Nucleated RBCs # 0.0 /100WBC 04/24/23 14:47 Sodium 139 mmol/L (136-145) 04/24/23 14:47 Potassium 4.7 mmol/L (3.5-5.1) 04/24/23 14:47 Chloride 107 mmol/L (98-107) 04/24/23 14:47 Carbon Dioxide 20 mmol/L (22-29) L 04/24/23 14:47 Anion Gap 16.7 (5-19) 04/24/23 14:47 BUN 21 mg/dL (8-23) 04/24/23 14:47 Creatinine 1.3 mg/dL (0.5-0.9) H 04/24/23 14:47 GFR Calculation Not Reportable 04/24/23 14:47 Glucose 77 mg/dL (65-115) 04/24/23 14:47 Calculated Osmolality 290 mOsm/kg (285-295) 04/24/23 14:47 Calcium 9.5 mg/dL (8.5-10.5) 04/24/23 14:47 Total Bilirubin 0.3 mg/dL (0.15-1.2) 04/24/23 14:47 AST 21 U/L (0-32) 04/24/23 14:47 ALT 12 U/L (0-33) 04/24/23 14:47 Alkaline Phosphatase 79 U/L (35-105) 04/24/23 14:47 NT-Pro-B Natriuret Pep 444 pg/mL (0-450) 04/24/23 14:47 Total Protein 6.6 g/dL (6.6-8.7) 04/24/23 14:47 Albumin 3.7 g/dL (3.5-5.2) 04/24/23 14:47 Globulin 2.9 g/dL (1.3-4.6) 04/24/23 14:47 Influenza Type A Ag negative (Negative) 04/24/23 14:53 Influenza Type B Ag negative (Negative) 04/24/23 14:53 SARS-CoV-2 Ag (Rapid) positive (Negative) H 04/24/23 14:53 All radiology interpretation(s) finalized by discharge EKG Data EKG 1: I personally reviewed and interpreted this EKG as follows: Interpretation: Contemporaneous review of resting EKG reveals a ventricular rate of 63 bpm. Normal ND interval, QRS duration, corrected QT interval. Normal axis. Consistent with sinus rhythm without any acute ST-T wave changes noted. Discharge Plan Discharge Patient Disposition: Home Clinical Impression: COVID-19 Condition: Stable Prescriptions: No Action Breztri Aerosphere 160-9-4.8 mcg/actuation HFA aerosol inhaler 2 inh inhalation BID Qty: 10.7 3RF sacubitril-valsartan 49-51 mg tablet 1 tab PO BID Qty: 180 3RF spironolactone 25 mg tablet 25 mg PO DAILY Qty: 90 3RF albuterol sulfate 1.25 mg/3 mL solution for nebulization 1.25 mg inhalation Q6H PRN (Reason: Shortness Of Breath) levothyroxine [Synthroid] 75 mcg tablet 37.5 mcg PO QAM hydrocodone-acetaminophen 7.5-325 mg tablet 1 tab PO QID PRN (Reason: Pain) trazodone 100 mg tablet 250 mg PO DAILY@21 albuterol sulfate [ProAir HFA] 90 mcg/actuation Hfa Aerosol Inhaler 1 - 2 puff INHALATION Q4H PRN (Reason: Shortness Of Breath) cholecalciferol (vitamin D3) [Vitamin D3] 25 mcg (1,000 unit) Capsule 25 mcg PO QAM Eliquis 5 mg Tablet 5 mg PO BID@0900,2100 Qty: 180 3RF atorvastatin 40 mg Tablet 40 mg PO BEDTIME Qty: 90 3RF clopidogrel 75 mg Tablet 75 mg PO DAILY Qty: 90 3RF Discharge Orders: Discharge ED (Routine); Ordered 04/24/23 Ordered By: Faizan Park Referrals: Zachery Orourke MD [Primary Care Provider] - Discharge Diet: Usual diet Discharge Activity: Oxygen as instructed Patient Instructions: Opioid Safety, Pain Management Activity Restrictions/Additional Instructions: Continue with all your usual medications to include your nebulizer and home oxygen. Monitor your oxygen level using her pulse oximeter. If it drops below 90% despite turning her oxygen level up to 4 L return to the emergency department immediately. If you have other symptoms such as chest pain fever inability eat or drink etc. you are welcome to return to the emergency department for reevaluation. You should isolate yourself for 5 days and wear a mask around others. Coding Level of Care Code ED [employer] Tr[employer] for Mari Zambrano
[2023-04-24 14:58] LABS: Basophils % 0.5 %; Eosinophils % 0.7 %; Hematocrit 36.1 % (36-47); Lymphocytes # 1.4 10^3/uL (0.8-4.8); Lymphocytes % 25.2 %; Mean Corpuscular HGB Conc 29.9 g/dL (30-55); Mean Corpuscular Hemoglobin 30.6 pg (27-33); Mean Corpuscular Volume 102.3 fl (85-98); Mean Platelet Volume 10.1 fL (7.4-10.4); Monocytes # 0.7 10^3/uL (0.2-0.9); Monocytes % 12.6 %; Neutrophils # 3.43 10^3/uL (1.8-7.7); Neutrophils % 60.8 %; Nucleated Red Blood Cells % 0 %; Platelet Count 196 10^3/cmm (157-399); Red Blood Count 3.53 10^6/uL (3.85-5.65); White Blood Count 5.64 10^3/uL (3.29-11.43)
[2023-04-24 15:19] LABS: Influenza A by IFA negative (Negative); Influenza B by IFA negative (Negative)
--- NOTE | 2023-04-24 15:29 | ECG_ITS ---
[facility] Test Date: 2023-04-24 Pat Name: Colette Lopez Department: Room: Gender: Female Support Dba: : 1945 Requested By: Faizan Park Order Number: [id number] Miguel MD: Jorge Michaels M.D. Measurements Intervals [place] Rate: 63 P: 56 ND: 133 QRS: 34 QRSD: 77 T: 51 QT: 401 QTc: 412 Interpretive Statements SINUS RHYTHM LOW QRS VOLTAGE IN PRECORDIAL LEADS [QRS DEFLECTION < 1.0 mV IN CHEST LEADS] Compared to ECG 12/21/2022 23:05:11 No significant changes Electronically Signed On 04-25-2023 9:59:06 HAND LAMINATOR by Jorge Michaels M.D. [id number]
[2023-04-24 15:31] LABS: Alanine Aminotransferase 12 U/L (0-33); Albumin Level 3.7 g/dL (3.5-5.2); Alkaline Phosphatase 79 U/L (35-105); Blood Urea Nitrogen 21 mg/dL (8-23); Calcium 9.5 mg/dL (8.5-10.5); Carbon Dioxide 20 mmol/L (22-29); Chloride 107 mmol/L (98-107); Globulin 2.9 g/dL (1.3-4.6); Glucose 77 mg/dL (65-115); NT Pro B Type Natriuretic Pept 444 pg/mL (0-450); Osmolality Calculated 290 mOsm/kg (285-295); Sodium 139 mmol/L (136-145); Total Bilirubin 0.3 mg/dL (0.15-1.2); Total Protein 6.6 g/dL (6.6-8.7)
[2023-04-24 15:32] LABS: Anion Gap 16.7 (5-19); Aspartate Amino Transferase 21 U/L (0-32); Creatinine Clr Calc Pharmacy 27.8082; Potassium 4.7 mmol/L (3.5-5.1)
[2023-04-24 15:42] VITALS: BP 133/69
[2023-04-24 15:46] LABS: SARS Covid-2 Antigen positive (Negative)
[2023-04-24] MEDS: dexamethasone 4 mg Tablet 10 MG PO (16:09)
[2023-04-24 16:17] VITALS: BP 133/69
== END 2023-04-24 16:19 | disposition home or self-care (01) ==
PROVIDERS: Emergency Medicine; Emergency Provider Emergency Medicine; PCP Family Medicine
DX: U07.1 COVID-19 (principal); Z79.01 Long term (current) use of anticoagulants; I11.9 Hypertensive heart disease without heart failure; J44.9 Chronic obstructive pulmonary disease, unspecified; I25.5 Ischemic cardiomyopathy; Z99.81 Dependence on supplemental oxygen; Z85.3 Personal history of malignant neoplasm of breast; I25.2 Old myocardial infarction; E78.5 Hyperlipidemia, unspecified; Z87.891 Personal history of nicotine dependence
CPT/HCPCS: 36415; 71045; 80053; 83880; 85025; 87426; 87804; 93005; 99285; J8540

== ENCOUNTER → 2023-09-17 14:10 | Outpatient (BNVA) | payer MEDICARE, SELFPAY | PROVIDERS: PCP Family Medicine; Visit Provider Internal Medicine Pulmonary Disease | DX: K59.00 Constipation, unspecified (principal) | CPT/HCPCS: 84443; 99214 ==

== ENCOUNTER 2023-09-18 11:05 | Emergency (ER) | payer MEDICARE, SELFPAY ==
[2023-09-18 12:04] VITALS: BP 125/70; PULSE 64; RESP 18; TEMP 36.4; O2SAT 99; BMI 20.2
--- NOTE | 2023-09-18 13:31 | XRR_ITS ---
PROCEDURE INFORMATION: Exam: XR Chest Exam date and time: 09/18/2023 1:39 PM Age: 78 years old Clinical indication: Shortness of breath; Additional info: Sob/hx of copd TECHNIQUE: Imaging protocol: Radiologic exam of the chest. Views: 1 view. COMPARISON: CR XR chest 1V portable [id number] 04/24/2023 2:22 PM FINDINGS: Lungs: Emphysematous changes. No focal consolidation. Left lower lobe atelectasis. Pleural spaces: No pleural effusion. No pneumothorax. Heart/Mediastinum: Mild cardiomegaly Bones/joints: No acute findings. XR/XR chest 1V portable [id number] IMPRESSION: No acute chest findings.
--- NOTE | 2023-09-18 13:31 | ECG_ITS ---
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 Measurements Intervals [place] Rate: 56 P: 56 [place]: 150 QRS: 19 QRSD: 79 T: 39 QT: 403 QTc: 391 Interpretive Statements SINUS BRADYCARDIA Nonspecific T wave changes Compared to ECG 04/24/2023 15:29:35 Sinus rhythm no longer present Electronically Signed On 09-19-2023 13:50:21 CDT by Janiya Haque M.D. [id number]
--- NOTE | 2023-09-18 13:33 | W.ED.GENADLT ---
Documented by User: JASPER Ojeda 09/18/23 16:50 HPI - General Adult General: Chief complaint: General Medical Stated complaint: sent by Dung / abn labs Time Seen by Provider: 09/18/23 13:25 Source: patient Mode of arrival: ambulatory Limitations: no limitations History of Present Illness: Patient is a 78-year-old female presenting to the emergency department complaining of dehydration and congestion for the past few days. She is also noting a worsening nonproductive cough. Patient was seen at Dr. Razo's office yesterday, and told to go to the ER if she continues to have signs and symptoms of dehydration. Patient has history of COPD and is chronically on 2 L of oxygen. She does note that she has been increasingly short of breath, though it is intermittent and worsened with physical exertion. She does note a history of two-pillow orthopnea, and states she has history of heart failure. She does note that she has had chest congestion and sinus drainage with no pertinent history of allergies, stating that she has only tried Mucinex that has not helped. She denies any sick contacts or recent stays in the hospital. She sees Dr. Garcia with cardiology. She denies any fever, chest pains, peripheral edema, abdominal pain, palpitations, or other symptoms at this time. MD complaint: Dehydration, congestion Onset (ago): day(s) Associated symptoms: Reports dyspnea; Deny chest pain, headache(s), nausea, rash, palpitations or vomiting Treatments prior to arrival: other (Mucinex) Review of Systems General: Reports: 10 or more systems reviewed and unremarkable except in HPI and below Const: Reports: other (Dehydration); Denies: fever(s), chills or fatigue Eyes: Denies: change in vision ENMT: Reports: nasal congestion and sinus pain; Denies: throat pain, ear or mastoid pain or nasal discharge Card: Denies: chest pain, palpitations, swelling of feet/ankles or lightheadedness Resp: Reports: dyspnea, non-productive cough and chest congestion; Denies: wheezing GI: Denies: abdominal pain, nausea, vomiting, diarrhea or constipation : Denies: flank pain, difficulty voiding, dysuria or urinary frequency Musc: Denies: neck pain, back pain or joint pain Skin/Breast: Denies: rash Neuro: Denies: headache(s), numbness in extremities or weakness in extremities PFSH ED PFSH: Medical History COPD (chronic obstructive pulmonary disease) Elevated troponin level Community acquired pneumonia LV (left ventricular) mural thrombus Ischemic cardiomyopathy Stage 2 acute kidney injury Supplemental oxygen dependent HTN (hypertension) Depression Breast cancer Non-ST elevation MS (NSTEMI) Hyperlipidemia Chronic back pain Hypothyroidism COPD (chronic obstructive pulmonary disease) Surgical History H/O lumpectomy Family History Brother CAD (coronary artery disease) Cancer Chronic kidney disease (CKD) Denies family history of Clotting disorder Dementia Suicide Anesthesia complication Bleeding disorder Lung disease Stroke Social History Smoking and tobacco/nicotine status: former use of tobacco/nicotine Alcohol intake: never Substance/Drug Use: never Marital status: / Marital status details: She lost her 6 months ago Physical Exam Const: COMMON NORMALS: no acute distress, patient oriented x3 and no limitations GENERAL APPEARANCE: cooperative, comfortable and well developed ORIENTATION/CONSCIOUSNESS: Yes awake, Yes oriented to person, Yes oriented to place and Yes oriented to time HENMT: COMMON NORMALS: normocephalic, atraumatic, hearing grossly normal bilaterally, Normal external nose present and Normal nasal mucous membranes and turbinates present HEAD & SCALP: normocephalic and atraumatic FACE & SINUS: normal facial exam, sinuses nontender and face symmetric NOSE: Normal external nose present and Normal nasal mucous membranes and turbinates present OTHER: dry oral mucosa Eye: COMMON NORMALS: Equal, round and reactive pupils present, EOMs intact bilaterally and conjunctivae normal CONJUNCTIVA: Yes conjunctivae normal PUPIL: Yes Equal, round and reactive pupils present Neck/C-Spine: COMMON NORMALS: full ROM, supple and no JVD Resp: COMMON NORMALS: normal respiratory effort, No retractions, No use of accessory muscles and clear to auscultation bilaterally AUSCULTATION: clear to auscultation bilaterally Cardio: COMMON NORMALS: no JVD, regular rate, regular rhythm, No clicks present (Cardio), No murmurs present (Cardio) and No rub (Cardio) RATE: regular rate RHYTHM: regular rhythm GI: COMMON NORMALS: Normal to inspection, nondistended, normoactive bowel sounds present, Soft to palpation and non-tender AUSCULTATION: Yes normoactive bowel sounds PALPATION: Yes Soft to palpation RECTAL EXAM: deferred Extremity: COMMON NORMALS: normal to inspection, full ROM and capillary refill normal Neuro: COMMON NORMALS: patient oriented x3, moves all extremities, no focal motor deficits and no sensory deficits noted SENSORIUM/ORIENTATION: Yes oriented to person, Yes oriented to place and Yes oriented to time Psych: COMMON NORMALS: mental status grossly normal and Normal thought process present THOUGHT PROCESS: Normal thought process present Skin: GENERAL SKIN EXAM: turgor decreased Course Vital Signs: Vital signs: Vital Signs Temperature 97.6 F 09/18/23 12:04 Pulse Rate 64 09/18/23 12:04 Respiratory Rate 18 09/18/23 15:00 Blood Pressure 156/78 09/18/23 15:00 Pulse Oximetry 100 09/18/23 15:00 Oxygen Delivery Me thod Nasal Cannula 09/18/23 15:00 [facility] - General Adult Medical Decision Making Patient presented for few days of congestion and upper respiratory symptoms. Also stated she was feeling dehydrated. History of COPD on 2 L of O2, though is 100% on room air throughout her ED stay and not complaining of breathing difficulties. EKG was unremarkable. Chest x-ray also unremarkable. Basic lab workup unremarkable and no signs of urinary tract infection. She does note improvement after receiving a liter of fluids. Due to the longevity of her symptoms and complaints of severe congestion, will treat her for a sinusitis and give her Flonase to take. She will also continue her regular COPD medications at home. Also will prescribe Zyrtec as she states she has not tried anything for her allergies. Reasons to return are thoroughly discussed and I did inform her to follow-up with pulmonology and primary care. Patient agrees with plan and all other questions and concerns are addressed. Lab Data I reviewed the patient's lab results. 09/18/23 15:11 09/18/23 15:11 Radiology Impressions Chest X-Ray 09/18/23 13:31 IMPRESSION: No acute chest findings. Laboratory Results WBC 6.68 10^3/uL (3.29-11.43) 09/18/23 15:11 RBC 3.82 10^6/uL (3.85-5.65) L 09/18/23 15:11 Hgb 11.20 g/dL (11.27-16.99) L 09/18/23 15:11 Hct 37.5 % (36-47) 09/18/23 15:11 MCV 98.2 fl (85-98) H 09/18/23 15:11 MCH 29.3 pg (27-33) 09/18/23 15:11 MCHC 29.9 g/dL (30-55) L 09/18/23 15:11 RDW 14.6 % (12.1-15.1) 09/18/23 15:11 Plt Count 226 10^3/cmm (157-399) 09/18/23 15:11 MPV 10.0 fL (7.4-10.4) 09/18/23 15:11 Neut % (Auto) 65.4 % 09/18/23 15:11 Lymph % (Auto) 24.0 % 09/18/23 15:11 [place] % (Auto) 7.9 % 09/18/23 15:11 Eos % (Auto) 1.8 % 09/18/23 15:11 Baso % (Auto) 0.6 % 09/18/23 15:11 Neut # (Auto) 4.37 10^3/uL (1.8-7.7) 09/18/23 15:11 Lymph # (Auto) 1.6 10^3/uL (0.8-4.8) 09/18/23 15:11 [place] # (Auto) 0.5 10^3/uL (0.2-0.9) 09/18/23 15:11 Eos # (Auto) 0.1 10^3/uL (0.0-0.8) 09/18/23 15:11 Baso # (Auto) 0.0 10^3/uL (0.0-0.1) 09/18/23 15:11 Nucleated RBC % (auto) 0 % 09/18/23 15:11 Nucleated RBCs # 0.0 /100WBC 09/18/23 15:11 Sodium 139 mmol/L (136-145) 09/18/23 15:11 Potassium 4.7 mmol/L (3.5-5.1) 09/18/23 15:11 Chloride 105 mmol/L (98-107) 09/18/23 15:11 Carbon Dioxide 24 mmol/L (22-29) 09/18/23 15:11 Anion Gap 14.7 (5-19) 09/18/23 15:11 BUN 33 mg/dL (8-23) H 09/18/23 15:11 Creatinine 1.3 mg/dL (0.5-0.9) H 09/18/23 15:11 GFR Calculation Not Reportable 09/18/23 15:11 Glucose 103 mg/dL (65-115) 09/18/23 15:11 Calculated Osmolality 296 mOsm/kg (285-295) H 09/18/23 15:11 Calcium 9.2 mg/dL (8.5-10.5) 09/18/23 15:11 Total Bilirubin 0.4 mg/dL (0.15-1.2) 09/18/23 15:11 AST 23 U/L (0-32) 09/18/23 15:11 ALT 12 U/L (0-33) 09/18/23 15:11 Alkaline Phosphatase 96 U/L (35-105) 09/18/23 15:11 NT-Pro-B Natriuret Pep 298 pg/mL (0-450) 09/18/23 15:11 Total Protein 6.9 g/dL (6.6-8.7) 09/18/23 15:11 Albumin 3.7 g/dL (3.5-5.2) 09/18/23 15:11 Globulin 3.2 g/dL (1.3-4.6) 09/18/23 15:11 Urine Color Yellow (Yellow) 09/18/23 16:13 Urine Appearance Clear (CLEAR) 09/18/23 16:13 Urine pH 8 (5-7) H 09/18/23 16:13 Ur Specific [place] 1.005 (1.005-1.030) 09/18/23 16:13 Urine Protein Neg (Negative) 09/18/23 16:13 Urine Glucose (UA) Norm (Normal) 09/18/23 16:13 Urine Ketones Negative (Negative) 09/18/23 16:13 Urine Blood Neg (Negative) 09/18/23 16:13 Urine Nitrate Negative (Negative) 09/18/23 16:13 Urine Bilirubin Neg (Negative) 09/18/23 16:13 Prot Sulfosalicylic Acd Negative (Negative) 09/18/23 16:13 Urine Urobilinogen Norm mg/dL (Negative) 09/18/23 16:13 Ur Leukocyte Esterase Negative (Negative) 09/18/23 16:13 All radiology interpretation(s) finalized by discharge Discharge Plan Discharge Patient Disposition: Home Clinical Impression: Acute dehydration Sinusitis Qualifiers: Sinusitis location: unspecified location Chronicity: acute Recurrence: not specified as recurrent Qualified Code(s): J01.90 - Acute sinusitis, unspecified Condition: Stable Prescriptions: New fluticasone propionate 50 mcg/actuation spray,suspension 2 spray intranasal DAILY PRN (Reason: nasal congestion) Qty: 16 0RF Rx Instructions: administer into each nostril Zyrtec 10 mg tablet 10 mg PO DAILY PRN (Reason: allergy symptoms) Qty: 20 0RF amoxicillin-pot clavulanate 875-125 mg tablet 1 tab PO BID 10 Days Qty: 20 0RF No Action Breztri Aerosphere 160-9-4.8 mcg/actuation HFA aerosol inhaler 2 inh inhalation BID Qty: 10.7 3RF guaifenesin [Tussin Chest Congestion] 100 mg/5 mL liquid 200 mg PO .Q12 PRN (Reason: cough) Qty: 473 3RF levofloxacin 500 mg tablet 500 mg PO DAILY Qty: 5 0RF spironolactone 25 mg tablet 25 mg PO DAILY Qty: 90 3RF sacubitril-valsartan 49-51 mg tablet 1 tab PO BID Qty: 180 3RF albuterol sulfate 1.25 mg/3 mL solution for nebulization 1.25 mg inhalation Q6H PRN (Reason: Shortness Of Breath) levothyroxine [Synthroid] 75 mcg tablet 37.5 mcg PO QAM hydrocodone-acetaminophen 7.5-325 mg tablet 1 tab PO QID PRN (Reason: Pain) trazodone 100 mg tablet 250 mg PO DAILY@21 albuterol sulfate [ProAir HFA] 90 mcg/actuation Hfa Aerosol Inhaler 1 - 2 puff INHALATION Q4H PRN (Reason: Shortness Of Breath) cholecalciferol (vitamin D3) [Vitamin D3] 25 mcg (1,000 unit) Capsule 25 mcg PO QAM Eliquis 5 mg Tablet 5 mg PO BID@0900,2100 Qty: 180 3RF atorvastatin 40 mg Tablet 40 mg PO BEDTIME Qty: 90 3RF clopidogrel 75 mg Tablet 75 mg PO DAILY Qty: 90 3RF Discharge Orders: Discharge ED (Routine); Ordered 09/18/23 Ordered By: Manish Benitez Referrals: Zachery Orourke MD [Primary Care Provider] - Discharge Diet: Usual diet Discharge Activity: Increase activity as tolerated Patient Instructions: Dehydration (ED), Sinusitis (ED) Activity Restrictions/Additional Instructions: Antibiotics as prescribed. Take Zyrtec for allergy relief. Flonase for your congestion. Continue on home O2 and use breathing treatments. Continue drinking plenty of fluids at home. If you develop any new or concerning symptoms please return for reevaluation. Otherwise you may follow-up with primary care. Coding Level of Care Code ED Medical Insurance Coding Specialist for Chg Fwd Documented by User: Renan Ochoa DO 09/18/23 17:52 HPI - General Adult General: Chief complaint: General Medical Stated complaint: sent by Datar / abn labs Time Seen by Provider: 09/18/23 13:25 PFSH ED PFSH: Medical History COPD (chronic obstructive pulmonary disease) Elevated troponin level Community acquired pneumonia LV (left ventricular) mural thrombus Ischemic cardiomyopathy Stage 2 acute kidney injury Supplemental oxygen dependent HTN (hypertension) Depression Breast cancer Non-ST elevation MS (NSTEMI) Hyperlipidemia Chronic back pain Hypothyroidism COPD (chronic obstructive pulmonary disease) Surgical History H/O lumpectomy Family History Brother CAD (coronary artery disease) Cancer Chronic kidney disease (CKD) Denies family history of Clotting disorder Dementia Suicide Anesthesia complication Bleeding disorder Lung disease Stroke Social History Smoking and tobacco/nicotine status: former use of tobacco/nicotine Alcohol intake: never Substance/Drug Use: never Marital status: / Marital status details: She lost her 6 months ago Course Vital Signs: Vital signs: Vital Signs Temperature 97.6 F 09/18/23 12:04 Pulse Rate 64 09/18/23 12:04 Respiratory Rate 18 09/18/23 15:00 Blood Pressure 156/78 09/18/23 15:00 Pulse Oximetry 100 09/18/23 15:00 Oxygen Delivery Me thod Nasal Cannula 09/18/23 15:00 MDM - General Adult Medical Decision Making Patient presented for few days of congestion and upper respiratory symptoms. Also stated she was feeling dehydrated. History of COPD on 2 L of O2, though is 100% on room air throughout her ED stay and not complaining of breathing difficulties. EKG was unremarkable. Chest x-ray also unremarkable. Basic lab workup unremarkable and no signs of urinary tract infection. She does note improvement after receiving a liter of fluids. Due to the longevity of her symptoms and complaints of severe congestion, will treat her for a sinusitis and give her Flonase to take. She will also continue her regular COPD medications at home. Also will prescribe Zyrtec as she states she has not tried anything for her allergies. Reasons to return are thoroughly discussed and I did inform her to follow-up with pulmonology and primary care. Patient agrees with plan and all other questions and concerns are addressed. Chart reviewed and patient discussed with midlevel. Agree with assessment and plan. Lab Data 09/18/23 15:11 09/18/23 15:11 Radiology Impressions Chest X-Ray 09/18/23 13:31 IMPRESSION: No acute chest findings. Laboratory Results WBC 6.68 10^3/uL (3.29-11.43) 09/18/23 15:11 RBC 3.82 10^6/uL (3.85-5.65) L 09/18/23 15:11 Hgb 11.20 g/dL (11.27-16.99) L 09/18/23 15:11 Hct 37.5 % (36-47) 09/18/23 15:11 MCV 98.2 fl (85-98) H 09/18/23 15:11 MCH 29.3 pg (27-33) 09/18/23 15:11 MCHC 29.9 g/dL (30-55) L 09/18/23 15:11 RDW 14.6 % (12.1-15.1) 09/18/23 15:11 Plt Count 226 10^3/cmm (157-399) 09/18/23 15:11 MPV 10.0 fL (7.4-10.4) 09/18/23 15:11 Neut % (Auto) 65.4 % 09/18/23 15:11 Lymph % (Auto) 24.0 % 09/18/23 15:11 [place] % (Auto) 7.9 % 09/18/23 15:11 Eos % (Auto) 1.8 % 09/18/23 15:11 Baso % (Auto) 0.6 % 09/18/23 15:11 Neut # (Auto) 4.37 10^3/uL (1.8-7.7) 09/18/23 15:11 Lymph # (Auto) 1.6 10^3/uL (0.8-4.8) 09/18/23 15:11 [place] # (Auto) 0.5 10^3/uL (0.2-0.9) 09/18/23 15:11 Eos # (Auto) 0.1 10^3/uL (0.0-0.8) 09/18/23 15:11 Baso # (Auto) 0.0 10^3/uL (0.0-0.1) 09/18/23 15:11 Nucleated RBC % (auto) 0 % 09/18/23 15:11 Nucleated RBCs # 0.0 /100WBC 09/18/23 15:11 Sodium 139 mmol/L (136-145) 09/18/23 15:11 Potassium 4.7 mmol/L (3.5-5.1) 09/18/23 15:11 Chloride 105 mmol/L (98-107) 09/18/23 15:11 Carbon Dioxide 24 mmol/L (22-29) 09/18/23 15:11 Anion Gap 14.7 (5-19) 09/18/23 15:11 BUN 33 mg/dL (8-23) H 09/18/23 15:11 Creatinine 1.3 mg/dL (0.5-0.9) H 09/18/23 15:11 GFR Calculation Not Reportable 09/18/23 15:11 Glucose 103 mg/dL (65-115) 09/18/23 15:11 Calculated Osmolality 296 mOsm/kg (285-295) H 09/18/23 15:11 Calcium 9.2 mg/dL (8.5-10.5) 09/18/23 15:11 Total Bilirubin 0.4 mg/dL (0.15-1.2) 09/18/23 15:11 AST 23 U/L (0-32) 09/18/23 15:11 ALT 12 U/L (0-33) 09/18/23 15:11 Alkaline Phosphatase 96 U/L (35-105) 09/18/23 15:11 NT-Pro-B Natriuret Pep 298 pg/mL (0-450) 09/18/23 15:11 Total Protein 6.9 g/dL (6.6-8.7) 09/18/23 15:11 Albumin 3.7 g/dL (3.5-5.2) 09/18/23 15:11 Globulin 3.2 g/dL (1.3-4.6) 09/18/23 15:11 Urine Color Yellow (Yellow) 09/18/23 16:13 Urine Appearance Clear (CLEAR) 09/18/23 16:13 Urine pH 8 (5-7) H 09/18/23 16:13 Ur Specific [place] 1.005 (1.005-1.030) 09/18/23 16:13 Urine Protein Neg (Negative) 09/18/23 16:13 Urine Glucose (UA) Norm (Normal) 09/18/23 16:13 Urine Ketones Negative (Negative) 09/18/23 16:13 Urine Blood Neg (Negative) 09/18/23 16:13 Urine Nitrate Negative (Negative) 09/18/23 16:13 Urine Bilirubin Neg (Negative) 09/18/23 16:13 Prot Sulfosalicylic Acd Negative (Negative) 09/18/23 16:13 Urine Urobilinogen Norm mg/dL (Negative) 09/18/23 16:13 Ur Leukocyte Esterase Negative (Negative) 09/18/23 16:13 Discharge Plan Discharge Patient Disposition: Home Clinical Impression: Acute dehydration Sinusitis Qualifiers: Sinusitis location: unspecified location Chronicity: acute Recurrence: not specified as recurrent Qualified Code(s): J01.90 - Acute sinusitis, unspecified Condition: Stable Prescriptions: New fluticasone propionate 50 mcg/actuation spray,suspension 2 spray intranasal DAILY PRN (Reason: nasal congestion) Qty: 16 0RF Rx Instructions: administer into each nostril Zyrtec 10 mg tablet 10 mg PO DAILY PRN (Reason: allergy symptoms) Qty: 20 0RF amoxicillin-pot clavulanate 875-125 mg tablet 1 tab PO BID 10 Days Qty: 20 0RF No Action Breztri Aerosphere 160-9-4.8 mcg/actuation HFA aerosol inhaler 2 inh inhalation BID Qty: 10.7 3RF guaifenesin [Tussin Chest Congestion] 100 mg/5 mL liquid 200 mg PO .Q12 PRN (Reason: cough) Qty: 473 3RF levofloxacin 500 mg tablet 500 mg PO DAILY Qty: 5 0RF spironolactone 25 mg tablet 25 mg PO DAILY Qty: 90 3RF sacubitril-valsartan 49-51 mg tablet 1 tab PO BID Qty: 180 3RF albuterol sulfate 1.25 mg/3 mL solution for nebulization 1.25 mg inhalation Q6H PRN (Reason: Shortness Of Breath) levothyroxine [Synthroid] 75 mcg tablet 37.5 mcg PO QAM hydrocodone-acetaminophen 7.5-325 mg tablet 1 tab PO QID PRN (Reason: Pain) trazodone 100 mg tablet 250 mg PO DAILY@21 albuterol sulfate [ProAir HFA] 90 mcg/actuation Hfa Aerosol Inhaler 1 - 2 puff INHALATION Q4H PRN (Reason: Shortness Of Breath) cholecalciferol (vitamin D3) [Vitamin D3] 25 mcg (1,000 unit) Capsule 25 mcg PO QAM Eliquis 5 mg Tablet 5 mg PO BID@0900,2100 Qty: 180 3RF atorvastatin 40 mg Tablet 40 mg PO BEDTIME Qty: 90 3RF clopidogrel 75 mg Tablet 75 mg PO DAILY Qty: 90 3RF Discharge Orders: Discharge ED (Routine); Ordered 09/18/23 Ordered By: Manish Benitez Referrals: Zachery Orourke MD [Primary Care Provider] - Discharge Diet: Usual diet Discharge Activity: Increase activity as tolerated Patient Instructions: Dehydration (ED), Sinusitis (ED) Activity Restrictions/Additional Instructions: Antibiotics as prescribed. Take Zyrtec for allergy relief. Flonase for your congestion. Continue on home O2 and use breathing treatments. Continue drinking plenty of fluids at home. If you develop any new or concerning symptoms please return for reevaluation. Otherwise you may follow-up with primary care. Coding Level of Care Code ED Medical Insurance Coding Specialist for Mari Zambrano
[2023-09-18 15:00] VITALS: BP 156/78; RESP 18; O2SAT 100
[2023-09-18 15:35] LABS: Basophils % 0.6 %; Eosinophils # 0.1 10^3/uL (0.0-0.8); Eosinophils % 1.8 %; Hematocrit 37.5 % (36-47); Lymphocytes # 1.6 10^3/uL (0.8-4.8); Mean Corpuscular HGB Conc 29.9 g/dL (30-55); Mean Corpuscular Hemoglobin 29.3 pg (27-33); Mean Corpuscular Volume 98.2 fl (85-98); Monocytes # 0.5 10^3/uL (0.2-0.9); Monocytes % 7.9 %; Neutrophils # 4.37 10^3/uL (1.8-7.7); Neutrophils % 65.4 %; Nucleated Red Blood Cells % 0 %; Platelet Count 226 10^3/cmm (157-399); Red Blood Count 3.82 10^6/uL (3.85-5.65); Red Cell Distribution Width 14.6 % (12.1-15.1); White Blood Count 6.68 10^3/uL (3.29-11.43)
[2023-09-18] MEDS: sodium chloride 0.9% 1,000 ML 999 ML IV (15:52)
[2023-09-18 16:03] LABS: Alanine Aminotransferase 12 U/L (0-33); Albumin Level 3.7 g/dL (3.5-5.2); Alkaline Phosphatase 96 U/L (35-105); Aspartate Amino Transferase 23 U/L (0-32); Blood Urea Nitrogen 33 mg/dL (8-23); Calcium 9.2 mg/dL (8.5-10.5); Carbon Dioxide 24 mmol/L (22-29); Chloride 105 mmol/L (98-107); Globulin 3.2 g/dL (1.3-4.6); Glucose 103 mg/dL (65-115); NT Pro B Type Natriuretic Pept 298 pg/mL (0-450); Osmolality Calculated 296 mOsm/kg (285-295); Sodium 139 mmol/L (136-145); Total Bilirubin 0.4 mg/dL (0.15-1.2); Total Protein 6.9 g/dL (6.6-8.7)
[2023-09-18 16:18] LABS: Add Urine Microscopic? NO; Charge for UA Resulting for Rev
[2023-09-18 16:31] LABS: Creatinine Clr Calc Pharmacy 27.8082
[2023-09-18 16:32] LABS: Anion Gap 14.7 (5-19); Potassium 4.7 mmol/L (3.5-5.1)
[2023-09-18 16:33] LABS: Bilirubin Urine Neg (Negative); Blood Urine Neg (Negative); Glucose Urine UA Norm (Normal); Ketones Urine Negative (Negative); Leukocyte Esterase Urine Negative (Negative); Nitrate Urine Negative (Negative); Protein Urine Neg (Negative); Specific Gravity, Urine 1.005 (1.005-1.030); Sulfosalicylic Acid Urine Negative (Negative); Urine Appearance Clear (CLEAR); Urine Color Yellow (Yellow); Urobilinogen Urine Norm (Negative); pH Urine 8 (5-7)
[2023-09-18 19:45] LABS: Adenovirus Not Detected (NOT DETECT); Chlamydia Pneumoniae Not Detected (NOT DETECT); Coronavirus 229E,HKU1,NL63,OC4 Not Detected (NOT DETECT); Human Metapneumovirus Not Detected (NOT DETECT); Human Rhinovirus/Enterovirus Not Detected (NOT DETECT); Influenza A Not Detected (NOT DETECT); Influenza A H1 Not Detected (NOT DETECT); Influenza A H1-2009 Not Detected (NOT DETECT); Influenza A H3 Not Detected (NOT DETECT); Influenza B Not Detected (NOT DETECT); Mycoplasma Pneumoniae Not Detected (NOT DETECT); Parainfluenza Virus Type 1 Not Detected (NOT DETECT); Parainfluenza Virus Type 2 Not Detected (NOT DETECT); Parainfluenza Virus Type 3 Not Detected (NOT DETECT); Parainfluenza Virus Type 4 Not Detected (NOT DETECT); Respiratory Syncytial Virus A Not Detected (NOT DETECT); Respiratory Syncytial Virus B Not Detected (NOT DETECT); SARS-COV-2 Not Detected (NOT DETECT)
== END 2023-09-18 17:23 | disposition home or self-care (01) ==
PROVIDERS: Emergency Provider Physician Assistant; PCP Family Medicine
DX: J01.90 Acute sinusitis, unspecified (principal); E86.0 Dehydration; Z87.891 Personal history of nicotine dependence; E03.9 Hypothyroidism, unspecified; I12.9 Hypertensive chronic kidney disease with stage 1 through stage 4 chronic kidney disease, or unspecified chronic kidney disease; N18.2 Chronic kidney disease, stage 2 (mild); Z79.890 Hormone replacement therapy; Z79.899 Other long term (current) drug therapy
CPT/HCPCS: 36415; 71045; 80053; 81003; 83880; 85025; 87486; 87581; 87633; 93005; 99285; J7030

== ENCOUNTER 2023-10-06 15:03 | Emergency (ER) | payer MEDICARE, SELFPAY ==
[2023-10-06 15:09] VITALS: BP 103/68; PULSE 85; TEMP 36.6; O2SAT 93; BMI 20.2
--- NOTE | 2023-10-06 15:10 | ECG_ITS ---
[facility] Test Date: 2023-10-06 Pat Name: Colette Lopez Department: Room: Gender: Female Breakfast And Room Attendant: : 1945 Requested By: Faizan Park Order Number: [id number] Miguel MD: Jorge Michaels M.D. Measurements Intervals [place] Rate: 83 P: 69 HI: 134 QRS: 39 QRSD: 85 T: 51 QT: 357 QTc: 420 Interpretive Statements SINUS RHYTHM LOW QRS VOLTAGE IN PRECORDIAL LEADS [QRS DEFLECTION < 1.0 mV IN CHEST LEADS] POSSIBLE RIGHT VENTRICULAR CONDUCTION DELAY [RSR (QR) IN V1/V2] Compared to ECG 09/18/2023 14:12:40 Low QRS voltage now present Sinus bradycardia no longer present T-wave abnormality no longer present Electronically Signed On 10-06-2023 18:17:35 CDT by Jorge Michaels M.D. [id number] f
[2023-10-06 15:38] VITALS: BP 108/65; PULSE 81; O2SAT 91
--- NOTE | 2023-10-06 15:39 | XR_ITS ---
WS: [id number] XR chest 1V portable [id number] REASON FOR EXAM: sob FINDINGS: Previous areas of linear atelectasis in the right lower lung have resolved. On the previous examination of 04/24/2023 there was atelectasis in both lung bases. The left lung bas e now demonstrates a more extensive area of reticular and consolidative appearing lung opacity. There is blunting of the left costophrenic angle which is not noted on previous examinations. No other interval change or new finding compared to the previous exam. XR/XR chest 1V portable [id number] IMPRESSION: Progression of abnormality in the left lower lung field. This appears more comp clover than simple atelectasis and could represent an interval development of pneu monitis. The blunting of the costophrenic angle may indicate the presence of a small left pleural effusion.
--- NOTE | 2023-10-06 15:40 | W.ED.WEAKNES ---
HPI - Weakness General: Chief complaint: Weakness Stated complaint: Vomiting, congestion, back pains Time Seen by Provider: 10/06/23 15:23 Source: patient Mode of arrival: ambulatory Limitations: no limitations History of Present Illness: This patient with known oxygen dependent COPD presents to the emergency department because over the past several days perhaps a week she has had noted what she feels like is increasing shortness of breath associated with cough primarily productive of clear mucus sometimes whitish mucus but no bloody mucus or purulent discharge. She normally wears her oxygen at 3 L and she varies that depending on how she feels. She denies any sustained chest pain and does acknowledge that she has had prior stents placed. No history of congestive heart failure. She does not currently smoke tobacco. She lives with another friend who has not been sick. She has had some vomiting sometimes associated with cough but most of the time not associated with a cough but her friend deposits that it may be related to increased mucus production. Has been humid and patient acknowledges that increased humidity makes her shortness of breath worse. She denies any known fevers. She denies any recent travel exposure to infectious disease etc. She has been eating and drinking albeit eating less than usual. MD Complaint: generalized weakness Associated symptoms: Reports vomiting; Denies chest pain, chills, dysuria, easy bruising, fever(s) or nausea Review of Systems Const: Reports: fatigue; Denies: fever(s) or chills ENMT: Denies: throat pain, odynophagia, nasal discharge, nasal congestion or nasal obstruction Card: Denies: chest pain, palpitations, irregular heart rhythm or edema Resp: Reports: productive cough, non-productive cough and wheezing GI: Reports: vomiting; Denies: abdominal pain, nausea, hematemesis or diarrhea : Denies: flank pain, difficulty voiding, dysuria or urinary frequency Musc: Denies: neck pain, back pain, extremity pain or extremity swelling Skin/Breast: Denies: rash Neuro: Denies: numbness in extremities or weakness in extremities Abhishek/Lymph: Denies: easy bruising or easy bleeding [facility] ED PFSH: Medical History COPD (chronic obstructive pulmonary disease) Elevated troponin level Community acquired pneumonia LV (left ventricular) mural thrombus Ischemic cardiomyopathy Stage 2 acute kidney injury Supplemental oxygen dependent HTN (hypertension) Depression Breast cancer Non-ST elevation [place] (NSTEMI) Hyperlipidemia Chronic back pain Hypothyroidism COPD (chronic obstructive pulmonary disease) Surgical History H/O lumpectomy Family History Brother CAD (coronary artery disease) Cancer Chronic kidney disease (CKD) Denies family history of Clotting disorder Dementia Suicide Anesthesia complication Bleeding disorder Lung disease Stroke Social History Smoking and tobacco/nicotine status: former use of tobacco/nicotine Alcohol intake: never Substance/Drug Use: never Marital status: / Marital status details: She lost her 6 months ago Physical Exam Narrative: EXAM NARRATIVE: Frail-appearing elderly female who appears to be in no acute distress makes good eye contact and answers questions appropriately. She speaks without dyspnea Const: COMMON NORMALS: no acute distress, no limitations and alert GENERAL APPEARANCE: cooperative and comfortable NUTRITIONAL APPEARANCE: thin HENMT: COMMON NORMALS: normocephalic, Normal nasal mucous membranes and turbinates present, moist oral mucous membranes and oropharynx normal HEAD & SCALP: normocephalic NOSE: Normal nasal mucous membranes and turbinates present Eye: COMMON NORMALS: Equal, round and reactive pupils present, EOMs intact bilaterally and conjunctivae normal CONJUNCTIVA: Yes conjunctivae normal PUPIL: Yes Equal, round and reactive pupils present Neck/C-Spine: COMMON NORMALS: full ROM, no lymphadenopathy, no JVD and No carotid bruits Chest: COMMONS NORMALS: normal inspection of the chest Resp: COMMON NORMALS: normal respiratory effort EFFORT & INSPECTION: Yes able to speak in complete sentences AUSCULTATION: diminished lung sounds (At bases bilaterally) Cardio: COMMON NORMALS: no JVD, regular rate, No murmurs present (Cardio) and Peripheral pulses 2+ throughout RATE: regular rate PERIPHERAL PULSES: Peripheral pulses 2+ throughout GI: COMMON NORMALS: Normal to inspection, nondistended, normoactive bowel sounds present, Soft to palpation and non-tender PALPATION: Yes Soft to palpation : COMMON NORMALS: Yes no CVA tenderness BLADDER/KIDNEY EXAM: Yes no CVA tenderness Back/Pelvis: COMMON NORMALS: no CVA tenderness, thoracic and lumbar spine normal to inspection, no thoracic nor lumbar tenderness and thoraco-lumbar ROM normal Extremity: COMMON NORMALS: normal to inspection, full ROM, no calf tenderness and no pedal edema Neuro: MAHAMED COMA SCALE: document GCS findings COMMON NORMALS: moves all extremities, no focal motor deficits and no sensory deficits noted SENSORIUM/ORIENTATION: Yes alert CRANIAL NERVES: Yes CN normal except as noted Psych: COMMON NORMALS: mental status grossly normal Skin: COMMON NORMALS: no rashes or lesions noted, no wounds and turgor normal GENERAL SKIN EXAM: no rashes or lesions noted and turgor normal Course Reevaluation(s): Reevaluation #1: Patient states she is feeling better. We discussed results and treatment options. Patient prefers to be treated as an outpatient. Time: 17:45 Vital Signs: Vital signs: Vital Signs Temperature 97.9 F 10/06/23 15:09 Pulse Rate 73 10/06/23 15:56 Respiratory Rate 16 10/06/23 15:51 Blood Pressure 108/65 10/06/23 15:38 Pulse Oximetry 97 10/06/23 15:51 Oxygen Delivery Me thod Nasal Cannula 10/06/23 15:51 Oxygen Flow Rate 2 10/06/23 15:51 MDM - Weakness Medical Decision Making Patient with known history of COPD that is oxygen requiring is coming in with increasing cough and subjective shortness of breath over the past several days. No known exposure to infectious disease. States she has not been wheezing much has had subjective fevers. No sustained chest pain or other concerns. Clinical examination reveals her to be on her usual oxygen rate with some decreased breath sounds with few crackles at the bases but otherwise a nons focal examination. Evaluation to include imaging blood count, COVID test as well as chemistries were obtained to ensure that there is no evidence of anemia or other potential etiologies of her presentation. Chest x-ray was suggestive of possible lower lobe infiltrate but her hemoglobin was stable compared with prior hemoglobins. No other findings suggested other potential etiology of her current presentation at this time. We discussed findings with her and treatment options to include continued observation and treatment in the hospital or a trial of home therapy which she chose the latter. She is certainly clinically stable to do so. We are providing her antibiotics as well as a single dose of steroids that she did not prefer to take any long-term steroids. We have she has her oxygen and her home nebulizers and was encouraged to return to the emergency department if her symptoms do not continue to improve. She was stable at the time of discharge. Lab Data 10/06/23 16:51 10/06/23 16:51 Radiology Impressions Chest X-Ray 10/06/23 15:39 IMPRESSION: Progression of abnormality in the left lower lung field. This appears more complex than simple atelectasis and could represent an interval development of pneumonitis. The blunting of the costophrenic angle may indicate the presence of a small left pleural effusion. Laboratory Results WBC 14.00 10^3/uL (3.29-11.43) H 10/06/23 16:51 RBC 3.24 10^6/uL (3.85-5.65) L 10/06/23 16:51 Hgb 9.70 g/dL (11.27-16.99) L 10/06/23 16:51 Hct 31.6 % (36-47) L 10/06/23 16:51 MCV 97.5 fl (85-98) 10/06/23 16:51 MCH 29.9 pg (27-33) 10/06/23 16:51 MCHC 30.7 g/dL (30-55) 10/06/23 16:51 RDW 14.8 % (12.1-15.1) 10/06/23 16:51 Plt Count 362 10^3/cmm (157-399) 10/06/23 16:51 MPV 9.3 fL (7.4-10.4) 10/06/23 16:51 Neut % (Auto) 78.6 % 10/06/23 16:51 Lymph % (Auto) 13.6 % 10/06/23 16:51 Bartholomew % (Auto) 6.6 % 10/06/23 16:51 Eos % (Auto) 0.2 % 10/06/23 16:51 Baso % (Auto) 0.3 % 10/06/23 16:51 Neut # (Auto) 11.00 10^3/uL (1.8-7.7) H 10/06/23 16:51 Lymph # (Auto) 1.9 10^3/uL (0.8-4.8) 10/06/23 16:51 Bartholomew # (Auto) 0.9 10^3/uL (0.2-0.9) 10/06/23 16:51 Eos # (Auto) 0.0 10^3/uL (0.0-0.8) 10/06/23 16:51 Baso # (Auto) 0.0 10^3/uL (0.0-0.1) 10/06/23 16:51 Nucleated RBC % (auto) 0 % 10/06/23 16:51 Nucleated RBCs # 0.0 /100WBC 10/06/23 16:51 Sodium 139 mmol/L (136-145) 10/06/23 16:51 Potassium 4.9 mmol/L (3.5-5.1) 10/06/23 16:51 Chloride 103 mmol/L (98-107) 10/06/23 16:51 Carbon Dioxide 22 mmol/L (22-29) 10/06/23 16:51 Anion Gap 18.9 (5-19) 10/06/23 16:51 BUN 40 mg/dL (8-23) H 10/06/23 16:51 Creatinine 2.4 mg/dL (0.5-0.9) H 10/06/23 16:51 GFR Calculation Not Reportable 10/06/23 16:51 Glucose 104 mg/dL (65-115) 10/06/23 16:51 Calculated Osmolality 298 mOsm/kg (285-295) H 10/06/23 16:51 Calcium 8.6 mg/dL (8.5-10.5) 10/06/23 16:51 Total Bilirubin 0.3 mg/dL (0.15-1.2) 10/06/23 16:51 AST 18 U/L (0-32) 10/06/23 16:51 ALT 15 U/L (0-33) 10/06/23 16:51 Alkaline Phosphatase 67 U/L (35-105) 10/06/23 16:51 NT-Pro-B Natriuret Pep 728 pg/mL (0-450) H 10/06/23 16:51 Total Protein 7.4 g/dL (6.6-8.7) 10/06/23 16:51 Albumin 3.5 g/dL (3.5-5.2) 10/06/23 16:51 Globulin 3.9 g/dL (1.3-4.6) 10/06/23 16:51 SARS-CoV-2 Ag (Rapid) negative (Negative) 10/06/23 16:52 All radiology interpretation(s) finalized by discharge Discharge Plan Discharge Patient Disposition: Home Clinical Impression: COPD exacerbation Pneumonia Qualifiers: Laterality: left Lung location: lower lobe of lung Condition: Stable Prescriptions: New doxycycline hyclate 100 mg capsule 100 mg PO BID 10 Days Qty: 20 0RF ondansetron 4 mg tablet,disintegrating 4 mg PO TID PRN (Reason: nausea and vomiting) Qty: 14 0RF No Action Breztri Aerosphere 160-9-4.8 mcg/actuation HFA aerosol inhaler 2 inh inhalation BID Qty: 10.7 3RF guaifenesin [Tussin Chest Congestion] 100 mg/5 mL liquid 200 mg PO .Q12 PRN (Reason: cough) Qty: 473 3RF levofloxacin 500 mg tablet 500 mg PO DAILY Qty: 5 0RF spironolactone 25 mg tablet 25 mg PO DAILY Qty: 90 3RF sacubitril-valsartan 49-51 mg tablet 1 tab PO BID Qty: 180 3RF albuterol sulfate 1.25 mg/3 mL solution for nebulization 1.25 mg inhalation Q6H PRN (Reason: Shortness Of Breath) levothyroxine [Synthroid] 75 mcg tablet 37.5 mcg PO QAM hydrocodone-acetaminophen 7.5-325 mg tablet 1 tab PO QID PRN (Reason: Pain) trazodone 100 mg tablet 250 mg PO DAILY@21 albuterol sulfate [ProAir HFA] 90 mcg/actuation Hfa Aerosol Inhaler 1 - 2 puff INHALATION Q4H PRN (Reason: Shortness Of Breath) cholecalciferol (vitamin D3) [Vitamin D3] 25 mcg (1,000 unit) Capsule 25 mcg PO QAM Eliquis 5 mg Tablet 5 mg PO BID@0900,2100 Qty: 180 3RF atorvastatin 40 mg Tablet 40 mg PO BEDTIME Qty: 90 3RF clopidogrel 75 mg Tablet 75 mg PO DAILY Qty: 90 3RF fluticasone propionate 50 mcg/actuation spray,suspension 2 spray intranasal DAILY PRN (Reason: nasal congestion) Qty: 16 0RF Rx Instructions: administer into each nostril Zyrtec 10 mg tablet 10 mg PO DAILY PRN (Reason: allergy symptoms) Qty: 20 0RF Discharge Orders: Discharge ED (Routine); Ordered 10/06/23 Ordered By: Faizan Park Referrals: Zachery Orourke MD [Primary Care Provider] - Discharge Diet: Usual diet and Low Salt Discharge Activity: Increase activity as tolerated and Oxygen as instructed Patient Instructions: Opioid Safety, Pain Management Activity Restrictions/Additional Instructions: We have prescribed antibiotics as well as some nausea medicine to help treat your condition. You should continue to use your home oxygen and your home nebulizers as usual. You may want to increase the use of your home nebulizer to 4-6 times a day as needed for wheezing or shortness of breath. If you continue to have ongoing shortness of breath or start developing chest pain or other concerning symptoms after 2 to 3 days of current treatment you should return to the emergency department for reevaluation. Coding Level of Care Code ED Negative Turner for Mari Zambrano
[2023-10-06 15:51] VITALS: PULSE 71; RESP 16; O2SAT 97
[2023-10-06] MEDS: ipratropium-albuterol 3 mL Neb INHALATION (15:54)
[2023-10-06 15:56] VITALS: PULSE 73
[2023-10-06 17:03] LABS: Basophils % 0.3 %; Eosinophils % 0.2 %; Hematocrit 31.6 % (36-47); Lymphocytes # 1.9 10^3/uL (0.8-4.8); Lymphocytes % 13.6 %; Mean Corpuscular HGB Conc 30.7 g/dL (30-55); Mean Corpuscular Hemoglobin 29.9 pg (27-33); Mean Corpuscular Volume 97.5 fl (85-98); Mean Platelet Volume 9.3 fL (7.4-10.4); Monocytes # 0.9 10^3/uL (0.2-0.9); Monocytes % 6.6 %; Neutrophils % 78.6 %; Nucleated Red Blood Cells % 0 %; Platelet Count 362 10^3/cmm (157-399); Red Blood Count 3.24 10^6/uL (3.85-5.65); Red Cell Distribution Width 14.8 % (12.1-15.1)
[2023-10-06 17:17] LABS: SARS Covid-2 Antigen negative (Negative)
[2023-10-06 17:47] LABS: Alanine Aminotransferase 15 U/L (0-33); Albumin Level 3.5 g/dL (3.5-5.2); Alkaline Phosphatase 67 U/L (35-105); Anion Gap 18.9 (5-19); Aspartate Amino Transferase 18 U/L (0-32); Blood Urea Nitrogen 40 mg/dL (8-23); Calcium 8.6 mg/dL (8.5-10.5); Carbon Dioxide 22 mmol/L (22-29); Chloride 103 mmol/L (98-107); Creatinine Clr Calc Pharmacy 15.0628; Globulin 3.9 g/dL (1.3-4.6); Glucose 104 mg/dL (65-115); NT Pro B Type Natriuretic Pept 728 pg/mL (0-450); Osmolality Calculated 298 mOsm/kg (285-295); Potassium 4.9 mmol/L (3.5-5.1); Sodium 139 mmol/L (136-145); Total Bilirubin 0.3 mg/dL (0.15-1.2); Total Protein 7.4 g/dL (6.6-8.7)
[2023-10-06] MEDS: ondansetron 2 mg/ML SDV 2 mL 4 MG IVP (18:12)
[2023-10-06] MEDS: dexamethasone 10 mg/mL INJ IVP (18:13)
[2023-10-06] MEDS: doxycycline 100 mg Tablet PO (18:13)
[2023-10-06 18:21] VITALS: BP 90/58; PULSE 81; RESP 16; O2SAT 96
== END 2023-10-06 18:25 | disposition home or self-care (01) ==
PROVIDERS: Emergency Provider Emergency Medicine; PCP Family Medicine
DX: J44.0 Chronic obstructive pulmonary disease with (acute) lower respiratory infection (principal); J18.9 Pneumonia, unspecified organism; J44.1 Chronic obstructive pulmonary disease with (acute) exacerbation; Z79.01 Long term (current) use of anticoagulants; Z79.02 Long term (current) use of antithrombotics/antiplatelets; Z11.52 Encounter for screening for COVID-19; Z87.891 Personal history of nicotine dependence; I10 Essential (primary) hypertension; Z85.3 Personal history of malignant neoplasm of breast; I25.2 Old myocardial infarction; E78.5 Hyperlipidemia, unspecified; I25.5 Ischemic cardiomyopathy; Z99.81 Dependence on supplemental oxygen
CPT/HCPCS: 71045; 80053; 83880; 85025; 87426; 93005; 94640; 96374; 96375; 99285; J1100; J2405

== ENCOUNTER 2023-10-14 14:37 | Observation (INO) | payer MEDICARE, SELFPAY ==
[2023-10-14 14:47] VITALS: BP 97/62; PULSE 67; RESP 18; TEMP 36.6; O2SAT 93; BMI 18.8
--- NOTE | 2023-10-14 16:53 | CTR_ITS ---
PROCEDURE INFORMATION: Exam: CT Chest Without Contrast; Diagnostic Exam date and time: 10/14/2023 6:22 PM Age: 78 years old Clinical indication: Condition or disease; Other: Persistant pulm infiltrate on cxr TECHNIQUE: Imaging protocol: Diagnostic computed tomography of the chest without contrast. Radiation optimization: All CT scans at this facility use at least one of these dose optimization techniques: automated exposure control; mA and/or kV adjustment per patient size (includes targeted exams where dose is matched to clinical indication); or iterative reconstruction. COMPARISON: CR (CHEST, ) 09/18/2023 1:39 PM RADIATION DOSE METRICS: Total DLP (mGy-cm): 248.08 FINDINGS: Lungs: Mild scarring in the right lung apex. Centrilobular opacities in the superior left lower lobe. Irregular consolidation in the inferior left lower lobe. Atelectasis or fibrosis in the right middle lobe. Mild atelectasis or scarring in both upper lobes. Pleural spaces: Unremarkable. No pneumothorax. No pleural effusion. Heart: Unremarkable. No cardiomegaly. No pericardial effusion. Coronary arteries: Coronary artery calcifications. Lymph nodes: Unremarkable. No enlarged lymph nodes. Vasculature: Unremarkable. No aortic aneurysm. Kidneys and ureters: Severely atrophic right kidney. 5 mm benign coarse calcification in the posterior left kidney. Bones/joints: Degenerative changes in the spine. No acute fracture. Soft tissues: Coarse benign calcification in the right breast. CT/CT chest [facility] [id number] IMPRESSION: 1. Mixed consolidation and centrilobular opacities in the left lower lobe. This could represent aspiration versus pneumonia with infectious bronchiolitis.
--- NOTE | 2023-10-14 16:55 | ED_ITS ---
HPI - URI/Sore Throat 2 General: Chief Complaint: Upper Respiratory Infection Stated Complaint: Sob, n/v, weakness Time Seen by Provider: 10/14/23 16:11 History of Present Illness: 78-year-old female presents emergency de partment chief complaint of persistent cough shortness of breath related malaise and fatigue. Patient was recently seen at our facility roughly a week ago diagnosed with a questionable pneumonia placed on antibiotics and medications for this. Patient Dors that her symptoms or not any better patient has a longstanding history of COPD that she is oxygen dependent. Patient does report a nonproductive cough with minimal sputum production she reports generalized malaise and fatigue and appetite reduction has been ongoing for the last couple of weeks patient denies any recent fevers but reports chills reports moderate nausea as well. Patient presents to the ER with family present for further assessment and management Associated symptoms: Reports chills; Deny abdominal pain, chest pain, fever(s), headache(s), nausea or vomiting Review of Systems 2 General: Reports: 10 or more systems reviewed and unremarkable except in HPI and below Const: Reports: chills, fatigue and malaise; Denies: fever(s) or change in sleep pattern Eyes: Denies: change in vision or blurry vision Card: Denies: chest pain or palpitations Resp: Reports: dyspnea and productive cough GI: Denies: abdominal pain, nausea or vomiting : Denies: flank pain Musc: Denies: extremity pain or extremity swelling Skin/Breast: Denies: rash or pruritus Neuro: Denies: headache(s) Psych: Denies: anxiety or depression Abhishek/Lymph: Denies: easy bleeding All/Imm: Denies: urticaria, throat swelling or facial swelling PFSH ED 2 PFSH: Medical History COPD (chronic obstructive pulmonary disease) Elevated troponin level Community acquired pneumonia LV (left ventricular) mural thrombus Ischemic cardiomyopathy Stage 2 acute kidney injury Supplemental oxygen dependent HTN (hypertension) Depression Breast cancer Non-ST elevation [place] (NSTEMI) Hyperlipidemia Chronic back pain Hypothyroidism COPD (chronic obstructive pulmonary disease) Surgical History H/O lumpectomy Family History Brother CAD (coronary artery disease) Cancer Chronic kidney disease (CKD) Denies family history of Clotting disorder Dementia Suicide Anesthesia complication Bleeding disorder Lung disease Stroke Social History Smoking and tobacco/nicotine status: former use of tobacco/nicotine Alcohol intake: never Substance/Drug Use: never Marital status: / Marital status details: She lost her 6 months ago Physical Exam 2 Const: COMMON NORMALS: no acute distress, patient oriented x3 and healthy appearing HENMT: COMMON NORMALS: normocephalic and atraumatic HEAD & SCALP: n ormocephalic and atraumatic Eye: COMMON NORMALS: Equal, round and reactive pupils present and EOMs intact bilaterally PUPIL: Yes Equal, round and reactive pupils present Neck/C-Spine: COMMON NORMALS: full ROM, supple and no JVD Lymph: LYMPHATIC: no lymphadenopathy noted Chest: COMMONS NORMALS: normal inspection of the chest and normal palpation of entire chest wall Resp: COMMON NORMALS: normal respiratory effort (Diminished breath sounds appears bilaterally mild scant expiratory wheeze n), No retractions and clear to auscultation bilaterally EFFORT & INSPECTION: Yes able to speak in complete sentences and Yes symmetric chest movement AUSCULTATION: clear to auscultation bilaterally Cardio: COMMON NORMALS: no JVD, regular rate and regular rhythm RATE: r egular rate RHYTHM: regular rhythm GI: COMMON NORMALS: Normal to inspection, nondistended, normoactive bowel sounds present, Soft to palpation and non-tender INSPECTION: Yes normal to inspection PALPATION: Yes Soft to palpation : COMMON NORMALS: Yes no CVA tenderness BLADDER/KIDNEY EXAM: Yes no CVA tenderness Back/Pelvis: COMMON NORMALS: no CVA tenderness Extremity: COMMON NORMALS: normal to inspection and full ROM Neuro: COMMON NORMALS: patient oriented x3, CN's II-XII intact bilaterally, moves all extremities and no focal motor deficits Psych: COMMON NORMALS: mental status grossly normal, Normal thought process present, cooperative and normal affect THOUGHT PROCESS: Normal thought process present Skin: COMMON NORMALS: no rashes or lesions noted GENERAL SKIN EXAM: no rashes or lesions noted Course 2 Vital Signs: Vital signs: Vital Signs Temperature 97.9 F 10/14/23 14:47 Pulse Rate 67 10/14/23 20:05 Respiratory Rate 16 10/14/23 20:05 Blood Pressure 118/44 10/14/23 20:05 Pulse Oximetry 97 10/14/23 20:05 Oxygen Delivery Me thod Nasal Cannula 10/14/23 17:37 Oxygen Flow Rate 3 10/14/23 17:37 MDM - URI/Sore Throat Medical Decision Making Due to patient's symptoms and condition lab work and imaging will be obtained we will continue to follow. Patient was found of a persistent right middle lobe infiltrate on her CT without contrast patient also not found to be in mild renal failure with a creatinine of 1.8 with a BUN of greater than 60 discussed patient case with Dr[address] Bee has granted acceptance, the patient will be continued on Rocephin and IV fluids. Lab Data 10/14/23 17:21 10/14/23 17:[address] 10/14/23 16:53 IMPRESSION: 1. Mixed consolidation and centrilobular opacities in the left lower lobe. This could represent aspiration versus pneumonia with infectious bronchiolitis. Laboratory Results WBC 11.58 10^3/uL (3.29-11.43) H 10/14/23 17:21 RBC 3.76 10^6/uL (3.85-5.65) L 10/14/23 17:21 Hgb 11.00 g/dL (11.27-16.99) L 10/14/23 17:21 Hct 36.0 % (36-47) 10/14/23 17:21 MCV 95.7 fl (85-98) 10/14/23 17:21 MCH 29.3 pg (27-33) 10/14/23 17:21 MCHC 30.6 g/dL (30-55) 10/14/23 17:21 RDW 14.9 % (12.1-15.1) 10/14/23 17:21 Plt Count 473 10^3/cmm (157-399) H 10/14/23 17:21 MPV 9.4 fL (7.4-10.4) 10/14/23 17:21 Neut % (Auto) 76.0 % 10/14/23 17:21 Lymph % (Auto) 15.2 % 10/14/23 17:21 Patrick % (Auto) 6.9 % 10/14/23 17:21 Eos % (Auto) 0.8 % 10/14/23 17:21 Baso % (Auto) 0.4 % 10/14/23 17:21 Neut # (Auto) 8.80 10^3/uL (1.8-7.7) H 10/14/23 17:21 Lymph # (Auto) 1.8 10^3/uL (0.8-4.8) 10/14/23 17:21 Patrick # (Auto) 0.8 10^3/uL (0.2-0.9) 10/14/23 17:21 Eos # (Auto) 0.1 10^3/uL (0.0-0.8) 10/14/23 17:21 Baso # (Auto) 0.1 10^3/uL (0.0-0.1) 10/14/23 17:21 Nucleated RBC % (auto) 0.2 % 10/14/23 17:21 Nucleated RBCs # 0.0 /100WBC 10/14/23 17:21 Sodium 142 mmol/L (136-145) 10/14/23 17:21 Potassium 5.4 mmol/L (3.5-5.1) H 10/14/23 17:21 Chloride 108 mmol/L (98-107) H 10/14/23 17:21 Carbon Dioxide 21 mmol/L (22-29) L 10/14/23 17:21 Anion Gap 18.4 (5-19) 10/14/23 17:21 BUN 69 mg/dL (8-23) H 10/14/23 17:21 Creatinine 1.8 mg/dL (0.5-0.9) H 10/14/23 17:21 GFR Calculation Not Reportable 10/14/23 17:21 Glucose 86 mg/dL (65-115) 10/14/23 17:21 Calculated Osmolality 313 mOsm/kg (285-295) H 10/14/23 17:21 Lactic Acid 1.1 mmol/L (0.5-2.2) 10/14/23 17:21 Calcium 9.5 mg/dL (8.5-10.5) 10/14/23 17:21 Total Bilirubin 0.4 mg/dL (0.15-1.2) 10/14/23 17:21 AST 26 U/L (0-32) 10/14/23 17:21 ALT 18 U/L (0-33) 10/14/23 17:21 Alkaline Phosphatase 84 U/L (35-105) 10/14/23 17:21 C-Reactive Protein 33.1 mg/L (0.0-4.9) H 10/14/23 17:21 Total Protein 7.3 g/dL (6.6-8.7) 10/14/23 17:21 Albumin 3.5 g/dL (3.5-5.2) 10/14/23 17:21 Globulin 3.8 g/dL (1.3-4.6) 10/14/23 17:21 All radiology interpretation(s) finalized by discharge ED provider radiology interpretation(s): Persistent right middle lobe infiltrate noted Discharge Plan Discharge Patient Disposition: Admitted As Inpatient Clinical Impression: Pneumonia, Acute renal failure Condition: Stable Prescriptions: No Action Breztri Aerosphere 160-9-4.8 mcg/actuation HFA aerosol inhaler 2 inh inhalation BID Qty: 10.7 3RF guaifenesin [Tussin Chest Congestion] 100 mg/5 mL liquid 200 mg PO .Q12 PRN (Reason: cough) Qty: 473 3RF levofloxacin 500 mg tablet 500 mg PO DAILY Qty: 5 0RF spironolactone 25 mg tablet 25 mg PO DAILY Qty: 90 3RF sacubitril-valsartan 49-51 mg tablet 1 tab PO BID Qty: 180 3RF albuterol sulfate 1.25 mg/3 mL solution for nebulization 1.25 mg inhalation Q6H PRN (Reason: Shortness Of Breath) levothyroxine [Synthroid] 75 mcg tablet 37.5 mcg PO QAM hydrocodone-acetaminophen 7.5-325 mg tablet 1 tab PO QID PRN (Reason: Pain) trazodone 100 mg tablet 250 mg PO DAILY@21 albuterol sulfate [ProAir HFA] 90 mcg/actuation Hfa Aerosol Inhaler 1 - 2 puff INHALATION Q4H PRN (Reason: Shortness Of Breath) cholecalciferol (vitamin D3) [Vitamin D3] 25 mcg (1,000 unit) Capsule 25 mcg PO QAM Eliquis 5 mg Tablet 5 mg PO BID@0900,2100 Qty: 180 3RF atorvastatin 40 mg Tablet 40 mg PO BEDTIME Qty: 90 3RF clopidogrel 75 mg Tablet 75 mg PO DAILY Qty: 90 3RF fluticasone propionate 50 mcg/actuation spray,suspension 2 spray intranasal DAILY PRN (Reason: nasal congestion) Qty: 16 0RF Rx Instructions: administer into each nostril Zyrtec 10 mg tablet 10 mg PO DAILY PRN (Reason: allergy symptoms) Qty: 20 0RF doxycycline hyclate 100 mg capsule 100 mg PO BID 10 Days Qty: 20 0RF ondansetron 4 mg tablet,disintegrating 4 mg PO TID PRN (Reason: nausea and vomiting) Qty: 14 0RF Referrals: Zachery Orourke MD [Primary Care Provider] - Coding Level of Care Code ED Cmo & President for Mari Zambrano
[2023-10-14] MEDS: ipratropium-albuterol 3 mL Neb INHALATION (17:33)
[2023-10-14 17:37] VITALS: PULSE 64; RESP 18; O2SAT 99
[2023-10-14 17:42] LABS: Basophils # 0.1 10^3/uL (0.0-0.1); Basophils % 0.4 %; Eosinophils # 0.1 10^3/uL (0.0-0.8); Eosinophils % 0.8 %; Lymphocytes # 1.8 10^3/uL (0.8-4.8); Lymphocytes % 15.2 %; Mean Corpuscular HGB Conc 30.6 g/dL (30-55); Mean Corpuscular Hemoglobin 29.3 pg (27-33); Mean Corpuscular Volume 95.7 fl (85-98); Mean Platelet Volume 9.4 fL (7.4-10.4); Monocytes # 0.8 10^3/uL (0.2-0.9); Monocytes % 6.9 %; Nucleated Red Blood Cells % 0.2 %; Platelet Count 473 10^3/cmm (157-399); Red Blood Count 3.76 10^6/uL (3.85-5.65); Red Cell Distribution Width 14.9 % (12.1-15.1); White Blood Count 11.58 10^3/uL (3.29-11.43)
[2023-10-14] MEDS: sodium chloride 0.9% 500 ML 999 ML IV (17:48)
[2023-10-14] MEDS: methylPREDNISolone sod succ 125 mg/2 mL INJ IV (17:48)
[2023-10-14 17:59] LABS: Lactic Sepsis W/Reflex 1.1 mmol/L (0.5-2.2)
[2023-10-14 18:07] LABS: Alanine Aminotransferase 18 U/L (0-33); Albumin Level 3.5 g/dL (3.5-5.2); Alkaline Phosphatase 84 U/L (35-105); Anion Gap 18.4 (5-19); Aspartate Amino Transferase 26 U/L (0-32); Blood Urea Nitrogen 69 mg/dL (8-23); C Reactive Protein 33.1 mg/L (0.0-4.9); Calcium 9.5 mg/dL (8.5-10.5); Carbon Dioxide 21 mmol/L (22-29); Chloride 108 mmol/L (98-107); Globulin 3.8 g/dL (1.3-4.6); Glucose 86 mg/dL (65-115); Osmolality Calculated 313 mOsm/kg (285-295); Potassium 5.4 mmol/L (3.5-5.1); Sodium 142 mmol/L (136-145); Total Bilirubin 0.4 mg/dL (0.15-1.2); Total Protein 7.3 g/dL (6.6-8.7)
[2023-10-14] MEDS: sodium chloride 0.9% 1,000 ML 999 ML IV (19:13)
[2023-10-14 20:05] VITALS: BP 118/44; PULSE 67; RESP 16; O2SAT 97
[2023-10-14] MEDS: cefTRIAXone 1,000 MG in sodium chloride 0.9% (plus) 50 ML 100 MG IV (21:10)
[2023-10-14 21:21] VITALS: BP 128/105; PULSE 71; RESP 16; O2SAT 95
[2023-10-14 21:52] VITALS: BP 113/78; PULSE 76; RESP 18; TEMP 36.5; O2SAT 98
[2023-10-14 22:01] VITALS: BMI 18.8
[2023-10-14 22:02] LABS: Procalcitonin 0.18 ng/mL (0-0.5)
[2023-10-14] MEDS: HYDROcodone-acetaminophen 7.5-325 mg Tablet 1 TAB PO (22:23)
[2023-10-14] MEDS: pantoprazole 40 mg SDV IVP (22:24)
[2023-10-14] MEDS: sodium chloride 0.9% 1,000 ML 50 ML IV (22:25)
[2023-10-14 22:34] LABS: Iron 115 ug/dL (37-145); Percent Saturation 54.7 % (20-50); Thyroid Stimulating Hormone 1.56 uIU/mL (0.27-4.20); Total Iron Binding Capacity 210 mcg/dl; Unsaturated Iron Binding 95 ug/dL (112-347); Vitamin B12 382 pg/mL (232-1245)
[2023-10-14] MEDS: efferdent effervescent 1 EACH DENTAL (22:48)
--- NOTE | 2023-10-14 23:32 | PM.HP ---
Providers/Chief Complaint Admitting Physician: Godwin Fisher MD Primary Care Provider: Zachery Orourke MD Chief Complaint: Sob, n/v, weakness History of Present Illness Colette Lopez is a 78 year old female with a past medical history of NSTEMI, CAD, history of ischemic cardiomyopathy subsequently improved, emphysema. She is presented to the hospital today with a history of feeling unwell over the last 2 to 3 weeks. States that she has been having increasing fatigue, generalized weakness, poor appetite, inability to tolerate p.o. intake. Typically patient is on chronic oxygen between 2 to 3 L. She was in the ER on the 2023 with complaints of worsening productive cough and was diagnosed URI infection, received prescriptions for Augmentin and antihistamines. Her symptoms continued to worsen, presented to the ER on October 06, 2023 where chest x-ray showed development of pneumonitis and blunting of the costophrenic angle. She was discharged with a prescription for doxycycline. Returns to the ER today with chief complaints of persistent cough and worsening fatigue. Denies any fevers but does have chills. Denies any diarrhea. Denies any abdominal pain. Review of Systems General: Reports: 10 or more systems reviewed and unremarkable except in HPI and below Const: Denies: fever(s), chills or body aches Eyes: Denies: change in vision, blurry vision or photophobia ENMT: Reports: hoarseness; Denies: throat pain, enlarged tonsils, odynophagia or nasal congestion Card: Denies: chest pain, palpitations, irregular heart rhythm, edema, swelling of feet/ankles, lightheadedness, pre-syncope, dyspnea on exertion or orthopnea Resp: Denies: dyspnea, productive cough, non-productive cough, wheezing, stridor, pain on inspiration, change in phlegm color, hemoptysis or chest congestion GI: Denies: abdominal pain, nausea, vomiting, hematemesis, coffee ground emesis, dysphagia, heartburn, diarrhea, constipation, GI cramping, change in stool character, hematochezia or melena : Denies: flank pain, difficulty voiding, dysuria, urinary frequency, urinary urgency, urinary hesitancy or hematuria Musc: Denies: neck pain, back pain, extremity pain, joint swelling, joint warmth or deformity Neuro: Denies: headache(s), numbness in extremities, weakness in extremities, sensory changes, difficulty walking, frequent falls, dizziness, vertigo, behavioral changes, Slurred speech present or seizure-like activity Psych: Denies: anxiety, depression, suicidal ideation or homicidal ideation Endo: Denies: polyuria, polydipsia, tired all the time, cold intolerance or hot flashes Abhishek/Lymph: Denies: easy bruising or easy bleeding Medications/Allergies Home Medications Medication Instructions Recorded Confirmed Last Taken Type albuterol sulfate 1.25 mg/3 mL 1.25 mg inhalation Q6H PRN 01/17/20 09/17/23 01/17/20 History solution for nebulization Shortness Of Breath hydrocodone 7.5 mg-acetaminophen 1 tab PO QID PRN Pain 01/17/20 09/17/23 05/25/20 09:00 History 325 mg tablet levothyroxine 75 mcg tablet 37.5 mcg PO QAM 01/17/20 09/17/23 04/24/23 History (Synthroid) albuterol sulfate 90 mcg/actuation 1 - 2 puff inhalation Q4H PRN 05/25/20 09/17/23 04/22/22 History aerosol inhaler (ProAir HFA) Shortness Of Breath cholecalciferol (vitamin D3) 25 25 mcg PO QAM 03/10/22 09/17/23 04/24/23 History mcg (1,000 unit) capsule (Vitamin D3) apixaban 5 mg tablet (Eliquis) 5 mg PO BID@0900,2100 #180 tabs 03/11/22 09/17/23 04/24/23 Rx atorvastatin 40 mg tablet 40 mg PO BEDTIME #90 tabs 03/11/22 09/17/23 04/23/23 Rx clopidogrel 75 mg tablet 75 mg PO DAILY #90 tabs 03/11/22 09/17/23 04/24/23 Rx trazodone 100 mg tablet 250 mg PO DAILY@21 06/19/22 09/17/23 04/23/23 History budesonide 160 mcg-glycopyr 9 2 inh inhalation BID #10.7 grams 04/06/23 09/17/23 04/24/23 Rx mcg-formot 4.8 mcg/actuation HFA inhaler (Breztri enymotionphere) spironolactone 25 mg tablet 25 mg PO DAILY #90 tabs 04/14/23 09/17/23 04/24/23 Rx sacubitril 49 mg-valsartan 51 mg 1 tab PO BID #180 tabs 08/02/23 09/17/23 Unknown Rx tablet guaifenesin 100 mg/5 mL oral 200 mg (10 mL) PO .Q12 PRN cough 09/17/23 09/17/23 Unknown Rx liquid (Tussin Chest Congestion) #473 mL levofloxacin 500 mg tablet 500 mg PO DAILY #5 tabs 09/17/23 09/17/23 Unknown Rx cetirizine 10 mg tablet (Zyrtec) 10 mg PO DAILY PRN allergy 09/18/23 Unknown Rx symptoms #20 tabs fluticasone propionate 50 2 spray intranasal DAILY PRN nasal 09/18/23 Unknown Rx mcg/actuation nasal congestion #16 grams spray,suspension doxycycline hyclate 100 mg capsule 100 mg PO BID 10 days #20 caps 10/06/23 Unknown Rx ondansetron 4 mg disintegrating 4 mg PO TID PRN nausea and 10/06/23 Unknown Rx tablet vomiting #14 tabs Allergies Allergy/AdvReac Type Severity Reaction Status Date / Time ibuprofen Allergy ALGY-Rash Verified 10/06/23 15:21 naproxen [From Aleve] Allergy ALGY-Rash Verified 10/06/23 15:21 PFSH Acute PFSH: Medical History COPD (chronic obstructive pulmonary disease) Elevated troponin level Community acquired pneumonia LV (left ventricular) mural thrombus Ischemic cardiomyopathy Stage 2 acute kidney injury Supplemental oxygen dependent HTN (hypertension) Depression Breast cancer Non-ST elevation MA (NSTEMI) Hyperlipidemia Chronic back pain Hypothyroidism COPD (chronic obstructive pulmonary disease) Surgical History H/O lumpectomy Family History Brother CAD (coronary artery disease) Cancer Chronic kidney disease (CKD) Denies family history of Clotting disorder Dementia Suicide Anesthesia complication Bleeding disorder Lung disease Stroke Social History Smoking and tobacco/nicotine status: former use of tobacco/nicotine Alcohol intake: never Substance/Drug Use: never Marital status: / Marital status details: She lost her 6 months ago Vitals/I&O/Wt Last Vital Signs Temp 97.7 F 10/14/23 21:52 Pulse 76 10/14/23 21:52 Resp 18 10/14/23 21:52 BP 113/78 10/14/23 21:52 Pulse Ox 98 10/14/23 21:52 O2 Del Method Nasal Cannula 10/14/23 23:10 O2 Flow Rate 3 10/14/23 17:37 10/14/23 10/14/23 10/15/23 14:59 22:59 06:59 Intake Total 1550 / 1550 Balance 1550 / 1550 Weight last 48 hrs Weight 46.72 kg Weight 46.72 kg Physical Exam Narrative: General: No acute distress, AO x3 HEENT: PERRLA, pupils bilaterally equal and reactive, pallors not present Chest: Crackles to auscultation scattered bilaterally CVS: S1-S2 regular, no murmurs, no tachycardia, no gallops, no rubs Abdomen: Soft, nontender, no organomegaly, bowel sounds present Neuro: No focal deficits, no facial deformity, AO x3, power 5/5 in all limbs Data 10/15/23 04:59 10/14/23 17:21 Other Labs: Radiology Impressions Chest CT 10/14/23 16:53 IMPRESSION: 1. Mixed consolidation and centrilobular opacities in the left lower lobe. This could represent aspiration versus pneumonia with infectious bronchiolitis. Laboratory Results WBC 5.83 10^3/uL (3.29-11.43) 10/15/23 04:59 RBC 3.27 10^6/uL (3.85-5.65) L 10/15/23 04:59 Hgb 9.60 g/dL (11.27-16.99) L 10/15/23 04:59 Hct 32.9 % (36-47) L 10/15/23 04:59 MCV 100.6 fl (85-98) H D 10/15/23 04:59 MCH 29.4 pg (27-33) 10/15/23 04:59 MCHC 29.2 g/dL (30-55) L 10/15/23 04:59 RDW 14.9 % (12.1-15.1) 10/15/23 04:59 Plt Count 368 10^3/cmm (157-399) 10/15/23 04:59 MPV 9.3 fL (7.4-10.4) 10/15/23 04:59 Neut % (Auto) 87.0 % 10/15/23 04:59 Lymph % (Auto) 10.8 % 10/15/23 04:59 [place]offey % (Auto) 0.9 % 10/15/23 04:59 Eos % (Auto) 0.0 % 10/15/23 04:59 Baso % (Auto) 0.3 % 10/15/23 04:59 Neut # (Auto) 5.07 10^3/uL (1.8-7.7) 10/15/23 04:59 Lymph # (Auto) 0.6 10^3/uL (0.8-4.8) L 10/15/23 04:59 [place]offey # (Auto) 0.1 10^3/uL (0.2-0.9) L 10/15/23 04:59 Eos # (Auto) 0.0 10^3/uL (0.0-0.8) 10/15/23 04:59 Baso # (Auto) 0.0 10^3/uL (0.0-0.1) 10/15/23 04:59 Nucleated RBC % (auto) 0 % 10/15/23 04:59 Nucleated RBCs # 0.0 /100WBC 10/15/23 04:59 Sodium 144 mmol/L (136-145) 10/15/23 04:59 Potassium 5.1 mmol/L (3.5-5.1) 10/15/23 04:59 Chloride 108 mmol/L (98-107) H 10/14/23 17:21 Carbon Dioxide 21 mmol/L (22-29) L 10/14/23 17:21 Anion Gap 18.1 (5-19) 10/15/23 04:59 BUN 69 mg/dL (8-23) H 10/14/23 17:21 Creatinine 1.8 mg/dL (0.5-0.9) H 10/14/23 17:21 GFR Calculation Not Reportable 10/15/23 04:59 Glucose 86 mg/dL (65-115) 10/14/23 17:21 Estimat Average Glucose 108 10/15/23 04:59 Hemoglobin A1c 5.4 % (4.0-6.0) 10/15/23 04:59 Calculated Osmolality 313 mOsm/kg (285-295) H 10/14/23 17:21 Lactic Acid 1.1 mmol/L (0.5-2.2) 10/14/23 17:21 Calcium 9.5 mg/dL (8.5-10.5) 10/14/23 17:21 Phosphorus 3.5 mg/dL (2.5-4.5) 10/15/23 04:59 Iron 115 ug/dL (37-145) 10/14/23 17:21 TIBC 210 mcg/dl 10/14/23 17:21 % Saturation 54.7 % (20-50) H 10/14/23 17:21 Unsat Iron Binding 95 ug/dL (112-347) L 10/14/23 17:21 Total Bilirubin 0.2 mg/dL (0.15-1.2) 10/15/23 04:59 AST 22 U/L (0-32) 10/15/23 04:59 ALT 16 U/L (0-33) 10/15/23 04:59 Alkaline Phosphatase 74 U/L (35-105) 10/15/23 04:59 C-Reactive Protein 33.1 mg/L (0.0-4.9) H 10/14/23 17:21 Total Protein 7.3 g/dL (6.6-8.7) 10/14/23 17:21 Albumin 3.5 g/dL (3.5-5.2) 10/14/23 17:21 Globulin 3.5 g/dL (1.3-4.6) 10/15/23 04:59 Triglycerides 52 mg/dL (0-150) 10/15/23 04:59 Cholesterol 119 mg/dL (0-200) 10/15/23 04:59 LDL Cholesterol, Calc 64 mg/dL (50-129) 10/15/23 04:59 HDL Cholesterol 45 mg/dL (60-100) L 10/15/23 04:59 LDL/HDL Ratio 1.42 RATIO (0.00-3.22) 10/15/23 04:59 Cholesterol/HDL Ratio 2.64 mg/dL (0.0-4.40) 10/15/23 04:59 Vitamin B12 382 pg/mL (232-1245) 10/14/23 17:21 Procalcitonin 0.18 ng/mL (0-0.5) 10/14/23 17:21 TSH 1.56 uIU/mL (0.27-4.20) 10/14/23 17:21 Urine Color Yellow (Yellow) 10/14/23 23:38 Urine Appearance Clear (CLEAR) 10/14/23 23:38 Urine pH 5 (5-7) 10/14/23 23:38 Ur Specific [place] 1.020 (1.005-1.030) 10/14/23 23:38 Urine Protein Neg (Negative) 10/14/23 23:38 Urine Glucose (UA) Norm (Normal) 10/14/23 23:38 Urine Ketones 1+ (Negative) H 10/14/23 23:38 Urine Blood Neg (Negative) 10/14/23 23:38 Urine Nitrate Negative (Negative) 10/14/23 23:38 Urine Bilirubin Neg (Negative) 10/14/23 23:38 Urine Urobilinogen Neg mg/dL (Negative) 10/14/23 23:38 Ur Leukocyte Esterase Negative (Negative) 10/14/23 23:38 A&P Assessment and plan (1) Ischemic cardiomyopathy: (2) LV (left ventricular) mural thrombus: (3) VY (acute kidney injury): (4) Pneumonia: Qualifiers: Laterality: right Lung location: middle lobe of lung Pneumonia type: due to unspecified organism Qualified Code(s): J18.9 - Pneumonia, unspecified organism (5) COPD (chronic obstructive pulmonary disease): Qualifiers: COPD type: emphysema Emphysema type: centrilobular Qualified Code(s): J43.2 - Centrilobular emphysema (6) Dyspnea: (7) Hypoxia: Plan 78-year-old lady with a past medical history as outlined above, currently presenting to the hospital with 2 to 3 weeks of increasing generalized lethargy, weakness, fatigue, persisting cough and worsening dyspnea. CT of the chest without contrast shows mixed consolidation and centrilobular opacities in the left lower lobe. These could represent aspiration versus community-acquired pneumonia versus infectious bronchiolitis. Patient has received outpatient antibiotics including Augmentin, doxycycline without any relief in her symptoms. Possibilities of a persistent symptomology at this time include male with failure of outpatient antibiotic therapy, COPD exacerbation, versus cardiac etiology. She has a past medical history of ischemic cardiomyopathy in March 2022 at which time her LVEF was at 45% with diffuse hypokinesia of the LV apex. There was noted to be an LV thrombus for which patient has been on anticoagulation with Eliquis. She has mild pulmonary hypertension with PASP of 47. Heart ejection fraction improved to 60% in July 2022. There was a moderate pericardial effusion which was hemodynamically insignificant at that point. LV thrombus appears to have resolved. She denies any chest pain today. EKG is without any acute ST-T wave changes. Plan: [facility] to [facility] Start IV antibiotics ceftriaxone 1 g every 24 hours plus azithromycin 500 mg daily Check procalcitonin. Persistence of her symptoms to appear to be somewhat out of proportion to the consolidation noted on CT chest. Alternate possibilities include COPD exacerbation for which we will start IV methylprednisolone 40 mg every 12 hours. DuoNeb nebulization every 6 hours plus budesonide 0.5 mg nebulization twice a day. Check echocardiogram to assess for interval worsening of pericardial effusion, assess EF, last echocardiogram dates back to July 2022 at which point EF was improving. Home medication list needs to be verified with the patient. DVT prophylaxis: Patient is chronically on Eliquis which we will continue DNR/DNI Attestations Medical Necessity Statement*: Greater than 2 midnight stay is anticipated Coding Level of Care Code Acute Code for Chg Fwd High MDM includes number and complexity of problems actively addressed during encounter, amount and/or complexity of data reviewed/ordered and described risk of complication, morbidity or mortality of management as documented Diagnoses Ischemic cardiomyopathy I25.5 LV (left ventricular) mural thrombus I51.3 VY (acute kidney injury) N17.9 Pneumonia J18.9 Laterality: right Lung location: middle lobe of lung Pneumonia type: due to unspecified organism Centrilobular emphysema J43.2 COPD type: emphysema Emphysema type: centrilobular Dyspnea R06.00 Hypoxia R09.02
[2023-10-15] VITALS (14 sets, daily range): BP systolic 94–124; BP diastolic 56–75; PULSE 60–84; RESP 16–18; TEMP 36.3–36.8; O2SAT 96–99
--- NOTE | 2023-10-15 00:06 | PC.NURSE ---
Pt informed of the use of SCD's and pt refused
[2023-10-15 00:22] LABS: Add Urine Microscopic? NO; Charge for UA Resulting for Rev
[2023-10-15 00:53] LABS: Bilirubin Urine Neg (Negative); Blood Urine Neg (Negative); Glucose Urine UA Norm (Normal); Ketones Urine 1+ (Negative); Leukocyte Esterase Urine Negative (Negative); Nitrate Urine Negative (Negative); Protein Urine Neg (Negative); Urine Appearance Clear (CLEAR); Urine Color Yellow (Yellow); Urobilinogen Urine Neg (Negative); pH Urine 5 (5-7)
[2023-10-15] MEDS: methylPREDNISolone sod succ 40 mg/mL INJ IVP ×3 (01:17→17:22)
[2023-10-15] MEDS: ipratropium 0.5 mg/2.5 mL Neb INHALATION ×4 (02:29→20:38)
[2023-10-15] MEDS: levalbuterol 0.63 mg/3 mL Neb 0.630000000000000004 MG INHALATION ×4 (02:29→20:38)
[2023-10-15] MEDS: HYDROcodone-acetaminophen 7.5-325 mg Tablet 1 TAB PO (03:04)
[2023-10-15 05:24] LABS: Basophils % 0.3 %; Hematocrit 32.9 % (36-47); Lymphocytes # 0.6 10^3/uL (0.8-4.8); Lymphocytes % 10.8 %; Mean Corpuscular HGB Conc 29.2 g/dL (30-55); Mean Corpuscular Hemoglobin 29.4 pg (27-33); Mean Corpuscular Volume 100.6 fl (85-98); Mean Platelet Volume 9.3 fL (7.4-10.4); Monocytes # 0.1 10^3/uL (0.2-0.9); Monocytes % 0.9 %; Neutrophils # 5.07 10^3/uL (1.8-7.7); Nucleated Red Blood Cells % 0 %; Platelet Count 368 10^3/cmm (157-399); Red Blood Count 3.27 10^6/uL (3.85-5.65); Red Cell Distribution Width 14.9 % (12.1-15.1); White Blood Count 5.83 10^3/uL (3.29-11.43)
[2023-10-15 05:37] LABS: Estmated Average Glucose 108; Hemoglobin A1C 5.4 % (4.0-6.0)
[2023-10-15 05:48] LABS: Chol HDL Ratio 2.64 mg/dL (0.0-4.40); Cholesterol 119 mg/dL (0-200); HDL Cholesterol 45 mg/dL (60-100); LDL Cholesterol Calculated 64 mg/dL (50-129); LDL HDL Ratio 1.42 RATIO (0.00-3.22); Triglycerides 52 mg/dL (0-150)
[2023-10-15 05:49] LABS: Alanine Aminotransferase 16 U/L (0-33); Albumin Level 2.8 g/dL (3.5-5.2); Alkaline Phosphatase 74 U/L (35-105); Anion Gap 18.1 (5-19); Aspartate Amino Transferase 22 U/L (0-32); Blood Urea Nitrogen 60 mg/dL (8-23); Calcium 8.3 mg/dL (8.5-10.5); Carbon Dioxide 16 mmol/L (22-29); Chloride 115 mmol/L (98-107); Globulin 3.5 g/dL (1.3-4.6); Glucose 153 mg/dL (65-115); Magnesium 1.3 mg/dL (1.7-2.3); Osmolality Calculated 318 mOsm/kg (285-295); Phosphorus 3.5 mg/dL (2.5-4.5); Potassium 5.1 mmol/L (3.5-5.1); Sodium 144 mmol/L (136-145); Total Bilirubin 0.2 mg/dL (0.15-1.2); Total Protein 6.3 g/dL (6.6-8.7)
[2023-10-15 05:50] LABS: Creatinine Clr Calc Pharmacy 23.2801
[2023-10-15 05:51] LABS: Procalcitonin 0.14 ng/mL (0-0.5)
--- NOTE | 2023-10-15 05:53 | USCV_ITS ---
Colette Lopez Age: 78 Gender: F : 1945 Exam Date: 10/15/2023 09:20 Ordering Phys: Cher Michelle MD Technologist: CT Exam Location: [facility] [place]_ Indication: pericardial eff, hx of thrombus lv BP: 104 / 65 HR: 64 Rhythm: Sinus Technical Quality: Adequate MEASUREMENTS (Male / Female) Normal Values 2D ECHO LVOT Diameter 2.0 cm LV Ejection Fraction MOD 2C 73.4 % LV Ejection Fraction 2C AL 74.6 % LA Diameter 3.4 cm RA Systolic Volume 4C AL 27.6 ml RA Systolic Volume 4C MOD 26.5 ml LA Sys Volume AL 33.4 cm cubed LA Sys Volume Index AL 21.7 cm cubed/m squared Aorta at Sinotubular Diameter 2.1 cm IVC Diameter 1.2 cm M-MODE LA Ao Ratio MM 1.4 AV Cusp Separation MM 1.9 cm DOPPLER AV Peak Velocity 145.0 cm/s LVOT Peak Velocity 110.0 cm/s AV Area Cont Eq vti 2.2 cm squared AV Area Cont Eq pk 2.4 cm squared MV Peak Velocity 123.0 cm/s MV Area PHT 3.5 cm squared Mitral E to A Ratio 0.9 TV Peak Velocity 199.0 cm/s TR Peak Velocity 287.0 cm/s TR Peak Gradient 32.9 mmHg TV Peak E Velocity 69.0 cm/s Right Atrial Pressure 3.0 mmHg Pulmonary Artery Systolic Pressu 35.9 mmHg PV Peak Velocity 110.5 cm/s FINDINGS Left Ventricle Normal left ventricular size and systolic function, EF of 73%. No regional wall motion abnormalities. Right Ventricle The right ventricle is normal in size and function. Right Atrium The right atrium is normal in size. Left Atrium The left atrium is normal in size. Mitral Valve Mild mitral valve regurgitation. Aortic Valve Minimally thickened aortic valve Tricuspid Valve No gross abnormalities noted. Trace of tricuspid regurgitation Pulmonic Valve No gross abnormalities noted Pericardium Normal pericardium without effusion. Aorta Normal ascending aorta dimension. IVC The inferior vena cava appears normal. CONCLUSIONS Normal left ventricular size and systolic function, EF of 73%. No regional wall motion abnormalities. Normal cardiac chamber sizes. No gross valvular abnormalities. There is no pericardial effusion. There are no intracardiac masses. No similar previous studies are available for comparison Dr Nahomi Garcia MD FACC (Electronically Signed) Final Date: 15 October 2023 13:59 S
[2023-10-15 06:05] LABS: Folate Level 7.8 ng/mL (4.8-37.3)
[2023-10-15] MEDS: levothyroxine 75 mcg Tablet 37.5 MCG PO (06:11)
[2023-10-15 06:39] LABS: NT Pro B Type Natriuretic Pept 789 pg/mL (0-450)
[2023-10-15] MEDS: budesonide 0.5 mg/2 mL Neb INHALATION ×2 (08:06→20:38)
[2023-10-15 08:13] LABS: SARS Covid-2 Antigen negative (Negative)
--- NOTE | 2023-10-15 09:05 | PC.CHAP ---
Pastoral Care Encounter/Spiritual Assessment Type of Contact [] Declined cable tender visit [] Patient/Family/Request visit [] Outpatient visit [] Follow-up visit [] Physician referral [] Code/Alert [x] Routine visit [] Staff referral [] Actively dying [] Patient sleeping [] Family support [] [] Out of room [] Palliative care [] [] Receiving care in room [] Pre-surgical visit [] Trauma [] Long length of stay [] ICU visit [] Other: Relational/Emotional Strength [x] Patient feels connected with others/family/visitors/staff [] Distress [] Loneliness/isolation [] Abandonment Spirituality of Patient [x] Person of Ita [] Attends Quaker of their Ita [x] Believes in Prayer [] Reads Bible or Moravian materials [] There are Spiritual issues to be addressed Laboratory Chemical Assistant Interventions [x] Prayer [x] Active listening [x] Non-anxious presence [x] Spiritual/emotional support [] Crisis/trauma care [] Spiritual counseling [] Bereavement support [] Provided bereavement packet [] Provided Bible/devotional materials [] Provided toy/stuffed animal, coloring book to patient or family member [] Provided Communion [] Anointing/[place] [] Salvation [x] Completed spiritual assessment [] Other: Impact on Illness or Injury [] Angry [] Fearful [] Anxious [] Often cries [] Exhaustion [] Unable to work [] Unable to attend restorationist [] Unable to walk/stand [] Unable to read [] Unable to drive [] Unable to eat/drink [] Unable to sleep [] Unable to be with family [] Patient intubated [] Other: Summary Time spent with patient 10 min
--- NOTE | 2023-10-15 09:35 | PC.SOCIAL ---
IMM Update pg 2 of IMM updated and reviewed w/ patient. Copy provided and copy dated initialed and placed in chart.
[2023-10-15 10:06] LABS: Influenza A by IFA negative (Negative); Influenza B by IFA negative (Negative)
[2023-10-15] MEDS: clopidogrel 75 mg Tablet PO (10:32)
[2023-10-15] MEDS: azithromycin 250 mg Tablet 500 MG PO (10:32)
[2023-10-15] MEDS: apixaban 5 mg Tablet PO ×2 (10:32→21:23)
[2023-10-15] MEDS: magnesium sulfate premix 1 GM/100 ML PIGGYBACK IV (11:23)
--- NOTE | 2023-10-15 11:48 | PC.NURSE ---
Discussed emery catheter placement with patient. explained risks/benefits of and necessity of emery catheter. patient refused emery catheter placement, stating that she would continue to void in the hat. Dr. Fisher notified.
--- NOTE | 2023-10-15 13:04 | P.PN_ITS ---
Subjective 2 Subjective: Admitted overnight. H&P and labs appreciated. Examination patient sitting up in bed. On 3 L of oxygen supplementation saturating more than 95%. States at baseline she uses 2 to 3 L of oxygen supplementation. Has been having difficulty in breathing along with cough more than her usual for last 2 to 3 weeks not improving with oral antibiotics. Denies any nausea, vomiting, headache or sick contacts. Denies any chest pain. Shortness of breath gets worse on minimal ambulation and laying down flat but not worsened than her baseline. Denies any dizziness. Vitals/I&O/Wt Last Vital Signs Temp 98.3 F 10/15/23 11:42 Pulse 62 10/15/23 11:42 Resp 16 10/15/23 11:42 BP 111/61 10/15/23 11:42 Pulse Ox 99 10/15/23 11:42 O2 Del Method Nasal Cannula 10/15/23 11:42 O2 Flow Rate 3 10/15/23 08:08 10/14/23 10/15/23 10/15/23 22:59 06:59 14:59 Intake Total 1550 / 1550 680 / 2230 1710 / 1710 Output Total 150 / 150 600 / 600 Balance 1550 / 1550 530 / 2080 1110 / 1110 Weight last 48 hrs Weight 46.72 kg Weight 54.159 kg Weight 46.72 kg Weight 46.72 kg Physical Exam 2 Narrative: General: No acute distress, AO x3, on nasal cannula HEENT: PERRLA, pupils bilaterally equal and reactive, pallors not present Chest: Crackles to auscultation scattered bilaterally, bilateral bronchial breath sounds all over lung [place] with occasional rhonchi CVS: S1-S2 regular, no murmurs, no tachycardia, no gallops, no rubs Abdomen: Soft, nontender, no organomegaly, bowel sounds present Neuro: No focal deficits, no facial deformity, AO x3, power 5/5 in all limbs Data 10/15/23 04:59 10/15/23 04:59 Micro: Microbiology 10/14/23 20:02 Gram Stain - Final Sputum - Expectorated Sputum 10/14/23 23:48 Bacterial Antigens - Final Urine Kidney 10/14/23 23:48 Legionella Urinary Antigen - Final Unknown Source A&P Assessment and plan (1) VY (acute kidney injury): (2) Pneumonia: Qualifiers: Laterality: right Lung location: middle lobe of lung Pneumonia type: d ue to unspecified organism Qualified Code(s): J18.9 - Pneumonia, unspecified organism (3) Hypoxia: (4) Dyspnea: (5) COPD (chronic obstructive pulmonary disease): Qualifiers: COPD type: emphysema Emphysema type: centrilobular Qualified Code(s): J43.2 - Centrilobular emphysema (6) Ischemic cardiomyopathy: (7) LV (left ventricular) mural thrombus: (8) Supplemental oxygen dependent: (9) Failure of outpatient treatment: Plan 78-year-old lady with a past medical history as outlined above, currently presenting to the hospital with 2 to 3 weeks of increasing generalized lethargy, weakness, fatigue, persisting cough and worsening dyspnea. CT of the chest without contrast shows mixed consolidation and centrilobular opacities in the left lower lobe. These could represent aspiration versus community-acquired pneumonia versus infectious bronchiolitis. Patient has received outpatient antibiotics including Augmentin, doxycycline without any relief in her symptoms. Possibilities of a persistent symptomology at this time include male with failure of outpatient antibiotic therapy, COPD exacerbation, versus cardiac etiology. She has a past medical history of ischemic cardiomyopathy in March 2022 at which time her LVEF was at 45% with diffuse hypokinesia of the LV apex. There was noted to be an LV thrombus for which patient has been on anticoagulation with Eliquis. She has mild pulmonary hypertension with PASP of 47. Heart ejection fraction improved to 60% in July 2022. There was a moderate pericardial effusion which was hemodynamically insignificant at that point. LV thrombus appears to have resolved. She denies any chest pain today. EKG is without any acute ST-T wave changes. Acute on chronic hypoxia: Patient has baseline COPD. Cough and hypoxia has been getting worse and as per the patient for last 2 to 3 weeks. Has failed outpatient oral antibiotics. Most likely COPD exacerbation in setting of recent pneumonia. Follow-up MRSA swab, blood culture. Sputum culture awaited. Aggressive pulmonary toilet with I-S and Acapella. For now continue with IV ceftriaxone and azithromycin. Will de-escalate as per culture results. Follow-up urine Legionella and bacterial antigen results. Patient did have moderate pericardial effusion on her previous echocardiogram. Repeat echocardiogram done. Results awaited. Check orthostatic blood pressures. proBNP mildly elevated in 700s and seems to be stable since last 1 week. Ipratropium, Xopenex every 6 hours, Pulmicort twice daily. Continue with Solu-Medrol 40 mg IV every 12 hours for now. Oxygen supplementation keeping saturation over 90%. Add Flonase. Acute kidney injury: Patient mildly dehydrated. Creatinine improving to 1.6. Baseline creatinine seems to be around 1.1-1.4. Strict input charting, daily weights. Medical reconciliation done for nephrotoxic drugs. Continue gentle IV hydration with normal saline at 50 cc/h. Continue other chronic medications. CODE STATUS: Discussed in detail with the patient. She is DNR/DNI. Eliquis will be sufficient for DVT prophylaxis Protonix for PUD prophylaxis Cardiac diet. Attestations 2 Medical Necessity Statement*: Requires further hospitalization for management of acute on chronic hypoxia in setting of COPD exacerbation for possible pneumonia with failure to outpatient treatment, recent moderate pericardial effusion, acute kidney injury Diagnoses VY (acute kidney injury) N17.9 Pneumonia J18.9 Laterality: right Lung location: middle lobe of lung Pneumonia type: due to unspecified organism Hypoxia R09.02 Dyspnea R06.00 Centrilobular emphysema J43.2 COPD type: emphysema Emphysema type: centrilobular Ischemic cardiomyopathy I25.5 LV (left ventricular) mural thrombus I51.3 Supplemental oxygen dependent Z99.81 Failure of outpatient treatment Z78.9
[2023-10-15] MEDS: fluticasone nasal spray 16gm Btl 1 SPRAY NASAL (17:22)
[2023-10-15] MEDS: cefTRIAXone 1,000 MG in sodium chloride 0.9% (plus) 50 ML 100 MG IV (21:22)
[2023-10-15] MEDS: atorvastatin 40 mg Tablet PO (21:23)
[2023-10-15] MEDS: trazodone 100 mg Tablet 250 MG PO (21:23)
[2023-10-15] MEDS: pantoprazole 40 mg SDV IVP (22:00)
[2023-10-16] VITALS (11 sets, daily range): BP systolic 97–117; BP diastolic 56–76; PULSE 57–81; RESP 17–18; TEMP 36.3–36.8; O2SAT 96–100
[2023-10-16 05:52] LABS: Basophils % 0.1 %; Hematocrit 29.4 % (36-47); Lymphocytes # 1.1 10^3/uL (0.8-4.8); Lymphocytes % 9.3 %; Mean Corpuscular HGB Conc 29.6 g/dL (30-55); Mean Corpuscular Hemoglobin 29.2 pg (27-33); Mean Corpuscular Volume 98.7 fl (85-98); Mean Platelet Volume 9.4 fL (7.4-10.4); Monocytes # 0.6 10^3/uL (0.2-0.9); Monocytes % 4.9 %; Neutrophils # 10.34 10^3/uL (1.8-7.7); Nucleated Red Blood Cells % 0.3 %; Platelet Count 327 10^3/cmm (157-399); Red Blood Count 2.98 10^6/uL (3.85-5.65); Red Cell Distribution Width 14.9 % (12.1-15.1); White Blood Count 12.15 10^3/uL (3.29-11.43)
[2023-10-16] MEDS: levothyroxine 75 mcg Tablet 37.5 MCG PO (06:02)
[2023-10-16] MEDS: methylPREDNISolone sod succ 40 mg/mL INJ IVP (06:03)
[2023-10-16 06:07] LABS: Alanine Aminotransferase 14 U/L (0-33); Albumin Level 2.9 g/dL (3.5-5.2); Alkaline Phosphatase 60 U/L (35-105); Anion Gap 13.1 (5-19); Aspartate Amino Transferase 17 U/L (0-32); Blood Urea Nitrogen 51 mg/dL (8-23); Calcium 8.7 mg/dL (8.5-10.5); Carbon Dioxide 19 mmol/L (22-29); Chloride 120 mmol/L (98-107); Creatinine Clr Calc Pharmacy 28.1297; Globulin 2.2 g/dL (1.3-4.6); Glucose 112 mg/dL (65-115); Osmolality Calculated 318 mOsm/kg (285-295); Potassium 5.1 mmol/L (3.5-5.1); Sodium 147 mmol/L (136-145); Total Bilirubin 0.2 mg/dL (0.15-1.2); Total Protein 5.1 g/dL (6.6-8.7)
[2023-10-16] MEDS: ferrous sulfate EC 325 mg Tablet PO (09:30)
[2023-10-16] MEDS: apixaban 5 mg Tablet PO ×2 (09:31→20:18)
[2023-10-16] MEDS: clopidogrel 75 mg Tablet PO (09:31)
[2023-10-16] MEDS: fluticasone nasal spray 16gm Btl 1 SPRAY NASAL ×3 (09:31→18:10)
[2023-10-16] MEDS: azithromycin 250 mg Tablet 500 MG PO (09:31)
[2023-10-16] MEDS: sodium chloride 0.45% 1,000 ML 50 ML IV (10:12)
--- NOTE | 2023-10-16 13:30 | P.PN_ITS ---
Subjective 2 Subjective: No acute events overnight. Seen with family at bedside. Patient states she is feeling better today. Denies any nausea vomiting, headache. Did say that she had decreased oral intake yesterday but today feeling a lot better so oral intake is improving. Vitals/I&O/Wt Last Vital Signs Temp 97.7 F 10/16/23 11:24 Pulse 59 L 10/16/23 11:24 Resp 18 10/16/23 11:24 BP 117/71 10/16/23 11:24 Pulse Ox 97 10/16/23 11:24 O2 Del Method Nasal Cannula 10/16/23 11:24 O2 Flow Rate 2 10/16/23 08:00 10/15/23 10/16/23 10/16/23 22:59 06:59 14:59 Intake Total 1030 / 2740 120 / 2860 600 / 600 Output Total 400 / 1000 150 / 1150 700 / 700 Balance 630 / 1740 -30 / 1710 -100 / -100 Weight last 48 hrs Weight 46.266 kg Weight 51.8 kg Weight 46.72 kg Weight 54.159 kg Weight 46.72 kg Weight 46.72 kg Physical Exam 2 Narrative: General: No acute distress, AO x3, on nasal cannula HEENT: PERRLA, pupils bilaterally equal and reactive, pallors not present Chest: Crackles to auscultation scattered bilaterally, bilateral bronchial breath sounds all over lung de [place] with occasional rhonchi CVS: S1-S2 regular, no murmurs, no tachycardia, no gallops, no rubs Abdomen: Soft, nontender, no organomegaly, bowel sounds present Neuro: No focal deficits, no facial deformity, AO x3, power 5/5 in all limbs Data 10/16/23 05:11 10/16/23 05:11 Micro: Microbiology 10/14/23 20:02 Gram Stain - Final Sputum - Expectorated Sputum Sputum Culture - Preliminary 10/14/23 23:48 Bacterial Antigens - Final Urine Kidney A&P Assessment and plan (1) VY (acute kidney injury): (2) Pneumonia: Qualifiers: Laterality: right Lung location: middle lobe of lung Pneumonia type: d ue to unspecified organism Qualified Code(s): J18.9 - Pneumonia, unspecified organism (3) Hypoxia: (4) Dyspnea: (5) COPD (chronic obstructive pulmonary disease): Qualifiers: COPD type: emphysema Emphysema type: centrilobular Qualified Code(s): J43.2 - Centrilobular emphysema (6) Ischemic cardiomyopathy: (7) LV (left ventricular) mural thrombus: (8) Supplemental oxygen dependent: (9) Failure of outpatient treatment: (10) Hypernatremia: Plan 78-year-old lady with a past medical history as outlined above, currently presenting to the hospital with 2 to 3 weeks of increasing generalized lethargy, weakness, fatigue, persisting cough and worsening dyspnea. CT of the chest without contrast shows mixed consolidation and centrilobular opacities in the left lower lobe. These could represent aspiration versus community-acquired pneumonia versus infectious bronchiolitis. Patient has received outpatient antibiotics including Augmentin, doxycycline without any relief in her symptoms. Possibilities of a persistent symptomology at this time include male with failure of outpatient antibiotic therapy, COPD exacerbation, versus cardiac etiology. She has a past medical history of ischemic cardiomyopathy in March 2022 at which time her LVEF was at 45% with diffuse hypokinesia of the LV apex. There was noted to be an LV thrombus for which patient has been on anticoagulation with Eliquis. She has mild pulmonary hypertension with PASP of 47. Heart ejection fraction improved to 60% in July 2022. There was a moderate pericardial effusion which was hemodynamically insignificant at that point. LV thrombus appears to have resolved. She denies any chest pain today. EKG is without any acute ST-T wave changes. Acute on chronic hypoxia: Patient has baseline COPD. Cough and hypoxia has been getting worse and as per the patient for last 2 to 3 weeks. Has failed outpatient oral antibiotics. Most likely COPD exacerbation in setting of recent pneumonia. Follow-up MRSA swab, blood culture. Sputum culture awaited.MRSA swab currently pending. Aggressive pulmonary toilet with I-S and Acapella. For now continue with IV ceftriaxone and azithromycin. Will de-escalate as per culture results. Negative urine Legionella and bacterial antigen results. Patient did have moderate pericardial effusion on her previous echocardiogram. Repeat echocardiogram done showed no pericardial effusion with normal EF. proBNP mildly elevated in 700s and seems to be stable since last 1 week. Ipratropium, Xopenex every 6 hours, Pulmicort twice daily. Wean Solu-Medrol to 40 mg IV daily. Oxygen supplementation keeping saturation over 90%. Continue with Flonase. Acute kidney injury: Resolved. Creatinine improving to further down to 1.3. Baseline creatinine seems to be around 1.1-1.4. Strict input charting, daily weights. Medical reconciliation done for nephrotoxic drugs. Hypernatremia: Patient did develop mild hyponatremia sodium up to 147 today. Most likely in setting of NS given for 1 bag yesterday along with poor oral intake. Start on half NS at 50 cc/h for 1 bag. Repeat BMP in evening. Continue other chronic medications. CODE STATUS: Discussed in detail with the patient. She is DNR/DNI. Eliquis will be sufficient for DVT prophylaxis Protonix for PUD prophylaxis Cardiac diet. Discharge planning: Plan to discharge in next 24 hours if patient remains hemodynamically stable at baseline oxygen supplementation with improvement in sodium levels to back home. Attestations 2 Medical Necessity Statement*: Requires further hospitalization for management of VY with hypernatremia in a patient who was admitted for acute on chronic hypoxia in setting of COPD exacerbation from recent pneumonia with failure to outpatient treatment Diagnoses VY (acute kidney injury) N17.9 Pneumonia J18.9 Laterality: right Lung location: middle lobe of lung Pneumonia type: due to unspecified organism Hypoxia R09.02 Dyspnea R06.00 Centrilobular emphysema J43.2 COPD type: emphysema Emphysema type: centrilobular Ischemic cardiomyopathy I25.5 LV (left ventricular) mural thrombus I51.3 Supplemental oxygen dependent Z99.81 Failure of outpatient treatment Z78.9 Hypernatremia E87.0
[2023-10-16] MEDS: ipratropium 0.5 mg/2.5 mL Neb INHALATION ×2 (14:12→20:13)
[2023-10-16] MEDS: levalbuterol 0.63 mg/3 mL Neb 0.630000000000000004 MG INHALATION ×2 (14:12→20:13)
[2023-10-16 15:29] LABS: Methicillin-Resist S.aureu PCR NOT DETECTED (NOT DETECTED)
[2023-10-16 16:07] LABS: Blood Urea Nitrogen 53 mg/dL (8-23); Calcium 8.3 mg/dL (8.5-10.5); Carbon Dioxide 17 mmol/L (22-29); Chloride 116 mmol/L (98-107); Creatinine Clr Calc Pharmacy 29.1455; Glucose 128 mg/dL (65-115); Magnesium 1.7 mg/dL (1.7-2.3); Osmolality Calculated 314 mOsm/kg (285-295); Sodium 144 mmol/L (136-145)
[2023-10-16] MEDS: budesonide 0.5 mg/2 mL Neb INHALATION (20:13)
[2023-10-16] MEDS: cefTRIAXone 1,000 MG in sodium chloride 0.9% (plus) 50 ML 100 MG IV (20:18)
[2023-10-16] MEDS: efferdent effervescent 1 EACH DENTAL (20:18)
[2023-10-16] MEDS: trazodone 100 mg Tablet 250 MG PO (20:18)
[2023-10-16] MEDS: atorvastatin 40 mg Tablet PO (20:18)
[2023-10-16] MEDS: pantoprazole 40 mg SDV IVP (21:30)
--- NOTE | 2023-10-16 21:44 | XRR_ITS ---
PROCEDURE INFORMATION: Exam: XR Chest Exam date and time: 10/16/2023 9:51 PM Age: 78 years old Clinical indication: Shortness of breath; Prior surgery; Surgery date: 6+ months; Patient HX: C/O SOB. Elevated bnp. History of breast cancer. ; Additional info: Poss fluid overload TECHNIQUE: Imaging protocol: Radiologic exam of the chest. Views: 1 view. COMPARISON: CT chest con [id number] 10/14/2023 6:22 PM FINDINGS: Lungs: There is probable atelectasis/scar in the left lung base. Pleural spaces: There is a small left pleural effusion. No pneumothorax. Heart/Mediastinum: Unremarkable. No cardiomegaly. Bones/joints: Unremarkable. XR/XR chest 1V portable [id number] IMPRESSION: There are no acute concerning abnormalities.
[2023-10-16 22:47] LABS: NT Pro B Type Natriuretic Pept 2947 pg/mL (0-450)
[2023-10-17] VITALS (7 sets, daily range): BP systolic 99–120; BP diastolic 65–80; PULSE 51–73; RESP 16–18; TEMP 36.4–36.6; O2SAT 95–98; BMI 18.6
[2023-10-17] MEDS: levothyroxine 75 mcg Tablet 37.5 MCG PO (05:52)
[2023-10-17 06:18] LABS: Basophils % 0.1 %; Eosinophils % 0.1 %; Hematocrit 31.9 % (36-47); Lymphocytes # 1.6 10^3/uL (0.8-4.8); Lymphocytes % 13.4 %; Mean Corpuscular HGB Conc 29.2 g/dL (30-55); Mean Corpuscular Hemoglobin 29.3 pg (27-33); Mean Corpuscular Volume 100.6 fl (85-98); Mean Platelet Volume 9.7 fL (7.4-10.4); Monocytes # 0.9 10^3/uL (0.2-0.9); Monocytes % 7.6 %; Neutrophils # 9.12 10^3/uL (1.8-7.7); Neutrophils % 77.9 %; Nucleated Red Blood Cells % 0.2 %; Platelet Count 295 10^3/cmm (157-399); Red Blood Count 3.17 10^6/uL (3.85-5.65); Red Cell Distribution Width 14.9 % (12.1-15.1); White Blood Count 11.71 10^3/uL (3.29-11.43)
[2023-10-17 06:40] LABS: Alanine Aminotransferase 11 U/L (0-33); Albumin Level 2.5 g/dL (3.5-5.2); Alkaline Phosphatase 55 U/L (35-105); Anion Gap 13.8 (5-19); Aspartate Amino Transferase 14 U/L (0-32); Blood Urea Nitrogen 52 mg/dL (8-23); Calcium 8.3 mg/dL (8.5-10.5); Carbon Dioxide 18 mmol/L (22-29); Chloride 116 mmol/L (98-107); Globulin 2.5 g/dL (1.3-4.6); Glucose 84 mg/dL (65-115); Osmolality Calculated 309 mOsm/kg (285-295); Potassium 4.8 mmol/L (3.5-5.1); Sodium 143 mmol/L (136-145); Total Bilirubin 0.2 mg/dL (0.15-1.2)
[2023-10-17 06:41] LABS: Creatinine Clr Calc Pharmacy 29.1455
[2023-10-17] MEDS: azithromycin 250 mg Tablet 500 MG PO (08:24)
[2023-10-17] MEDS: ferrous sulfate EC 325 mg Tablet PO (08:24)
[2023-10-17] MEDS: apixaban 5 mg Tablet PO (08:24)
[2023-10-17] MEDS: clopidogrel 75 mg Tablet PO (08:24)
[2023-10-17] MEDS: methylPREDNISolone sod succ 40 mg/mL INJ IVP (08:24)
[2023-10-17] MEDS: ipratropium 0.5 mg/2.5 mL Neb INHALATION (08:29)
[2023-10-17] MEDS: budesonide 0.5 mg/2 mL Neb INHALATION (08:29)
[2023-10-17] MEDS: levalbuterol 0.63 mg/3 mL Neb 0.630000000000000004 MG INHALATION (08:29)
[2023-10-17] MEDS: HYDROcodone-acetaminophen 7.5-325 mg Tablet 1 TAB PO (11:33)
--- NOTE | 2023-10-17 13:03 | P.DS_ITS ---
Discharge Providers Date of Admission: 10/14/23 21:41 Date of Discharge: October 17, 2023 Attending Provider at Admission: Godwin Fisher MD Attending Provider at Discharge: Godwin Fisher MD Primary Care Provider: Zachery Orourke MD Diagnoses at Discharge Discharge Diagnosis (1) VY (acute kidney injury): Status: Acute (2) Pneumonia: Status: Acute Qualifiers: Laterality: right Lung location: middle lobe of lung Pneumonia type: due to unspecified organism Qualified Code(s): J18.9 - Pneumonia, unspecified organism (3) Hypoxia: Status: Acute (4) Dyspnea: Status: Acute (5) COPD (chronic obstructive pulmonary disease): Status: Acute Qualifiers: COPD type: emphysema Emphysema type: centrilobular Qualified Code(s): J43.2 - Centrilobular emphysema (6) Ischemic cardiomyopathy: Status: Acute (7) LV (left ventricular) mural thrombus: Status: Acute (8) Supplemental oxygen dependent: Status: Acute (9) Failure of outpatient treatment: Status: Acute (10) Hypernatremia: Status: Acute Reason for Visit Reason for Visit: Sob, n/v, weakness Brief History: History as per HPI: Colette Lopez is a 78 year old female with a past medical history of NSTEMI, CAD, history of ischemic cardiomyopathy subsequently improved, emphysema. She is presented to the hospital today with a history of feeling unwell over the last 2 to 3 weeks. States that she has been having increasing fatigue, generalized weakness, poor appetite, inability to tolerate p.o. intake. Typically patient is on chronic oxygen between 2 to 3 L. She was in the ER on the 2023 with complaints of worsening productive cough and was diagnosed URI infection, received prescriptions for Augmentin and antihistamines. Her symptoms continued to worsen, presented to the ER on October 06, 2023 where chest x-ray showed development of pneumonitis and blunting of the costophrenic angle. She was discharged with a prescription for doxycycline. Returns to the ER today with chief complaints of persistent cough and worsening fatigue. Denies any fevers but does have chills. Denies any diarrhea. Denies any abdominal pain. Hospital Course Hospital Course Patient was admitted to the hospital for evaluation and management of hypoxia in setting of COPD exacerbation from recent pneumonia. On admission there was concern for dehydration for which she was started on gentle IV hydration. She was started on treatment for COPD exacerbation with dilation treatment and IV steroids along with broad-spectrum antibiotics. During hospitalization her blood culture remain negative. She had remained on her baseline oxygen supplementation. She has been discharged in hemodynamically stable condition on oral steroid taper, inhalation treatment along with oral Augmentin and Levaquin for next 5 days. Physical Exam Narrative: General: No acute distress, AO x3, on nasal cannula HEENT: PERRLA, pupils bilaterally equal and reactive, pallors not present Chest: Crackles to auscultation scattered bilaterally, bilateral bronchial breath sounds all over lung [place] with occasional rhonchi CVS: S1-S2 regular, no murmurs, no tachycardia, no gallops, no rubs Abdomen: Soft, nontender, no organomegaly, bowel sounds present Neuro: No focal deficits, no facial deformity, AO x3, power 5/5 in all limbs Discharge Data Studies Completed and Pending Completed Studies During Hospitalization Category Date Time Status CT chest wo con [id number] Stat Cat Scan 10/14/23 16:53 Completed XR chest 1V portable [id number] Stat Exams 10/16/23 21:44 Completed CV. echo complete* [id number] Routine Ultrasound 10/15/23 05:53 Completed Radiology Impressions Chest CT 10/14/23 16:53 IMPRESSION: 1. Mixed consolidation and centrilobular opacities in the left lower lobe. This could represent aspiration versus pneumonia with infectious bronchiolitis. Chest X-Ray 10/16/23 21:44 IMPRESSION: There are no acute concerning abnormalities. Echocardiogram: CONCLUSIONS Normal left ventricular size and systolic function, EF of 73%. No regional wall motion abnormalities. Normal cardiac chamber sizes. No gross valvular abnormalities. There is no pericardial effusion. There are no intracardiac masses. No similar previous studies are available for comparison Dr Nahomi Garcia MD [facility] (Electronically Signed) Final Date: 15 October 2023 Microbiology 10/14/23 20:02 Sputum - Expectorated Sputum Gram Stain - Final 10/14/23 20:02 Sputum - Expectorated Sputum Sputum Culture - Final 10/14/23 23:48 Urine Kidney Bacterial Antigens - Final 10/14/23 23:48 Unknown Source Legionella Urinary Antigen - Final Laboratory Results WBC 11.71 10^3/uL (3.29-11.43) H 10/17/23 05:48 RBC 3.17 10^6/uL (3.85-5.65) L 10/17/23 05:48 Hgb 9.30 g/dL (11.27-16.99) L 10/17/23 05:48 Hct 31.9 % (36-47) L 10/17/23 05:48 MCV 100.6 fl (85-98) H 10/17/23 05:48 MCH 29.3 pg (27-33) 10/17/23 05:48 MCHC 29.2 g/dL (30-55) L 10/17/23 05:48 RDW 14.9 % (12.1-15.1) 10/17/23 05:48 Plt Count 295 10^3/cmm (157-399) 10/17/23 05:48 MPV 9.7 fL (7.4-10.4) 10/17/23 05:48 Neut % (Auto) 77.9 % 10/17/23 05:48 Lymph % (Auto) 13.4 % 10/17/23 05:48 [place] % (Auto) 7.6 % 10/17/23 05:48 Eos % (Auto) 0.1 % 10/17/23 05:48 Baso % (Auto) 0.1 % 10/17/23 05:48 Neut # (Auto) 9.12 10^3/uL (1.8-7.7) H 10/17/23 05:48 Lymph # (Auto) 1.6 10^3/uL (0.8-4.8) 10/17/23 05:48 [place] # (Auto) 0.9 10^3/uL (0.2-0.9) 10/17/23 05:48 Eos # (Auto) 0.0 10^3/uL (0.0-0.8) 10/17/23 05:48 Baso # (Auto) 0.0 10^3/uL (0.0-0.1) 10/17/23 05:48 Nucleated RBC % (auto) 0.2 % 10/17/23 05:48 Nucleated RBCs # 0.0 /100WBC 10/17/23 05:48 Sodium 143 mmol/L (136-145) 10/17/23 05:48 Potassium 4.8 mmol/L (3.5-5.1) 10/17/23 05:48 Chloride 116 mmol/L (98-107) H 10/17/23 05:48 Carbon Dioxide 18 mmol/L (22-29) L 10/17/23 05:48 Anion Gap 13.8 (5-19) 10/17/23 05:48 BUN 52 mg/dL (8-23) H 10/17/23 05:48 Creatinine 1.2 mg/dL (0.5-0.9) H 10/17/23 05:48 GFR Calculation Not Reportable 10/17/23 05:48 Glucose 84 mg/dL (65-115) 10/17/23 05:48 Estimat Average Glucose 108 10/15/23 04:59 Hemoglobin A1c 5.4 % (4.0-6.0) 10/15/23 04:59 Calculated Osmolality 309 mOsm/kg (285-295) H 10/17/23 05:48 Lactic Acid 1.1 mmol/L (0.5-2.2) 10/14/23 17:21 Calcium 8.3 mg/dL (8.5-10.5) L 10/17/23 05:48 Phosphorus 3.5 mg/dL (2.5-4.5) 10/15/23 04:59 Magnesium 1.7 mg/dL (1.7-2.3) 10/16/23 15:28 Iron 115 ug/dL (37-145) 10/14/23 17:21 TIBC 210 mcg/dl 10/14/23 17:21 % Saturation 54.7 % (20-50) H 10/14/23 17:21 Unsat Iron Binding 95 ug/dL (112-347) L 10/14/23 17:21 Total Bilirubin 0.2 mg/dL (0.15-1.2) 10/17/23 05:48 AST 14 U/L (0-32) 10/17/23 05:48 ALT 11 U/L (0-33) 10/17/23 05:48 Alkaline Phosphatase 55 U/L (35-105) 10/17/23 05:48 C-Reactive Protein 33.1 mg/L (0.0-4.9) H 10/14/23 17:21 NT-Pro-B Natriuret Pep 2947 pg/mL (0-450) H 10/16/23 22:12 Total Protein 5.0 g/dL (6.6-8.7) L 10/17/23 05:48 Albumin 2.5 g/dL (3.5-5.2) L 10/17/23 05:48 Globulin 2.5 g/dL (1.3-4.6) 10/17/23 05:48 Triglycerides 52 mg/dL (0-150) 10/15/23 04:59 Cholesterol 119 mg/dL (0-200) 10/15/23 04:59 LDL Cholesterol, Calc 64 mg/dL (50-129) 10/15/23 04:59 HDL Cholesterol 45 mg/dL (60-100) L 10/15/23 04:59 LDL/HDL Ratio 1.42 RATIO (0.00-3.22) 10/15/23 04:59 Cholesterol/HDL Ratio 2.64 mg/dL (0.0-4.40) 10/15/23 04:59 Vitamin B12 382 pg/mL (232-1245) 10/14/23 17:21 Folate 7.8 ng/mL (4.8-37.3) 10/15/23 04:59 Procalcitonin 0.14 ng/mL (0-0.5) 10/15/23 04:59 TSH 1.56 uIU/mL (0.27-4.20) 10/14/23 17:21 Urine Color Yellow (Yellow) 10/14/23 23:38 Urine Appearance Clear (CLEAR) 10/14/23 23:38 Urine pH 5 (5-7) 10/14/23 23:38 Ur Specific [place] 1.020 (1.005-1.030) 10/14/23 23:38 Urine Protein Neg (Negative) 10/14/23 23:38 Urine Glucose (UA) Norm (Normal) 10/14/23 23:38 Urine Ketones 1+ (Negative) H 10/14/23 23:38 Urine Blood Neg (Negative) 10/14/23 23:38 Urine Nitrate Negative (Negative) 10/14/23 23:38 Urine Bilirubin Neg (Negative) 10/14/23 23:38 Urine Urobilinogen Neg mg/dL (Negative) 10/14/23 23:38 Ur Leukocyte Esterase Negative (Negative) 10/14/23 23:38 Influenza Type A Ag negative (Negative) 10/15/23 09:41 Influenza Type B Ag negative (Negative) 10/15/23 09:41 SARS-CoV-2 Ag (Rapid) negative (Negative) 10/15/23 07:10 MRSA (PCR) Not detected (NOT DETECTED) 10/15/23 07:10 Vitals Last Vital Signs Temp 97.5 F L 10/17/23 11:43 Pulse 73 10/17/23 11:43 Resp 18 10/17/23 11:43 BP 111/75 10/17/23 11:43 Pulse Ox 95 10/17/23 11:43 O2 Del Method Nasal Cannula 10/17/23 11:43 O2 Flow Rate 2 10/17/23 08:31 Discharge Plan Discharge Patient Disposition: Home Condition: Stable Prescriptions: New amoxicillin-pot clavulanate [Augmentin] 500-125 mg tablet 1 tab PO BID Qty: 10 0RF levofloxacin 500 mg tablet 500 mg PO Q48H 5 Days Qty: 3 0RF prednisone 10 mg tablet See Taper PO DIRECTED Qty: 42 0RF Taper: predniSONE 60-10 60 mg Daily for 2 Days and 0 Hour 50 mg Daily for 2 Days and 0 Hour 40 mg Daily for 2 Days and 0 Hour 30 mg Daily for 2 Days and 0 Hour 20 mg Daily for 2 Days and 0 Hour 10 mg Daily for 2 Days and 0 Hour Rx Instructions: Start 60 mg, taper 10 mg every 2-day until you run out of the medication Continued Noahtri Aerosphere 160-9-4.8 mcg/actuation HFA aerosol inhaler 2 inh inhalation BID Qty: 10.7 3RF guaifenesin [Tussin Chest Congestion] 100 mg/5 mL liquid 200 mg PO .Q12 PRN (Reason: cough) Qty: 473 3RF albuterol sulfate 1.25 mg/3 mL solution for nebulization 1.25 mg inhalation Q6H PRN (Reason: Shortness Of Breath) levothyroxine [Synthroid] 75 mcg tablet 37.5 mcg PO QAM hydrocodone-acetaminophen 7.5-325 mg tablet 1 tab PO QID PRN (Reason: Pain) albuterol sulfate [ProAir HFA] 90 mcg/actuation Hfa Aerosol Inhaler 1 - 2 puff INHALATION Q4H PRN (Reason: Shortness Of Breath) cholecalciferol (vitamin D3) [Vitamin D3] 25 mcg (1,000 unit) Capsule 25 mcg PO QAM Eliquis 5 mg Tablet 5 mg PO BID@0900,2100 Qty: 180 3RF atorvastatin 40 mg Tablet 40 mg PO BEDTIME Qty: 90 3RF clopidogrel 75 mg Tablet 75 mg PO DAILY Qty: 90 3RF fluticasone propionate 50 mcg/actuation spray,suspension 2 spray intranasal DAILY PRN (Reason: nasal congestion) Qty: 16 0RF Rx Instructions: administer into each nostril cetirizine [Zyrtec] 10 mg tablet 10 mg PO DAILY PRN (Reason: allergy symptoms) Qty: 20 0RF ondansetron 4 mg tablet,disintegrating 4 mg PO TID PRN (Reason: nausea and vomiting) Qty: 14 0RF trazodone 150 mg tablet 150 mg PO BEDTIME FeroSul 325 mg (65 mg iron) tablet 325 mg PO DAILY Trelegy Ellipta 200-62.5-25 mcg blister with device 1 inh INHALATION DAILY Held sacubitril-valsartan 49-51 mg tablet 1 tab PO BID Qty: 180 3RF Discontinued spironolactone 25 mg tablet 25 mg PO DAILY Qty: 90 3RF doxycycline hyclate 100 mg capsule 100 mg PO BID 10 Days Qty: 20 0RF Discharge Orders: Discharge Order (Routine); Ordered 10/17/23 Ordered By: Godwin Fisher Referrals: Zachery Orourke MD [Primary Care Provider] - 2 weeks (Please contact your primary care providers office at [phone] for a hospital stay follow-up appointment ) Discharge Diet: Cardiac Discharge Activity: Resume usual activity and Increase activity as tolerated Patient Instructions: Opioid Safety Activity Restrictions/Additional Instructions: Augmentin and Levaquin is the antibiotic patient is supposed to take for next 5 days. Take Augmentin twice daily and Levaquin every other day once daily. Take steroids taper as prescribed. For now do not take your home dose of Entresto. Check your blood pressure daily at home maintain a blood pressure diary for next 2 weeks and follow-up with a primary care provider before starting your antihypertensives. Your goal blood pressure is less than 140/90 mmHg. Do not take spironolactone as well. Continue your inhalation treatment as before. Discharge Attestations Time Spent in Discharge Care*: greater than 30 min Specific Discharge Activities: educating patient, educating and/or supporting family/caregiver, discussing with pcp/other providers, discussing with medical case worker/social workers/dc planners, documenting/other paperwork and evaluating patient/reviewing data Status at Discharge: Cognitive status at discharge: cognitively intact , Behavioral status at discharge: cooperative , Functional status at discharge: other assisted ambulation , Overall status at discharge: patient is back to baseline Quality Metrics Clinical Quality Measures [ No reported AMI, CVA or VTE this stay] Coding Level of Care Code 66328 Total time (in minutes) for Discharge: 60 Diagnoses VY (acute kidney injury) N17.9 Pneumonia J18.9 Laterality: right Lung location: middle lobe of lung Pneumonia type: due to unspecified organism Hypoxia R09.02 Dyspnea R06.00 Centrilobular emphysema J43.2 COPD type: emphysema Emphysema type: centrilobular Ischemic cardiomyopathy I25.5 LV (left ventricular) mural thrombus I51.3 Supplemental oxygen dependent Z99.81 Failure of outpatient treatment Z78.9 Hypernatremia E87.0
--- NOTE | 2023-10-17 15:13 | PC.NURSE ---
Discharge Note Patient discharged to home via private vehicle accompanied by family friend. 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 Mobile pharmacy medications and/or prescriptions provided. Belongings/home medications returned.
--- NOTE | 2023-10-17 20:07 | PC.NURSE ---
Patient contact Diane came to collect patient's Trazodone at this time. This nurse removed patient bottle of Trazodone from [address] [place] [address] and returned it to Diane. Diane verified that medication is correct and bottle is labeled with patient's name.
== END 2023-10-17 15:39 | disposition home or self-care (01) ==
LOC: ER 21:32 → MEDSURG 21:44
PROVIDERS: Student in an Organized Health Care Education/Training Program; Admitting Provider Student in an Organized Health Care Education/Training Program; Emergency Provider Emergency Medicine; PCP Family Medicine; Visit Provider Student in an Organized Health Care Education/Training Program
DX: J44.1 Chronic obstructive pulmonary disease with (acute) exacerbation (principal); N17.9 Acute kidney failure, unspecified; J18.9 Pneumonia, unspecified organism; R09.02 Hypoxemia; R06.00 Dyspnea, unspecified; J43.2 Centrilobular emphysema; I25.5 Ischemic cardiomyopathy; I51.3 Intracardiac thrombosis, not elsewhere classified; Z99.81 Dependence on supplemental oxygen; Z78.9 Other specified health status; E87.0 Hyperosmolality and hypernatremia; I25.10 Atherosclerotic heart disease of native coronary artery without angina pectoris; Z66 Do not resuscitate; Z85.3 Personal history of malignant neoplasm of breast; I25.2 Old myocardial infarction; E03.9 Hypothyroidism, unspecified; Z82.49 Family history of ischemic heart disease and other diseases of the circulatory system; Z87.891 Personal history of nicotine dependence
CPT/HCPCS: 36415; 71045; 71250; 80048; 80053; 80061; 81003; 82607; 82746; 83036; 83540; 83550; 83605; 83735; 83880; 84100; 84145; 84443; 85025; 86140; 86403; 87070; 87205; 87426; 87449; 87641; 87804; 93306; 94640; 96365; 96375; 99285; C9113; G0378; J0696; J2919; J3475; J7030; J7040; J7614; J7626; J7644; Q0144

== ENCOUNTER → 2024-01-19 12:46 | Outpatient (BNVA) | payer MEDICARE, SELFPAY | PROVIDERS: PCP Family Medicine; Visit Provider Internal Medicine Cardiovascular Disease | DX: R06.02 Shortness of breath (principal); Z79.01 Long term (current) use of anticoagulants | CPT/HCPCS: 36415; 80048; 83880; 85025; 99214 ==

== ENCOUNTER 2024-03-03 15:44 | Emergency (ER) | payer MEDICARE, SELFPAY ==
[2024-03-03] VITALS (7 sets, daily range): BP systolic 98–122; BP diastolic 50–60; PULSE 59–125; RESP 16–21; TEMP 36.7; O2SAT 90–98
--- NOTE | 2024-03-03 15:55 | ECG_ITS ---
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 Measurements Intervals [place] Rate: 67 P: 53 SD: 123 QRS: 48 QRSD: 81 T: 64 QT: 379 QTc: 401 Interpretive Statements SINUS RHYTHM LOW QRS VOLTAGE IN PRECORDIAL LEADS POSSIBLE RIGHT VENTRICULAR CONDUCTION DELAY Compared to ECG 10/06/2023 15:10:47 No significant changes Electronically Signed On 03-04-2024 13:43:42 CDT by Janiya Haque M.D. [email or web address]
--- NOTE | 2024-03-03 16:40 | XRR_ITS ---
PROCEDURE INFORMATION: Exam: XR Chest Exam date and time: 03/03/2024 5:12 PM Age: 78 years old Clinical indication: Cough TECHNIQUE: Imaging protocol: Radiologic exam of the chest. Views: 1 view. COMPARISON: CR XR chest 1V portable [id number] 10/16/2023 9:51 PM FINDINGS: Lungs: There is bibasilar atelectasis but I see no lung mass or infiltrate. Pleural spaces: Small bilateral pleural effusions are noted. Heart/Mediastinum: Unremarkable. No cardiomegaly. Bones/joints: Unremarkable. XR/XR chest 1V portable [id number] IMPRESSION: Small bilateral pleural effusions with bilateral atelectasis
[2024-03-03 17:14] LABS: Basophils % 0.3 %; Eosinophils # 0.2 10^3/uL (0.0-0.8); Eosinophils % 1.9 %; Hematocrit 33.5 % (36-47); Lymphocytes # 1.8 10^3/uL (0.8-4.8); Lymphocytes % 14.8 %; Mean Corpuscular Hemoglobin 29.6 pg (27-33); Mean Corpuscular Volume 95.4 fl (85-98); Mean Platelet Volume 9.6 fL (7.4-10.4); Monocytes % 8.8 %; Neutrophils # 8.74 10^3/uL (1.8-7.7); Neutrophils % 73.9 %; Nucleated Red Blood Cells % 0 %; Platelet Count 321 10^3/cmm (157-399); Red Blood Count 3.51 10^6/uL (3.85-5.65); White Blood Count 11.81 10^3/uL (3.29-11.43)
[2024-03-03 17:38] LABS: Troponin(5th) Baseline 99 ng/L (0-10)
[2024-03-03 17:45] LABS: Anion Gap 12.7 (5-19); Blood Urea Nitrogen 44 mg/dL (8-23); Calcium 8.6 mg/dL (8.5-10.5); Carbon Dioxide 27 mmol/L (22-29); Chloride 106 mmol/L (98-107); Creatinine Clr Calc Pharmacy 21.6142; Glucose 99 mg/dL (65-115); NT Pro B Type Natriuretic Pept 465 pg/mL (0-450); Osmolality Calculated 303 mOsm/kg (285-295); Potassium 4.7 mmol/L (3.5-5.1); Sodium 141 mmol/L (136-145)
--- NOTE | 2024-03-03 18:24 | ECG_ITS ---
[facility]: 2024-[facility]03 Pat Name: Colette Lopez Department: Room: Gender: Female Rn Postpartum: : 1945 Requested By: Fernando Hernandez Order Number: [id number] Miguel MD: Janiya Haque M.D. Measurements Intervals [place] Rate: 60 P: 54 AR: 125 QRS: 37 QRSD: 80 T: 55 QT: 412 QTc: 414 Interpretive Statements SINUS RHYTHM LOW QRS VOLTAGE IN PRECORDIAL LEADS Compared to ECG 03/03/2024 15:55:24 No significant changes Electronically Signed On 03-04-2024 13:48:59 CDT by Janiya Haque M.D. [email or web address]
[2024-03-03 18:27] LABS: Covid PCR NEGATIVE (Negative); Influenza A NEGATIVE (Negative); Influenza B NEGATIVE (Negative); Respiratory Syncytial Virus Ce NEGATIVE (Negative)
[2024-03-03 19:14] LABS: Troponin 5 2HR 87.28 ng/L (0-10)
[2024-03-03 19:15] LABS: Troponin 5 2HR Delta -11.72 ABS# (0-10)
--- NOTE | 2024-03-03 20:57 | W.ED.CHESTPA ---
HPI - Chest Pain General: Chief Complaint: Chest Pain Stated Complaint: stiff neck and side pain, SOB Time Seen by Provider: 03/03/24 16:03 History of Present Illness: This patient is a 78-year-old white female who presents to the ER complaining of neck pain which she describes as more of a stiff sensation in the anterior neck. She has also been short of breath and has had a mild nonproductive cough. She has had some generalized weakness. Some achiness in her shoulders and some occasional left sided sharp chest pain. She has not had a fever. She does have a history of COPD, coronary artery disease and hypertension. Associated symptoms: Reports dyspnea Related Data Home Medications Medication Instructions Recorded Confirmed albuterol sulfate 1.25 mg/3 mL 1.25 mg inhalation Q6H PRN 01/17/20 10/15/23 solution for nebulization Shortness Of Breath hydrocodone 7.5 mg-acetaminophen 1 tab PO QID PRN Pain 01/17/20 10/15/23 325 mg tablet levothyroxine 75 mcg tablet 37.5 mcg PO QAM 01/17/20 10/15/23 (Synthroid) albuterol sulfate 90 mcg/actuation 1 - 2 puff inhalation Q4H PRN 05/25/20 10/15/23 aerosol inhaler (ProAir HFA) Shortness Of Breath cholecalciferol (vitamin D3) 25 25 mcg PO QAM 03/10/22 10/15/23 mcg (1,000 unit) capsule (Vitamin D3) ferrous sulfate 325 mg (65 mg 325 mg PO DAILY 10/15/23 10/15/23 iron) tablet (FeroSul) fluticasone fur. 200 mcg-umeclid 1 inh inhalation DAILY 10/15/23 10/15/23 62.5 mcg-vilant 25 mcg inhalat.powder (Trelegy Ellipta) trazodone 150 mg tablet 150 mg PO BEDTIME 10/15/23 10/15/23 Previous Rx's Medication Instructions Recorded apixaban 5 mg tablet (Eliquis) 5 mg PO BID@0900,2100 #180 tabs 03/11/22 atorvastatin 40 mg tablet 40 mg PO BEDTIME #90 tabs 03/11/22 clopidogrel 75 mg tablet 75 mg PO DAILY #90 tabs 03/11/22 budesonide 160 mcg-glycopyr 9 2 inh inhalation BID #10.7 grams 04/06/23 mcg-formot 4.8 mcg/actuation HFA inhaler (Breztri Aerosphere) sacubitril 49 mg-valsartan 51 mg 1 tab PO BID #180 tabs 08/02/23 tablet guaifenesin 100 mg/5 mL oral 200 mg (10 mL) PO .Q12 PRN cough 09/17/23 liquid (Tussin Chest Congestion) #473 mL cetirizine 10 mg tablet (Zyrtec) 10 mg PO DAILY PRN allergy 09/18/23 symptoms #20 tabs fluticasone propionate 50 2 spray intranasal DAILY PRN nasal 09/18/23 mcg/actuation nasal congestion #16 grams spray,suspension ondansetron 4 mg disintegrating 4 mg PO TID PRN nausea and 10/06/23 tablet vomiting #14 tabs amoxicillin 500 mg-potassium 1 tab PO BID #10 tabs 10/17/23 clavulanate 125 mg tablet (Augmentin) baclofen 5 mg tablet 5 mg PO TID PRN muscle spasm #30 03/03/24 tabs doxycycline hyclate 100 mg capsule 100 mg PO BID 10 days #20 caps 03/03/24 Allergies Allergy/AdvReac Type Severity Reaction Status Date / Time ibuprofen Allergy ALGY-Rash Verified 01/19/24 11:00 naproxen [From Aleve] Allergy ALGY-Rash Verified 01/19/24 11:00 Review of Systems General: Reports: 10 or more systems reviewed and unremarkable except in HPI and below Card: Reports: chest pain Resp: Reports: dyspnea and non-productive cough Musc: Reports: neck pain PFSH ED PFSH: Medical History COPD (chronic obstructive pulmonary disease) Elevated troponin level Community acquired pneumonia LV (left ventricular) mural thrombus Ischemic cardiomyopathy Stage 2 acute kidney injury Supplemental oxygen dependent HTN (hypertension) Depression Breast cancer Non-ST elevation [place] (NSTEMI) Hyperlipidemia Chronic back pain Hypothyroidism COPD (chronic obstructive pulmonary disease) Surgical History Hx of hysterectomy, total Hx of hernia repair H/O lumpectomy Family History Brother CAD (coronary artery disease) Cancer Chronic kidney disease (CKD) Denies family history of Clotting disorder Dementia Suicide Anesthesia complication Bleeding disorder Lung disease Stroke Social History Smoking and tobacco/nicotine status: former use of tobacco/nicotine Alcohol intake: never Substance/Drug Use: never Marital status: / Marital status details: She lost her 6 months ago Physical Exam Const: COMMON NORMALS: no acute distress, patient oriented x3 and no limitations GENERAL APPEARANCE: cooperative and comfortable HENMT: COMMON NORMALS: normocephalic, atraumatic, Normal nasal mucous membranes and turbinates present, moist oral mucous membranes and oropharynx normal HEAD & SCALP: normal to inspection, normocephalic and atraumatic FACE & SINUS: normal facial exam NOSE: Normal nasal mucous membranes and turbinates present Eye: COMMON NORMALS: Equal, round and reactive pupils present, EOMs intact bilaterally and conjunctivae normal GENERAL EYE: appearance normal, both eyes and all related structures CONJUNCTIVA: Yes conjunctivae normal PUPIL: Yes Equal, round and reactive pupils present Neck/C-Spine: COMMON NORMALS: supple and no JVD Chest: COMMONS NORMALS: normal inspection of the chest Resp: COMMON NORMALS: normal respiratory effort and clear to auscultation bilaterally AUSCULTATION: clear to auscultation bilaterally Cardio: COMMON NORMALS: no JVD, regular rate, regular rhythm, No gallops present (Cardio), No murmurs present (Cardio) and No rub (Cardio) RATE: regular rate RHYTHM: regular rhythm GI: COMMON NORMALS: Normal to inspection, nondistended, normoactive bowel sounds present, Soft to palpation and non-tender AUSCULTATION: Yes normoactive bowel sounds PALPATION: Yes Soft to palpation : COMMON NORMALS: Yes no CVA tenderness BLADDER/KIDNEY EXAM: Yes no CVA tenderness Back/Pelvis: COMMON NORMALS: no CVA tenderness and thoracic and lumbar spine normal to inspection Extremity: COMMON NORMALS: normal to inspection Neuro: COMMON NORMALS: patient oriented x3 and CN's II-XII intact bilaterally Psych: COMMON NORMALS: mental status grossly normal, Normal thought process present and cooperative THOUGHT PROCESS: Normal thought process present Skin: COMMON NORMALS: no rashes or lesions noted, turgor normal and no jaundice GENERAL SKIN EXAM: no rashes or lesions noted and turgor normal Course Vital Signs: Vital signs: Vital Signs Temperature 98.1 F 03/03/24 15:50 Pulse Rate 65 03/03/24 19:33 Respiratory Rate 18 03/03/24 19:33 Blood Pressure 122/59 03/03/24 19:33 Pulse Oximetry 97 03/03/24 19:33 Oxygen Delivery Me thod Nasal Cannula 03/03/24 19:33 Oxygen Flow Rate 3 03/03/24 19:33 MDM - Chest Pain Medical Decision Making EKG revealed normal sinus rhythm with no ST segment abnormalities. Chest x-ray reveals some small bilateral pleural effusions with bilateral atelectasis. CBC revealed a white blood cell count of 11.8. Hemoglobin 10.4. Patient has chronic anemia. Her BMP revealed a BUN of 44 and a creatinine of 1.6 which is also chronic. Her baseline troponin was 99 with a 2-hour level of 87. BNP was 465. She has a chronically elevated BNP as well. COVID, influenza and RSV were negative. I will treat the patient for bronchitis with doxycycline and I will treat her neck pain with baclofen. She was given her first doses in the emergency department. Recommended she follow-up with her primary care provider next week for recheck. She was discharged in stable condition. Lab Data 03/03/24 16:54 03/03/24 16:54 Radiology Impressions Chest X-Ray 03/03/24 16:40 IMPRESSION: Small bilateral pleural effusions with bilateral atelectasis Laboratory Results WBC 11.81 10^3/uL (3.29-11.43) H 03/03/24 16:54 RBC 3.51 10^6/uL (3.85-5.65) L 03/03/24 16:54 Hgb 10.40 g/dL (11.27-16.99) L 03/03/24 16:54 Hct 33.5 % (36-47) L 03/03/24 16:54 MCV 95.4 fl (85-98) 03/03/24 16:54 MCH 29.6 pg (27-33) 03/03/24 16:54 MCHC 31.0 g/dL (30-55) 03/03/24 16:54 RDW 17.0 % (12.1-15.1) H 03/03/24 16:54 Plt Count 321 10^3/cmm (157-399) 03/03/24 16:54 MPV 9.6 fL (7.4-10.4) 03/03/24 16:54 Neut % (Auto) 73.9 % 03/03/24 16:54 Lymph % (Auto) 14.8 % 03/03/24 16:54 [place] % (Auto) 8.8 % 03/03/24 16:54 Eos % (Auto) 1.9 % 03/03/24 16:54 Baso % (Auto) 0.3 % 03/03/24 16:54 Neut # (Auto) 8.74 10^3/uL (1.8-7.7) H 03/03/24 16:54 Lymph # (Auto) 1.8 10^3/uL (0.8-4.8) 03/03/24 16:54 [place] # (Auto) 1.0 10^3/uL (0.2-0.9) H 03/03/24 16:54 Eos # (Auto) 0.2 10^3/uL (0.0-0.8) 03/03/24 16:54 Baso # (Auto) 0.0 10^3/uL (0.0-0.1) 03/03/24 16:54 Nucleated RBC % (auto) 0 % 03/03/24 16:54 Nucleated RBCs # 0.0 /100WBC 03/03/24 16:54 Sodium 141 mmol/L (136-145) 03/03/24 16:54 Potassium 4.7 mmol/L (3.5-5.1) 03/03/24 16:54 Chloride 106 mmol/L (98-107) 03/03/24 16:54 Carbon Dioxide 27 mmol/L (22-29) 03/03/24 16:54 Anion Gap 12.7 (5-19) 03/03/24 16:54 BUN 44 mg/dL (8-23) H 03/03/24 16:54 Creatinine 1.6 mg/dL (0.5-0.9) H 03/03/24 16:54 GFR Calculation Not Reportable 03/03/24 16:54 Glucose 99 mg/dL (65-115) 03/03/24 16:54 Calculated Osmolality 303 mOsm/kg (285-295) H 03/03/24 16:54 Calcium 8.6 mg/dL (8.5-10.5) 03/03/24 16:54 Troponin T Baseline 99 ng/L (0-10) H 03/03/24 16:54 Troponin T 120 Minute 87.28 ng/L (0-10) H 03/03/24 18:43 Delta Troponin T -11.72 ABS# (0-10) L 03/03/24 18:43 NT-Pro-B Natriuret Pep 465 pg/mL (0-450) H 03/03/24 16:54 Coronavirus (PCR) Negative (Negative) 03/03/24 17:37 Influenza A (PCR) Negative (Negative) 03/03/24 17:37 Influenza Type B (PCR) Negative (Negative) 03/03/24 17:37 RSV (PCR) Negative (Negative) 03/03/24 17:37 All radiology interpretation(s) finalized by discharge Discharge Plan Discharge Patient Disposition: Home Clinical Impression: Bronchitis, Acute neck pain Condition: Stable Prescriptions: New baclofen 5 mg tablet 5 mg PO TID PRN (Reason: muscle spasm) Qty: 30 0RF doxycycline hyclate 100 mg capsule 100 mg PO BID 10 Days Qty: 20 0RF No Action Breztri Aerosphere 160-9-4.8 mcg/actuation HFA aerosol inhaler 2 inh inhalation BID Qty: 10.7 3RF guaifenesin [Tussin Chest Congestion] 100 mg/5 mL liquid 200 mg PO .Q12 PRN (Reason: cough) Qty: 473 3RF sacubitril-valsartan 49-51 mg tablet 1 tab PO BID Qty: 180 3RF albuterol sulfate 1.25 mg/3 mL solution for nebulization 1.25 mg inhalation Q6H PRN (Reason: Shortness Of Breath) levothyroxine [Synthroid] 75 mcg tablet 37.5 mcg PO QAM hydrocodone-acetaminophen 7.5-325 mg tablet 1 tab PO QID PRN (Reason: Pain) albuterol sulfate [ProAir HFA] 90 mcg/actuation Hfa Aerosol Inhaler 1 - 2 puff INHALATION Q4H PRN (Reason: Shortness Of Breath) cholecalciferol (vitamin D3) [Vitamin D3] 25 mcg (1,000 unit) Capsule 25 mcg PO QAM Eliquis 5 mg Tablet 5 mg PO BID@0900,2100 Qty: 180 3RF atorvastatin 40 mg Tablet 40 mg PO BEDTIME Qty: 90 3RF clopidogrel 75 mg Tablet 75 mg PO DAILY Qty: 90 3RF fluticasone propionate 50 mcg/actuation spray,suspension 2 spray intranasal DAILY PRN (Reason: nasal congestion) Qty: 16 0RF Rx Instructions: administer into each nostril cetirizine [Zyrtec] 10 mg tablet 10 mg PO DAILY PRN (Reason: allergy symptoms) Qty: 20 0RF ondansetron 4 mg tablet,disintegrating 4 mg PO TID PRN (Reason: nausea and vomiting) Qty: 14 0RF trazodone 150 mg tablet 150 mg PO BEDTIME FeroSul 325 mg (65 mg iron) tablet 325 mg PO DAILY Trelegy Ellipta 200-62.5-25 mcg blister with device 1 inh INHALATION DAILY Augmentin 500-125 mg tablet 1 tab PO BID Qty: 10 0RF Discharge Orders: Discharge ED (Routine); Ordered 03/03/24 Ordered By: Fernando Hernandez Referrals: Zachery Orourke MD [Primary Care Provider] - Patient Instructions: Acute Bronchitis (ED), Acute Neck Pain (ED) Activity Restrictions/Additional Instructions: Follow-up with your primary care provider next week for recheck. Coding Level of Care Code ED Chief Catalyst Operator for Mari Zambrano
[2024-03-03] MEDS: doxycycline 100 mg Tablet PO (21:13)
[2024-03-03] MEDS: baclofen 10 mg Tablet 5 MG PO (21:14)
== END 2024-03-03 21:19 | disposition home or self-care (01) ==
PROVIDERS: Emergency Provider Emergency Medicine; PCP Family Medicine
DX: J40 Bronchitis, not specified as acute or chronic (principal); M54.2 Cervicalgia; Z79.01 Long term (current) use of anticoagulants; Z79.02 Long term (current) use of antithrombotics/antiplatelets; Z11.52 Encounter for screening for COVID-19; Z87.891 Personal history of nicotine dependence; J44.9 Chronic obstructive pulmonary disease, unspecified; I10 Essential (primary) hypertension
CPT/HCPCS: 0241U; 36415; 71045; 80048; 83880; 84484; 85025; 93005; 99285

== ENCOUNTER 2024-04-01 07:53 | Inpatient (IN) | payer MEDICARE, SELFPAY ==
[2024-04-01] VITALS (103 sets, daily range): BP systolic 74–140; BP diastolic 43–83; PULSE 71–123; RESP 15–48; TEMP 36.6–37.9; O2SAT 72–100; BMI 17.2
--- NOTE | 2024-04-01 07:58 | XRR_ITS ---
PROCEDURE INFORMATION: Exam: XR Chest Exam date and time: 04/01/2024 8:45 AM Age: 79 years old Clinical indication: Cough and dyspnea; Additional info: Dyspnea/cough TECHNIQUE: Imaging protocol: Radiologic exam of the chest. Views: 1 view. COMPARISON: CR (CHEST, ) 03/03/2024 5:12 PM FINDINGS: Lungs: Bilateral pleural effusions with bibasilar pulmonary infiltrates suggest congestive heart failure. Pulmonary vascularity is only minimally prominent, probably hidden by the COPD present. Pleural spaces: See Lungs finding. Heart/Mediastinum: See Vasculature finding. Vasculature: Mild cardiomegaly and uncoiling of the thoracic aorta. Bones/joints: Unremarkable. XR/XR chest 1V portable [id number] IMPRESSION: Bibasilar infiltrates plus effusions likely due to CHF.
--- NOTE | 2024-04-01 08:07 | ED_ITS ---
HPI - SOB/Dyspnea 2 General: Chief Complaint: Shortness of Breath/Dyspnea Stated Complaint: FALL/WEAKNESS Time Seen by Provider: 04/01/24 07:57 History of Present Illness: HPI Narrative: 79-year-old female presents emergency ro om via EMS with complaints of a fall at home. She got up to go to the bathroom this morning noticed she was much more short of breath than usual and route to the bathroom she got weak and she fell down she is complaining a little bit of bruising to her right arm she denies striking her head there was no loss of consciousness. She is chronically on oxygen at 2 to 3 L/min on arrival here she was on a nonrebreather at 15 L/min. She was changed back to a nasal cannula noted to be somewhat hypoxic she is tachycardic and hypotensive as well. She is tachypneic with a respiratory rate approaching 50. She sounds very congested. She denies any pain in her hips neck back arms denies headache. No recent abdominal pain or chest pain. She does have a productive cough. Associated symptoms: Reports chest congestion; Deny abdominal pain, chest pain or fever(s) Related Data Home Medications Medication Instructions Recorded Confirmed albuterol sulfate 1.25 mg/3 mL 1.25 mg inhalation Q6H PRN 01/17/20 04/01/24 solution for nebulization Shortness Of Breath hydrocodone 7.5 mg-acetaminophen 1 tab PO QID PRN Pain 01/17/20 04/01/24 325 mg tablet levothyroxine 75 mcg tablet 37.5 mcg PO QAM 01/17/20 04/01/24 (Synthroid) cholecalciferol (vitamin D3) 25 25 mcg PO QAM 03/10/22 04/01/24 mcg (1,000 unit) capsule (Vitamin D3) ferrous sulfate 325 mg (65 mg 325 mg PO DAILY 10/15/23 04/01/24 iron) tablet (FeroSul) fluticasone fur. 200 mcg-umeclid 1 inh inhalation DAILY 10/15/23 04/01/24 62.5 mcg-vilant 25 mcg inhalat.powder (Trelegy Ellipta) trazodone 150 mg tablet 150 mg PO BEDTIME sleep 10/15/23 04/01/24 Previous Rx's Medication Instructions Recorded apixaban 5 mg tablet (Eliquis) 5 mg PO BID@0900,2100 #180 tabs 03/11/22 atorvastatin 40 mg tablet 40 mg PO BEDTIME #90 tabs 03/11/22 clopidogrel 75 mg tablet 75 mg PO DAILY #90 tabs 03/11/22 sacubitril 49 mg-valsartan 51 mg 1 tab PO BID #180 tabs 08/02/23 tablet cetirizine 10 mg tablet (Zyrtec) 10 mg PO DAILY PRN allergy 09/18/23 symptoms #20 tabs fluticasone propionate 50 2 spray intranasal DAILY PRN nasal 09/18/23 mcg/actuation nasal congestion #16 grams spray,suspension ondansetron 4 mg disintegrating 4 mg PO TID PRN nausea and 10/06/23 tablet vomiting #14 tabs baclofen 5 mg tablet 5 mg PO TID PRN muscle spasm #30 03/03/24 tabs Allergies Allergy/AdvReac Type Severity Reaction Status Date / Time ibuprofen Allergy ALGY-Rash Verified 01/19/24 11:00 naproxen [From Aleve] Allergy ALGY-Rash Verified 01/19/24 11:00 Review of Systems 2 Const: Denies: fever(s) or chills Card: Denies: chest pain Resp: Reports: dyspnea, productive cough, wheezing, change in phlegm color and chest congestion GI: Denies: abdominal pain : Denies: dysuria, urinary frequency or urinary urgency Musc: Denies: neck pain or back pain Skin/Breast: Reports: other (Easy bruising); Denies: rash PFSH ED 2 PFSH: Medical History (Updated 04/01/24 @ 15:32 by Renan Ochoa DO) Elevated troponin level COPD (chronic obstructive pulmonary disease) Community acquired pneumonia LV (left ventricular) mural thrombus Ischemic cardiomyopathy Supplemental oxygen dependent HTN (hypertension) Depression Breast cancer Non-ST elevation ID (NSTEMI) Hyperlipidemia Chronic back pain Hypothyroidism COPD (chronic obstructive pulmonary disease) Surgical History Hx of hysterectomy, total Hx of hernia repair H/O lumpectomy Family History Brother CAD (coronary artery disease) Cancer Chronic kidney disease (CKD) Denies family history of Clotting disorder Dementia Suicide Anesthesia complication Bleeding disorder Lung disease Stroke Social History Smoking and tobacco/nicotine status: former use of tobacco/nicotine Alcohol intake: never Substance/Drug Use: never Marital status: / Marital status details: She lost her 6 months ago Physical Exam 2 Const: GENERAL APPEARANCE: cooperative ORIENTATION/CONSCIOUSNESS: Yes awake, Yes oriented to person, Yes oriented to place and Yes oriented to time HENMT: COMMON NORMALS: normocephalic, atraumatic and hearing grossly normal bilaterally HEAD & SCALP: normocephalic and atraumatic Resp: COMMON NORMALS: normal respiratory effort, No retractions, No use of accessory muscles and clear to auscultation bilaterally AUSCULTATION: clear to auscultation bilaterally Cardio: COMMON NORMALS: regular rhythm and No murmurs present (Cardio) R ATE: tachycardic RHYTHM: regular rhythm GI: COMMON NORMALS: Soft to palpation and No hepatosplenomegaly present A USCULTATION: Yes normoactive bowel sounds PALPATION: Yes Soft to palpation, No Tenderness to palpation present (GI), No Guarding due to palpation present (GI) and Yes No hepatosplenomegaly present Extremity: COMMON NORMALS: normal to inspection, capillary refill normal, no clubbing, cyanosis or edema, no calf tenderness and no pedal edema Neuro: SENSORIUM/ORIENTATION: Yes oriented to person, Yes oriented to place and Yes oriented to time Skin: COMMON NORMALS: no rashes or lesions noted GENERAL SKIN EXAM: no rashes or lesions noted Course 2 Vital Signs: Vital signs: Vital Signs Temperature 99.6 F 04/01/24 07:54 Pulse Rate 90 04/01/24 15:04 Respiratory Rate 32 H 04/01/24 15:00 Blood Pressure 107/63 04/01/24 15:00 Pulse Oximetry 92 04/01/24 15:04 Oxygen Delivery Me thod BiPAP 04/01/24 14:55 Fraction of Inspir ed Oxygen 70 04/01/24 15:04 MDM - SOB/Dyspnea Medical Decision Making Patient presents in acute respiratory distress after a fall. First troponin elevated at 135 delta troponin positive as well she was heparinized. She is expressed she does not wish to be intubated does not wish to have any ACLS protocols/resuscitative efforts applied. She is willing to undergo heart cardiac catheterization if needed. Will cover her for pneumonia as well discussed with the hospitalist. Cultures have been done. Orders written. We did initially start of sepsis bolus however because of her elevated BNP and appearance of congestive heart failure chest x-ray held off the remainder the bolus pending results of her echocardiogram. Patient has been started on Levophed as well discussed with hospitalist they initiated antibiotics. Echocardiogram pending discussed with the hospitalist we held off on the balance of the sepsis bolus due to her heart failure pending the echo. Medical Records I reviewed the patient's medical records. Lab Data I reviewed the patient's lab results. 04/01/24 08:24 04/01/24 08:24 Labs/Radiology: Radiology Impressions Chest X-Ray 04/01/24 07:58 IMPRESSION: Bibasilar infiltrates plus effusions likely due to CHF. Cervical Spine CT 04/01/24 08:09 IMPRESSION: No acute findings. Head CT 04/01/24 08:09 IMPRESSION: No acute intracranial abnormality. Chest CT 04/01/24 10:43 IMPRESSION: 1. Bilateral lower lobe pneumonia with bilateral pleural effusions. 2. Acute to subacute appearing mild compression fracture of the T12 superior endplate with prevertebral soft tissue edema and/or hematoma. 3. There is a small amount of free fluid in the upper abdomen. Laboratory Results WBC 5.38 10^3/uL (3.29-11.43) 04/01/24 08:24 RBC 3.20 10^6/uL (3.85-5.65) L 04/01/24 08:24 Hgb 9.60 g/dL (11.27-16.99) L 04/01/24 08:24 Hct 31.6 % (36-47) L 04/01/24 08:24 MCV 98.8 fl (85-98) H 04/01/24 08:24 MCH 30.0 pg (27-33) 04/01/24 08:24 MCHC 30.4 g/dL (30-55) 04/01/24 08:24 RDW 16.5 % (12.1-15.1) H 04/01/24 08:24 Plt Count 251 10^3/cmm (157-399) 04/01/24 08:24 MPV 10.1 fL (7.4-10.4) 04/01/24 08:24 Neut % (Auto) 88.1 % 04/01/24 08:24 Lymph % (Auto) 8.7 % 04/01/24 08:24 [place] % (Auto) 2.0 % 04/01/24 08:24 Eos % (Auto) 0.6 % 04/01/24 08:24 Baso % (Auto) 0.2 % 04/01/24 08:24 Neut # (Auto) 4.74 10^3/uL (1.8-7.7) 04/01/24 08:24 Lymph # (Auto) 0.5 10^3/uL (0.8-4.8) L 04/01/24 08:24 [place] # (Auto) 0.1 10^3/uL (0.2-0.9) L 04/01/24 08:24 Eos # (Auto) 0.0 10^3/uL (0.0-0.8) 04/01/24 08:24 Baso # (Auto) 0.0 10^3/uL (0.0-0.1) 04/01/24 08:24 Nucleated RBC % (auto) 0 % 04/01/24 08: Nucleated RBCs # 0.0 /100WBC 04/01/24 08:24 D-Dimer >= 20.00 ug/mLFEU (0-0.59) H 04/01/24 08:24 Specimen Type Arterial 04/01/24 08:13 Sample Site Radial, right 04/01/24 08:13 ABG pH 7.36 (7.35-7.45) 04/01/24 08:13 ABG pCO2 39.0 mmHg (35-45) 04/01/24 08:13 ABG pO2 35.1 mmHg (80.0-100.0) L* 04/01/24 08:13 ABG HCO3 22.2 mmol/L (22-26) 04/01/24 08:13 ABG O2 Saturation 66.1 04/01/24 08:13 ABG Base Excess -2.9 mmol/L (-2.0-2.0) L 04/01/24 08:13 Erick Test Pos 04/01/24 08:13 A-a O2 Gradient 8.9 mmHg (5-10) 04/01/24 08:13 Hematocrit 29.5 % (37-47) L 04/01/24 08:13 Hgb O2 Saturation 64.9 % (95-100) L 04/01/24 08:13 Carboxyhemoglobin 1.3 %THgb (0.4-20.1) 04/01/24 08:13 Methemoglobin 0.4 % (0.4-1.5) 04/01/24 08:13 Total Hemoglobin 9.6 g/dL (12-16) L 04/01/24 08:13 Sodium 142.0 mmol/L (131-143) 04/01/24 08:13 Potassium 3.7 mmol/L (3.5-5.0) 04/01/24 08:13 Glucose 127.0 mg/dL (70-115) H 04/01/24 08:13 Ionized Calcium 1.2 mmol/L (1.1-1.4) 04/01/24 08:13 O2 Delivery Device Nc 04/01/24 08:13 O2 Liters/Min 3.0 % 04/01/24 08:13 Lime Mixer Tender ID [place] 04/01/24 08:13 Sodium 139 mmol/L (136-145) 04/01/24 08:24 Potassium 3.9 mmol/L (3.5-5.1) 04/01/24 08:24 Chloride 103 mmol/L (98-107) 04/01/24 08:24 Carbon Dioxide 21 mmol/L (22-29) L 04/01/24 08:24 Anion Gap 18.9 (5-19) 04/01/24 08:24 BUN 44 mg/dL (8-23) H 04/01/24 08:24 Creatinine 2.0 mg/dL (0.5-0.9) H 04/01/24 08:24 GFR Calculation Not Reportable 04/01/24 08:24 Glucose 124 mg/dL (65-115) H 04/01/24 08:24 Calculated Osmolality 301 mOsm/kg (285-295) H 04/01/24 08:24 Lactic Acid 3.2 mmol/L (0.5-2.2) H 04/01/24 08:24 Calcium 8.7 mg/dL (8.5-10.5) 11/30/24 08:24 Total Bilirubin 0.5 mg/dL (0.15-1.2) 04/01/24 08:24 AST 18 U/L (0-32) 04/01/24 08:24 ALT 16 U/L (0-33) 04/01/24 08:24 Alkaline Phosphatase 59 U/L (35-105) 04/01/24 08:24 Creatine Kinase 73 U/L (26-192) 04/01/24 08:24 Troponin T Baseline 137 ng/L (0-10) H* 04/01/24 08:24 NT-Pro-B Natriuret Pep 1246 pg/mL (0-450) H 04/01/24 08:24 Total Protein 6.3 g/dL (6.6-8.7) L 04/01/24 08:24 Albumin 3.3 g/dL (3.5-5.2) L 04/01/24 08:24 Globulin 3.0 g/dL (1.3-4.6) 04/01/24 08:24 Procalcitonin 1.33 ng/mL (0-0.5) H 04/01/24 08:24 All radiology interpretation(s) finalized by discharge Critical Care Time 2 Critical Care Time: Critical Care Time: Yes Total Critical Care Time: 40 Attestation: The high probability of a clinically significant, sudden or life threatening deterioration of the patient's cardiovascular respiratory renal system(s) required my full and direct attention, intervention and personal management. The critical care time is as shown. This time is in addition to time spent performing any reported procedures but includes the following: [x] Data and vital sign review and interpretation [x] Patient assessment, examination and intervention [x] Documentation [x] Medication orders and management Discharge Plan Discharge Patient Disposition: Admitted As Inpatient Admit Provider: Godwin Fisher Clinical Impression: Acute on chronic hypoxic respiratory failure, Elevated troponin level, Pneumonia, COPD (chronic obstructive pulmonary disease), Acute kidney injury superimposed on CKD, Septic shock Condition: Stable Coding Level of Care Code ED Spreader Operator Automatic for Mari Zambrano
--- NOTE | 2024-04-01 08:09 | CTR_ITS ---
PROCEDURE INFORMATION: Exam: CT Cervical Spine Without Contrast Exam date and time: 04/01/2024 8:55 AM Age: 79 years old Clinical indication: Injury or trauma; Fall; Blunt trauma TECHNIQUE: Imaging protocol: Computed tomography of the cervical spine without contrast. Radiation optimization: All CT scans at this facility use at least one of these dose optimization techniques: automated exposure control; mA and/or kV adjustment per patient size (includes targeted exams where dose is matched to clinical indication); or iterative reconstruction. COMPARISON: CT head wo con* [id number] 04/01/2024 8:55 AM RADIATION DOSE METRICS: Total DLP (mGy-cm): 957.9 FINDINGS: Bones: No acute fracture. Normal alignment. No significant disc bulge or herniation. No severe spinal canal stenosis. No significant neural foraminal narrowing. Lungs: Lung apices are normal. Soft tissues: Unremarkable. CT/CT cervical spin wo con* [id number] IMPRESSION: No acute findings.
--- NOTE | 2024-04-01 08:09 | CTR_ITS ---
PROCEDURE INFORMATION: Exam: CT Head Without Contrast Exam date and time: 04/01/2024 8:55 AM Age: 79 years old Clinical indication: Injury or trauma; Fall; Blunt trauma (contusions or hematomas) TECHNIQUE: Imaging protocol: Computed tomography of the head without contrast. Radiation optimization: All CT scans at this facility use at least one of these dose optimization techniques: automated exposure control; mA and/or kV adjustment per patient size (includes targeted exams where dose is matched to clinical indication); or iterative reconstruction. COMPARISON: CT cervical spin wo con* [id number] 04/01/2024 8:55 AM RADIATION DOSE METRICS: Total DLP (mGy-cm): 1140.1 FINDINGS: Brain: Normal. No hemorrhage. Unremarkable white matter. No mass effect. Cerebral ventricles: No ventriculomegaly. Paranasal sinuses: Visualized sinuses are unremarkable. No fluid levels. Mastoid air cells: Visualized mastoid air cells are well aerated. Bones: Unremarkable. No acute fracture. Soft tissues: Unremarkable. CT/CT head wo con* [id number] IMPRESSION: No acute intracranial abnormality.
[2024-04-01 08:25] LABS: Alveolar-Arterial Oxygen Gradi 8.9 mmHg (5-10); Arterial Blood Gas Hematocrit 29.5 % (37-47); Base Excess ABG -2.9 mmol/L (-2.0-2.0); Blood Gas Allen Test Pos; Blood Gas Sample Type Arterial; Carboxyhemoglobin 1.3 %THgb (0.4-20.1); HCO3 ABG 22.2 mmol/L (22-26); HGB O2 Sat 64.9 % (95-100); Ionized Calcium Level - ABG 1.2 mmol/L (1.1-1.4); Methemoglobin 0.4 % (0.4-1.5); Oxygen Saturation ABG 66.1; PO2 ABG 35.1 mmHg (80.0-100.0); Potassium Level - ABG 3.7 mmol/L (3.5-5.0); Total Hemoglobin 9.6 g/dL (12-16)
[2024-04-01 08:28] LABS: Blood Gas Operator Identificat WALCI; Blood Gas Sample Site Radial, right; Oxygen Device NC
[2024-04-01] MEDS: sodium chloride 0.9% 1,000 ML 999 ML IV (08:30)
[2024-04-01 08:35] LABS: Basophils % 0.2 %; Eosinophils % 0.6 %; Hematocrit 31.6 % (36-47); Lymphocytes # 0.5 10^3/uL (0.8-4.8); Lymphocytes % 8.7 %; Mean Corpuscular HGB Conc 30.4 g/dL (30-55); Mean Corpuscular Volume 98.8 fl (85-98); Mean Platelet Volume 10.1 fL (7.4-10.4); Monocytes # 0.1 10^3/uL (0.2-0.9); Neutrophils # 4.74 10^3/uL (1.8-7.7); Neutrophils % 88.1 %; Nucleated Red Blood Cells % 0 %; Platelet Count 251 10^3/cmm (157-399); Red Cell Distribution Width 16.5 % (12.1-15.1); White Blood Count 5.38 10^3/uL (3.29-11.43)
[2024-04-01 08:55] LABS: Alanine Aminotransferase 16 U/L (0-33); Albumin Level 3.3 g/dL (3.5-5.2); Alkaline Phosphatase 59 U/L (35-105); Anion Gap 18.9 (5-19); Aspartate Amino Transferase 18 U/L (0-32); Blood Urea Nitrogen 44 mg/dL (8-23); Calcium 8.7 mg/dL (8.5-10.5); Carbon Dioxide 21 mmol/L (22-29); Chloride 103 mmol/L (98-107); Creatine Phosphokinase 73 U/L (26-192); Creatinine Clr Calc Pharmacy 16.6866; Glucose 124 mg/dL (65-115); Osmolality Calculated 301 mOsm/kg (285-295); Potassium 3.9 mmol/L (3.5-5.1); Sodium 139 mmol/L (136-145); Total Bilirubin 0.5 mg/dL (0.15-1.2); Total Protein 6.3 g/dL (6.6-8.7)
[2024-04-01 08:56] LABS: Lactic Sepsis W/Reflex 3.2 mmol/L (0.5-2.2)
[2024-04-01 09:11] LABS: Troponin(5th) Baseline 137 ng/L (0-10)
--- NOTE | 2024-04-01 09:20 | USCV_ITS ---
Colette Lopez Age: 79 Gender: F : 1945 Exam Date: 04/01/2024 13:44 Ordering Phys: Renan Ochoa DO Technologist: Jose Cao Exam Location[place] [facility] [place] Indication: new onset chf BP: 83 / 57 HR: 83 Rhythm: Sinus Technical Quality: Adequate MEASUREMENTS (Male / Female) Normal Values 2D ECHO LV Diastolic Diameter PLAX 3.3 cm 4.2 - 5.9 / 3.9 - 5.3 cm IVS Diastolic Thickness 0.9 cm 0.6 - 1.0 / 0.6 - 0.9 cm IVS Systolic Thickness 1.3 cm LVPW Diastolic Thickness 1.5 cm 0.6 - 1.0 / 0.6 - 0.9 cm LVPW Systolic Thickness 1.4 cm LVOT Diameter 2.0 cm LV Ejection Fraction 2D Teich 71.9 % LV Ejection Fraction MOD 4C 81.2 % LV Ejection Fraction MOD 2C 73.1 % LV Ejection Fraction 2C AL 72.8 % LA Diameter 3.0 cm RA Systolic Volume 4C AL 18.4 ml RA Systolic Volume 4C MOD 19.0 ml Aorta at Sinotubular Diameter 1.5 cm IVC Diameter 1.6 cm M-MODE LA Ao Ratio MM 1.6 AV Cusp Separation MM 1.5 cm DOPPLER AV Peak Velocity 129.0 cm/s LVOT Peak Velocity 135.0 cm/s AV Area Cont Eq vti 2.8 cm squared AV Area Cont Eq pk 3.4 cm squared MV Peak Velocity 104.0 cm/s MV Area PHT 5.0 cm squared Mitral E to A Ratio 0.7 TV Peak Velocity 358.0 cm/s TR Peak Velocity 377.0 cm/s TR Peak Gradient 56.9 mmHg TR Mean Velocity 301.0 cm/s TR Mean Gradient 40.2 mmHg TR Velocity Time Integral 83.1 cm PV Peak Velocity 114.0 cm/s RV Ejection Time 0.3 s FINDINGS Left Ventricle Left ventricle is normal in size. LV systolic function is normal with EF of 60 to 65%. No regional wall motion abnormalities are seen. Grade 1 diastolic dysfunction Right Ventricle Normal in size and function Right Atrium Normal in size Left Atrium Normal in size Mitral Valve Structurally normal mitral valve. Trace mitral regurgitation. Aortic Valve Structurally normal aortic valve. No significant stenosis or regurgitation Tricuspid Valve Mild tricuspid regurgitation. RVSP is 55 to 60 mmHg. This is consistent with moderate pulmonary hypertension Pulmonic Valve Not well visualized Pericardium Trace pericardial effusion Aorta Normal in size IVC Appears to be normal CONCLUSIONS LV systolic function is nromal with EF of 60-65% Grade 1 diastolic dysfunction Trace mitral regurgitation Mild tricuspid regurgitation Moderate pulmonary hypertension Trace pericardial effusion Jorge Michaels MD (Electronically Signed) Final Date: 02 April 2024 08:49 S
[2024-04-01 09:23] LABS: NT Pro B Type Natriuretic Pept 1246 pg/mL (0-450); Procalcitonin 1.33 ng/mL (0-0.5)
--- NOTE | 2024-04-01 09:29 | ECG_ITS ---
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 Measurements Intervals [place] Rate: 92 P: 0 MS: 0 QRS: 56 QRSD: 79 T: 89 QT: 268 QTc: 332 Interpretive Statements SINUS RHYTHM POSSIBLE RIGHT VENTRICULAR CONDUCTION DELAY [RSR (QR) IN V1/V2] NONSPECIFIC T-WAVE ABNORMALITY Compared to ECG 03/03/2024 18:24:44 Supraventricular rhythm now present T-wave abnormality now present Sinus rhythm no longer present Electronically Signed On 04-01-2024 10:22:30 COAL MINER by Jorge Michaels M.D. [id number]
--- NOTE | 2024-04-01 09:43 | ECG_ITS ---
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 Measurements Intervals [place] Rate: 91 P: 95 MD: 122 QRS: 131 QRSD: 77 T: 110 QT: 298 QTc: 368 Interpretive Statements SINUS RHYTHM RIGHT AXIS DEVIATION [QRS AXIS > 100] POSSIBLE RIGHT VENTRICULAR CONDUCTION DELAY [RSR (QR) IN V1/V2] NONSPECIFIC T-WAVE ABNORMALITY Compared to ECG 04/01/2024 09:29:45 Right-axis deviation now present Supraventricular rhythm no longer present T-wave abnormality still present Electronically Signed On 04-02-2024 19:07:40 SOLE DYER by Jorge Michaels M.D. [id number]
[2024-04-01] MEDS: piperacillin-tazobactam 3.375 GM in sodium chloride 0.9% (plus) 50 ML IV (09:44)
[2024-04-01] MEDS: SODIUM CHLORIDE 0.9% 75 ML IV (09:51)
[2024-04-01] MEDS: heparin 5,000 unit/mL INJ 1 mL IVP (09:57)
[2024-04-01] MEDS: heparin drip 25,000 UNIT/500 ML PREMIX 12 UNIT IV (10:04)
[2024-04-01 10:19] LABS: Reflex Lactate Order REFLEX LACTIC ORDERD
[2024-04-01] MEDS: norepinephrine 4 MG/250 ML BAG 30 MG IV ×2 (10:21→17:42)
[2024-04-01 10:42] LABS: Lactic Acid level (Lactate) 1.6 mmol/L (0.5-2.2)
--- NOTE | 2024-04-01 10:43 | CTR_ITS ---
PROCEDURE INFORMATION: Exam: CT Chest Without Contrast; Diagnostic Exam date and time: 04/01/2024 12:05 PM Age: 79 years old Clinical indication: Shortness of breath; Patient HX: SOB; Copd; Pneumonia; Bipap dependant TECHNIQUE: Imaging protocol: Diagnostic computed tomography of the chest without contrast. Radiation optimization: All CT scans at this facility use at least one of these dose optimization techniques: automated exposure control; mA and/or kV adjustment per patient size (includes targeted exams where dose is matched to clinical indication); or iterative reconstruction. COMPARISON: CT chest [facility] [id number] 10/14/2023 6:22 PM RADIATION DOSE METRICS: Total DLP (mGy-cm): 270.29 FINDINGS: Lungs: There is consolidation of the left lower lobe and posterior aspect of the right lower lobe consistent with pneumonia. Pleural spaces: Bilateral pleural effusions. Heart: Unremarkable. No cardiomegaly. No pericardial effusion. Coronary arteries: Multivessel atherosclerotic disease which involves the coronary arteries. Lymph nodes: Unremarkable. No enlarged lymph nodes. Vasculature: Unremarkable. No aortic aneurysm. Intraperitoneal space: There is a small amount of free intraperitoneal fluid in the upper abdomen. Bones/joints: Acute to subacute appearing mild compression fracture of the T12 superior endplate with prevertebral soft tissue edema and/or hematoma. This was not seen on the prior CT scan. There is motion artifact through the sternum precluding optimal evaluation. Soft tissues: See Bones/joints finding. CT/CT chest [facility] [id number] IMPRESSION: 1. Bilateral lower lobe pneumonia with bilateral pleural effusions. 2. Acute to subacute appearing mild compression fracture of the T12 superior endplate with prevertebral soft tissue edema and/or hematoma. 3. There is a small amount of free fluid in the upper abdomen.
[2024-04-01 11:09] LABS: D Dimer >= 20.00 ug/mLFEU (0-0.59)
--- NOTE | 2024-04-01 11:36 | PM.CONSULT ---
Providers/Reason For Consult Consulting Physician/Specialty*: Jorge Michaels MD/ Cardiology Reason for Consult*: Troponin elevation/ shortness of breath Requesting Physician: Dr Ochoa Attending Physician: Godwin Fisher MD Primary Care Provider: Zachery Orourke MD History of Present Illness History of Present Illness Colette Lopez is a 79 year old female with past medical history of chronic kidney disease, hypertension, hyperlipidemia, coronary artery disease who presented to hospital with shortness of breath and a fall. Cardiology was consulted as there is concern for volume overload and troponins are elevated. Initial troponin was 135 however has not trended up significantly at 6 hours. Patient denies chest pain. She is tachypneic. Chest x-ray is consistent with possible pneumonia. EKG shows normal sinus rhythm with non specific ST T wave changes. Review of Systems Const: Denies: fever(s) or chills Card: Denies: chest pain Resp: Reports: dyspnea, productive cough, wheezing, change in phlegm color and chest congestion GI: Denies: abdominal pain : Denies: dysuria, urinary frequency or urinary urgency Musc: Denies: neck pain or back pain Skin/Breast: Reports: other (Easy bruising); Denies: rash Medications/Allergies Home Medications Medication Instructions Recorded Confirmed Last Taken Type albuterol sulfate 1.25 mg/3 mL 1.25 mg inhalation Q6H PRN 01/17/20 04/01/24 03/31/24 History solution for nebulization Shortness Of Breath hydrocodone 7.5 mg-acetaminophen 1 tab PO QID PRN Pain 01/17/20 04/01/24 03/31/24 History 325 mg tablet levothyroxine 75 mcg tablet 37.5 mcg PO QAM 01/17/20 04/01/24 03/31/24 History (Synthroid) cholecalciferol (vitamin D3) 25 25 mcg PO QAM 03/10/22 04/01/24 10/14/23 History mcg (1,000 unit) capsule (Vitamin D3) apixaban 5 mg tablet (Eliquis) 5 mg PO BID@0900,2100 #180 tabs 03/11/22 04/01/24 03/31/24 Rx atorvastatin 40 mg tablet 40 mg PO BEDTIME #90 tabs 03/11/22 04/01/24 03/31/24 Rx clopidogrel 75 mg tablet 75 mg PO DAILY #90 tabs 03/11/22 04/01/24 03/31/24 Rx sacubitril 49 mg-valsartan 51 mg 1 tab PO BID #180 tabs 08/02/23 04/01/24 03/31/24 Rx tablet cetirizine 10 mg tablet (Zyrtec) 10 mg PO DAILY PRN allergy 09/18/23 04/01/24 Unknown Rx symptoms #20 tabs fluticasone propionate 50 2 spray intranasal DAILY PRN nasal 09/18/23 04/01/24 Unknown Rx mcg/actuation nasal congestion #16 grams spray,suspension ondansetron 4 mg disintegrating 4 mg PO TID PRN nausea and 10/06/23 04/01/24 Unknown Rx tablet vomiting #14 tabs ferrous sulfate 325 mg (65 mg 325 mg PO DAILY 10/15/23 04/01/24 10/14/23 History iron) tablet (FeroSul) fluticasone fur. 200 mcg-umeclid 1 inh inhalation DAILY 10/15/23 04/01/24 10/14/23 History 62.5 mcg-vilant 25 mcg inhalat.powder (Trelegy Ellipta) trazodone 150 mg tablet 150 mg PO BEDTIME sleep 10/15/23 04/01/24 03/31/24 History baclofen 5 mg tablet 5 mg PO TID PRN muscle spasm #30 03/03/24 04/01/24 Unknown Rx tabs Allergies Allergy/AdvReac Type Severity Reaction Status Date / Time ibuprofen Allergy ALGY-Rash Verified 01/19/24 11:00 naproxen [From Aleve] Allergy ALGY-Rash Verified 01/19/24 11:00 Current Medications Generic Name Dose Route Start Last Admin Trade Name Freq PRN Reason Stop Dose Admin Norepinephrine Bitartrate 4 mg in 250 mls @ 0 mls/hr 04/01/24 09:30 04/01/24 10:21 Levophed IV 8 mcg/min .Q0M RACHNA 30 mls/hr Administration Protocol Per Protocol Heparin Sodium/Sodium Chloride 25,000 unit in 500 mls @ 0 mls/hr 04/01/24 09:30 04/01/24 10:04 Heparin Drip IV 14.07 unit/kg/hr CONT RACHNA 12 mls/hr Administration Protocol Per Protocol [facility] Acute PFSH: Medical History (Updated 04/03/24 @ 13:33 by Therese Rutherford NP) Elevated troponin level COPD (chronic obstructive pulmonary disease) Community acquired pneumonia LV (left ventricular) mural thrombus Ischemic cardiomyopathy Supplemental oxygen dependent HTN (hypertension) Depression Breast cancer Non-ST elevation MS (NSTEMI) Hyperlipidemia Chronic back pain Hypothyroidism COPD (chronic obstructive pulmonary disease) Surgical History Hx of hysterectomy, total Hx of hernia repair H/O lumpectomy Family History Brother CAD (coronary artery disease) Cancer Chronic kidney disease (CKD) Denies family history of Clotting disorder Dementia Suicide Anesthesia complication Bleeding disorder Lung disease Stroke Social History Smoking and tobacco/nicotine status: former use of tobacco/nicotine Alcohol intake: never Substance/Drug Use: never Marital status: / Marital status details: She lost her 6 months ago Vitals/I&O/Wt Last Vital Signs Temp 99.6 F 04/01/24 07:54 Pulse 89 04/01/24 09:15 Resp 36 H 04/01/24 09:15 BP 78/47 04/01/24 09:15 Pulse Ox 94 04/01/24 08:50 FiO2 75 04/01/24 08:35 03/31/24 04/01/24 04/01/24 22:59 06:59 14:59 Intake Total 1050 / 1050 Balance 1050 / 1050 Weight last 48 hrs Weight 94 lb Physical Exam Narrative: GENERAL: Patient is alert, awake and oriented x3. [] NECK: No jugular vein distension. [] HEENT: No cyanosis. No icterus. No pallor. [] HEART: Regular S1 and S2. No murmur, rub or gallop. [] LUNGS: Has diminished air entry. Tachypnic CENTRAL NERVOUS SYSTEM: Grossly nonfocal. [] EXTREMITIES: Lower extremities with 1+ edema bilaterally. Data 04/05/24 03:23 04/05/24 03:23 Micro: Microbiology 04/01/24 08:20 Blood Culture - Preliminary Blood SPECIMEN COLLECTED 04/01/24 08:24 Blood Culture - Preliminary Blood SPECIMEN COLLECTED A&P Assessment and plan (1) Atherosclerosis of coronary artery of [place] heart without angina pectoris: Qualifiers: Coronary Disease-Associated Artery/Lesion type: [place] artery Qualified Code(s): I25.10 - Atherosclerotic heart disease of [place] coronary artery without angina pectoris (2) Elevated troponin level: (3) Pneumonia: Qualifiers: Laterality: right Lung location: middle lobe of lung Pneumonia type: due to unspecified organism Qualified Code(s): J18.9 - Pneumonia, unspecified organism (4) Dyspnea: Plan Patient has presented with shortness of breath and fall. X-ray findings, presentation more consistent with pneumonia. Procalcitonin is also elevated. Antibiotic therapy per primary team. Troponin elevation is secondary to demand ischemia. At this time she is chest pain-free. Will obtain echocardiogram. If EF is normal, no further cardiac workup at this time. If develops chest pain or once patient stabilizes, can plan on stress test. No urgency to it, Thank you for involving us with care of this patient. Please call with questions. Consult Attestations Medical Necessity Statement: Care expected to cross 2 midnights. Coding Level of Care Code Acute Code for [facility] Fwd Diagnoses Atherosclerosis of [place] coronary artery of [place] heart without angina pectoris I25.10 Coronary Disease-Associated Artery/Lesion type: [place] artery Elevated troponin level R77.8 Pneumonia J18.9 Laterality: right Lung location: middle lobe of lung Pneumonia type: due to unspecified organism Dyspnea R06.00
[2024-04-01 12:32] LABS: ABG PCO2 38.2 mmHg (35-45); ABG PH Result 7.37 (7.35-7.45); Arterial Blood Gas Hematocrit 32.7 % (37-47); Blood Gas Allen Test Pos; Blood Gas Operator Identificat GD; Blood Gas Sample Site Radial, right; Blood Gas Sample Type Arterial; HGB O2 Sat 87.8 % (95-100); Ionized Calcium Level - ABG 1.1 mmol/L (1.1-1.4); Methemoglobin 1.1 % (0.4-1.5); Oxygen Saturation ABG 89.8; PO2 ABG 56.6 mmHg (80.0-100.0); Potassium Level - ABG 3.6 mmol/L (3.5-5.0); Total Hemoglobin 10.7 g/dL (12-16)
[2024-04-01 12:33] LABS: Alveolar-Arterial Oxygen Gradi 51.6 mmHg (5-10); PO2 FiO2 Ratio Arterial Blood 80
[2024-04-01 12:39] LABS: Troponin 5 2HR 152.6 ng/L (0-10); Troponin 5 2HR Delta 15.6 ABS# (0-10)
[2024-04-01] MEDS: methylPREDNISolone sod succ 40 mg/mL INJ IVP ×3 (13:34→22:31)
[2024-04-01] MEDS: azithromycin 250 mg Tablet 500 MG PO (13:34)
[2024-04-01] MEDS: meropenem 1,000 mg SDV 1000 MG IVP (13:34)
[2024-04-01] MEDS: vancomycin 1,250 MG/250 ML PIGGYBACK 166.67 MG IV (13:35)
[2024-04-01] MEDS: water for injection-sterile 10 ML 1000 ML (13:53)
--- NOTE | 2024-04-01 14:13 | ECG_ITS ---
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 Measurements Intervals [place] Rate: 100 P: 29 RI: 100 QRS: 50 QRSD: 78 T: 48 QT: 339 QTc: 439 Interpretive Statements SINUS TACHYCARDIA WITH SHORT RI INTERVAL LOW QRS VOLTAGE IN PRECORDIAL LEADS [QRS DEFLECTION < 1.0 mV IN CHEST LEADS] POSSIBLE RIGHT VENTRICULAR CONDUCTION DELAY [RSR (QR) IN V1/V2] Compared to ECG 04/01/2024 09:43:12 Short RI interval now present Low QRS voltage now present Sinus rhythm no longer present Right-axis deviation no longer present T-wave abnormality no longer present Electronically Signed On 04-02-2024 19:03:32 GEOPHYSICAL MANAGER by Jorge Michaels M.D. [id number]
--- NOTE | 2024-04-01 14:52 | P.HP_ITS ---
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 Patient was not able to get out of the floor subsequent to the fall hence EMS was called. In the ER patient was found to be hypotensive, hypoxic with high respiratory effort hence was placed on BiPAP and Levophed. On examination when seen in ICU patient is awake and alert on BiPAP. States she has been having some difficulty in breathing along with weakness for last 4 to 5 days with no real increase in cough but does complain of runny nose. She has been having some nausea overnight. Though she denies of having any chest pain, dyspnea on exertion more than usual, fever, dysuria, diarrhea, bleeding from anywhere recently. She is constantly on 3 L of oxygen supplementation. Review of Systems 2 General: Reports: 10 or more systems reviewed and unremarkable except in HPI and below Const: Denies: fever(s), chills, body aches, change in appetite, change in weight, malaise, night sweats, diaphoresis, change in sleep pattern, daytime sleepiness or snoring Eyes: Denies: change in vision, blurry vision, photophobia, eye discomfort or eye discharge ENMT: Denies: throat pain, enlarged tonsils, hoarseness, mouth pain, oral sores, dry mouth, tinnitus, nasal congestion or post nasal drip Card: Denies: chest pain, palpitations, irregular heart rhythm, edema, swelling of feet/ankles, lightheadedness, syncope, pre-syncope, dyspnea on exertion, orthopnea, leg pain with exertion or acrocyanosis Resp: Denies: dyspnea, productive cough, non-productive cough, wheezing, stridor, pain on inspiration, change in phlegm color, hemoptysis or chest congestion GI: Denies: abdominal pain, nausea, vomiting, hematemesis, coffee ground emesis, dysphagia, heartburn, diarrhea, constipation, bloating, GI cramping, change in bowel habits, pain on defecation, hematochezia or melena : Denies: flank pain, dysuria, urinary frequency, urinary urgency, urinary hesitancy, nocturia or hematuria Musc: Denies: neck pain, back pain, extremity pain, joint pain, joint swelling, joint redness, joint stiffness or limited range of motion Neuro: Denies: headache(s), numbness in extremities, weakness in extremities, sensory changes, lack of coordination, difficulty walking, frequent falls, dizziness, vertigo, confusion, Slurred speech present, difficulty communicating thoughts or seizure-like activity Psych: Denies: anxiety, depression, mood swings, panic attacks, hopelessness or irritability Endo: Denies: polyuria, polydipsia, tired all the time, cold intolerance, excessive sweating, flushing or heat intolerance Abhishek/Lymph: Denies: easy bruising or easy bleeding All/Imm: Denies: tongue swelling, facial swelling or acute wheezing Medications/Allergies Home Medications Medication Instructions Recorded Confirmed Last Taken Type albuterol sulfate 1.25 mg/3 mL 1.25 mg inhalation Q6H PRN 01/17/20 04/01/24 03/31/24 History solution for nebulization Shortness Of Breath hydrocodone 7.5 mg-acetaminophen 1 tab PO QID PRN Pain 01/17/20 04/01/24 03/31/24 History 325 mg tablet levothyroxine 75 mcg tablet 37.5 mcg PO QAM 01/17/20 04/01/24 03/31/24 History (Synthroid) cholecalciferol (vitamin D3) 25 25 mcg PO QAM 03/10/22 04/01/24 10/14/23 History mcg (1,000 unit) capsule (Vitamin D3) apixaban 5 mg tablet (Eliquis) 5 mg PO BID@0900,2100 #180 tabs 03/11/22 04/01/24 03/31/24 Rx atorvastatin 40 mg tablet 40 mg PO BEDTIME #90 tabs 03/11/22 04/01/24 03/31/24 Rx clopidogrel 75 mg tablet 75 mg PO DAILY #90 tabs 03/11/22 04/01/24 03/31/24 Rx sacubitril 49 mg-valsartan 51 mg 1 tab PO BID #180 tabs 08/02/23 04/01/24 03/31/24 Rx tablet cetirizine 10 mg tablet (Zyrtec) 10 mg PO DAILY PRN allergy 09/18/23 04/01/24 Unknown Rx symptoms #20 tabs fluticasone propionate 50 2 spray intranasal DAILY PRN nasal 09/18/23 04/01/24 Unknown Rx mcg/actuation nasal congestion #16 grams spray,suspension ondansetron 4 mg disintegrating 4 mg PO TID PRN nausea and 10/06/23 04/01/24 Unknown Rx tablet vomiting #14 tabs ferrous sulfate 325 mg (65 mg 325 mg PO DAILY 10/15/23 04/01/24 10/14/23 History iron) tablet (FeroSul) fluticasone fur. 200 mcg-umeclid 1 inh inhalation DAILY 10/15/23 04/01/24 10/14/23 History 62.5 mcg-vilant 25 mcg inhalat.powder (Trelegy Ellipta) trazodone 150 mg tablet 150 mg PO BEDTIME sleep 10/15/23 04/01/24 03/31/24 History baclofen 5 mg tablet 5 mg PO TID PRN muscle spasm #30 03/03/24 04/01/24 Unknown Rx tabs Allergies Allergy/AdvReac Type Severity Reaction Status Date / Time ibuprofen Allergy ALGY-Rash Verified 01/19/24 11:00 naproxen [From Aleve] Allergy ALGY-Rash Verified 01/19/24 11:00 PFSH Acute 2 PFSH: Medical History (Updated 04/01/24 @ 15:08 by Godwin Fisher MD) Elevated troponin level COPD (chronic obstructive pulmonary disease) Community acquired pneumonia LV (left ventricular) mural thrombus Ischemic cardiomyopathy Supplemental oxygen dependent HTN (hypertension) Depression Breast cancer Non-ST elevation HI (NSTEMI) Hyperlipidemia Chronic back pain Hypothyroidism COPD (chronic obstructive pulmonary disease) Surgical History Hx of hysterectomy, total Hx of hernia repair H/O lumpectomy Family History Brother CAD (coronary artery disease) Cancer Chronic kidney disease (CKD) Denies family history of Clotting disorder Dementia Suicide Anesthesia complication Bleeding disorder Lung disease Stroke Social History Smoking and tobacco/nicotine status: former use of tobacco/nicotine Alcohol intake: never Substance/Drug Use: never Marital status: / Marital status details: She lost her 6 months ago Vitals/I&O/Wt Last Vital Signs Temp 99.6 F 04/01/24 07:54 Pulse 92 04/01/24 14:00 Resp 25 H 04/01/24 12:00 BP 105/53 04/01/24 12:05 Pulse Ox 92 04/01/24 12:40 O2 Del Method Mechanical Ventilation 04/01/24 12:30 FiO2 70 04/01/24 12:40 03/31/24 04/01/24 04/01/24 22:59 06:59 14:59 Intake Total 1060 / 1060 Balance 1060 / 1060 Weight last 48 hrs Weight 42.638 kg Weight 42.638 kg Physical Exam 2 Narrative: General: No acute distress, AO x3, thin built on BiPAP HEENT: PERRLA, pupils bilaterally equal and reactive Chest: Bilateral bronchial breath sounds with occasional rhonchi, coarse crackles bilaterally in lower zone CVS: S1-S2 regular, no murmurs, no tachycardia, no gallops, no rubs Abdomen: Soft, nontender, no organomegaly, bowel sounds present Neuro: No focal deficits, no facial deformity, AO x3, power not assessed Quick SOFA Score: Respiratory Rate: 32 Blood Pressure: 107/63 Glade Coma Scale: 15 qSOFA Score: 1 If qSOFA score 2 or greater, continue: PaO2/FiO2 Ratio (mmHg): 80 Blood Pressure Mean: 77 Norepinephrine Current Rate (?g/kg/min): 8 Bilirubin (mg/dl): 0.5 Platelets (x10?/ml): 251 Creatinine (mg/dl): 2.0 SOFA Score: 10 Evaluation: Current stage of sepsis: septic shock Initial hypotension: MAP < 65 mmHg Persistent hypotension: MAP < 65 mmHg Sepsis stage criteria used: [facility] Sep-1 and Sepsis-3 Crystalloid fluids: 30 mL/kg crystalloid fluids ordered and initiated within 3 hours Blood cultures ordered: Yes Possible source: pulmonary Focused Exam: Vital signs: Temp Pulse Resp BP Pulse Ox O2 Del Method FiO2 04/01/24 15:04 90 92 70 04/01/24 15:00 93 32 H 107/63 93 04/01/24 14:55 90 37 H 92 BiPAP 70 04/01/24 14:48 80 04/01/24 14:45 103 H 36 H 93/54 95 04/01/24 14:30 90 33 H 104/64 93 04/01/24 14:15 93 15 123/68 96 04/01/24 14:00 93 18 115/68 96 04/01/24 14:00 92 04/01/24 13:45 91 35 H 83/57 93 04/01/24 13:30 85 29 H 92/54 95 04/01/24 13:15 86 33 H 100/61 93 04/01/24 13:00 92 33 H 106/56 89 L 04/01/24 12:45 98 36 H 113/74 89 L 04/01/24 12:40 92 92 70 04/01/24 12:30 90 41 H 121/64 91 04/01/24 12:30 Mechanical Ventila tion 04/01/24 12:30 88 04/01/24 12:15 105/53 04/01/24 12:05 105/53 04/01/24 12:00 105/53 04/01/24 12:00 86 25 H 105/53 91 04/01/24 11:55 88 25 H 105/53 92 04/01/24 11:50 87 36 H 105/53 94 04/01/24 11:45 88 34 H 105/53 94 04/01/24 11:40 90 29 H 107/45 95 04/01/24 11:35 88 35 H 107/45 94 04/01/24 11:30 88 34 H 107/45 96 04/01/24 11:25 87 38 H 99/54 93 04/01/24 11:20 91 30 H 99/54 92 04/01/24 11:15 87 29 H 99/54 94 04/01/24 11:10 86 38 H 92 04/01/24 11:05 88 39 H 92 04/01/24 11:00 89 32 H 90 04/01/24 10:55 84 38 H 93/53 90 04/01/24 10:50 84 40 H 93/53 90 04/01/24 10:45 84 31 H 93/53 90 04/01/24 10:40 82 37 H 111/58 92 04/01/24 10:35 84 37 H 111/58 88 L 04/01/24 10:30 83 34 H 111/58 91 04/01/24 10:25 82 37 H 97/51 90 04/01/24 10:20 91 38 H 89 L 04/01/24 10:15 91 37 H 91 04/01/24 10:10 93 37 H 90/45 89 L 04/01/24 10:05 95 38 H 90/45 87 L 04/01/24 10:00 84 36 H 90/45 04/01/24 09:55 89 38 H 90/45 04/01/24 09:50 93 38 H 90/45 89 L 04/01/24 09:45 94 33 H 90/45 88 L 04/01/24 09:40 96 37 H 87/52 89 L 04/01/24 09:35 99 30 H 87/52 89 L 04/01/24 09:30 92 23 H 87/52 91 04/01/24 09:25 88 28 H 78/47 04/01/24 09:20 88 42 H 78/47 04/01/24 09:15 89 36 H 78/47 04/01/24 09:10 94 37 H 04/01/24 09:05 95 44 H 04/01/24 09:01 98 34 H 04/01/24 08:55 74/52 04/01/24 08:50 74/52 94 04/01/24 08:45 102 H 30 H 95 04/01/24 08:40 93 43 H 77/45 94 04/01/24 08:35 94 40 H 77/45 92 04/01/24 08:35 96 93 75 04/01/24 08:30 102 H 42 H 77/45 90 04/01/24 08:25 109 H 42 H 83 L 04/01/24 08:20 110 H 48 H 82 L 04/01/24 08:17 118 H 45 H 72 L 04/01/24 07:54 99.6 F 123 H 40 H 81/47 Date exam was performed: 04/01/24 Time exam was performed: 15:08 2 Sepsis Screen No Definite Risk 04/01/24 12:05 Respiratory Rate 32 breaths/min H (12 - 18) 04/01/24 15:00 Blood Pressure 107/63 mmHg 11/30/24 15:00 Evy Coma Scale Score 15 04/01/24 12:30 Quick SOFA Score 0 04/01/24 12:05 SOFA Score: 2 ABG PO2/FiO2 Ratio 80 04/01/24 12:16 Glade Coma Scale Score 15 04/01/24 12:30 Blood Pressure Mean 77 mmHg 04/01/24 15:00 Total Bilirubin 0.5 mg/dL (0.15-1.2) 04/01/24 08:24 Platelet Count 251 10^3/cmm (157-399) 04/01/24 08:24 Creatinine 2.0 mg/dL (0.5-0.9) H 04/01/24 08:24 Data 04/01/24 08:24 04/01/24 08:24 Micro: Microbiology 04/01/24 08:20 Blood Culture - Preliminary Blood SPECIMEN COLLECTED 04/01/24 08:24 Blood Culture - Preliminary Blood SPECIMEN COLLECTED A&P Assessment and plan (1) Shock: (2) Acute on chronic hypoxic respiratory failure: (3) Pneumonia: Qualifiers: Laterality: right Lung location: middle lobe of lung Pneumonia type: d ue to unspecified organism Qualified Code(s): J18.9 - Pneumonia, unspecified organism (4) COPD (chronic obstructive pulmonary disease): Qualifiers: COPD type: emphysema Emphysema type: centrilobular Qualified Code(s): J43.2 - Centrilobular emphysema (5) Elevated d-dimer: (6) Acute kidney injury superimposed on CKD: (7) Atherosclerosis of coronary artery of [place] heart without angina pectoris: Qualifiers: Coronary Disease-Associated Artery/Lesion type: [place] artery Qualified Code(s): I25.10 - Atherosclerotic heart disease of [place] coronary artery without angina pectoris (8) Ischemic cardiomyopathy: (9) Elevated troponin level: (10) HTN (hypertension): Qualifiers: Hypertension type: primary hypertension Qualified Code(s): I10 - Essential (primary) hypertension (11) Goals of care, counseling/discussion: Plan 79-year-old female with past medical history of COPD chronically on 3 L, CAD post PCI, past history of ischemic cardiomyopathy which has resolved on most recent echocardiogram presents to the ER after fall and found to be in acute hypoxic respiratory failure along with shock Levophed currently. Septic shock with hypoxic respiratory failure: Most likely in setting of bilateral pneumonia though given elevated D-dimer cannot rule out acute PE. Patient also has hypocapnia and hypoxia on ABG. Keep mean artery pressure 65. Wean Levophed accordingly. Gentle IV hydration with normal saline at 50 cc/h. Patient already received 1 L out of 1.2 L as sepsis bolus on admission. Check blood culture, sputum culture, urinalysis, urine culture, MRSA swab, respiratory viral panel. Empirically start patient on IV vancomycin and meropenem. Keep oxygen saturation over 90. Continue BiPAP for now. Will plan to wean gradually. Currently NPO. DuoNeb every 6 hour, Pulmicort twice daily. Solu-Medrol 125 mg stat followed by 40 mg every 6 hour. Elevated D-dimer: High likelihood of PE given ABG changes. Unable to do CTA as patient has VY on CKD. Check lower limb Doppler. Continue with heparin drip for now. Elevated troponin: Patient does have history of CAD with PCI in the past. Denies any active chest pain currently. Cycle troponin. Echocardiogram. Also has history of pericardial effusion and LV thrombus in the past. Aspirin 325 mg stat followed by 81 mg daily. Continue with home dose of statin. Appreciate recent A1c, lipid panel. Cardiology consulted from ER. VY on CKD: Baseline creatinine seems to be 1.3-1.5. Currently 2. Medical reconciliation done for nephrotoxic drugs. Valenzuela catheterization. Strict input output charting. Monitor BMP daily. Monitor electrolytes. LV thrombus: Past history. Resolved on most recent echocardiogram. Currently on heparin drip. Hold off on home dose of Eliquis. Hypertension: Currently in shock. Hold off on home dose of Entresto. Continue with other chronic medications including levothyroxine, hydrocodone. CODE STATUS: Discussed in detail with patient. Patient's son and friend are with the DPOA. DNR/DNI N.p.o. Protonix for PUD prophylaxis Heparin drip will be sufficient for DVT prophylaxis. Attestations 2 Medical Necessity Statement*: Admission for more than 2 midnights for management of acute hypoxic hypocapnic respiratory failure with shock in setting of bilateral pneumonia with high concerns for pulmonary embolism in setting of elevated D-dimer, troponin, VY on CKD Critical Care Time: The high probability of a clinically significant, sudden or life threatening deterioration of the patient's [pulmonary, cardiac, renal] system(s) required my full and direct attention, intervention and personal management. The critical care time is as shown. This time is in addition to time spent performing any reported procedures but includes the following: [x] Data and vital sign review and interpretation [x] Patient assessment, examination and intervention [x] Documentation [x] Medication orders and management Critical Care Time (min): 80 Coding Level of Care Code Critical Care >/= 30 minutes Critical care time (in minutes): 80 The high probability of a clinically significant, sudden or life threatening deterioration, as referenced in this documentation, required my full and direct attention, intervention and personal management. The critical care time shown is in addition to time spent performing any reported separately billable procedures and includes the following: [x] Data and vital sign review and interpretation [x ] Patient assessment, examination and intervention [x] Medication orders and management [x] Patient/Family updates as able [x] Care Coordination and Documentation. Diagnoses Shock R57.9 Acute on chronic hypoxic respiratory failure J96.21 Pneumonia J18.9 Laterality: right Lung location: middle lobe of lung Pneumonia type: due to unspecified organism Centrilobular emphysema J43.2 COPD type: emphysema Emphysema type: centrilobular Elevated d-dimer R79.89 Acute kidney injury superimposed on CKD N17.9; N18.9 Atherosclerosis of [place] coronary artery of [place] heart without angina pectoris I25.10 Coronary Disease-Associated Artery/Lesion type: [place] artery Ischemic cardiomyopathy I25.5 Elevated troponin level R77.8 Primary hypertension I10 Hypertension type: primary hypertension Goals of care, counseling/discussion Z71.89
[2024-04-01] MEDS: ipratropium-albuterol 3 mL Neb INHALATION ×2 (14:57→20:06)
--- NOTE | 2024-04-01 15:07 | PHA.VACGOAL ---
Vancomycin Goal - Goal Vancomycin Goal:: 15-20 mg/L Vancomycin Indication:: Other - Therapy Current therapy:: Azithromycin, Meropenem Day of therpy:: Day [1]of [] . Actual body weight (kg): 42.638 kg - Data Labs: WBC 5.38 10^3/uL (3.29-11.43) 04/01/24 08:24 RBC 3.20 10^6/uL (3.85-5.65) L 04/01/24 08:24 Hgb 9.60 g/dL (11.27-16.99) L 04/01/24 08:24 Hct 31.6 % (36-47) L 04/01/24 08:24 MCV 98.8 fl (85-98) H 04/01/24 08:24 MCH 30.0 pg (27-33) 04/01/24 08:24 MCHC 30.4 g/dL (30-55) 04/01/24 08:24 RDW 16.5 % (12.1-15.1) H 04/01/24 08:24 Sodium 139 mmol/L (136-145) 04/01/24 08:24 Potassium 3.9 mmol/L (3.5-5.1) 04/01/24 08:24 Chloride 103 mmol/L (98-107) 04/01/24 08:24 Carbon Dioxide 21 mmol/L (22-29) L 04/01/24 08:24 Anion Gap 18.9 (5-19) 04/01/24 08:24 BUN 44 mg/dL (8-23) H 04/01/24 08:24 Creatinine 2.0 mg/dL (0.5-0.9) H 04/01/24 08:24 GFR Calculation Not Reportable 04/01/24 08:24 Treatment plan:: new consult Regimen:: New start vancomycin. 1250 mg load dose. CrCl < 30 will receive Intermittent Dosing Post Load. Vancomycin level ordered for 04/02 @1330.
[2024-04-01] MEDS: pantoprazole 40 mg SDV IVP (15:11)
[2024-04-01] MEDS: sodium chloride 0.9% 1,000 ML 50 ML IV (15:11)
[2024-04-01 15:34] LABS: Bilirubin Urine Negative (Negative); Blood Urine Negative (Negative); Glucose Urine UA Negative (Normal); Ketones Urine Negative (Negative); Leukocyte Esterase Urine Negative (Negative); Nitrate Urine Negative (Negative); Protein Urine 1+ (Negative); Specific Gravity, Urine 1.019 (1.005-1.030); Urine Appearance Clear (CLEAR); Urine Color Yellow (Yellow); Urobilinogen Urine 0.2 mg/dL (Negative)
--- NOTE | 2024-04-01 15:34 | XRR_ITS ---
PROCEDURE INFORMATION: Exam: XR Chest Exam date and time: 04/01/2024 4:14 PM Age: 79 years old Clinical indication: Post picc insertion, TECHNIQUE: Imaging protocol: Radiologic exam of the chest. Views: 1 view. COMPARISON: CT chest con [id number] 04/01/2024 12:05 PM FINDINGS: Tubes, catheters and devices: Distal PICC line over the superior vena cava. Lungs: Bibasilar infiltrates. There are emphysematous changes in the lungs. Pleural spaces: Bilateral pleural effusions. Heart/Mediastinum: Unremarkable. No cardiomegaly. Bones/joints: Unremarkable. XR/XR chest 1V portable [id number] IMPRESSION: 1. Bibasilar infiltrates. 2. Bilateral pleural effusions. 3. Distal PICC line projects over the superior vena cava. 4. Pulmonary emphysema.
[2024-04-01 15:36] LABS: Add Urine Microscopic? YES; Bacteria Urine None Seen /hpf; Hyaline Casts Urine 11.16 /lpf; RBC Urine 21-50 /hpf (0-2); Squamous Epithelial Cell Urine 0-5 /hpf (0-5); WBC Urine 0-5 /hpf (0-5)
[2024-04-01 15:43] LABS: Blood Urea Nitrogen 44 mg/dL (8-23); Calcium 7.8 mg/dL (8.5-10.5); Carbon Dioxide 16 mmol/L (22-29); Chloride 107 mmol/L (98-107); Glucose 82 mg/dL (65-115); Osmolality Calculated 296 mOsm/kg (285-295); Sodium 138 mmol/L (136-145)
[2024-04-01 15:45] LABS: Creatinine Clr Calc Pharmacy 19.6313
[2024-04-01 15:46] LABS: Anion Gap 19.3 (5-19); Potassium 4.3 mmol/L (3.5-5.1)
[2024-04-01 15:47] LABS: Procalcitonin 18.81 ng/mL (0-0.5); Troponin 5 6HR Delta -10 ng/L (0-12)
[2024-04-01 15:47] LABS: UA Slide Review UA Slide Review Perf
[2024-04-01 15:48] LABS: Troponin 5 6HR 127 ng/L (0-10)
[2024-04-01 15:52] LABS: Potassium, Radom Urine 50 mmol/L; Urine Random Chloride 54 mmol/L; Urine Random Sodium 65 mmol/L
--- NOTE | 2024-04-01 16:49 | PICC.NOTE ---
Double lumen PICC placed to right brachial vein. Referred to vascular access nurse for PICC placement due to poor access and need for vasopressors. Risks and benefits discussed and informed consent obtained from pt. Right arm assessed with right brachial vein measuring 3.2 mm, straight, and apparent best choice for placement. Using sterile technique and MST, right brachial vein accessed x 1 stick. Mid-arm circumference measured 10 cm from right AC 21 cm. Trimmed cath 33 cm with 0 cm external length noted. CXR shows tip in distal SVC, in good position for use per radiologist. Line secured with stat-lock. Insertion site covered with Biopatch and TSM. Report given to bedside nurse, IAIN, RN.
[2024-04-01 16:53] LABS: MRSA PCR OZH (swab) NOT DETECTED (Not Detecte)
[2024-04-01 18:08] LABS: ABG PH Result 7.36 (7.35-7.45)
[2024-04-01 18:09] LABS: Oxygen Device BIPAP
[2024-04-01] MEDS: budesonide 0.5 mg/2 mL Neb INHALATION (20:06)
[2024-04-01] MEDS: HYDROcodone-acetaminophen 7.5-325 mg Tablet 1 TAB PO (21:01)
[2024-04-01] MEDS: atorvastatin 40 mg Tablet PO (21:01)
[2024-04-01 21:39] LABS: Partial Thromboplastin Time 102.5 SECONDS (23.9-36.7)
[2024-04-01] MEDS: morphine 4 mg/mL SDV 1 mL 2 MG IVP (22:37)
[2024-04-01 23:05] LABS: Adenovirus Not Detected (NOT DETECT); Chlamydia Pneumoniae Not Detected (NOT DETECT); Coronavirus 229E,HKU1,NL63,OC4 Not Detected (NOT DETECT); Human Metapneumovirus Not Detected (NOT DETECT); Human Rhinovirus/Enterovirus Detected (NOT DETECT); Influenza A Not Detected (NOT DETECT); Influenza A H1 Not Detected (NOT DETECT); Influenza A H1-2009 Not Detected (NOT DETECT); Influenza A H3 Not Detected (NOT DETECT); Influenza B Not Detected (NOT DETECT); Mycoplasma Pneumoniae Not Detected (NOT DETECT); Parainfluenza Virus Type 1 Not Detected (NOT DETECT); Parainfluenza Virus Type 2 Not Detected (NOT DETECT); Parainfluenza Virus Type 3 Not Detected (NOT DETECT); Parainfluenza Virus Type 4 Not Detected (NOT DETECT); Respiratory Syncytial Virus A Not Detected (NOT DETECT); Respiratory Syncytial Virus B Not Detected (NOT DETECT); SARS-COV-2 Not Detected (NOT DETECT)
[2024-04-02] VITALS (87 sets, daily range): BP systolic 92–167; BP diastolic 40–139; PULSE 70–101; RESP 15–38; TEMP 37.7; O2SAT 83–99; BMI 17.5
[2024-04-02] MEDS: meropenem 1,000 mg SDV 1000 MG IVP ×2 (00:20→12:49)
[2024-04-02] MEDS: norepinephrine 4 MG/250 ML BAG 37.5 MG IV (00:21)
[2024-04-02] MEDS: ipratropium-albuterol 3 mL Neb INHALATION ×4 (03:26→20:00)
[2024-04-02 05:09] LABS: Hematocrit 30.9 % (36-47); Mean Corpuscular HGB Conc 29.1 g/dL (30-55); Mean Corpuscular Hemoglobin 29.6 pg (27-33); Mean Corpuscular Volume 101.6 fl (85-98); Mean Platelet Volume 10.2 fL (7.4-10.4); Platelet Count 272 10^3/cmm (157-399); Red Blood Count 3.04 10^6/uL (3.85-5.65); Red Cell Distribution Width 16.4 % (12.1-15.1); White Blood Count 19.63 10^3/uL (3.29-11.43)
[2024-04-02 05:23] LABS: Partial Thromboplastin Time 65.7 SECONDS (23.9-36.7)
[2024-04-02] MEDS: methylPREDNISolone sod succ 40 mg/mL INJ IVP ×3 (05:26→17:43)
[2024-04-02 05:27] LABS: Alanine Aminotransferase 14 U/L (0-33); Albumin Level 2.9 g/dL (3.5-5.2); Alkaline Phosphatase 55 U/L (35-105); Anion Gap 21.2 (5-19); Aspartate Amino Transferase 20 U/L (0-32); Blood Urea Nitrogen 44 mg/dL (8-23); Calcium 8.1 mg/dL (8.5-10.5); Carbon Dioxide 17 mmol/L (22-29); Chloride 112 mmol/L (98-107); Creatinine Clr Calc Pharmacy 19.6313; Globulin 3.4 g/dL (1.3-4.6); Glucose 119 mg/dL (65-115); Magnesium 1.7 mg/dL (1.7-2.3); Osmolality Calculated 314 mOsm/kg (285-295); Potassium 4.2 mmol/L (3.5-5.1); Sodium 146 mmol/L (136-145); Total Bilirubin 0.6 mg/dL (0.15-1.2); Total Protein 6.3 g/dL (6.6-8.7)
[2024-04-02] MEDS: levothyroxine 75 mcg Tablet 37.5 MCG PO (05:27)
[2024-04-02 05:28] LABS: Absolute Segmented Neutrophil 7.7 10/cmm (1.6-7.1); Band Neutrophils Absolute 6.5 10^3/cmm (0.0-1.2); Lymphocytes 5 %; Monocytes Absolute 1.8 10^3/cmm (0.1-0.6); Segmented Neutrophils 39 %; Slide Review Slide Review Perform; Total Cells Counted 100 (0-100)
[2024-04-02 05:29] LABS: Absolute Neutrophil 14.1 10^3/cmm (1.4-6.5); Acanthocytes Trace; Anisocytosis 1+; Eosinophils 0 %; Lymphocytes Absolute 1.2 10^3/cmm (1.2-3.4); Ovalocytes Trace; Platelet Estimate Normal (Normal); Poikilocytosis Trace
[2024-04-02 05:34] LABS: Procalcitonin 34.49 ng/mL (0-0.5)
[2024-04-02] MEDS: norepinephrine 4 MG/250 ML BAG 22.5 MG IV (08:07)
[2024-04-02] MEDS: budesonide 0.5 mg/2 mL Neb INHALATION ×2 (08:18→20:00)
[2024-04-02] MEDS: azithromycin 250 mg Tablet 500 MG PO (08:20)
[2024-04-02] MEDS: sodium chloride 0.9% 1,000 ML 50 ML IV (10:26)
--- NOTE | 2024-04-02 10:49 | PC.NURSE ---
weaned off bipap ,on 6lnc at this time advanced diet ,, family in for visit weaning levophed gtt
[2024-04-02] MEDS: dextrose 5%-sod chloride 0.9% 1,000 ML 50 ML IV (12:50)
[2024-04-02] MEDS: water for injection-sterile 10 ML 1000 ML (13:24)
[2024-04-02] MEDS: HYDROcodone-acetaminophen 7.5-325 mg Tablet 1 TAB PO (13:41)
[2024-04-02 13:45] LABS: Vancomycin Trough 13.8 ug/mL (10-15)
[2024-04-02 14:14] LABS: Blood Urea Nitrogen 43 mg/dL (8-23); Calcium 7.7 mg/dL (8.5-10.5); Carbon Dioxide 18 mmol/L (22-29); Chloride 112 mmol/L (98-107); Creatinine Clr Calc Pharmacy 25.8596; Glucose 125 mg/dL (65-115); Osmolality Calculated 308 mOsm/kg (285-295); Sodium 143 mmol/L (136-145)
[2024-04-02 14:15] LABS: Anion Gap 18.8 (5-19); Potassium 5.8 mmol/L (3.5-5.1)
[2024-04-02] MEDS: vancomycin 500 MG in sodium chloride 0.9% (plus) 100 ML 200 MG IV (14:42)
[2024-04-02] MEDS: pantoprazole 40 mg SDV IVP (14:43)
--- NOTE | 2024-04-02 14:51 | USR_ITS ---
PROCEDURE INFORMATION: Exam: US Duplex Lower Extremity Veins, Bilateral Exam date and time: 04/02/2024 6:44 AM Age: 79 years old Clinical indication: Abnormal findings; Abnormal lab test; Elevated d-dimer; Additional info: Elevated dimer TECHNIQUE: Imaging protocol: Real-time duplex ultrasound of the bilateral extremities with 2-D bowen scale, color Doppler flow and spectral waveform analysis including responses to compression and other maneuvers (when performed) with image documentation. Complete exam focused on the lower extremity veins. COMPARISON: CT abdomen pelvis wo con [id number] 05/25/2020 2:47 PM FINDINGS: Right deep veins: Unremarkable. The common femoral, femoral, proximal profunda femoral and popliteal veins are patent without thrombus. Normal Doppler waveforms. Normal compressibility and/or augmentation response. Left deep veins: Unremarkable. The common femoral, femoral, proximal profunda femoral and popliteal veins are patent without thrombus. Normal Doppler waveforms. Normal compressibility and/or augmentation response. Superficial veins: Greater saphenous veins at the saphenofemoral junctions are patent bilaterally without thrombus. Soft tissues: Unremarkable. US/CV venous duplex [facility] [id number] IMPRESSION: No evidence of deep vein thrombosis.
--- NOTE | 2024-04-02 15:01 | PM.PN ---
Subjective Subjective: No acute events overnight. Overnight patient had remained on 4 to 2 mics of Levophed. Was turned off today morning. Mean artery pressure have maintained over 65. Seen with family at bedside. Patient is more awake and alert and back to her baseline mentation. Patient was transitioned over to nasal cannula and is saturating more than 95%. Patient denies any nausea, ting, headache. Vitals/I&O/Wt Last Vital Signs Temp 99.8 F H 04/02/24 00:00 Pulse 90 04/02/24 14:00 Resp 28 H 04/02/24 13:29 BP 118/63 04/02/24 12:15 Pulse Ox 96 04/02/24 13:29 O2 Del Method Nasal Cannula 04/02/24 13:29 FiO2 6 04/02/24 13:29 04/02/24 04/02/24 04/02/24 06:59 14:59 22:59 Intake Total 607.350 / 2384.650 2570.816 / 2570.816 Output Total 750 / 760 Balance -142.650 / 4077.096 8050.816 / 2570.816 Weight last 48 hrs Weight 43.5 kg Weight 43.5 kg Weight 42.638 kg Weight 42.638 kg Physical Exam Narrative: General: No acute distress, AO x3, transitioned over to nasal cannula HEENT: PERRLA, pupils bilaterally equal and reactive Chest: Bilateral bronchial breath sounds with occasional rhonchi, coarse crackles bilaterally in lower zone CVS: S1-S2 regular, no murmurs, no tachycardia, no gallops, no rubs Abdomen: Soft, nontender, no organomegaly, bowel sounds present Neuro: No focal deficits, no facial deformity, AO x3, power not assessed Urinary Catheter Management: Valenzuela: Cath Placed During This Visit: yes Reason for Continuing Indwelling Catheter: Accurate Measurement of Urinary Output in Critically Ill Patients Urinary Catheter Date of Insertion: 04/01/24 Urinary Catheter Time of Insertion: 16:00 Data 04/02/24 04:17 04/02/24 13:08 Micro: Microbiology 04/01/24 16:50 Gram Stain - Final Sputum - Expectorated Sputum Sputum Culture - Preliminary 04/01/24 08:20 Blood Culture - Preliminary Blood NEGATIVE TO DATE 04/01/24 08:24 Blood Culture - Preliminary Blood NEGATIVE TO DATE 04/01/24 14:35 Bacterial Antigens - Final Urine Kidney A&P Assessment and plan (1) Shock: Resolved. Mean artery pressure over 65. Levophed short of on 04/02/2024 (2) Acute on chronic hypoxic respiratory failure: (3) Pneumonia: Qualifiers: Laterality: right Lung location: middle lobe of lung Pneumonia type: due to unspecified organism Qualified Code(s): J18.9 - Pneumonia, unspecified organism (4) Rhinovirus infection: (5) COPD (chronic obstructive pulmonary disease): Qualifiers: COPD type: emphysema Emphysema type: centrilobular Qualified Code(s): J43.2 - Centrilobular emphysema (6) Elevated d-dimer: (7) Acute kidney injury superimposed on CKD: (8) Atherosclerosis of coronary artery of [place] heart without angina pectoris: Qualifiers: Coronary Disease-Associated Artery/Lesion type: [place] artery Qualified Code(s): I25.10 - Atherosclerotic heart disease of [place] coronary artery without angina pectoris (9) Ischemic cardiomyopathy: (10) Elevated troponin level: (11) HTN (hypertension): Qualifiers: Hypertension type: primary hypertension Qualified Code(s): I10 - Essential (primary) hypertension (12) Goals of care, counseling/discussion: Plan 79-year-old female with past medical history of COPD chronically on 3 L, CAD post PCI, past history of ischemic cardiomyopathy which has resolved on most recent echocardiogram presents to the ER after fall and found to be in acute hypoxic respiratory failure along with shock Levophed currently. Septic shock with hypoxic respiratory failure: Most likely in setting of bilateral pneumonia though given elevated D-dimer cannot rule out acute PE. Patient also has hypocapnia and hypoxia on ABG. Septic shock are resolved. Levophed weaned off. Continue with IV fluids at 50 cc/h. MRSA swab negative. Respiratory viral panel positive for rhinovirus. Continue with IV meropenem. Hold off on vancomycin. Patient back to baseline mentation. Speech evaluation. Start on mechanical soft diet till then. DuoNeb every 6 hour, Pulmicort twice daily. Wean Solu-Medrol to 40 mg every 12 hourly. Oxygen supplementation keeping saturation over 88%. Wean supplementation accordingly. Elevated D-dimer: High likelihood of PE given ABG changes with hypoxia and hypocapnia and pulmonary hypertension on echocardiogram. Unable to do CTA as patient has VY on CKD. Follow-up lower limb Doppler. Continue with heparin drip for now. Repeat D-dimer in AM. Elevated troponin: Patient does have history of CAD with PCI in the past. Denies any active chest pain currently. Most likely type II in nature. Appreciate cardiology recommendations. Echocardiogram negative for any regional wall motion abnormality, shows EF of 60 to 65% with grade 1 diastolic dysfunction, mild MR with moderate pulmonary hypertension. Continue with aspirin 81 mg daily, home dose of statin. Appreciate recent A1c, lipid panel. VY on CKD: Baseline creatinine seems to be 1.3-1.5. Creatinine back to baseline.. Medical reconciliation done for nephrotoxic drugs. Valenzuela catheterization. Strict input output charting. Monitor BMP daily. Monitor electrolytes. Hypernatremia: Most likely in setting of dehydration along with poor oral intake. Switch fluid from normal saline to D5 half NS. Repeat BMP in afternoon. LV thrombus: Past history. Resolved on most recent echocardiogram. Currently on heparin drip. Hold off on home dose of Eliquis. Hypertension: Shock has resolved. Goal blood pressure less than 140/90 mm with mean over 65. Holding off on home dose of Entresto for now. Given improvement in cardiac functions most likely can switch from Entresto to TONYA versus CCB. Continue with other chronic medications including levothyroxine, hydrocodone. CODE STATUS: Discussed in detail with patient. Patient's son and friend are with the DPOA. DNR/DNI Mechanical soft diet. Switch as per speech therapy. Protonix for PUD prophylaxis Heparin drip will be sufficient for DVT prophylaxis. Physical therapy evaluation. Attestations Medical Necessity Statement*: Requires further hospitalization for management of shock in setting of pneumonia, rhinovirus infection, acute on chronic hypoxic respiratory failure with concerns for PE given high D-dimer, hypocapnia Critical Care Time: The high probability of a clinically significant, sudden or life threatening deterioration of the patient's [cardiology, pulmonary, renal] system(s) required my full and direct attention, intervention and personal management. The critical care time is as shown. This time is in addition to time spent performing any reported procedures but includes the following: [x] Data and vital sign review and interpretation [x] Patient assessment, examination and intervention [x] Documentation [x] Medication orders and management Critical Care Time (min): 60 Coding Level of Care Code Critical Care >/= 30 minutes Critical care time (in minutes): 60 The high probability of a clinically significant, sudden or life threatening deterioration, as referenced in this documentation, required my full and direct attention, intervention and personal management. The critical care time shown is in addition to time spent performing any reported separately billable procedures and includes the following: [x] Data and vital sign review and interpretation [x] Patient assessment, examination and intervention [x] Medication orders and management [x] Patient/Family updates as able [x] Care Coordination and Documentation. Diagnoses Shock R57.9 Acute on chronic hypoxic respiratory failure J96.21 Pneumonia J18.9 Laterality: right Lung location: middle lobe of lung Pneumonia type: due to unspecified organism Rhinovirus infection B34.8 Centrilobular emphysema J43.2 COPD type: emphysema Emphysema type: centrilobular Elevated d-dimer R79.89 Acute kidney injury superimposed on CKD N17.9; N18.9 Atherosclerosis of [place] coronary artery of [place] heart without angina pectoris I25.10 Coronary Disease-Associated Artery/Lesion type: [place] artery Ischemic cardiomyopathy I25.5 Elevated troponin level R77.8 Primary hypertension I10 Hypertension type: primary hypertension Goals of care, counseling/discussion Z71.89
[2024-04-02 15:02] LABS: Partial Thromboplastin Time 248.7 SECONDS (23.9-36.7)
[2024-04-02 16:52] LABS: Partial Thromboplastin Time 67.6 SECONDS (23.9-36.7)
[2024-04-02] MEDS: atorvastatin 40 mg Tablet PO (20:17)
[2024-04-02] MEDS: morphine 4 mg/mL SDV 1 mL 2 MG IVP (21:00)
[2024-04-02 22:03] LABS: Partial Thromboplastin Time 63.9 SECONDS (23.9-36.7)
[2024-04-03] VITALS (69 sets, daily range): BP systolic 101–160; BP diastolic 51–109; PULSE 63–96; RESP 17–39; TEMP 36.7–37.1; O2SAT 84–100; BMI 17.9
[2024-04-03] MEDS: meropenem 1,000 mg SDV 1000 MG IVP ×3 (00:02→23:39)
[2024-04-03] MEDS: morphine 4 mg/mL SDV 1 mL 2 MG IVP (03:47)
[2024-04-03 03:55] LABS: Basophils % 0.2 %; Hematocrit 25.9 % (36-47); Lymphocytes # 0.3 10^3/uL (0.8-4.8); Lymphocytes % 2.3 %; Mean Corpuscular HGB Conc 28.6 g/dL (30-55); Mean Corpuscular Hemoglobin 29.5 pg (27-33); Mean Corpuscular Volume 103.2 fl (85-98); Mean Platelet Volume 10.5 fL (7.4-10.4); Monocytes # 0.7 10^3/uL (0.2-0.9); Monocytes % 5.6 %; Neutrophils # 11.26 10^3/uL (1.8-7.7); Neutrophils % 90.6 %; Nucleated Red Blood Cells % 0.2 %; Platelet Count 206 10^3/cmm (157-399); Red Blood Count 2.51 10^6/uL (3.85-5.65); Red Cell Distribution Width 16.4 % (12.1-15.1); White Blood Count 12.42 10^3/uL (3.29-11.43)
[2024-04-03 04:02] LABS: Slide Review Slide Review Perform
[2024-04-03 04:07] LABS: Partial Thromboplastin Time 67.5 SECONDS (23.9-36.7)
[2024-04-03 04:13] LABS: Magnesium 1.8 mg/dL (1.7-2.3)
[2024-04-03 04:15] LABS: D Dimer 5.72 ug/mLFEU (0-0.59)
[2024-04-03 04:49] LABS: Alanine Aminotransferase 14 U/L (0-33); Albumin Level 2.8 g/dL (3.5-5.2); Alkaline Phosphatase 51 U/L (35-105); Anion Gap 16.7 (5-19); Aspartate Amino Transferase 25 U/L (0-32); Blood Urea Nitrogen 44 mg/dL (8-23); Calcium 7.6 mg/dL (8.5-10.5); Carbon Dioxide 17 mmol/L (22-29); Chloride 116 mmol/L (98-107); Creatinine Clr Calc Pharmacy 24.0125; Globulin 2.1 g/dL (1.3-4.6); Glucose 142 mg/dL (65-115); Osmolality Calculated 316 mOsm/kg (285-295); Potassium 3.7 mmol/L (3.5-5.1); Sodium 146 mmol/L (136-145); Total Bilirubin 0.3 mg/dL (0.15-1.2); Total Protein 4.9 g/dL (6.6-8.7)
[2024-04-03] MEDS: levothyroxine 75 mcg Tablet 37.5 MCG PO (06:06)
[2024-04-03] MEDS: methylPREDNISolone sod succ 40 mg/mL INJ IVP ×2 (06:08→17:43)
[2024-04-03] MEDS: ipratropium-albuterol 3 mL Neb INHALATION ×2 (08:16→20:52)
[2024-04-03] MEDS: budesonide 0.5 mg/2 mL Neb INHALATION ×2 (08:16→20:52)
[2024-04-03] MEDS: azithromycin 250 mg Tablet 500 MG PO (08:39)
[2024-04-03] MEDS: heparin drip 25,000 UNIT/500 ML PREMIX 9 UNIT IV (08:40)
--- NOTE | 2024-04-03 12:07 | PC.NURSE ---
Spoke with Dr. Harris regarding difficult stick, unable to get PTT, unable to start secondary IV, unable to draw PTT from PICC. DC heparin, for lovenox. Awaiting orders at this time.
--- NOTE | 2024-04-03 12:09 | PC.SOCIAL ---
IMM Updated Updated pt on IMM. No questions voiced. Provided pt a copy. Initialed, dated, & timed a copy & placed in chart.
[2024-04-03] MEDS: enoxaparin 100 mg/mL Syringe 40 MG SUBCUT (12:47)
[2024-04-03] MEDS: magnesium sulfate premix 2 GM/50 ML PIGGYBACK IV (12:47)
--- NOTE | 2024-04-03 13:25 | P.PN_ITS ---
Subjective 2 Subjective: Patient states today she still doesn't feel very well. Denies any chest pain at this time. States she is not severely short of breath. Vitals/I&O/Wt Last Vital Signs Temp 98.8 F 04/03/24 07:45 Pulse 85 04/03/24 12:00 Resp 31 H 04/03/24 12:00 BP 138/95 04/03/24 12:00 Pulse Ox 93 04/03/24 12:00 O2 Del Method Nasal Cannula 04/03/24 12:00 FiO2 6 04/03/24 08:16 04/02/24 04/03/24 04/03/24 22:59 06:59 14:59 Intake Total 753.458 / 3324.274 56.1 / 3380.374 2081.633 / 208.633 Output Total 750 / 750 300 / 1050 Balance 3.458 / 2574.274 -243.9 / 2330.374 2081.633 / 208.633 Weight last 48 hrs Weight 94 lb 12.78 oz Weight 95 lb 14.417 oz Weight 95 lb 14.417 oz Physical Exam 2 Narrative: General: No apparent distress, healthy appearing, well nourished Muskuloskeletal: Full ROM Lymphatic: no lymphedema noted Respiratory: Normal respiratory effort, decreased air movement bilateral lower lobes, no use of accessory muscles Cardio: No JVD, regular rate, regular rhythm, S1 S2 normal, no murmurs, peripheral pulses 2+ throughout Extremities: Full ROM, normal, normal capillary refill, no cyanosis or edema Neuro: Alert and oriented x4, no focal motor deficits Psych: Affect normal, denies suicidal ideation, mental status grossly normal Skin: No rashes or lesions noted, no wounds Urinary Catheter Management: Valenzuela: Cath Placed During This Visit: yes Reason for Continuing Indwelling Catheter: Accurate Measurement of Urinary Output in Critically Ill Patients Urinary Catheter Date of Insertion: 04/01/24 Urinary Catheter Time of Insertion: 16:00 Data 04/03/24 03:32 04/03/24 03:32 Micro: Microbiology 04/01/24 16:50 Gram Stain - Final Sputum - Expectorated Sputum Sputum Culture - Preliminary 04/01/24 08:20 Blood Culture - Preliminary Blood NEGATIVE TO DATE 04/01/24 08:24 Blood Culture - Preliminary Blood NEGATIVE TO DATE A&P Assessment and plan (1) Elevated troponin level: (2) Atherosclerosis of coronary artery of [place] heart without angina pectoris: Qualifiers: Coronary Disease-Associated Artery/Lesion type: [place] artery Qualified Code(s): I25.10 - Atherosclerotic heart disease of [place] coronary artery without angina pectoris (3) Hyperlipidemia: Qualifiers: Hyperlipidemia type: mixed hyperlipidemia Qualified Code(s): E78.2 - Mixed hyperlipidemia (4) Common cold virus: Plan Patient denies any chest pain at this time. She has signs and symptoms consistent with possible pneumonia from possible virus. She tested positive for the rhinovirus. Troponins were elevated but could have been from demand ischemia. Once patient stabilizes more from a respiratory standpoint we will consider stress test. Attestations 2 Medical Necessity Statement*: Deferred to primary. Coding Level of Care Code Acute Code for [facility] Diagnoses Elevated troponin level R77.8 Atherosclerosis of [place] coronary artery of [place] heart without angina pectoris I25.10 Coronary Disease-Associated Artery/Lesion type: [place] artery Mixed hyperlipidemia E78.2 Hyperlipidemia type: mixed hyperlipidemia Common cold virus J00
[2024-04-03] MEDS: pantoprazole 40 mg SDV IVP (14:53)
[2024-04-03] MEDS: bisacodyl 5 mg Tablet 10 MG PO (17:43)
--- NOTE | 2024-04-03 19:30 | PM.PN ---
Subjective Subjective: She feels achy. This morning was feeling anxious. Feels like she has some phlegm that she has trouble bringing up. No noticeable outward bleeding. Vitals/I&O/Wt Last Vital Signs Temp 98.5 F 04/03/24 12:15 Pulse 90 04/03/24 16:30 Resp 36 H 04/03/24 16:30 BP 147/75 04/03/24 16:30 Pulse Ox 94 04/03/24 16:30 O2 Del Method Nasal Cannula 04/03/24 16:30 FiO2 6 04/03/24 08:16 04/03/24 04/03/24 04/03/24 06:59 14:59 22:59 Intake Total 56.1 / 3380.374 2131.633 / 2131.633 400 / 2531.633 Output Total 300 / 1050 700 / 700 Balance -243.9 / 2330.374 2131.633 / 2131.633 -300 / 1831.633 Weight last 48 hrs Weight 44.452 kg Weight 43 kg Weight 43.5 kg Weight 43.5 kg Physical Exam Const: COMMON NORMALS: patient oriented x3 and alert GENERAL APPEARANCE: cooperative ORIENTATION/CONSCIOUSNESS: Yes awake HENMT: COMMON NORMALS: oropharynx normal Neck/C-Spine: COMMON NORMALS: no JVD Resp: COMMON NORMALS: normal respiratory effort and clear to auscultation bilaterally AUSCULTATION: clear to auscultation bilaterally OTHER: Minimally diminished at bases. Cardio: COMMON NORMALS: no JVD, regular rhythm, S1 normal heart sound present, S2 normal heart sound present and No murmurs present (Cardio) RHYTHM: regular rhythm HEART SOUNDS: S1 normal heart sound present and S2 normal heart sound present GI: COMMON NORMALS: Normal to inspection, nondistended, normoactive bowel sounds present, Soft to palpation and non-tender PALPATION: Yes Soft to palpation Extremity: COMMON NORMALS: no joint enlargement and no pedal edema Neuro: COMMON NORMALS: patient oriented x3 and moves all extremities SENSORIUM/ORIENTATION: Yes alert Skin: COMMON NORMALS: no rashes or lesions noted GENERAL SKIN EXAM: no rashes or lesions noted Urinary Catheter Management: Valenzuela: Cath Placed During This Visit: yes Reason for Continuing Indwelling Catheter: Accurate Measurement of Urinary Output in Critically Ill Patients Urinary Catheter Date of Insertion: 11/30/24 Urinary Catheter Time of Insertion: 16:00 Data 04/03/24 03:32 04/03/24 03:32 Micro: Microbiology 04/01/24 16:50 Gram Stain - Final Sputum - Expectorated Sputum Sputum Culture - Preliminary A&P Assessment and plan (1) Shock: Resolved. Mean artery pressure over 65. Levophed short of on 04/02/2024 (2) Acute on chronic hypoxic respiratory failure: (3) Pneumonia: Qualifiers: Laterality: right Lung location: middle lobe of lung Pneumonia type: due to unspecified organism Qualified Code(s): J18.9 - Pneumonia, unspecified organism (4) Rhinovirus infection: (5) COPD (chronic obstructive pulmonary disease): Qualifiers: COPD type: emphysema Emphysema type: centrilobular Qualified Code(s): J43.2 - Centrilobular emphysema (6) Elevated d-dimer: (7) Acute kidney injury superimposed on CKD: (8) Atherosclerosis of coronary artery of [place] heart without angina pectoris: Qualifiers: Coronary Disease-Associated Artery/Lesion type: [place] artery Qualified Code(s): I25.10 - Atherosclerotic heart disease of [place] coronary artery without angina pectoris (9) Ischemic cardiomyopathy: (10) Elevated troponin level: (11) HTN (hypertension): Qualifiers: Hypertension type: primary hypertension Qualified Code(s): I10 - Essential (primary) hypertension (12) Goals of care, counseling/discussion: Plan 79-year-old female with past medical history of COPD chronically on 3 L, CAD post PCI, past history of ischemic cardiomyopathy which has resolved on most recent echocardiogram presents to the ER after fall and found to be in acute hypoxic respiratory failure along with shock Levophed currently. Septic shock with hypoxic respiratory failure: Septic shock resolved. She is off pressors. Maintaining blood pressure. Respiratory failure slowly improving. Hypoxia with slow gradual improvement. Reviewed vitals, CBC, D-dimer, CMP. Today she is down to requiring 6 L by nasal cannula oxygen, improving through the day, down to 4 L later in the morning. Discussed with her and her son at bedside. She was anxious this morning. This does seem to contribute to her symptoms. Discussed with them addition of Xanax. She could not sleep at night, but is already on trazodone at home. We do not have melatonin, she would not wish to take Ambien, and discussed risks with benzodiazepines. Will try to focus on anxiety, and this may help her fall asleep during the night as well. Respiratory failure most likely in setting of bilateral pneumonia though given elevated D-dimer cannot rule out acute PE. Patient also has hypocapnia and hypoxia on ABG. Underlying COPD. Noted to also at least moderate pulmonary hypertension on review of TTE. Discussed with her and her son. DC IV fluids at 50 cc/h. MRSA swab negative. Respiratory viral panel positive for rhinovirus. Continue supportive care. Discussed with her and her son transferred to continue care on medical surgical floor. Transfer orders placed. PT assessment. Discussed with vocational case manager. Likely may benefit from rehabilitation after discharge. Discussed consideration of transfer as per mention patient/family. Both patient and her son state they do not wish to transfer at current time, continue treatment and care here, reassess. Continue with IV meropenem. Monitor for risk of seizure. Hold off on vancomycin. Patient back to baseline mentation. Speech evaluation. Start on mechanical soft diet till then. Continues with IV steroid, Solu-Medrol, 40 mg every 12 hours, so far improving, will reassess and taper down if continues to show improvement. Monitor for risk of hypertension, hyperglycemia, gastritis, encephalopathy. DuoNeb every 6 hour, Pulmicort twice daily. Oxygen supplementation keeping saturation over 88%. Wean supplementation accordingly. Elevated D-dimer: Discussed possible PE, although unconfirmed. Continues with anticoagulation. Difficulties with obtaining PTT today as she is very difficult stick, and PTT is unreliable from PICC line. Switched over to Lovenox. Discussed with her and with nursing also regarding worsening of anemia hemoglobin down to 7.4. No melena or hematochezia as noted. Requested Hemoccult. She has never had a upper or lower endoscopy and is not willing to undergo this. PPI is on board. Reassess blood counts. DC IV fluid. High likelihood of PE given ABG changes with hypoxia and hypocapnia and pulmonary hypertension on echocardiogram. Unable to do CTA as patient has VY on CKD. Currently not a good candidate for VQ scan. Follow-up lower limb Doppler. Continue with heparin drip for now. Repeat D-dimer in AM. Elevated troponin: Patient does have history of CAD with PCI in the past. Denies any active chest pain currently. Most likely type II in nature. Appreciate cardiology recommendations. Echocardiogram negative for any regional wall motion abnormality, shows EF of 60 to 65% with grade 1 diastolic dysfunction, mild MR with moderate pulmonary hypertension. Continue with aspirin 81 mg daily, home dose of statin. Appreciate recent A1c, lipid panel. VY on CKD: Baseline creatinine seems to be 1.3-1.5. Creatinine back to baseline. Medical reconciliation done for nephrotoxic drugs. Valenzuela catheterization. Strict input output charting. Monitor BMP daily. Monitor electrolytes. Hypernatremia: Most likely in setting of dehydration along with poor oral intake. Switch fluid from normal saline to D5 half NS. Repeat BMP in afternoon. LV thrombus: Past history. Resolved on most recent echocardiogram. Currently on heparin drip. Hold off on home dose of Eliquis. Hypertension: Shock has resolved. Goal blood pressure less than 140/90 mm with mean over 65. Holding off on home dose of Entresto for now. Given improvement in cardiac functions most likely can switch from Entresto to TONYA versus CCB. Continue with other chronic medications including levothyroxine, hydrocodone. CODE STATUS: Discussed in detail with patient. Patient's son and friend are with the DPOA. DNR/DNI Mechanical soft diet. Switch as per speech therapy. Protonix for PUD prophylaxis Physical therapy evaluation. Attestations Medical Necessity Statement*: Continue admission for assessment and management of respiratory failure, bilateral pneumonia, possible PE with underlying COPD, and a lady with underlying pulmonary hypertension, as well as rhinovirus infection. and High MDM includes amount and/or complexity of data reviewed/ordered [ resulted lab(s)/test(s), ordered lab(s)/test(s), independent historian and other healthcare professional discussion] and described risk of complication, morbidity or mortality of management as documented Diagnoses Shock R57.9 Acute on chronic hypoxic respiratory failure J96.21 Pneumonia J18.9 Laterality: right Lung location: middle lobe of lung Pneumonia type: due to unspecified organism Rhinovirus infection B34.8 Centrilobular emphysema J43.2 COPD type: emphysema Emphysema type: centrilobular Elevated d-dimer R79.89 Acute kidney injury superimposed on CKD N17.9; N18.9 Atherosclerosis of [place] coronary artery of [place] heart without angina pectoris I25.10 Coronary Disease-Associated Artery/Lesion type: [place] artery Ischemic cardiomyopathy I25.5 Elevated troponin level R77.8 Primary hypertension I10 Hypertension type: primary hypertension Goals of care, counseling/discussion Z71.89
[2024-04-03] MEDS: atorvastatin 40 mg Tablet PO (20:14)
[2024-04-03] MEDS: ondansetron 2 mg/ML SDV 2 mL 4 MG IVP (20:32)
[2024-04-03] MEDS: trazodone 50 mg Tablet 150 MG PO (20:37)
[2024-04-04] VITALS (78 sets, daily range): BP systolic 98–150; BP diastolic 49–89; PULSE 61–99; RESP 16–28; TEMP 36.6–37; O2SAT 77–99
[2024-04-04] MEDS: morphine 4 mg/mL SDV 1 mL 2 MG IVP (02:20)
[2024-04-04] MEDS: ipratropium-albuterol 3 mL Neb INHALATION ×3 (02:28→21:00)
[2024-04-04 04:18] LABS: Basophils % 0.1 %; Hematocrit 23.5 % (36-47); Lymphocytes # 0.4 10^3/uL (0.8-4.8); Lymphocytes % 2.9 %; Mean Corpuscular HGB Conc 31.1 g/dL (30-55); Mean Corpuscular Hemoglobin 29.9 pg (27-33); Mean Corpuscular Volume 96.3 fl (85-98); Mean Platelet Volume 10.5 fL (7.4-10.4); Monocytes # 0.5 10^3/uL (0.2-0.9); Monocytes % 3.8 %; Neutrophils # 12.18 10^3/uL (1.8-7.7); Neutrophils % 91.9 %; Nucleated Red Blood Cells % 0 %; Platelet Count 219 10^3/cmm (157-399); Red Blood Count 2.44 10^6/uL (3.85-5.65); Red Cell Distribution Width 16.4 % (12.1-15.1); White Blood Count 13.26 10^3/uL (3.29-11.43)
[2024-04-04 04:50] LABS: Blood Urea Nitrogen 45 mg/dL (8-23); Calcium 8.2 mg/dL (8.5-10.5); Carbon Dioxide 20 mmol/L (22-29); Chloride 115 mmol/L (98-107); Creatinine Clr Calc Pharmacy 28.2394; Glucose 106 mg/dL (65-115); Magnesium 2.8 mg/dL (1.7-2.3); Osmolality Calculated 316 mOsm/kg (285-295); Sodium 147 mmol/L (136-145)
[2024-04-04 04:57] LABS: D Dimer 5.44 ug/mLFEU (0-0.59)
[2024-04-04] MEDS: methylPREDNISolone sod succ 40 mg/mL INJ IVP ×2 (06:01→16:50)
[2024-04-04] MEDS: levothyroxine 75 mcg Tablet 37.5 MCG PO (06:01)
[2024-04-04] MEDS: budesonide 0.5 mg/2 mL Neb INHALATION ×2 (08:16→21:00)
[2024-04-04] MEDS: azithromycin 250 mg Tablet 500 MG PO (08:42)
[2024-04-04] MEDS: meropenem 1,000 mg SDV 1000 MG IVP (11:53)
[2024-04-04] MEDS: enoxaparin 40 mg/0.4 mL Syringe SUBCUT (11:53)
[2024-04-04] MEDS: HYDROcodone-acetaminophen 7.5-325 mg Tablet 1 TAB PO (11:53)
--- NOTE | 2024-04-04 13:19 | USCV_ITS ---
Colette Lopez Age: 79 Gender: F : 1945 Exam Date: 04/04/2024 14:43 Ordering Phys: Edy Harris MD Technologist: [place] [facility] [place]: lt arm swelling PROCEDURES: Venous duplex imaging was performed in only the left upper extremity. The following venous structures were evaluated: internal jugular vein, subclavian vein, axillary vein, and brachial veins. In addition, the basilic vein, cephalic vein, radial vein, and ulnar vein. FINDINGS: The veins of the left upper extremity are readily compressible with normal venous flow dynamics including spontaneous flow, respiratory phasic variation and augmentation. No evidence of deep vein thrombosis or superficial thrombophlebitis in the left upper extremity. CONCLUSIONS No evidence of thrombus of the left upper extremity veins. Lucian Bryant MD (Electronically Signed) Final Date: 04 April 2024 16:51 S
--- NOTE | 2024-04-04 13:20 | P.PN_ITS ---
Subjective 2 Subjective: She is doing so-so today. Having some swelling of the inferior part of her left arm around distal upper arm elbow and proximal forearm. With some bruising as well. An IV had been removed from the left antecubital fossa earlier. Vitals/I&O/Wt Last Vital Signs Temp 98.6 F 04/04/24 08:00 Pulse 90 04/04/24 10:00 Resp 20 H 04/04/24 08:16 BP 150/62 04/04/24 10:00 Pulse Ox 93 04/04/24 10:00 O2 Del Method Nasal Cannula 04/04/24 08:16 O2 Flow Rate 4 04/04/24 08:16 FiO2 6 04/03/24 08:16 04/03/24 04/04/24 04/04/24 22:59 06:59 14:59 Intake Total 400 / 2531.633 75 / 75 Output Total 700 / 700 250 / 950 Balance -300 / 1831.633 -250 / 1581.633 75 / 75 Weight last 48 hrs Weight 45.5 kg Weight 44.452 kg Weight 43 kg Physical Exam 2 Narrative: Accompanied by her friend Const: COMMON NORMALS: patient oriented x3 and alert GENERAL APPEARANCE: c ooperative ORIENTATION/CONSCIOUSNESS: Yes awake HENMT: COMMON NORMALS: oropharynx normal Neck/C-Spine: COMMON NORMALS: no JVD Resp: COMMON NORMALS: normal respiratory effort and clear to auscultation bilaterally AUSCULTATION: clear to auscultation bilaterally OTHER: Minimally diminished at bases. Cardio: COMMON NORMALS: no JVD, regular rhythm, S1 normal heart sound present, S2 normal heart sound present and No murmurs present (Cardio) RHYTHM: regular rhythm HEART SOUNDS: S1 normal heart sound present and S2 normal heart sound present GI: COMMON NORMALS: Normal to inspection, nondistended, normoactive bowel sounds present, Soft to palpation and non-tender PALPATION: Yes Soft to palpation Extremity: COMMON NORMALS: no joint enlargement and no pedal edema N ARRATIVE EXTREMITY EXAM: Edema around the posterior/dependent portion of the distal left upper arm, elbow, proximal left forearm. Bruising. Neuro: COMMON NORMALS: patient oriented x3 and moves all extremities S ENSORIUM/ORIENTATION: Yes alert Urinary Catheter Management: Valenzuela: Cath Placed During This Visit: yes Reason for Continuing Indwelling Catheter: Accurate Measurement of Urinary Output in Critically Ill Patients Urinary Catheter Date of Insertion: 04/01/24 Urinary Catheter Time of Insertion: 16:00 Data 04/04/24 03:48 04/04/24 03:48 Micro: Microbiology 04/01/24 16:50 Gram Stain - Final Sputum - Expectorated Sputum Sputum Culture - Final Haemophilus influenzae A&P Assessment and plan (1) Shock: (2) Acute on chronic hypoxic respiratory failure: (3) Pneumonia: Qualifiers: Laterality: right Lung location: middle lobe of lung Pneumonia type: d ue to unspecified organism Qualified Code(s): J18.9 - Pneumonia, unspecified organism (4) Rhinovirus infection: (5) COPD (chronic obstructive pulmonary disease): Qualifiers: COPD type: emphysema Emphysema type: centrilobular Qualified Code(s): J43.2 - Centrilobular emphysema (6) Elevated d-dimer: (7) Acute kidney injury superimposed on CKD: (8) Atherosclerosis of coronary artery of [place] heart without angina pectoris: Qualifiers: Coronary Disease-Associated Artery/Lesion type: [place] artery Qualified Code(s): I25.10 - Atherosclerotic heart disease of [place] coronary artery without angina pectoris (9) Ischemic cardiomyopathy: (10) Elevated troponin level: (11) HTN (hypertension): Qualifiers: Hypertension type: primary hypertension Qualified Code(s): I10 - Essential (primary) hypertension (12) Goals of care, counseling/discussion: Plan 79-year-old female with past medical history of COPD chronically on 3 L, CAD post PCI, past history of ischemic cardiomyopathy which has resolved on most recent echocardiogram presents to the ER after fall and found to be in acute hypoxic respiratory failure along with shock Levophed currently. Septic shock with hypoxic respiratory failure: Septic shock resolved. She is off pressors. Maintaining blood pressure. Gradually improving oxygen requirement. Reviewed vitals, CBC, D-dimer repeat, BMP, requested venous duplex of left upper extremity due to swelling, bruising after IV infiltration. Continues on anticoagulation. Discussed possible PE with radiologist, given she cannot/will not have contrast- enhanced CTA, consideration of VQ scan, however, with underlying eczema, current infiltrates may be elevated likelihood of an indeterminate study. Discussed with her. For now as per discussion continue anticoagulation, although has had slight worsening of anemia, hemoglobin down to 7.4 yesterday, 7.3 this morning. Recheck blood counts. Hemoccult has been requested. Monitor tolerance of anticoagulation, and risk of bleeding. Continue treatment of pneumonia, as per discussion with radiology, with her, after while with improvement in infiltrates may have a higher chance of successful V/Q study. Continue treatment of pneumonia, continue antibiotics. Will reduce Solu-Medrol dose to 20 mg every 12 hours. Monitor for risk of encephalopathy, gastritis, hyperglycemia, hypertension with IV steroids. Discussed with nursing, caser in. Reviewed PT assessment note. Respiratory failure slowly improving. Hypoxia with slow gradual improvement. Reviewed vitals, CBC, D-dimer, CMP. Today she is down to requiring 6 L by nasal cannula oxygen, improving through the day, down to 4 L later in the morning. Discussed with her and her son at bedside. She was anxious this morning. This does seem to contribute to her symptoms. Discussed with them addition of Xanax. She could not sleep at night, but is already on trazodone at home. We do not have melatonin, she would not wish to take Ambien, and discussed risks with benzodiazepines. Will try to focus on anxiety, and this may help her fall asleep during the night as well. Respiratory failure most likely in setting of bilateral pneumonia though given elevated D-dimer cannot rule out acute PE. Patient also has hypocapnia and hypoxia on ABG. Underlying COPD. Noted to also at least moderate pulmonary hypertension on review of TTE. MRSA swab negative. Respiratory viral panel positive for rhinovirus. Continue supportive care. Discussed with her and her son transferred to continue care on medical surgical floor. Transfer orders placed. PT assessment. Discussed with caser in. Likely may benefit from rehabilitation after discharge. Discussed consideration of transfer as per mention patient/family. Both patient and her son state they do not wish to transfer at current time, continue treatment and care here, reassess. Continue with IV meropenem. Monitor for risk of seizure. Hold off on vancomycin. Patient back to baseline mentation. Speech evaluation. Start on mechanical soft diet till then. Continues with IV steroid, Solu-Medrol, 40 mg every 12 hours, so far improving, will reassess and taper down if continues to show improvement. Monitor for risk of hypertension, hyperglycemia, gastritis, encephalopathy. DuoNeb every 6 hour, Pulmicort twice daily. Oxygen supplementation keeping saturation over 88%. Wean supplementation accordingly. Elevated D-dimer: So far still with elevation of 5.44. Repeat. Continue anticoagulation. After treatment of pneumonia consider VQ scan. Additionally left upper extremity with edema, bruising after infiltrated IV. Requested left upper extremity duplex. Discussed possible PE, although unconfirmed. Continues with anticoagulation. Difficulties with obtaining PTT today as she is very difficult stick, and PTT is unreliable from PICC line. Switched over to Lovenox. Discussed with her and with nursing also regarding worsening of anemia hemoglobin down to 7.4. No melena or hematochezia as noted. Requested Hemoccult. She has never had a upper or lower endoscopy and is not willing to undergo this. PPI is on board. Reassess blood counts. DC IV fluid. High likelihood of PE given ABG changes with hypoxia and hypocapnia and pulmonary hypertension on echocardiogram. Unable to do CTA as patient has VY on CKD. Currently not a good candidate for VQ scan. Follow-up lower limb Doppler. Continue with heparin drip for now. Repeat D-dimer in AM. Elevated troponin: Patient does have history of CAD with PCI in the past. Denies any active chest pain currently. Most likely type II in nature. Appreciate cardiology recommendations. Echocardiogram negative for any regional wall motion abnormality, shows EF of 60 to 65% with grade 1 diastolic dysfunction, mild MR with moderate pulmonary hypertension. Continue with aspirin 81 mg daily, home dose of statin. Appreciate recent A1c, lipid panel. VY on CKD: Baseline creatinine seems to be 1.3-1.5. Creatinine back to baseline. Medical reconciliation done for nephrotoxic drugs. Valenzuela catheterization. Strict input output charting. Monitor BMP daily. Monitor electrolytes. Hypernatremia: Most likely in setting of dehydration along with poor oral intake. Switch fluid from normal saline to D5 half NS. Repeat BMP in afternoon. LV thrombus: Past history. Resolved on most recent echocardiogram. Currently on heparin drip. Hold off on home dose of Eliquis. Hypertension: Shock has resolved. Goal blood pressure less than 140/90 mm with mean over 65. Holding off on home dose of Entresto for now. Given improvement in cardiac functions most likely can switch from Entresto to TONYA versus CCB. Continue with other chronic medications including levothyroxine, hydrocodone. CODE STATUS: Discussed in detail with patient. Patient's son and friend are with the DPOA. DNR/DNI Mechanical soft diet. Switch as per speech therapy. Protonix for PUD prophylaxis Physical therapy evaluation. Attestations 2 Medical Necessity Statement*: Continue admission for assessment and management of respiratory failure, bilateral pneumonia, possible PE with underlying COPD, and a lady with underlying pulmonary hypertension, as well as rhinovirus infection. and High MDM includes amount and/or complexity of data reviewed/ordered [ resulted lab(s)/test(s), ordered lab(s)/test(s) and other healthcare professional discussion] and described risk of complication, morbidity or mortality of management as documented Diagnoses Shock R57.9 Acute on chronic hypoxic respiratory failure J96.21 Pneumonia J18.9 Laterality: right Lung location: middle lobe of lung Pneumonia type: due to unspecified organism Rhinovirus infection B34.8 Centrilobular emphysema J43.2 COPD type: emphysema Emphysema type: centrilobular Elevated d-dimer R79.89 Acute kidney injury superimposed on CKD N17.9; N18.9 Atherosclerosis of [place] coronary artery of [place] heart without angina pectoris I25.10 Coronary Disease-Associated Artery/Lesion type: [place] artery Ischemic cardiomyopathy I25.5 Elevated troponin level R77.8 Primary hypertension I10 Hypertension type: primary hypertension Goals of care, counseling/discussion Z71.89
--- NOTE | 2024-04-04 13:23 | P.PN_ITS ---
<Statement entered by Jorge Michaels M.D - 04/06/24 10:36> Patient was evaluated and cared for in conjunction with an advanced practice practitioner.? I personally examined the patient and reviewed the chart and all pertinent data including imaging, telemetry, and laboratory results.? I discussed the patient in detail with the advanced practice practitioner.? Please see? their note for complete progress note, testing result and agreed upon plan of care for the patient. Subjective 2 Subjective: Patient doing better today. States her shortness of breath is much improved. Denies any chest pain or acute events. Medications: Reviewed: Yes Vitals/I&O/Wt Last Vital Signs Temp 98.6 F 04/04/24 08:00 Pulse 90 04/04/24 10:00 Resp 20 H 04/04/24 08:16 BP 150/62 04/04/24 10:00 Pulse Ox 93 04/04/24 10:00 O2 Del Method Nasal Cannula 04/04/24 08:16 O2 Flow Rate 4 04/04/24 08:16 FiO2 6 04/03/24 08:16 04/03/24 04/04/24 04/04/24 22:59 06:59 14:59 Intake Total 400 / 2531.633 75 / 75 Output Total 700 / 700 250 / 950 Balance -300 / 1831.633 -250 / 1581.633 75 / 75 Weight last 48 hrs Weight 100 lb 4.965 oz Weight 98 lb Weight 94 lb 12.78 oz Physical Exam 2 Narrative: General: No apparent distress, healthy appearing, well nourished Muskuloskeletal: Full ROM Lymphatic: no lymphedema noted Respiratory: Normal respiratory effort, decreased air movement bilateral lower lobes, no use of accessory muscles Cardio: No JVD, regular rate, regular rhythm, S1 S2 normal, no murmurs, peripheral pulses 2+ throughout Extremities: Full ROM, normal, normal capillary refill, no cyanosis or edema Neuro: Alert and oriented x4, no focal motor deficits Psych: Affect normal, denies suicidal ideation, mental status grossly normal Skin: No rashes or lesions noted, no wounds Urinary Catheter Management: Valenzuela: Cath Placed During This Visit: yes Reason for Continuing Indwelling Catheter: Accurate Measurement of Urinary Output in Critically Ill Patients Urinary Catheter Date of Insertion: 04/01/24 Urinary Catheter Time of Insertion: 16:00 Data 04/04/24 03:48 04/04/24 03:48 Micro: Microbiology 04/01/24 16:50 Gram Stain - Final Sputum - Expectorated Sputum Sputum Culture - Final Haemophilus influenzae A&P Assessment and plan (1) Elevated troponin level: (2) Atherosclerosis of coronary artery of [place] heart without angina pectoris: Qualifiers: Coronary Disease-Associated Artery/Lesion type: [place] artery Qualified Code(s): I25.10 - Atherosclerotic heart disease of [place] coronary artery without angina pectoris (3) Hyperlipidemia: Qualifiers: Hyperlipidemia type: mixed hyperlipidemia Qualified Code(s): E78.2 - Mixed hyperlipidemia (4) Common cold virus: Plan Patient denies any chest pain at this time. She has signs and symptoms consistent with possible pneumonia from possible virus. She tested positive for the rhinovirus. Troponins were elevated but could have been from demand ischemia. Once patient stabilizes more from a respiratory standpoint we will consider stress test. At this time she has had no acute events. Patient is still fairly weak but continues to improve. Attestations 2 Medical Necessity Statement*: Deferred to primary. Coding Level of Care Code Acute Code for [facility] Fwd Diagnoses Elevated troponin level R77.8 Atherosclerosis of [place] coronary artery of [place] heart without angina pectoris I25.10 Coronary Disease-Associated Artery/Lesion type: [place] artery Mixed hyperlipidemia E78.2 Hyperlipidemia type: mixed hyperlipidemia Common cold virus J00
[2024-04-04] MEDS: pantoprazole 40 mg SDV IVP (16:04)
[2024-04-04] MEDS: ALPRAZolam 0.5 mg Tablet 0.25 MG PO (16:51)
[2024-04-04] MEDS: atorvastatin 40 mg Tablet PO (20:47)
[2024-04-05] VITALS (71 sets, daily range): BP systolic 116–167; BP diastolic 52–111; PULSE 57–92; RESP 16–34; TEMP 36.4–37.4; O2SAT 59–100
[2024-04-05] MEDS: morphine 4 mg/mL SDV 1 mL 2 MG IVP (01:21)
[2024-04-05 05:14] LABS: D Dimer 5.07 ug/mLFEU (0-0.59)
[2024-04-05 05:16] LABS: Basophils % 0.2 %; Hematocrit 21.8 % (36-47); Lymphocytes # 0.6 10^3/uL (0.8-4.8); Lymphocytes % 4.2 %; Mean Corpuscular HGB Conc 31.7 g/dL (30-55); Mean Corpuscular Hemoglobin 30.4 pg (27-33); Mean Platelet Volume 10.6 fL (7.4-10.4); Monocytes # 0.8 10^3/uL (0.2-0.9); Neutrophils # 11.75 10^3/uL (1.8-7.7); Neutrophils % 87.5 %; Nucleated Red Blood Cells % 0.1 %; Platelet Count 216 10^3/cmm (157-399); Red Blood Count 2.27 10^6/uL (3.85-5.65); Red Cell Distribution Width 16.7 % (12.1-15.1); White Blood Count 13.43 10^3/uL (3.29-11.43)
[2024-04-05 05:36] LABS: Blood Urea Nitrogen 51 mg/dL (8-23); Calcium 8.1 mg/dL (8.5-10.5); Carbon Dioxide 22 mmol/L (22-29); Chloride 112 mmol/L (98-107); Creatinine Clr Calc Pharmacy 24.4071; Glucose 107 mg/dL (65-115); Osmolality Calculated 312 mOsm/kg (285-295); Sodium 144 mmol/L (136-145)
[2024-04-05 05:42] LABS: Anion Gap 14.1 (5-19); Potassium 4.1 mmol/L (3.5-5.1)
[2024-04-05 05:50] LABS: Magnesium 2.6 mg/dL (1.7-2.3)
[2024-04-05] MEDS: levothyroxine 75 mcg Tablet 37.5 MCG PO (06:03)
[2024-04-05] MEDS: methylPREDNISolone sod succ 40 mg/mL INJ 20 MG IVP (06:04)
[2024-04-05] MEDS: ipratropium-albuterol 3 mL Neb INHALATION ×3 (07:38→19:55)
[2024-04-05] MEDS: budesonide 0.5 mg/2 mL Neb INHALATION ×2 (07:38→19:55)
[2024-04-05] MEDS: azithromycin 250 mg Tablet 500 MG PO (08:17)
--- NOTE | 2024-04-05 09:26 | XR_ITS ---
WS: [id number] XR chest 1V portable [id number] REASON FOR EXAM: reassess infiltrates FINDINGS: Compared to 04/01/2024, the pleural effusions and the linear densities in the left lower lung field a re unchanged. The reticular and groundglass opacities in the lower right lung field have undergone partial resoluti on with moderate abnormality remaining. The improvement is with resolution of the groundglass density . Right arm PICC line remains in position. No other interval change or new finding in the chest compared to 04/01/2024. XR/XR chest 1V portable [id number] IMPRESSION: Persistent pleural effusions. Interval improvement in the right chest as above.
[2024-04-05] MEDS: HYDROcodone-acetaminophen 7.5-325 mg Tablet 1 TAB PO (10:23)
[2024-04-05] MEDS: meropenem 1,000 mg SDV 1000 MG IVP ×2 (12:49)
[2024-04-05] MEDS: enoxaparin 40 mg/0.4 mL Syringe SUBCUT (12:49)
--- NOTE | 2024-04-05 13:08 | PM.PN ---
Subjective Subjective: She is not feeling as well today as she did yesterday. Breathing is about the same. Swelling with some improvement to left arm. Try to have a bowel movement last night but did not go. Vitals/I&O/Wt Last Vital Signs Temp 97.6 F 04/05/24 05:56 Pulse 64 04/05/24 11:30 Resp 21 H 04/05/24 11:30 BP 123/76 04/05/24 11:15 Pulse Ox 97 04/05/24 11:30 O2 Del Method Nasal Cannula 04/05/24 07:39 O2 Flow Rate 3.5 04/05/24 07:39 FiO2 6 04/03/24 08:16 04/04/24 04/05/24 04/05/24 22:59 06:59 14:59 Intake Total 200 / 200 Output Total 450 / 450 Balance -450 / -375 200 / 200 Weight last 48 hrs Weight 45.677 kg Weight 46.5 kg Weight 45.45 kg Weight 45.5 kg Physical Exam Narrative: Accompanied by her friend Const: COMMON NORMALS: patient oriented x3 and alert GENERAL APPEARANCE: cooperative ORIENTATION/CONSCIOUSNESS: Yes awake HENMT: COMMON NORMALS: oropharynx normal Neck/C-Spine: COMMON NORMALS: no JVD Resp: COMMON NORMALS: normal respiratory effort and clear to auscultation bilaterally AUSCULTATION: clear to auscultation bilaterally OTHER: Minimally diminished at bases. Cardio: COMMON NORMALS: no JVD, regular rhythm, S1 normal heart sound present, S2 normal heart sound present and No murmurs present (Cardio) RHYTHM: regular rhythm HEART SOUNDS: S1 normal heart sound present and S2 normal heart sound present GI: COMMON NORMALS: Normal to inspection, nondistended, normoactive bowel sounds present, Soft to palpation and non-tender PALPATION: Yes Soft to palpation Extremity: COMMON NORMALS: no joint enlargement and no pedal edema NARRATIVE EXTREMITY EXAM: Decreasing edema around the posterior/dependent portion of the distal left upper arm, elbow, proximal left forearm. Bruising. Neuro: COMMON NORMALS: patient oriented x3 and moves all extremities SENSORIUM/ORIENTATION: Yes alert Skin: COMMON NORMALS: no rashes or lesions noted GENERAL SKIN EXAM: no rashes or lesions noted Urinary Catheter Management: Valenzuela: Cath Placed During This Visit: yes Reason for Continuing Indwelling Catheter: Accurate Measurement of Urinary Output in Critically Ill Patients Urinary Catheter Date of Insertion: 04/01/24 Urinary Catheter Time of Insertion: 16:00 Data 04/05/24 03:23 04/05/24 03:23 Micro: Microbiology 04/01/24 16:50 Gram Stain - Final Sputum - Expectorated Sputum Sputum Culture - Final Haemophilus influenzae A&P Assessment and plan (1) Shock: (2) Acute on chronic hypoxic respiratory failure: (3) Pneumonia: Qualifiers: Laterality: right Lung location: middle lobe of lung Pneumonia type: due to unspecified organism Qualified Code(s): J18.9 - Pneumonia, unspecified organism (4) Rhinovirus infection: (5) COPD (chronic obstructive pulmonary disease): Qualifiers: COPD type: emphysema Emphysema type: centrilobular Qualified Code(s): J43.2 - Centrilobular emphysema (6) Elevated d-dimer: (7) Acute kidney injury superimposed on CKD: (8) Atherosclerosis of coronary artery of [place] heart without angina pectoris: Qualifiers: Coronary Disease-Associated Artery/Lesion type: [place] artery Qualified Code(s): I25.10 - Atherosclerotic heart disease of [place] coronary artery without angina pectoris (9) Ischemic cardiomyopathy: (10) Elevated troponin level: (11) HTN (hypertension): Qualifiers: Hypertension type: primary hypertension Qualified Code(s): I10 - Essential (primary) hypertension (12) Goals of care, counseling/discussion: Plan 79-year-old female with past medical history of COPD chronically on 3 L, CAD post PCI, past history of ischemic cardiomyopathy which has resolved on most recent echocardiogram presents to the ER after fall and found to be in acute hypoxic respiratory failure along with shock Levophed currently. Septic shock with hypoxic respiratory failure: Septic shock resolved. She is off pressors. Maintaining blood pressure. Remains on 3 and half liters nasal cannula oxygenation. Leukocytosis has stayed around 13.5. Still with mild tachypnea 21-23 breaths/min. Subjectively feels slightly worse today. Did work with therapy, walking about 4 feet from the bed. Overnight anemia worsening hemoglobin down to 6.9, 1 unit RBC transfusion has been requested. Monitor for risk of transfusion related lung injury, circulatory overload risk, other transfusion reaction. As discussed with her repeat chest x-ray requested to further assess infiltrates, with consideration of VQ scan to further assess necessity of anticoagulation. Infiltrates noted with improvement. Requested VQ scan. Xanax as needed for anxiety. Still could not sleep well at night. Discussed with nursing, catalytic case operator. Discussed possible PE with radiologist, given she cannot/will not have contrast-enhanced CTA, consideration of VQ scan, however, with underlying eczema, current infiltrates may be elevated likelihood of an indeterminate study. Discussed with her. For now as per discussion continue anticoagulation, although has had slight worsening of anemia, hemoglobin down to 7.4 yesterday, 7.3 this morning. Recheck blood counts. Hemoccult has been requested. Monitor tolerance of anticoagulation, and risk of bleeding. Continue treatment of pneumonia, as per discussion with radiology, with her, after while with improvement in infiltrates may have a higher chance of successful V/Q study. Continue treatment of pneumonia, continue antibiotics. Continue Solu-Medrol, Reduce dose to 10 mg every 12 hours. Monitor for risk of encephalopathy, gastritis, hyperglycemia, hypertension with IV steroids. Reviewed PT assessment note. Respiratory failure slowly improving. Respiratory failure most likely in setting of bilateral pneumonia though given elevated D-dimer cannot rule out acute PE. Patient also has hypocapnia and hypoxia on ABG. Underlying COPD. Noted to also at least moderate pulmonary hypertension on review of TTE. MRSA swab negative. Sputum culture came back positive for haemophilus influenza on review. Discussed with patient. Respiratory viral panel positive for rhinovirus. Continue supportive care. PT assessment. Discussed with catalytic case operator. Likely may benefit from rehabilitation after discharge. She declines SNF. Arrangements underway for home health. Discussed consideration of transfer as per mention patient/family. Both patient and her son state they do not wish to transfer at current time, continue treatment and care here, reassess. Continue with IV meropenem. Monitor for risk of seizure. Hold off on vancomycin. Patient back to baseline mentation. Speech evaluation. Start on mechanical soft diet till then. Continues with IV steroid, Solu-Medrol, 10 mg every 12 hours, so far improving, will reassess and taper down if continues to show improvement. Monitor for risk of hypertension, hyperglycemia, gastritis, encephalopathy. DuoNeb every 6 hour, Pulmicort twice daily. Oxygen supplementation keeping saturation over 88%. Wean supplementation accordingly. Elevated D-dimer: So far still with elevation of 5. Repeat. Continue anticoagulation. After treatment of pneumonia consider VQ scan. Additionally left upper extremity with edema, bruising after infiltrated IV. Reviewed left upper extremity duplex. Reassess with chest x-ray which is showing improving infiltrates. Requested a VQ scan. Discussed possible PE, although unconfirmed. Continues with anticoagulation. Difficulties with obtaining PTT today as she is very difficult stick, and PTT is unreliable from PICC line. Switched over to Lovenox. Discussed with her and with nursing also regarding worsening of anemia. No melena or hematochezia as noted. Requested Hemoccult. She has never had a upper or lower endoscopy and is not willing to undergo this. PPI is on board. Reassess blood counts. DC IV fluid. High likelihood of PE given ABG changes with hypoxia and hypocapnia and pulmonary hypertension on echocardiogram. Unable to do CTA as patient has VY on CKD. Currently not a good candidate for VQ scan. Follow-up lower limb Doppler. Continue with heparin drip for now. Repeat D-dimer in AM. Elevated troponin: Reviewed cardiology note. Stress test to be considered once stabilized from respiratory perspective. Patient does have history of CAD with PCI in the past. Denies any active chest pain currently. Most likely type II in nature. Appreciate cardiology recommendations. Echocardiogram negative for any regional wall motion abnormality, shows EF of 60 to 65% with grade 1 diastolic dysfunction, mild MR with moderate pulmonary hypertension. Continue with aspirin 81 mg daily, home dose of statin. Appreciate recent A1c, lipid panel. VY on CKD: Baseline creatinine seems to be 1.3-1.5. Creatinine back to baseline. Medical reconciliation done for nephrotoxic drugs. Valenzuela catheterization. Strict input output charting. Monitor BMP daily. Monitor electrolytes. Hypernatremia: Most likely in setting of dehydration along with poor oral intake. Switch fluid from normal saline to D5 half NS. Repeat BMP in afternoon. LV thrombus: Past history. Resolved on most recent echocardiogram. Currently on heparin drip. Hold off on home dose of Eliquis. Hypertension: Shock has resolved. Goal blood pressure less than 140/90 mm with mean over 65. Holding off on home dose of Entresto for now. Given improvement in cardiac functions most likely can switch from Entresto to TONYA versus CCB. Continue with other chronic medications including levothyroxine, hydrocodone. CODE STATUS: Discussed in detail with patient. Patient's son and friend are with the DPOA. DNR/DNI Mechanical soft diet. Switch as per speech therapy. Protonix for PUD prophylaxis Physical therapy evaluation. Attestations Medical Necessity Statement*: Continue admission for assessment and management of respiratory failure, acutely worsened anemia, bilateral pneumonia, possible PE with underlying COPD, and a lady with underlying pulmonary hypertension, as well as rhinovirus and Haemophilus influenzae infection. and High MDM includes amount and/or complexity of data reviewed/ordered [ previous or external records, resulted lab(s)/test(s), ordered lab(s)/test(s) and other healthcare professional discussion] and described risk of complication, morbidity or mortality of management as documented Diagnoses Shock R57.9 Acute on chronic hypoxic respiratory failure J96.21 Pneumonia J18.9 Laterality: right Lung location: middle lobe of lung Pneumonia type: due to unspecified organism Rhinovirus infection B34.8 Centrilobular emphysema J43.2 COPD type: emphysema Emphysema type: centrilobular Elevated d-dimer R79.89 Acute kidney injury superimposed on CKD N17.9; N18.9 Atherosclerosis of [place] coronary artery of [place] heart without angina pectoris I25.10 Coronary Disease-Associated Artery/Lesion type: [place] artery Ischemic cardiomyopathy I25.5 Elevated troponin level R77.8 Primary hypertension I10 Hypertension type: primary hypertension Goals of care, counseling/discussion Z71.89
--- NOTE | 2024-04-05 14:49 | PC.SOCIAL ---
IMM Updated Updated pt on IMM. No questions voiced. Provided pt a copy. Initialed, dated, & timed copy in chart.
[2024-04-05] MEDS: pantoprazole 40 mg SDV IVP (16:18)
[2024-04-05] MEDS: methylPREDNISolone sod succ 40 mg/mL INJ 10 MG IVP (16:18)
--- NOTE | 2024-04-05 17:07 | P.PN_ITS ---
<Statement entered by Jorge Michaels M.D - 04/06/24 10:39> Patient was evaluated and cared for in conjunction with an advanced practice practitioner.? I personally examined the patient and reviewed the chart and all pertinent data including imaging, telemetry, and laboratory results.? I discussed the patient in detail with the advanced practice practitioner.? Please see? their note for complete progress note, testing result and agreed upon plan of care for the patient. Patient denies any complaint feeling much better. No chest pain. GENERAL: Patient is alert, awake and oriented x3. HEART: Regular S1 and S2 LUNGS: Diminished air entry bilaterally. CENTRAL NERVOUS SYSTEM: Grossly nonfocal. EXTREMITIES: Lower extremities with out edema bilaterally. ASSESSMENT AND PLAN Troponin elevation Pneumonia Patient's troponin levels elevated secondary to demand ischemia. Echo showed normal LV systolic function. Can be planned as outpatient as patient is stable from cardiac standpoint and has no symptoms. Thank you for involving us with care of this patient. We will continue to follow. Please call with questions. Subjective 2 Subjective: Patient is not having any chest pain at this time. Still has some respiratory issues. Overall she is looking okay. Medications: Reviewed: Yes Vitals/I&O/Wt Last Vital Signs Temp 97.6 F 04/05/24 05:56 Pulse 78 04/05/24 16:30 Resp 21 H 04/05/24 16:30 BP 167/111 04/05/24 16:30 Pulse Ox 94 04/05/24 15:30 O2 Del Method Nasal Cannula 04/05/24 14:43 O2 Flow Rate 3.5 04/05/24 14:43 FiO2 6 04/03/24 08:16 04/05/24 04/05/24 04/05/24 06:59 14:59 22:59 Intake Total 450 / 450 Output Total 450 / 450 0 / 0 Balance -450 / -375 450 / 450 0 / 450 Weight last 48 hrs Weight 100 lb 11.2 oz Weight 102 lb 8.239 oz Weight 100 lb 3.2 oz Weight 100 lb 4.965 oz Physical Exam 2 Narrative: General: No apparent distress, healthy appearing, well nourished Muskuloskeletal: Full ROM Lymphatic: no lymphedema noted Respiratory: Normal respiratory effort, decreased air movement bilateral lower lobes, no use of accessory muscles Cardio: No JVD, regular rate, regular rhythm, S1 S2 normal, no murmurs, peripheral pulses 2+ throughout Extremities: Full ROM, normal, normal capillary refill, no cyanosis or edema Neuro: Alert and oriented x4, no focal motor deficits Psych: Affect normal, denies suicidal ideation, mental status grossly normal Skin: No rashes or lesions noted, no wounds Urinary Catheter Management: Valenzuela: Cath Placed During This Visit: yes Reason for Continuing Indwelling Catheter: Accurate Measurement of Urinary Output in Critically Ill Patients Urinary Catheter Date of Insertion: 04/01/24 Urinary Catheter Time of Insertion: 16:00 Data 04/05/24 03:23 04/05/24 03:23 Micro: Microbiology 04/01/24 16:50 Gram Stain - Final Sputum - Expectorated Sputum Sputum Culture - Final Haemophilus influenzae A&P Assessment and plan (1) Elevated troponin level: (2) Atherosclerosis of coronary artery of [place] heart without angina pectoris: Qualifiers: Coronary Disease-Associated Artery/Lesion type: [place] artery Qualified Code(s): I25.10 - Atherosclerotic heart disease of [place] coronary artery without angina pectoris (3) Hyperlipidemia: Qualifiers: Hyperlipidemia type: mixed hyperlipidemia Qualified Code(s): E78.2 - Mixed hyperlipidemia (4) Common cold virus: Plan Patient denies any chest pain at this time. She has signs and symptoms consistent with possible pneumonia from possible virus. She tested positive for the rhinovirus. Troponins were elevated but could have been from demand ischemia. Once patient stabilizes more from a respiratory standpoint we will consider outpatient stress test. At this time she has had no acute events. Denies any chest pain. Patient is still fairly weak but continues to improve. At this time, cardiology will sign off of this patient. As always, if our assistance is needed in the future, please consult us. Thank you for allowing us to take care of this very pleasant patient. We will plan on getting an outpatient stress test for the patient. Attestations 2 Medical Necessity Statement*: Deferred to primary. Coding Level of Care Code Acute Code for Chg Fwd Diagnoses Elevated troponin level R77.8 Atherosclerosis of [place] coronary artery of [place] heart without angina pectoris I25.10 Coronary Disease-Associated Artery/Lesion type: [place] artery Mixed hyperlipidemia E78.2 Hyperlipidemia type: mixed hyperlipidemia Common cold virus J00
[2024-04-05] MEDS: ALPRAZolam 0.5 mg Tablet 0.25 MG PO (19:08)
--- NOTE | 2024-04-05 21:02 | PC.NURSE ---
Report called to Tobias HERNANDEZ on medsurg all questions answered, patient transferred up at 2100 to room 275.
[2024-04-05] MEDS: acetaminophen 325 mg Tablet 650 MG PO (22:00)
[2024-04-05] MEDS: trazodone 50 mg Tablet 150 MG PO (22:01)
[2024-04-05] MEDS: atorvastatin 40 mg Tablet PO (22:01)
[2024-04-06] VITALS (15 sets, daily range): BP systolic 133–152; BP diastolic 63–87; PULSE 64–94; RESP 16–24; TEMP 36.3–36.7; O2SAT 91–97
[2024-04-06] MEDS: meropenem 1,000 mg SDV 1000 MG IVP ×3 (00:28→23:37)
[2024-04-06] MEDS: ipratropium-albuterol 3 mL Neb INHALATION ×4 (03:17→19:51)
[2024-04-06] MEDS: ALPRAZolam 0.5 mg Tablet 0.25 MG PO ×3 (03:26→19:49)
[2024-04-06] MEDS: HYDROcodone-acetaminophen 7.5-325 mg Tablet 1 TAB PO ×2 (03:26→11:04)
[2024-04-06 05:10] LABS: Basophils % 0.2 %; Hematocrit 26.6 % (36-47); Lymphocytes # 0.8 10^3/uL (0.8-4.8); Lymphocytes % 5.8 %; Mean Corpuscular Hemoglobin 28.9 pg (27-33); Mean Corpuscular Volume 90.5 fl (85-98); Mean Platelet Volume 10.1 fL (7.4-10.4); Monocytes # 0.9 10^3/uL (0.2-0.9); Monocytes % 6.6 %; Neutrophils # 11.36 10^3/uL (1.8-7.7); Nucleated Red Blood Cells # 0.1 /100WBC; Nucleated Red Blood Cells % 0.5 %; Platelet Count 250 10^3/cmm (157-399); Red Blood Count 2.94 10^6/uL (3.85-5.65); Red Cell Distribution Width 19.5 % (12.1-15.1)
[2024-04-06] MEDS: methylPREDNISolone sod succ 40 mg/mL INJ 10 MG IVP ×2 (05:10→18:01)
[2024-04-06] MEDS: levothyroxine 75 mcg Tablet 37.5 MCG PO (05:10)
[2024-04-06 05:25] LABS: D Dimer 3.85 ug/mLFEU (0-0.59)
[2024-04-06 05:32] LABS: Blood Urea Nitrogen 51 mg/dL (8-23); Calcium 8.1 mg/dL (8.5-10.5); Carbon Dioxide 22 mmol/L (22-29); Chloride 114 mmol/L (98-107); Creatinine Clr Calc Pharmacy 30.1563; Glucose 92 mg/dL (65-115); Osmolality Calculated 313 mOsm/kg (285-295); Sodium 145 mmol/L (136-145)
[2024-04-06 05:38] LABS: Anion Gap 13.9 (5-19); Potassium 4.9 mmol/L (3.5-5.1)
[2024-04-06] MEDS: budesonide 0.5 mg/2 mL Neb INHALATION ×2 (07:47→19:51)
[2024-04-06] MEDS: azithromycin 250 mg Tablet 500 MG PO (09:02)
--- NOTE | 2024-04-06 13:04 | PC.NURSE ---
Patient went to [facility] med at 1200. medications will be late.
--- NOTE | 2024-04-06 13:10 | PC.NURSE ---
Patient back from [facility]. Was upset because patient did not have an IV. Patient has a PICC in right upper arm. Once patient was there [facility] called floor. Another nurse spoke to them and stated a PICC is considered an IV up her. Patient is a very hard stick therefore the PICC was placed.
[2024-04-06] MEDS: enoxaparin 40 mg/0.4 mL Syringe SUBCUT (13:14)
--- NOTE | 2024-04-06 13:26 | NM_ITS ---
WS: [id number] NUCLEAR MEDICINE LUNG VENTILATION AND PERFUSION CLINICAL INFORMATION: assess for PE TECHNIQUE: Ventilation/perfusion lung scan with 28.8 mCi technetium 99m DTPA and 4.8 mCi MAA. COMPARISON: Radiograph 04/05/2024 FINDINGS: Radiograph 04/05/2024 reviewed. chronic emphysematous changes. Small LEFT greater than RIGHT pleural e ffusions with bibasilar atelectasis. Central deposition of radiotracer along the bronchi with patchy bilateral ventilatory uptake compatib le with emphysematous change. A few matched defects in the RIGHT lower lobe. No mismatched ventilatio n/perfusion defects. Otherwise relatively symmetric perfusion. Low probability for pulmonary embolus. NM/NM pul vent and perfus* [id number] IMPRESSION: 1. Low probability for pulmonary embolus.
[2024-04-06] MEDS: pantoprazole 40 mg SDV IVP (16:05)
--- NOTE | 2024-04-06 18:45 | PM.PN ---
Subjective Subjective: She is overall feeling slightly better today. Oxygenation appears from some improvement. Denies any bleeding. Some persistent dependent swelling mid left arm. Vitals/I&O/Wt Last Vital Signs Temp 97.7 F 04/06/24 16:12 Pulse 71 04/06/24 16:12 Resp 16 04/06/24 16:12 BP 141/85 04/06/24 16:12 Pulse Ox 96 04/06/24 16:12 O2 Del Method Nasal Cannula 04/06/24 16:12 O2 Flow Rate 3.5 04/06/24 16:12 FiO2 6 04/03/24 08:16 04/06/24 04/06/24 04/06/24 06:59 14:59 22:59 Intake Total 250 / 1050 118 / 118 240 / 358 Output Total 250 / 450 Balance 0 / 600 118 / 118 240 / 358 Weight last 48 hrs Weight 52.571 kg Weight 52.571 kg Weight 45.677 kg Weight 46.5 kg Physical Exam Narrative: Accompanied by her friend Const: COMMON NORMALS: patient oriented x3 and alert GENERAL APPEARANCE: cooperative ORIENTATION/CONSCIOUSNESS: Yes awake HENMT: COMMON NORMALS: oropharynx normal Neck/C-Spine: COMMON NORMALS: no JVD Resp: COMMON NORMALS: normal respiratory effort and clear to auscultation bilaterally AUSCULTATION: clear to auscultation bilaterally OTHER: Minimally diminished at bases. Cardio: COMMON NORMALS: no JVD, regular rhythm, S1 normal heart sound present, S2 normal heart sound present and No murmurs present (Cardio) RHYTHM: regular rhythm HEART SOUNDS: S1 normal heart sound present and S2 normal heart sound present GI: COMMON NORMALS: Normal to inspection, nondistended, normoactive bowel sounds present, Soft to palpation and non-tender PALPATION: Yes Soft to palpation Extremity: COMMON NORMALS: no joint enlargement and no pedal edema NARRATIVE EXTREMITY EXAM: Some persistent edema around the posterior/dependent portion of the distal left upper arm, elbow, proximal left forearm. Bruising. Arm not elevated. Propped up on a pillow to just above heart level. Neuro: COMMON NORMALS: patient oriented x3 and moves all extremities SENSORIUM/ORIENTATION: Yes alert Skin: COMMON NORMALS: no rashes or lesions noted GENERAL SKIN EXAM: no rashes or lesions noted Urinary Catheter Management: Valenzuela: Cath Placed During This Visit: yes Reason for Continuing Indwelling Catheter: Other Urinary Catheter Date of Insertion: 04/01/24 Urinary Catheter Time of Insertion: 16:00 Data 04/06/24 04:51 04/06/24 04:51 Micro: Microbiology 04/01/24 08:20 Blood Culture - Final Blood NO GROWTH AFTER 5 DAYS 04/01/24 08:24 Blood Culture - Final Blood NO GROWTH AFTER 5 DAYS A&P Assessment and plan (1) Shock: (2) Acute on chronic hypoxic respiratory failure: (3) Pneumonia: Qualifiers: Laterality: right Lung location: middle lobe of lung Pneumonia type: due to unspecified organism Qualified Code(s): J18.9 - Pneumonia, unspecified organism (4) Rhinovirus infection: (5) COPD (chronic obstructive pulmonary disease): Qualifiers: COPD type: emphysema Emphysema type: centrilobular Qualified Code(s): J43.2 - Centrilobular emphysema (6) Elevated d-dimer: (7) Acute kidney injury superimposed on CKD: (8) Atherosclerosis of coronary artery of [place] heart without angina pectoris: Qualifiers: Coronary Disease-Associated Artery/Lesion type: [place] artery Qualified Code(s): I25.10 - Atherosclerotic heart disease of [place] coronary artery without angina pectoris (9) Ischemic cardiomyopathy: (10) Elevated troponin level: (11) HTN (hypertension): Qualifiers: Hypertension type: primary hypertension Qualified Code(s): I10 - Essential (primary) hypertension (12) Goals of care, counseling/discussion: Plan 79-year-old female with past medical history of COPD chronically on 3 L, CAD post PCI, past history of ischemic cardiomyopathy which has resolved on most recent echocardiogram presents to the ER after fall and found to be in acute hypoxic respiratory failure along with shock Levophed currently. Pneumonia: With hypoxia, oxygen requirement coming cloth mercerizer back tender to baseline. Reviewed vitals, CBC, D-dimer, BMP. Reviewed VQ scan. Noted low probability for PE. Prophylactic Lovenox only. Continue treatment of pneumonia. Subjectively she is showing improvement. Continue mobilization with therapy. Arrangements for home health. Discussed with medical case worker. On IV Solu-Medrol, monitor for risk of hyperglycemia, hypertension, encephalopathy, gastritis. Switch to prednisone 10 mg daily. Xanax as needed for anxiety. Still could not sleep well at night. Discussed with nursing, medical case worker. Hemoccult has been requested. Continue treatment of pneumonia, continue antibiotics. Continue Solu-Medrol, Reduce dose to 10 mg every 12 hours. Monitor for risk of encephalopathy, gastritis, hyperglycemia, hypertension with IV steroids. Reviewed PT assessment note. Respiratory failure slowly improving. Respiratory failure most likely in setting of bilateral pneumonia though given elevated D-dimer cannot rule out acute PE. Patient also has hypocapnia and hypoxia on ABG. Underlying COPD. Noted to also at least moderate pulmonary hypertension on review of TTE. MRSA swab negative. Sputum culture came back positive for haemophilus influenza on review. Discussed with patient. Respiratory viral panel positive for rhinovirus. Continue supportive care. Continue with IV meropenem. Monitor for risk of seizure. Hold off on vancomycin. Patient back to baseline mentation. Speech evaluation. Start on mechanical soft diet till then. Continues with IV steroid, Solu-Medrol, 10 mg every 12 hours, so far improving, will reassess and taper down if continues to show improvement. Monitor for risk of hypertension, hyperglycemia, gastritis, encephalopathy. DuoNeb every 6 hour, Pulmicort twice daily. Septic shock with hypoxic respiratory failure: Septic shock resolved. Elevated D-dimer: Reviewed VQ scan. Low probability for PE. Reviewed D-dimer, decreasing at 3.85. No DVT on duplex lower extremity or left upper extremity. Elevated troponin: Reviewed cardiology note. Appreciate consultation. Once. Improving back to her usual respiratory status consider outpatient stress test. Discussed with nursing, medical case worker. Patient does have history of CAD with PCI in the past. Denies any active chest pain currently. Most likely type II in nature. Appreciate cardiology recommendations. Echocardiogram negative for any regional wall motion abnormality, shows EF of 60 to 65% with grade 1 diastolic dysfunction, mild MR with moderate pulmonary hypertension. Continue with aspirin 81 mg daily, home dose of statin. Appreciate recent A1c, lipid panel. VY on CKD: Baseline creatinine seems to be 1.3-1.5. Creatinine back to baseline. Medical reconciliation done for nephrotoxic drugs. Valenzuela catheterization. Strict input output charting. Monitor BMP daily. Monitor electrolytes. Hypernatremia: Most likely in setting of dehydration along with poor oral intake. Switch fluid from normal saline to D5 half NS. Repeat BMP in afternoon. LV thrombus: Past history. Resolved on most recent echocardiogram. Currently on heparin drip. Hold off on home dose of Eliquis. Hypertension: Shock has resolved. Goal blood pressure less than 140/90 mm with mean over 65. Holding off on home dose of Entresto for now. Given improvement in cardiac functions most likely can switch from Entresto to TONYA versus CCB. Continue with other chronic medications including levothyroxine, hydrocodone. CODE STATUS: Discussed in detail with patient. Patient's son and friend are with the DPOA. DNR/DNI Mechanical soft diet. Switch as per speech therapy. Protonix for PUD prophylaxis Physical therapy. Home health. Attestations Medical Necessity Statement*: Continue admission for assessment and management of respiratory failure, anemia, bilateral pneumonia, with underlying COPD, and a lady with underlying pulmonary hypertension, as well as rhinovirus and Haemophilus influenzae infection. Discharge planning and arrangements and High MDM includes amount and/or complexity of data reviewed/ordered [ previous or external records, resulted lab(s)/test(s) and other healthcare professional discussion] and described risk of complication, morbidity or mortality of management as documented Diagnoses Shock R57.9 Acute on chronic hypoxic respiratory failure J96.21 Pneumonia J18.9 Laterality: right Lung location: middle lobe of lung Pneumonia type: due to unspecified organism Rhinovirus infection B34.8 Centrilobular emphysema J43.2 COPD type: emphysema Emphysema type: centrilobular Elevated d-dimer R79.89 Acute kidney injury superimposed on CKD N17.9; N18.9 Atherosclerosis of [place] coronary artery of [place] heart without angina pectoris I25.10 Coronary Disease-Associated Artery/Lesion type: [place] artery Ischemic cardiomyopathy I25.5 Elevated troponin level R77.8 Primary hypertension I10 Hypertension type: primary hypertension Goals of care, counseling/discussion Z71.89
[2024-04-06] MEDS: trazodone 50 mg Tablet 150 MG PO (19:49)
[2024-04-06] MEDS: atorvastatin 40 mg Tablet PO (19:49)
--- NOTE | 2024-04-06 21:30 | PC.NURSE ---
Patient educated on SCDs to prevent blood clot. Patient refusing to wear them.
[2024-04-07] VITALS: BP 145/84; PULSE 92; RESP 18; TEMP 36.6; O2SAT 97
[2024-04-07] MEDS: HYDROcodone-acetaminophen 7.5-325 mg Tablet 1 TAB PO (00:39)
--- NOTE | 2024-04-07 00:47 | PC.NURSE ---
Patient refuses to be turned on side. It has been offered multiple times.
[2024-04-07 04:00] VITALS: BP 119/60; PULSE 69; RESP 13; TEMP 36.9; O2SAT 93
[2024-04-07] MEDS: levothyroxine 75 mcg Tablet 37.5 MCG PO (04:57)
[2024-04-07 06:00] VITALS: PULSE 60
[2024-04-07 07:20] VITALS: BP 124/76; PULSE 65; RESP 16; TEMP 36.5; O2SAT 98
[2024-04-07 08:18] LABS: Basophils % 0.2 %; Eosinophils % 0.1 %; Hematocrit 26.8 % (36-47); Lymphocytes # 1.1 10^3/uL (0.8-4.8); Lymphocytes % 8.7 %; Mean Corpuscular HGB Conc 32.8 g/dL (30-55); Mean Corpuscular Hemoglobin 30.2 pg (27-33); Mean Corpuscular Volume 92.1 fl (85-98); Mean Platelet Volume 10.2 fL (7.4-10.4); Monocytes # 0.8 10^3/uL (0.2-0.9); Monocytes % 6.6 %; Neutrophils # 9.91 10^3/uL (1.8-7.7); Neutrophils % 80.1 %; Nucleated Red Blood Cells # 0.1 /100WBC; Nucleated Red Blood Cells % 0.4 %; Platelet Count 263 10^3/cmm (157-399); Red Blood Count 2.91 10^6/uL (3.85-5.65); Red Cell Distribution Width 19.8 % (12.1-15.1); White Blood Count 12.35 10^3/uL (3.29-11.43)
[2024-04-07 08:25] VITALS: PULSE 71; RESP 18; O2SAT 98
[2024-04-07] MEDS: azithromycin 250 mg Tablet 500 MG PO (08:28)
[2024-04-07] MEDS: predniSONE 10 mg Tablet PO (08:28)
[2024-04-07 08:35] LABS: Blood Urea Nitrogen 46 mg/dL (8-23); Calcium 8.1 mg/dL (8.5-10.5); Carbon Dioxide 23 mmol/L (22-29); Chloride 110 mmol/L (98-107); Creatinine Clr Calc Pharmacy 35.8921; Glucose 86 mg/dL (65-115); Osmolality Calculated 301 mOsm/kg (285-295); Sodium 140 mmol/L (136-145)
[2024-04-07 08:37] LABS: Anion Gap 11.7 (5-19); Potassium 4.7 mmol/L (3.5-5.1)
--- NOTE | 2024-04-07 10:02 | PC.SOCIAL ---
IMM Updated pg 2 of IMM Updated and reviewed w/ patient. Copy dated, initialed and placed in chart.
--- NOTE | 2024-04-07 14:18 | P.DS_ITS ---
Discharge Providers Date of Admission: 04/01/24 10:01 Date of Discharge: April 07, 2024 Attending Provider at Admission: Godwin Fisher MD Attending Provider at Discharge: Edy Harris Primary Care Provider: Zachery Orourke MD Diagnoses at Discharge Discharge Diagnosis (1) Shock: Status: Acute (2) Acute on chronic hypoxic respiratory failure: Status: Acute (3) Pneumonia: Status: Acute Qualifiers: Laterality: right Lung location: middle lobe of lung Pneumonia type: due to unspecified organism Qualified Code(s): J18.9 - Pneumonia, unspecified organism (4) Rhinovirus infection: Status: Acute (5) COPD (chronic obstructive pulmonary disease): Status: Acute Qualifiers: COPD type: emphysema Emphysema type: centrilobular Qualified Code(s): J43.2 - Centrilobular emphysema (6) Elevated d-dimer: Status: Acute (7) Acute kidney injury superimposed on CKD: Status: Acute (8) Atherosclerosis of coronary artery of [place] heart without angina pectoris: Status: Acute Qualifiers: Coronary Disease-Associated Artery/Lesion type: [place] artery Qualified Code(s): I25.10 - Atherosclerotic heart disease of [place] coronary artery without angina pectoris (9) Ischemic cardiomyopathy: Status: Resolved (10) Elevated troponin level: Status: Acute (11) HTN (hypertension): Status: Acute Qualifiers: Hypertension type: primary hypertension Qualified Code(s): I10 - Essential (primary) hypertension (12) Goals of care, counseling/discussion: Status: Acute Reason for Visit Reason for Visit: FALL/WEAKNESS Hospital Course Hospital Course Pleasant 79-year-old lady with history of CKD, HTN, HLD, CAD, ischemic cardiomyopathy, history of LV thrombus, A-fib on anticoagulation with Eliquis, COPD, former smoker was admitted due to shortness of breath and a fall, on presentation found to be in septic shock, hypoxic, hypercapnic respiratory failure. At baseline on 3 L nasal cannula oxygen. In hospital was treated for bilateral pneumonia, COPD exacerbation, also with finding of rhinovirus infection as well as haemophilus influenza eventually growing on respiratory culture. Was treated with antibiotics with meropenem, initially with vancomycin. With troponin elevation was assessed by cardiology, suspected secondary to demand ischemia. Remained free of chest pain. Additionally during workup in the hospital with initial high suspicion for PE with elevated D-dimer, no DVT found in lower extremities, mild swelling left upper extremity without clot on ultrasound. On additional assessment also found to have likely severe pulmonary hypertension on echocardiogram. With treatment hypoxic respiratory failure gradually improved and resolved. Oxygen requirement improved, she had constitutional improvement, was able to mobilize with therapy, declined to consider going to SNF, was set up with home health at discharge. Initial VY on CKD improved. VQ scan prior to discharge showed low probability for PE. Please assess for continued recovery from pneumonia, COPD exacerbation, reassess kidney function. Once she remains at baseline respiratory status, please refer her for additional risk stratification by stress testing. During hospitalization also noted with acute on chronic anemia, did require 1 unit RBC transfusion when hemoglobin got as low as 6.9, but has been maintaining hemoglobin since then. Hemoccult was requested but could not be obtained. Please follow-up with her regarding anemia. Physical Exam Narrative: Sitting up in chair, working with physical therapy. Const: COMMON NORMALS: patient oriented x3 and alert GENERAL APPEARANCE: cooperative ORIENTATION/CONSCIOUSNESS: Yes awake HENMT: COMMON NORMALS: oropharynx normal Neck/C-Spine: COMMON NORMALS: no JVD Resp: COMMON NORMALS: normal respiratory effort AUSCULTATION: wheezes (Minimal wheeze) Cardio: COMMON NORMALS: no JVD, regular rhythm, S1 normal heart sound present, S2 normal heart sound present and No murmurs present (Cardio) RHYTHM: regular rhythm HEART SOUNDS: S1 normal heart sound present and S2 normal heart sound present GI: COMMON NORMALS: Normal to inspection, nondistended, normoactive bowel sounds present, Soft to palpation and non-tender PALPATION: Yes Soft to palpation Extremity: COMMON NORMALS: no joint enlargement and no pedal edema OTHER: Mild edema, bruising dependent portion of mid left arm. Neuro: COMMON NORMALS: patient oriented x3 and moves all extremities SENSORIUM/ORIENTATION: Yes alert Skin: COMMON NORMALS: no rashes or lesions noted GENERAL SKIN EXAM: no rashes or lesions noted Urinary Catheter Management: Valenzuela: Cath Placed During This Visit: yes Reason for Continuing Indwelling Catheter: Other Urinary Catheter Date of Insertion: 04/01/24 Urinary Catheter Time of Insertion: 16:00 Discharge Data Studies Completed and Pending Completed Studies During Hospitalization Category Date Time Status CT cervical spin wo con* [id number] Stat Cat Scan 04/01/24 08:[address] chest wo con [id number] Urgent Cat Scan 04/01/24 10:[address] head wo con* [id number] Stat Cat Scan 04/01/24 08:09 Completed CXRP [XR chest 1V portable [id number]] Routine Exams 04/01/24 15:34 Completed CXRP [XR chest 1V portable [id number]] Routine Exams 04/05/24 09:26 Completed XR chest 1V portable [id number] Stat Exams 04/01/24 07:58 Completed NM pul vent and perfus* [id number] Routine Nuc Med 04/06/24 13:26 [place] [id number] Routine Ultrasound 04/02/24 14:51 [place] [id number] Routine Ultrasound 04/04/24 13:19 Completed US echo complete [CV. echo complete* [id number]] Stat Ultrasound 04/01/24 09:20 Completed Radiology Impressions Cervical Spine CT 04/01/24 08:09 IMPRESSION: No acute findings. Head CT 04/01/24 08:09 IMPRESSION: No acute intracranial abnormality. Chest CT 04/01/24 10:43 IMPRESSION: 1. Bilateral lower lobe pneumonia with bilateral pleural effusions. 2. Acute to subacute appearing mild compression fracture of the T12 superior endplate with prevertebral soft tissue edema and/or hematoma. 3. There is a small amount of free fluid in the upper abdomen. Chest X-Ray 04/05/24 09:26 IMPRESSION: Persistent pleural effusions. Interval improvement in the right chest as above. Pulmonary Perfusion Imaging 04/06/24 13:26 IMPRESSION: 1. Low probability for pulmonary embolus. Laboratory Results WBC 12.35 10^3/uL (3.29-11.43) H 04/07/24 08:07 RBC 2.91 10^6/uL (3.85-5.65) L 04/07/24 08:07 Hgb 8.80 g/dL (11.27-16.99) L 04/07/24 08:07 Hct 26.8 % (36-47) L 04/07/24 08:07 MCV 92.1 fl (85-98) 04/07/24 08:07 MCH 30.2 pg (27-33) 04/07/24 08:07 MCHC 32.8 g/dL (30-55) 04/07/24 08:07 RDW 19.8 % (12.1-15.1) H 04/07/24 08:07 Plt Count 263 10^3/cmm (157-399) 04/07/24 08:07 MPV 10.2 fL (7.4-10.4) 04/07/24 08:07 Neut % (Auto) 80.1 % 04/07/24 08:07 Lymph % (Auto) 8.7 % 04/07/24 08:07 [place] % (Auto) 6.6 % 04/07/24 08:07 Eos % (Auto) 0.1 % 04/07/24 08:07 Baso % (Auto) 0.2 % 04/07/24 08:07 Neut # (Auto) 9.91 10^3/uL (1.8-7.7) H 04/07/24 08:07 Lymph # (Auto) 1.1 10^3/uL (0.8-4.8) 04/07/24 08:07 [place] # (Auto) 0.8 10^3/uL (0.2-0.9) 04/07/24 08:07 Eos # (Auto) 0.0 10^3/uL (0.0-0.8) 04/07/24 08:07 Baso # (Auto) 0.0 10^3/uL (0.0-0.1) 04/07/24 08:07 Nucleated RBC % (auto) 0.4 % 04/07/24 08:07 Total Counted 100 (0-100) 04/02/24 04:17 Atypical Lymphs % 1.0 % (0-5) 04/02/24 04:17 Absolute Neutrophils 14.1 10^3/cmm (1.4-6.5) H 04/02/24 04:17 Segmented Neutrophils 39 % 04/02/24 04:17 Band Neutrophils 33.0 % 04/02/24 04:17 Absolute Lymphocytes 1.2 10^3/cmm (1.2-3.4) 04/02/24 04:17 Lymphocytes (Manual) 5 % 04/02/24 04:17 Monocytes (Manual) 9.0 % 04/02/24 04:17 Absolute Monocytes 1.8 10^3/cmm (0.1-0.6) H 04/02/24 04:17 Eosinophils (Manual) 0 % 04/02/24 04:17 Absolute Eosinophils 0.0 10^3/cmm (0.0-0.7) 04/02/24 04:17 Basophils (Manual) 0.0 % 04/02/24 04:17 Absolute Basophils 0.0 10^3/cmm (0.0-0.2) 04/02/24 04:17 Metamyelocytes 12.0 % 04/02/24 04:17 Myelocytes 1.0 % 04/02/24 04:17 Nucleated RBCs # 0.1 /100WBC 04/07/24 08:07 Platelet Estimate Normal (Normal) 04/02/24 04:17 Poikilocytosis Trace 04/02/24 04:17 Anisocytosis 1+ H 04/02/24 04:17 Ovalocytes Trace 04/02/24 04:17 Acanthocytes (Spur) Trace 04/02/24 04:17 APTT 67.5 SECONDS (23.9-36.7) H 04/03/24 03:32 D-Dimer 3.85 ug/mLFEU (0-0.59) H 04/06/24 04:51 Specimen Type Arterial 04/01/24 12:16 Sample Site Radial, right 04/01/24 12:16 ABG pH 7.37 (7.35-7.45) 04/01/24 12:16 ABG pCO2 38.2 mmHg (35-45) 04/01/24 12:16 ABG pO2 56.6 mmHg (80.0-100.0) L 04/01/24 12:16 ABG PO2/FiO2 Ratio 80 04/01/24 12:16 ABG HCO3 22.0 mmol/L (22-26) 04/01/24 12:16 ABG O2 Saturation 89.8 04/01/24 12:16 ABG Base Excess -3.0 mmol/L (-2.0-2.0) L 04/01/24 12:16 Erick Test Pos 04/01/24 12:16 A-a O2 Gradient 51.6 mmHg (5-10) H 04/01/24 12:16 Hematocrit 32.7 % (37-47) L 04/01/24 12:16 Hgb O2 Saturation 87.8 % (95-100) L 04/01/24 12:16 Carboxyhemoglobin 1.0 %THgb (0.4-20.1) 04/01/24 12:16 Methemoglobin 1.1 % (0.4-1.5) 04/01/24 12:16 Total Hemoglobin 10.7 g/dL (12-16) L 04/01/24 12:16 Sodium 143.0 mmol/L (131-143) 04/01/24 12:16 Potassium 3.6 mmol/L (3.5-5.0) 04/01/24 12:16 Glucose 92.0 mg/dL (70-115) 04/01/24 12:16 Ionized Calcium 1.1 mmol/L (1.1-1.4) 04/01/24 12:16 O2 Delivery Device Bipap 04/01/24 12:16 O2 Liters/Min 3.0 % 04/01/24 08:13 FiO2 70.0 % 04/01/24 12:16 Refractory Mixer ID Gd 04/01/24 12:16 Sodium 140 mmol/L (136-145) 04/07/24 08:07 Potassium 4.7 mmol/L (3.5-5.1) 04/07/24 08:07 Chloride 110 mmol/L (98-107) H 04/07/24 08:07 Carbon Dioxide 23 mmol/L (22-29) 04/07/24 08:07 Anion Gap 11.7 (5-19) 04/07/24 08:07 BUN 46 mg/dL (8-23) H 04/07/24 08:07 Creatinine 1.0 mg/dL (0.5-0.9) H 04/07/24 08:07 GFR Calculation Not Reportable 04/07/24 08:07 Glucose 86 mg/dL (65-115) 04/07/24 08:07 Calculated Osmolality 301 mOsm/kg (285-295) H 04/07/24 08:07 Lactic Acid 3.2 mmol/L (0.5-2.2) H 04/01/24 08:24 Lactic Acid (Sepsis) 1.6 mmol/L (0.5-2.2) 04/01/24 10:28 Calcium 8.1 mg/dL (8.5-10.5) L 04/07/24 08:07 Phosphorus 4.0 mg/dL (2.5-4.5) 04/02/24 04:17 Magnesium 2.6 mg/dL (1.7-2.3) H 04/05/24 03:23 Total Bilirubin 0.3 mg/dL (0.15-1.2) 04/03/24 03:32 AST 25 U/L (0-32) 04/03/24 03:32 ALT 14 U/L (0-33) 04/03/24 03:32 Alkaline Phosphatase 51 U/L (35-105) 04/03/24 03:32 Creatine Kinase 73 U/L (26-192) 04/01/24 08:24 Troponin T Baseline 137 ng/L (0-10) H* 04/01/24 08:24 Troponin T 120 Minute 152.6 ng/L (0-10) H 04/01/24 10:18 Delta Troponin T 15.6 ABS# (0-10) H* 04/01/24 10:18 Troponin T Hi Sens 6Hr 127 ng/L (0-10) H 04/01/24 15:00 Troponin T Hi Sens 6Hr Delta -10 ng/L (0-12) L 04/01/24 15:00 NT-Pro-B Natriuret Pep 1246 pg/mL (0-450) H 04/01/24 08:24 Total Protein 4.9 g/dL (6.6-8.7) L D 04/03/24 03:32 Albumin 2.8 g/dL (3.5-5.2) L 04/03/24 03:32 Globulin 2.1 g/dL (1.3-4.6) 04/03/24 03:32 Procalcitonin 34.49 ng/mL (0-0.5) H 04/02/24 04:17 Urine Color Yellow (Yellow) 04/01/24 14:35 Urine Appearance Clear (CLEAR) 04/01/24 14:35 Urine pH 5.0 (5-7) 04/01/24 14:35 Ur Specific [place] 1.019 (1.005-1.030) 04/01/24 14:35 Urine Protein 1+ (Negative) A 04/01/24 14:35 Urine Glucose (UA) Negative (Normal) 04/01/24 14:35 Urine Ketones Negative (Negative) 04/01/24 14:35 Urine Blood Negative (Negative) 04/01/24 14:35 Urine Nitrate Negative (Negative) 04/01/24 14:35 Urine Bilirubin Negative (Negative) 04/01/24 14:35 Urine Urobilinogen 0.2 mg/dL (Negative) 04/01/24 14:35 Ur Leukocyte Esterase Negative (Negative) 04/01/24 14:35 Urine RBC 21-50 /hpf (0-2) H 04/01/24 14:35 Urine WBC 0-5 /hpf (0-5) 04/01/24 14:35 Ur Squamous Epith Cells 0-5 /hpf (0-5) 04/01/24 14:35 Amorphous Sediment Not Reportable 04/01/24 14:35 Urine Bacteria None seen /hpf (NONE) 04/01/24 14:35 Hyaline Casts 11.16 /lpf 04/01/24 14:35 Ur Random Sodium 65 mmol/L 04/01/24 14:35 Ur Random Potassium 50 mmol/L 04/01/24 14:35 Ur Random Chloride 54 mmol/L 04/01/24 14:35 Nasal MRSA (PCR) Not detected (Not Detecte) 04/01/24 14:30 Vancomycin Trough 13.8 ug/mL (10-15) 04/02/24 13:08 Adenovirus (PCR) Not detected (NOT DETECT) 04/01/24 20:50 C. pneumoniae DNA (PCR) Not detected (NOT DETECT) 04/01/24 20:50 Coronavirus 229E (PCR) Not detected (NOT DETECT) 04/01/24 20:50 Human Metapneumovir PCR Not detected (NOT DETECT) 04/01/24 20:50 Influenza A (H1) PCR Not detected (NOT DETECT) 04/01/24 20:50 Influ A (H1/09) PCR Not detected (NOT DETECT) 04/01/24 20:50 Influenza A (H3) PCR Not detected (NOT DETECT) 04/01/24 20:50 Influenza Type A (PCR) Not detected (NOT DETECT) 04/01/24 20:50 Influenza Type B (PCR) Not detected (NOT DETECT) 04/01/24 20:50 M. pneumoniae (PCR) Not detected (NOT DETECT) 04/01/24 20:50 Parainfluenza 1 (PCR) Not detected (NOT DETECT) 04/01/24 20:50 Parainfluenza 2 (PCR) Not detected (NOT DETECT) 04/01/24 20:50 Parainfluenza 3 (PCR) Not detected (NOT DETECT) 04/01/24 20:50 Parainfluenza 4 (PCR) Not detected (NOT DETECT) 04/01/24 20:50 RSV Type A (PCR) Not detected (NOT DETECT) 04/01/24 20:50 RSV Type B (PCR) Not detected (NOT DETECT) 04/01/24 20:50 Entero/Rhino (PCR) Detected (NOT DETECT) A 04/01/24 20:50 SARS-CoV-2 (PCR) Not detected (NOT DETECT) 04/01/24 20:50 Blood Type AB Positive 04/05/24 14:25 Rho(D) Type Rh positive 04/05/24 14:25 Antibody Screen Negative 04/05/24 14:25 Crossmatch See Detail 04/05/24 14:25 Vitals Last Vital Signs Temp 97.7 F 04/07/24 07:20 Pulse 71 04/07/24 08:25 Resp 18 04/07/24 08:25 BP 124/76 04/07/24 07:20 Pulse Ox 98 04/07/24 08:25 O2 Del Method Nasal Cannula 04/07/24 08:25 O2 Flow Rate 4 04/07/24 08:25 FiO2 6 04/03/24 08:16 Discharge Plan Discharge Patient Disposition: Home Health Service Condition: Stable Prescriptions: New prednisone 10 mg Tablet 10 mg PO DAILY Qty: 3 0RF levofloxacin 750 mg tablet 750 mg PO DAILY 3 Days Qty: 3 0RF polyethylene glycol 3350 [Miralax] 17 gram powder in packet 17 g PO DAILY PRN (Reason: constipation) Qty: 30 0RF nystatin 100,000 unit/mL suspension 400,000 unit PO QID 14 Days Qty: 224 0RF Rx Instructions: swish and swallow Continued sacubitril-valsartan 49-51 mg tablet 1 tab PO BID Qty: 180 3RF albuterol sulfate 1.25 mg/3 mL solution for nebulization 1.25 mg inhalation Q6H PRN (Reason: Shortness Of Breath) levothyroxine [Synthroid] 75 mcg tablet 37.5 mcg PO QAM hydrocodone-acetaminophen 7.5-325 mg tablet 1 tab PO QID PRN (Reason: Pain) cholecalciferol (vitamin D3) [Vitamin D3] 25 mcg (1,000 unit) Capsule 25 mcg PO QAM Eliquis 5 mg Tablet 5 mg PO BID@0900,2100 Qty: 180 3RF atorvastatin 40 mg Tablet 40 mg PO BEDTIME Qty: 90 3RF clopidogrel 75 mg Tablet 75 mg PO DAILY Qty: 90 3RF fluticasone propionate 50 mcg/actuation spray,suspension 2 spray intranasal DAILY PRN (Reason: nasal congestion) Qty: 16 0RF Rx Instructions: administer into each nostril cetirizine [Zyrtec] 10 mg tablet 10 mg PO DAILY PRN (Reason: allergy symptoms) Qty: 20 0RF ondansetron 4 mg tablet,disintegrating 4 mg PO TID PRN (Reason: nausea and vomiting) Qty: 14 0RF trazodone 150 mg tablet 150 mg PO BEDTIME ferrous sulfate [FeroSul] 325 mg (65 mg iron) tablet 325 mg PO DAILY Trelegy Ellipta 200-62.5-25 mcg blister with device 1 inh INHALATION DAILY baclofen 5 mg tablet 5 mg PO TID PRN (Reason: muscle spasm) Qty: 30 0RF Discharge Orders: Discharge Order (Routine); Ordered 04/07/24 Ordered By: Edy Harris Other Ambulatory Orders: DME: Fer (Order) Location: None Selected Ordered By: Edy Harris Referrals: [facility] ([facility]) [Outside] Zachery Orourke MD [Primary Care Provider] - 04/17/24 1:30 pm Patient Instructions: Prednisone (By mouth), Nystatin (By mouth), Levofloxacin (By mouth), Polyethylene Glycol 3350 (By mouth), Viral Pneumonia (DC), Opioid Safety Activity Restrictions/Additional Instructions: Please follow-up with your primary doctor for reassessment of continued recovery after pneumonia, COPD exacerbation, haemophilus influenza infection and rhinovirus infection. Please have your primary doctor follow-up your kidney function for continued recovery after kidney injury. Please follow-up with your primary doctor for reassessment after noted demand cardiac ischemia, and please have your primary doctor refer you for a stress test once your breathing is back to her usual baseline. Please have your primary doctor follow-up regarding anemia and follow-up blood counts. Please have your primary doctor follow-up for resolution of thrush. Please follow-up with your primary doctor regarding constipation. Discharge Attestations Time Spent in Discharge Care*: greater than 30 min Status at Discharge: Cognitive status at discharge: cognitively intact , Behavioral status at discharge: cooperative , Quality Metrics Clinical Quality Measures [ No reported AMI, CVA or VTE this stay] Coding Level of Care Code 07066 Total time (in minutes) for Discharge: 50 Diagnoses Shock R57.9 Acute on chronic hypoxic respiratory failure J96.21 Pneumonia J18.9 Laterality: right Lung location: middle lobe of lung Pneumonia type: due to unspecified organism Rhinovirus infection B34.8 Centrilobular emphysema J43.2 COPD type: emphysema Emphysema type: centrilobular Elevated d-dimer R79.89 Acute kidney injury superimposed on CKD N17.9; N18.9 Atherosclerosis of [place] coronary artery of [place] heart without angina pectoris I25.10 Coronary Disease-Associated Artery/Lesion type: [place] artery Ischemic cardiomyopathy I25.5 Elevated troponin level R77.8 Primary hypertension I10 Hypertension type: primary hypertension Goals of care, counseling/discussion Z71.89
== END 2024-04-07 11:45 | disposition home health service (06) | DRG 871 ==
LOC: ER 09:57 → ICU 10:18 → MEDSURG 04-05 21:02
PROVIDERS: Student in an Organized Health Care Education/Training Program; Admitting Provider Student in an Organized Health Care Education/Training Program; Emergency Provider Family Medicine; PCP Family Medicine; Visit Provider Internal Medicine
DX: A41.9 Sepsis, unspecified organism (principal); J18.9 Pneumonia, unspecified organism; R65.21 Severe sepsis with septic shock; J96.21 Acute and chronic respiratory failure with hypoxia; J96.02 Acute respiratory failure with hypercapnia; N17.9 Acute kidney failure, unspecified; I24.89 Other forms of acute ischemic heart disease; J44.1 Chronic obstructive pulmonary disease with (acute) exacerbation; E87.0 Hyperosmolality and hypernatremia; B34.8 Other viral infections of unspecified site; J43.2 Centrilobular emphysema; R79.1 Abnormal coagulation profile; N18.9 Chronic kidney disease, unspecified; I25.10 Atherosclerotic heart disease of native coronary artery without angina pectoris; I13.10 Hypertensive heart and chronic kidney disease without heart failure, with stage 1 through stage 4 chronic kidney disease, or unspecified chronic kidney disease; E78.5 Hyperlipidemia, unspecified; I48.91 Unspecified atrial fibrillation; B96.3 Hemophilus influenzae [H. influenzae] as the cause of diseases classified elsewhere; I27.20 Pulmonary hypertension, unspecified; D64.89 Other specified anemias; I95.9 Hypotension, unspecified; E86.0 Dehydration; E03.9 Hypothyroidism, unspecified; F41.9 Anxiety disorder, unspecified; M79.89 Other specified soft tissue disorders; S40.022A Contusion of left upper arm, initial encounter; Y84.8 Other medical procedures as the cause of abnormal reaction of the patient, or of later complication, without mention of misadventure at the time of the procedure; Y82.8 Other medical devices associated with adverse incidents; Y92.239 Unspecified place in hospital as the place of occurrence of the external cause; Z87.891 Personal history of nicotine dependence; Z79.01 Long term (current) use of anticoagulants; Z79.02 Long term (current) use of antithrombotics/antiplatelets; Z99.81 Dependence on supplemental oxygen; Z95.5 Presence of coronary angioplasty implant and graft; I25.2 Old myocardial infarction
CPT/HCPCS: 12345; 36415; 36430; 36573; 36592; 36600; 51702; 70450; 71045; 71250; 72125; 78014; 80048; 80051; 80053; 80202; 81001; 82330; 82436; 82550; 82805; 83605; 83735; 83880; 84100; 84133; 84145; 84300; 84484; 85007; 85025; 85378; 85730; 86403; 86850; 86900; 86920; 87040; 87070; 87205; 87486; 87581; 87633; 92610; 93005; 93306; 93970; 93971; 94640; 94660; 96365; 96367; 96372; 96375; 96376; 97110; 97116; 97162; 97530; 99291; 99292; A9540; A9567; J1644; J1650; J2185; J2270; J2405; J2470; J2543; J2919; J3370; J3475; J7030; J7042; J7512; J7626; P9016; Q0144

== ENCOUNTER 2024-08-15 13:25 | Outpatient (CLI) | payer MEDICARE, SELFPAY ==
--- NOTE | 2024-08-15 13:38 | XRR_ITS ---
PROCEDURE INFORMATION: Exam: XR Lumbosacral Spine Exam date and time: 08/15/2024 1:48 PM Age: 79 years old Clinical indication: Low back pain; HX of breast cancer TECHNIQUE: Imaging protocol: Radiologic exam of the lumbosacral spine. Views: 2 or 3 views. COMPARISON: CT lumbar spine wo con* [id number] 01/05/2020 1:16 PM FINDINGS: Bones/joints: There is transitional anatomy at the lumbosacral junction with sacralization of the L5 vertebral body. There is narrowing of the transitional L5-S1 disc space. There is compression deformity of the T12 vertebral body with approximately 50% loss of height. This is age indeterminate, but new since the prior study. Remaining vertebral bodies are normal in height. There is diffuse osteopenia. There is facet joint sclerosis at L4-L5 and L5-S1. Soft tissues: There is atherosclerotic calcification of the abdominal aorta with mild aneurysmal dilatation in the region of the iliac bifurcation. This was also present on the prior CT. Multiple surgical sutures are noted projecting over the abdomen. XR/XR lumbar spine 2-3V* [id number] IMPRESSION: 1. Transitional anatomy with sacralization of the L5 vertebral body. 2. Compression deformity of the T12 vertebral body with approximately 50% loss of height. This is age indeterminate, but new since the prior study. 3. Diffuse osteopenia. 4. Mild degenerative changes as described above. 5. Atherosclerotic calcification of the abdominal aorta with mild aneurysmal dilatation in the region of the iliac bifurcation, also present on the prior CT.
== END 2024-08-15 13:26 | disposition home or self-care (01) ==
PROVIDERS: PCP Family Medicine; Visit Provider Family Medicine
DX: M51.379 Other intervertebral disc degeneration, lumbosacral region without mention of lumbar back pain or lower extremity pain (principal); M43.27 Fusion of spine, lumbosacral region; M51.34 Other intervertebral disc degeneration, thoracic region; M85.80 Other specified disorders of bone density and structure, unspecified site; I70.0 Atherosclerosis of aorta; I72.8 Aneurysm of other specified arteries; M47.816 Spondylosis without myelopathy or radiculopathy, lumbar region; M47.817 Spondylosis without myelopathy or radiculopathy, lumbosacral region
CPT/HCPCS: 72100

== ENCOUNTER 2024-10-04 11:34 | Emergency (ER) | payer MEDICARE, SELFPAY ==
[2024-10-04 11:35] VITALS: BP 80/56; PULSE 101; RESP 22; TEMP 36.7; O2SAT 80
--- NOTE | 2024-10-04 11:48 | XR_ITS ---
WS: [id number] XR chest 1V portable [id number] REASON FOR EXAM: dyspnea/cough FINDINGS: Compared to the examination of 04/05/2024, the right and left pleural effusions have increased in volume moderately. There is significant compressive atelectasis in the left lower lung. There our diffuse coarse reticular and groundglass opacities in the right lower lung. These are opacities are increased compared to the examination of 04/05/2024. There are findings of central lobar emphysema and bullous lung disease. XR/XR chest 1V portable [id number] IMPRESSION: Abnormal chest with progression of abnormalities as above.
--- NOTE | 2024-10-04 11:49 | ECG_ITS ---
[facility] 2024-[facility]04 Pat Name: Colette Lopez Department: Room: Gender: Female Box Feeder: : [id number] Requested By: Renan Licona Order Number: [id number] Reading MD: ROSANNE MONIQUE Measurements Intervals [place] Rate: 91 P: 39 [place]: 128 QRS: 18 QRSD: 96 T: 33 QT: 338 QTc: 416 Interpretive Statements SINUS RHYTHM LOW QRS VOLTAGE IN PRECORDIAL LEADS [QRS DEFLECTION < 1.0 mV IN CHEST LEADS] INCOMPLETE RIGHT BUNDLE BRANCH BLOCK [90+ ms QRS DURATION, TERMINAL R IN V1/V2, 40+ ms S IN I/aVL/V4/V5/V6] Compared to ECG 04/01/2024 16:42:45 Incomplete right bundle-branch block now present Sinus tachycardia no longer present Short [place] interval no longer present Electronically Signed On 10-04-2024 22:51:45 CDT by ROSANNE MONIQUE [email or web address]
[2024-10-04 12:07] VITALS: PULSE 77; RESP 22; O2SAT 92
[2024-10-04] MEDS: ipratropium-albuterol 3 mL Neb INHALATION (12:07)
[2024-10-04 12:08] VITALS: BP 89/52; PULSE 89; RESP 16; O2SAT 94
[2024-10-04 12:19] VITALS: PULSE 88
[2024-10-04] MEDS: methylPREDNISolone sod succ 125 mg/2 mL INJ IVP (12:20)
[2024-10-04 12:22] LABS: ABG PCO2 37.1 mmHg (35-45); ABG PH Result 7.44 (7.35-7.45); Alveolar-Arterial Oxygen Gradi 13.4 mmHg (5-10); Arterial Blood Gas Hematocrit 30.3 % (37-47); Base Excess ABG 1.4 mmol/L (-2.0-2.0); Blood Gas Allen Test Pos; Blood Gas Operator Identificat MONRO; Blood Gas Sample Site Brachial, left; Blood Gas Sample Type Arterial; Carboxyhemoglobin 1.2 %THgb (0.4-20.1); HCO3 ABG 25.4 mmol/L (22-26); HGB O2 Sat 95.4 % (95-100); Ionized Calcium Level - ABG 1.2 mmol/L (1.1-1.4); Methemoglobin 0.1 % (0.4-1.5); Oxygen Device NC; Oxygen Saturation ABG 96.6; PO2 ABG 78.4 mmHg (80.0-100.0); PO2 FiO2 Ratio Arterial Blood 245; Potassium Level - ABG 4.4 mmol/L (3.5-5.0); Total Hemoglobin 9.9 g/dL (12-16)
[2024-10-04 12:40] LABS: Basophils # 0.1 10^3/uL (0.0-0.1); Basophils % 0.3 %; Eosinophils % 0.1 %; Hematocrit 31.6 % (36-47); Lymphocytes # 1.8 10^3/uL (0.8-4.8); Lymphocytes % 10.3 %; Mean Corpuscular HGB Conc 30.1 g/dL (30-55); Mean Corpuscular Hemoglobin 30.2 pg (27-33); Mean Corpuscular Volume 100.3 fl (85-98); Monocytes % 5.8 %; Neutrophils # 14.46 10^3/uL (1.8-7.7); Nucleated Red Blood Cells % 0 %; Platelet Count 262 10^3/cmm (157-399); Red Blood Count 3.15 10^6/uL (3.85-5.65); White Blood Count 17.39 10^3/uL (3.29-11.43)
[2024-10-04 12:50] LABS: Troponin(5th) Baseline 70 ng/L (0-10)
--- NOTE | 2024-10-04 12:56 | ED_ITS ---
HPI - SOB/Dyspnea 2 General: Chief Complaint: Shortness of Breath/Dyspnea Stated Complaint: ELHAM pt is on 3lpm Time Seen by Provider: 10/04/24 11:48 History of Present Illness: HPI Narrative: 79-year-old female presents emergency ro om complaining of shortness of breath patient has a history of COPD. She is chronically on 3 L/min by nasal cannula. She is complaining of a persistent productive cough. Triage reported that her oxygen saturation was 84% on arrival on her 3 L however when I seen and examined the patient sitting at rest she is satting in the mid to low 90s on her usual 3 L. Associated symptoms: Deny abdominal pain, chest pain or fever(s) Related Data Home Medications ?Medication ?Instructions ?Recorded ?Confirmed albuterol sulfate 1.25 mg/3 mL 1.25 mg inhalation Q6H PRN 01/17/20 10/04/24 solution for nebulization Shortness Of Breath levothyroxine 75 mcg tablet 37.5 mcg PO QAM 01/17/20 0 10/04/24 (Synthroid) cholecalciferol (vitamin D3) 25 25 mcg PO QAM 03/10/22 10/04/24 mcg (1,000 unit) capsule (Vitamin D3) ferrous sulfate 325 mg (65 mg 325 mg PO DAILY 10/15/23 10/04/24 iron) tablet (FeroSul) fluticasone fur. 200 mcg-umeclid 1 inh inhalation RODNEY Y 10/15/23 10/04/24 62.5 mcg-vilant 25 mcg inhalat.powder (Trelegy Ellipta) trazodone 150 mg tablet 150 mg PO BEDTIME sleep 10/0110/04/24 apixaban 5 mg tablet (Eliquis) 2.5 mg PO BID@0900,2100 10/04/24 10/04/24 hydrochlorothiazide 12.5 mg tablet 12.5 mg PO DAILY 10/04/24 hydrocodone 10 mg-acetaminophen 1 tab PO Q6H PRN Pain 10/04/24 10/04/24 325 mg tablet triamcinolone acetonide 0.1 % See Rx Instructions .Rou te .COMPLEX 10/04/24 10/04/24 topical cream Previous Rx's ?Medication ?Instructions ?Recorded atorvastatin 40 mg tablet 40 mg PO BEDTIME #90 tabs clopidogrel 75 mg tablet 75 mg PO DAILY #90 tabs 01/22 ondansetron 4 mg disintegrating 4 mg PO TID PRN nausea and 10/06/23 tablet vomiting #14 tabs polyethylene glycol 3350 17 gram 17 g PO DAILY PRN con stipation #30 04/07/24 oral powder packet (Miralax) ea sacubitril 49 mg-valsartan 51 mg 1 tab PO BID #180 tab s 09/12/24 tablet doxycycline hyclate 100 mg capsule 100 mg PO BID 10 da ys #20 caps 10/04/24 ipratropium 0.5 mg-albuterol 3 mg 3 ml inhalation Q4H PRN shortness 10/04/24 (2.5 mg base)/3 mL nebulization of breath or wheezing #90 mL soln methylprednisolone 4 mg tablets in See Rx Instructions PO .COMPLEX 10/04/24 a dose pack (Medrol (Ryan)) #21 ea Allergies Allergy/AdvReac Type Severity Reaction Status Date / Time ibuprofen Allergy ALGY-Rash Verified 01/19/24 11:00 naproxen (From Aleve) Allergy ALGY-Rash Verified 01/19/24 11:00 Review of Systems 2 Const: Denies: fever(s) or chills Card: Denies: chest pain Resp: Reports: dyspnea GI: Denies: abdominal pain : Denies: dysuria, urinary frequency or urinary urgency Musc: Denies: neck pain or back pain Skin/Breast: Denies: rash PFSH ED 2 PFSH: Medical History Elevated troponin level COPD (chronic obstructive pulmonary disease) Community acquired pneumonia LV (left ventricular) mural thrombus Ischemic cardiomyopathy Supplemental oxygen dependent HTN (hypertension) Depression Breast cancer Non-ST elevation OR (NSTEMI) Hyperlipidemia Chronic back pain Hypothyroidism COPD (chronic obstructive pulmonary disease) Surgical History Hx of hysterectomy, total Hx of hernia repair H/O lumpectomy Family History Brother CAD (coronary artery disease) Cancer Chronic kidney disease (CKD) Denies family history of Clotting disorder Dementia Suicide Anesthesia complication Bleeding disorder Lung disease Stroke Social History Smoking and tobacco/nicotine status: former use of tobacco/nicotine Alcohol intake: never Substance/Drug Use: never Marital status: / Marital status details: She lost her 6 months ago Physical Exam 2 Const: GENERAL APPEARANCE: cooperative ORIENTATION/CONSCIOUSNESS: Yes awake, Yes oriented to person, Yes oriented to place and Yes oriented to time HENMT: COMMON NORMALS: normocephalic, atraumatic and hearing grossly normal bilaterally HEAD & SCALP: normocephalic and atraumatic Resp: COMMON NORMALS: normal respiratory effort, No retractions, No use of accessory muscles and clear to auscultation bilaterally AUSCULTATION: clear to auscultation bilaterally Cardio: COMMON NORMALS: regular rate, regular rhythm and No murmurs present (Cardio) RATE: regular rate RHYTHM: regular rhythm GI: COMMON NORMALS: Soft to palpation and No hepatosplenomegaly present A USCULTATION: Yes normoactive bowel sounds PALPATION: Yes Soft to palpation, No Tenderness to palpation present (GI), No Guarding due to palpation present (GI) and Yes No hepatosplenomegaly present Extremity: COMMON NORMALS: normal to inspection, capillary refill normal, no clubbing, cyanosis or edema, no calf tenderness and no pedal edema Neuro: SENSORIUM/ORIENTATION: Yes oriented to person, Yes oriented to place and Yes oriented to time Skin: COMMON NORMALS: no rashes or lesions noted GENERAL SKIN EXAM: no rashes or lesions noted Course 2 Vital Signs: Vital signs: Vital Signs Temperature 98.0 F 10/04/24 11:35 Pulse Rate 78 10/04/24 15:43 Respiratory Rate 16 10/04/24 14:52 Blood Pressure 99/57 10/04/24 15:43 Pulse Oximetry 99 10/04/24 15:43 Oxygen Delivery Me thod Nasal Cannula 10/04/24 14:52 Oxygen Flow Rate 3 10/04/24 14:52 MDM - SOB/Dyspnea Medical Decision Making Patient is actually feeling better after the DuoNeb. The chest x-ray shows worsening of her fibrotic changes but no clear infiltrates and she has a slightly elevated white count and a productive cough we will put her on some antibiotics also put her on a steroid taper she would prefer to go home at this point we did give her DuoNeb to use at home as well follow-up with her doctor the next few days return if she has further problems. Medical Records I reviewed the patient's medical records. Lab Data I reviewed the patient's lab results. 10/04/24 12:17 10/04/24 12:17 Labs/Radiology: Radiology Impressions Chest X-Ray 10/04/24 11:48 IMPRESSION: Abnormal chest with progression of abnormalities as above. Laboratory Results WBC 17.39 10^3/uL (3.29-11.43) H 10/04/24 12:17 RBC 3.15 10^6/uL (3.85-5.65) L 10/04/24 12:17 Hgb 9.50 g/dL (11.27-16.99) L 10/04/24 12:17 Hct 31.6 % (36-47) L 10/04/24 12:17 MCV 100.3 fl (85-98) H 10/04/24 12:17 MCH 30.2 pg (27-33) 10/04/24 12:17 MCHC 30.1 g/dL (30-55) 10/04/24 12:17 RDW 15.0 % (12.1-15.1) 10/04/24 12:17 Plt Count 262 10^3/cmm (157-399) 10/04/24 12:17 MPV 10.0 fL (7.4-10.4) 10/04/24 12:17 Neut % (Auto) 83.0 % 10/04/24 12:17 Lymph % (Auto) 10.3 % 10/04/24 12:17 [place] % (Auto) 5.8 % 10/04/24 12:17 Eos % (Auto) 0.1 % 10/04/24 12:17 Baso % (Auto) 0.3 % 10/04/24 12:17 Neut # (Auto) 14.46 10^3/uL (1.8-7.7) H 10/04/24 12:17 Lymph # (Auto) 1.8 10^3/uL (0.8-4.8) 10/04/24 12:17 [place] # (Auto) 1.0 10^3/uL (0.2-0.9) H 10/04/24 12:17 Eos # (Auto) 0.0 10^3/uL (0.0-0.8) 10/04/24 12:17 Baso # (Auto) 0.1 10^3/uL (0.0-0.1) 10/04/24 12:17 Nucleated RBC % (auto) 0 % 10/04/24 12:17 Nucleated RBCs # 0.0 /100WBC 10/04/24 12:17 Specimen Type Arterial 10/04/24 12:10 Sample Site Brachial, left 10/04/24 12:10 ABG pH 7.44 (7.35-7.45) 10/04/24 12:10 ABG pCO2 37.1 mmHg (35-45) 10/04/24 12:10 ABG pO2 78.4 mmHg (80.0-100.0) L 10/04/24 12:10 ABG PO2/FiO2 Ratio 245 10/04/24 12:10 ABG HCO3 25.4 mmol/L (22-26) 10/04/24 12:10 ABG O2 Saturation 96.6 10/04/24 12:10 ABG Base Excess 1.4 mmol/L (-2.0-2.0) 10/04/24 12:10 Erick Test Pos 10/04/24 12:10 A-a O2 Gradient 13.4 mmHg (5-10) H 10/04/24 12:10 Hematocrit 30.3 % (37-47) L 10/04/24 12:10 Hgb O2 Saturation 95.4 % (95-100) 10/04/24 12:10 Carboxyhemoglobin 1.2 %THgb (0.4-20.1) 10/04/24 12:10 Methemoglobin 0.1 % (0.4-1.5) L 10/04/24 12:10 Total Hemoglobin 9.9 g/dL (12-16) L 10/04/24 12:10 Sodium 137.0 mmol/L (131-143) 10/04/24 12:10 Potassium 4.4 mmol/L (3.5-5.0) 10/04/24 12:10 Glucose 102.0 mg/dL (70-115) 10/04/24 12:10 Ionized Calcium 1.2 mmol/L (1.1-1.4) 10/04/24 12:10 O2 Delivery Device Nc 10/04/24 12:10 O2 Liters/Min 3.0 % 10/04/24 12:10 FiO2 32.0 % 10/04/24 12:10 Weighmaster ID Kalee 10/04/24 12:10 Sodium 135 mmol/L (136-145) L 10/04/24 12:17 Potassium 4.9 mmol/L (3.5-5.1) 10/04/24 12:17 Chloride 100 mmol/L (98-107) 10/04/24 12:17 Carbon Dioxide 19 mmol/L (22-29) L 10/04/24 12:17 Anion Gap 20.9 (5-19) H 10/04/24 12:17 BUN 37 mg/dL (8-23) H 10/04/24 12:17 Creatinine 1.4 mg/dL (0.5-0.9) H 10/04/24 12:17 GFR Calculation Not Reportable 10/04/24 12:17 Glucose 96 mg/dL (65-115) 10/04/24 12:17 Calculated Osmolality 289 mOsm/kg (285-295) 10/04/24 12:17 Lactic Acid 1.5 mmol/L (0.5-2.2) 10/04/24 14:10 Calcium 8.6 mg/dL (8.5-10.5) 10/04/24 12:17 Total Bilirubin 0.6 mg/dL (0.15-1.2) 10/04/24 12:17 AST 18 U/L (0-32) 10/04/24 12:17 ALT 7 U/L (0-33) 10/04/24 12:17 Alkaline Phosphatase 63 U/L (35-105) 10/04/24 12:17 Troponin T Baseline 70 ng/L (0-10) H 10/04/24 12:17 Troponin T 120 Minute 65.05 ng/L (0-10) H 10/04/24 14:10 Delta Troponin T -4.95 ABS# (0-10) L 10/04/24 14:10 Total Protein 6.5 g/dL (6.6-8.7) L 10/04/24 12:17 Albumin 3.4 g/dL (3.5-5.2) L 10/04/24 12:17 Globulin 3.1 g/dL (1.3-4.6) 10/04/24 12:17 Influenza A (PCR) Negative (Negative) 10/04/24 12:19 Influenza Type B (PCR) Negative (Negative) 10/04/24 12:19 RSV (PCR) Negative (Negative) 10/04/24 12:19 SARS-CoV-2 (PCR) Negative (Negative) 10/04/24 12:19 All radiology interpretation(s) finalized by discharge Discharge Plan Discharge Patient Disposition: Home Clinical Impression: Acute exacerbation of chronic obstructive airways disease Condition: Stable Prescriptions: New doxycycline hyclate 100 mg capsule 100 mg PO BID 10 Days Qty: 20 0RF ipratropium-albuterol 0.5 mg-3 mg(2.5 mg base)/3 mL solution for nebulization 3 ml inhalation Q4H PRN (Reason: shortness of breath or wheezing) Qty: 90 0RF methylprednisolone [Medrol (Ryan)] 4 mg tablets,dose pack See Rx Instructions .ROUTE .COMPLEX Qty: 21 0RF Rx Instructions: orally per package directions No Action sacubitril-valsartan 49-51 mg tablet 1 tab PO BID Qty: 180 3RF albuterol sulfate 1.25 mg/3 mL solution for nebulization 1.25 mg inhalation Q6H PRN (Reason: Shortness Of Breath) levothyroxine [Synthroid] 75 mcg tablet 37.5 mcg PO QAM cholecalciferol (vitamin D3) [Vitamin D3] 25 mcg (1,000 unit) Capsule 25 mcg PO QAM atorvastatin 40 mg Tablet 40 mg PO BEDTIME Qty: 90 3RF clopidogrel 75 mg Tablet 75 mg PO DAILY Qty: 90 3RF polyethylene glycol 3350 [Miralax] 17 gram powder in packet 17 g PO DAILY PRN (Reason: constipation) Qty: 30 0RF hydrocodone-acetaminophen 10-325 mg tablet 1 tab PO Q6H MDD 4 per day PRN (Reason: Pain) Eliquis 5 mg tablet 2.5 mg PO BID@0900,2100 triamcinolone acetonide 0.1 % cream See Rx Instructions .ROUTE .COMPLEX Rx Instructions: APPLY TOPICALLY TO THE AFFECTED AREA 2 TO 3 TIMES A DAY NEEDED. hydrochlorothiazide 12.5 mg tablet 12.5 mg PO DAILY ondansetron 4 mg tablet,disintegrating 4 mg PO TID PRN (Reason: nausea and vomiting) Qty: 14 0RF trazodone 150 mg tablet 150 mg PO BEDTIME ferrous sulfate [FeroSul] 325 mg (65 mg iron) tablet 325 mg PO DAILY Treledayanna Ellipta 200-62.5-25 mcg blister with device 1 inh INHALATION DAILY Discharge Orders: Discharge ED (Routine); Ordered 10/04/24 Ordered By: Renan Ochoa Referrals: Zachery Orourke MD [Primary Care Provider, Family Practice] Discharge Diet: Usual diet Discharge Activity: Increase activity as tolerated Patient Instructions: Opioid Safety, Pain Management Activity Restrictions/Additional Instructions: Thank you for choosing [facility] [place] for your healthcare needs today. It is very important that you follow up as instructed or that you return to the Emergency Department should you have concerns or if your condition changes or worsens in any way. You were seen in the emergency room with complaints of shortness of breath and productive cough. Chest x-ray showed slight worsening of your chronic changes in your lungs but no acute infiltrates your white count was elevated. We recommend that you change to albuterol ipratropium bromide in your nebulizer you are given a prescription for this. Also recommend a course of antibiotics and a steroid taper which also given a prescription. Follow-up with your doctor in the next 3 to 5 days. Sooner if you have any worsening or change of your symptoms. Print Language: Indonesian Coding Level of Care Code ED Data Storage Specialist for Mari Zambrano
[2024-10-04 12:57] LABS: Alanine Aminotransferase 7 U/L (0-33); Albumin Level 3.4 g/dL (3.5-5.2); Alkaline Phosphatase 63 U/L (35-105); Blood Urea Nitrogen 37 mg/dL (8-23); Calcium 8.6 mg/dL (8.5-10.5); Carbon Dioxide 19 mmol/L (22-29); Creatinine Clr Calc Pharmacy 23.7462; Globulin 3.1 g/dL (1.3-4.6); Glucose 96 mg/dL (65-115); Total Bilirubin 0.6 mg/dL (0.15-1.2); Total Protein 6.5 g/dL (6.6-8.7)
[2024-10-04 13:06] LABS: Influenza A NEGATIVE (Negative); Influenza B NEGATIVE (Negative); Respiratory Syncytial Virus Ce NEGATIVE (Negative); SARS-CoV-2 PCR NEGATIVE (Negative)
--- NOTE | 2024-10-04 13:25 | ECG_ITS ---
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1945 Requested By: Renan Lciona Order Number: [id number] Reading MD: ROSANNE MONIQUE Measurements Intervals [place] Rate: 77 P: 39 TX: 124 QRS: 8 QRSD: 89 T: 28 QT: 375 QTc: 426 Interpretive Statements SINUS RHYTHM LOW QRS VOLTAGE IN PRECORDIAL LEADS [QRS DEFLECTION < 1.0 mV IN CHEST LEADS] POSSIBLE RIGHT VENTRICULAR CONDUCTION DELAY [RSR (QR) IN V1/V2] Compared to ECG 10/04/2024 12:00:26 Incomplete right bundle-branch block no longer present Electronically Signed On 10-04-2024 23:08:41 CDT by ROSANNE MONIQUE [email or web address]
[2024-10-04 13:31] LABS: Anion Gap 20.9 (5-19); Chloride 100 mmol/L (98-107); Osmolality Calculated 289 mOsm/kg (285-295); Potassium 4.9 mmol/L (3.5-5.1); Sodium 135 mmol/L (136-145)
[2024-10-04 13:32] LABS: Aspartate Amino Transferase 18 U/L (0-32)
[2024-10-04] MEDS: sodium chloride 0.9% 1,000 ML 999 ML IV (13:58)
[2024-10-04 14:52] VITALS: BP 107/60; PULSE 82; RESP 16; O2SAT 94
[2024-10-04 14:54] LABS: Lactic Sepsis W/Reflex 1.5 mmol/L (0.5-2.2)
[2024-10-04 14:58] LABS: Troponin 5 2HR 65.05 ng/L (0-10)
[2024-10-04 15:01] LABS: Troponin 5 2HR Delta -4.95 ABS# (0-10)
[2024-10-04 15:43] VITALS: BP 99/57; PULSE 78; O2SAT 99
== END 2024-10-04 15:43 | disposition home or self-care (01) ==
PROVIDERS: Emergency Provider Family Medicine; PCP Family Medicine
DX: J44.1 Chronic obstructive pulmonary disease with (acute) exacerbation (principal); Z79.01 Long term (current) use of anticoagulants; Z11.52 Encounter for screening for COVID-19; Z87.891 Personal history of nicotine dependence; E78.5 Hyperlipidemia, unspecified; I10 Essential (primary) hypertension
CPT/HCPCS: 36415; 36600; 71045; 80051; 80053; 82330; 82805; 83605; 84484; 85025; 87637; 93005; 94640; 96361; 96374; 99285; J2919; J7030; J9999

== ENCOUNTER 2025-03-28 16:09 | Emergency (ER) | payer MEDICARE, SELFPAY ==
[2025-03-28 16:13] VITALS: BP 142/90; PULSE 82; TEMP 36.8; O2SAT 90; BMI 16.8
--- OUTSIDE RECORDS SUMMARY | 2025-03-28 16:14 | XMS_ITS | Clinical Summary ---
Author Organization [facility] Address [address] [facility] Attn: Epic Prelude ADT LESLIE CRESPO [address] Care Team Providers Care Hospice Social Worker Name Role Phone Zachery Orourke MD Primary Care Provider + Allergies Active Allergy Reactions Criticality Noted Date Comments Atorvastatin Other (See Comments) ,Muscle Pain,Weakness High 08/06/2010 Gemfibrozil Hives High 08/06/2010 Ibuprofen Hives High 08/06/2010 Naproxen Sodium Hives High 08/06/2010 Medications HYDROcodone-mega taminophen (NORCO) 7.5-325 mg Tablet Take 1 Tablet by mouth every 6 hours as needed for Pain, Moderate (do not exceed 4 tablets per day). Active clopidogreL (PLAVIX) 75 mg Tablet Take 75 mg by mouth daily. Active traZODone (DESYREL) 150 mg tablet Take 150 mg by mouth daily at bedtime. Take one and one half tablets by mouth at bedtime Active levothyroxine 75 mcg tablet Take 75 mcg by mouth daily in the morning. Take one half tablet by mouth daily. Active sacubitriL-vals pattie (Entresto) 49-51 mg Tablet Take 1 Tablet by mouth 2 times daily. Active spironolactone (ALDACTONE) 25 mg tablet Take 25 mg by mouth daily. Active apixaban (Eliquis) 5 mg tablet Take 5 mg by mouth 2 times daily. Take one tablet by mouth at 0900 and 2100 Active omeprazole (PriLOSEC) 20 mg Capsule, Delayed Release(E.C.) Take 20 mg by mouth daily. Active atorvastatin (LIPITOR) 40 mg tablet Take 40 mg by mouth daily. Active ergocalciferol, vitamin D2, (VITAMIN D ORAL) Take 1 Each by mouth daily. Gummies Active sennosides-docu sate sodium (SENNA-S) 8.6-50 mg tablet Take 1 Tablet by mouth 2 times daily as needed for Constipation. 15 Tablet Active fluticasone-ume clidinium-vilan terol (TRELEGY ELLIPTA) 100-62.5-25 mcg Disk with Device Take 1 Puff by inhalation daily. 60 Each 03/10/2025 1:09 PM SALES FLOOR MANAGER Active predniSONE (DELTASONE) 20 mg tablet Take 2 Tablets (40 mg) by mouth daily with breakfast for 2 days. 4 Tablet 03/10/2025 1:09 PM SALES FLOOR MANAGER 03/13/20 Active Problems Problem Noted Date Diagnosed Date Parainfluenza virus pneumonia 03/09/2025 Parainfluenza infection 03/09/2025 Protein-calorie malnutrition, severe 03/09/2025 Community acquired pneumonia of left lower lobe of lung 03/08/2025 COPD (chronic obstructive pulmonary disease) 10/2024 CKD (chronic kidney disease) 03/08/2025 CHF (congestive heart failure) 03/08/2025 CAD (coronary atherosclerotic disease) Chronic pain 03/08/2025 Hypothyroidism 03/08/2025 Insomnia 03/08/2025 Malignant neoplasm of upper-outer quadrant of fe male breast 08/05/2010 Encounters Date Type Department Care Team Description 03/13/2025 External Device Data [facility]STRACTION Provider, Abstract 03/13/2025 External Device Data [facility] Provider, Abstract 03/13/2025 External Device Data [facility] Provider, Abstract 03/08/2025 4:30 PM SALES FLOOR MANAGER - 03/10/2025 1:06 PM SALES FLOOR MANAGER Hospital Encounter [id number] [place] [phone] Karen Porras MD Ellis, Keith W, MD Sohail, Odilia Olivo MD Community acquired pneumonia of left lower lobe of lung Discharge Disposition: Home or Self Care 03/08/2025 Travel from Last 3 Months Social History Tobacco Use Types Packs/Day Years Used Date Smoking Tobacco: Former Cigarettes Smokeless Tobacco: Never Tobacco Cessation:Counseling Given: Not Answered Alcohol Use Standard Drinks/Week Comments No 0 (1 standard drink = 0.6 oz pur e alcohol) Food Insecurity Answer Date Recorded Do you find you are eating l ess than you should because you can t pay for food? No 03/08/2025 Transportation Needs Answer Date Record ed Have you gone without health care because you didn t have a way to get there? Or worry about transportation for future doctor visits, bean picker medication, etc.? No 2024 Housing Stability Answer Date Recorded Do you worry you won t have a steady place to sleep or struggle to pay rent or mortgage? No 03/08/2025 Utility Needs Answer Date Recorded Do you have difficulty payin g for utility costs (electric, water or gas bills)? No 03/08/2025 Medication Needs Answer Date Recorded Have you skipped taking medi cation due to cost or worry you can t afford new medications? No 03/08/2025 Feeling Safe Answer Date Recorded Are you in a relationship wi th someone who hurts you emotionally and/or physically? No 03/08/2025 Food Insecurity Answer Date Recorded Patient needs follow up regardin 03/08/2025 Transportation Needs Answer Date Record ed Patient needs follow up regardin 03/08/2025 Utility Needs Answer Date Recorded Patient needs follow up regardin 03/08/2025 Comments No Sex and Gender Information Value Date Recorded Sex Assigned at Not on file Legal Sex Female 5:02 AM SALES FLOOR MANAGER Gender Identity Not on file Sexual Orientation Not on file Last Filed Vital Signs Vital Sign Reading Time Taken Comments Blood Pressure 107/56 03/10/2025 7:30 AM SALES FLOOR MANAGER Pulse 71 03/10/2025 8:03 AM SALES FLOOR MANAGER Temperature 36.7 C (98 F) 03/10/2025 7:30 AM SALES FLOOR MANAGER Respiratory Rate 16 03/10/2025 8:03 AM SALES FLOOR MANAGER Oxygen Saturation 99% 03/10/2025 8:03 AM SALES FLOOR MANAGER Inhaled Oxygen Concentration - - Weight 37.6 kg (82 lb 14.3 oz) 03/08/2025 9:23 P M SALES FLOOR MANAGER Height 157.5 cm (5' 2 ) 03/08/2025 9:23 PM SALES FLOOR MANAGER Body Mass Index 15.16 03/08/2025 9:23 PM SALES FLOOR MANAGER Plan of Treatment Health Maintenance Due Date Last Done Comments DTAP/TDAP/TD VACCINES (1 - Tdap) 1963 ZOSTER VACCINE (1 of 2) 1994 OSTEOPOROSIS SCREENING 2009 RSV VACCINE (60+ or ) (1 - 1-dose 75+ series) 2019 INFLUENZA VACCINE (#1) 2024 PNEUMOCOCCAL VACCINE 50+ YEARS Completed 05/17/2024 Medical Devices Implanted Type Area Packaging Sales Representative Device Identifier Shelf Expiration Date Model / Serial / Lot Log [id number] - Vascular Access Ports - 1 - Port Pwrprt Ti Chrnflx Cath 8fr [id number] Implanted:Qty: 1 on 09/23/2010 Port Left: Chest CR BARD- ACCESS SYS 06/26/2012 [id number] / / [id number] Explanted Type Area Packaging Sales Representative Device Identifier Shelf Expiration Date Model / Serial / Lot Venous Access Port Explanted:Qty: 1 on 08/16/2012 by Gregg Medina DO Left: Chest / NA / NA Description:stopped working cleaned and sent to risk managment Procedures Procedure Name Priority Date/Time Associated Diagnosis Comments TELEMETRY REPORT 03/13/2025 3:13 AM SALES FLOOR MANAGER BASIC METABOLIC PANEL Routine 03/09/2025 3:07 PM SALES FLOOR MANAGER RT ASSESS AND TREAT Stat 03/08/2025 7 :47 PM SALES FLOOR MANAGER LACTIC ACID Stat 03/08/2025 6:21 PM SALES FLOOR MANAGER RESPIRATORY PATHOGEN PCR PANEL Stat 03/08/2025 6:21 PM SALES FLOOR MANAGER C-REACTIVE PROTEIN Stat 03/08/2025 4: 29 PM SALES FLOOR MANAGER BRAIN NATRIURETIC PEPTIDE, BNP OR PROBNP Stat 03/08/2025 4:29 PM SALES FLOOR MANAGER TROPONIN 2 HR, 5TH GEN Timed Study 03/08/2025 4:29 PM SALES FLOOR MANAGER EXTRA TUBE (URINE KAMARA) Stat 03/08/2025 4:11 PM SALES FLOOR MANAGER URINALYSIS W/REFLEX MICROSCOPIC Stat 03/08/2025 4:11 PM SALES FLOOR MANAGER TROPONIN BASELINE, 5TH GEN Stat 03/08/2025 3:02 PM SALES FLOOR MANAGER TSH Stat 03/08/2025 3:02 PM SALES FLOOR MANAGER MAGNESIUM LEVEL Stat 03/08/2025 3:02 PM SALES FLOOR MANAGER COMPREHENSIVE METABOLIC PANEL Stat 03/08/2025 3:02 PM SALES FLOOR MANAGER CBC WITH DIFFERENTIAL Stat 03/08/2025 3:02 PM SALES FLOOR MANAGER XR CHEST PA OR AP 1 VW Stat 03/08/2025 1:53 PM SALES FLOOR MANAGER EKG 12-LEAD Stat 03/08/2025 1:01 PM SALES FLOOR MANAGER from Last 3 Months Results * TELEMETRY REPORT (03/13/2025 3:13 AM SALES FLOOR MANAGER) us Provider Scanning ECG ORDERABLES Final Result * (ABNORMAL) BASIC METABOLIC PANEL (03/09/2025 3:07 PM SALES FLOOR MANAGER) SODIUM 138 136 - 145 mmol/L 03/09/2025 4:01 PM [facility] POTASSIUM 4.8 3.5 - 5.1 mmol/L 03/09/2025 4:01 PM [facility] CHLORIDE 106 98 - 107 mmol/L 03/09/2025 4:01 PM [facility] CO2 19(L) 22 - 29 mmol/L 03/09/2025 4:01 PM [facility] CALCIUM 8.9 8.8 - 10.2 mg/dL 03/09/2025 4:01 PM [facility] BUN 65(H) 8 - 23 mg/dL 03/09/2025 4:01 PM [facility] CREATININE 1.68(H) 0.51 - 0.95 mg/dL 03/09/2025 4:01 PM [facility] Comment:The GFR result is no t clinically significant on patients <18 or >70 years of age. GLUCOSE 129(H) 74 - 99 mg/dL 03/09/2025 4:01 PM [facility] GFR 31 mL/min/1. 73 sq meter 03/09/2025 4:01 PM [facility] Comment:eGFR calculated with 2020 CKD-EPI equation. Vegetarian diet, extremely high or low muscle mass, and may affect results. Cystatin C with Glomerular Filtration Rate is a suitable alternative for these patients. ANION GAP 13 9 - 20 mmol/L 03/09/2025 4:01 PM [facility] Blood Venipuncture / Unknown 03/09/2025 3:07 PM SALES FLOOR MANAGER 03/09/2025 3:20 PM SALES FLOOR MANAGER Odilia Ortiz MD CHEMISTRY ORDERABLES Fin al Result Performing Organization Address City/State/[facility] Co de Phone Number [facility] CLIA # [id number] [address] [place] [address] * (ABNORMAL) RESPIRATORY PATHOGEN PCR PANEL (03/08/2025 6:21 PM SALES FLOOR MANAGER) Pathologist [facility] COVID-19 PCR NOT DETECTED Not Detected 03/08/2025 7:32 PM [facility] Parainfluenza 2 by PCR DETECTED(A) Not Detected 03/08/2025 7:32 PM SALES FLOOR MANAGER [facility] Upper Respiratory ENTIRE NASOPHARYNX / Unknown Collection / Unknown 03/08/2025 6:21 PM SALES FLOOR MANAGER 03/08/2025 6:29 PM SALES FLOOR MANAGER Narrative [facility] - 03/08/2025 7:32 PM SALES FLOOR MANAGER The Film Array Respiratory Panel (RP2.1) is a multiplex nucleic acid detection test for 22 targets. Viruses: Adenovirus Coronavirus HKU1, NL63, 229E, and OC43 COVID-19/Severe Acute Respiratory Syndrome Coronavirus 2 Influenza A with the following subtypes: H1, H1-2009, and H3 Influenza B Human Metapneumovirus Parainfluenza virus 1, 2, 3, and 4 Respiratory Syncytial virus (RSV) Rhinovirus/Enterovirus (cannot differentiate due to genetic similarities) Bacteria: Bordetella pertussis Bordetella parapertussis Chlamydophila pneumoniae Mycoplasma pneumoniae Karen Porras MD MICROBIOLOGY - [facility] AL ORDERABLES Final Result Performing Organization Address [facility]/ZIP Co de Phone Number [facility] [id number] [address] [place] [address] * LACTIC ACID (03/08/2025 6:21 PM SALES FLOOR MANAGER) LACTIC ACID 1.0 <=2.0 mmol/L 03/08/2025 7:00 PM SALES FLOOR MANAGER [facility] Blood BLOOD SPECIMEN / Unknown Venipuncture / Unknown 03/08/2025 6:21 PM SALES FLOOR MANAGER 03/08/2025 6:29 PM SALES FLOOR MANAGER Karen Porras MD CHEMISTRY ORDERABLES Final Result Performing Organization Address [facility] Co de Phone Number [facility] CLIA # [id number] [address] [place] [id number] * (ABNORMAL) TROPONIN 2 HR, 5TH GEN (03/08/2025 4:29 PM SALES FLOOR MANAGER) TROPONIN T, 2 HR 5TH GEN 33(H) <=10 ng/L 03/08/2025 5:17 PM SALES FLOOR MANAGER [facility] DELTA 2HR TROPONIN T -2 See Interp. 03/08/2025 5:17 PM SALES FLOOR MANAGER [facility] Blood Venipuncture / Unknown 03/08/2025 4:29 PM SALES FLOOR MANAGER 03/08/2025 4:39 PM SALES FLOOR MANAGER Narrative [facility] - 03/08/2025 5:17 PM SALES FLOOR MANAGER Troponin elevated. Delta not changing. Delay in collection of timed specimen beyond recommended collection interval. Results must be interpreted in clinical context. Emil Brewer APRN CHEMISTRY ORDERABLES Final R esult Performing Organization Address City/[facility] Co de Phone Number [facility] CLIA # [id number] [address] [place] [place] [address] * (ABNORMAL) C-REACTIVE PROTEIN (03/08/2025 4:29 PM SALES FLOOR MANAGER) CRP 54.7(H) 0.0 - 5.0 mg/L 03/08/2025 6:54 PM SALES FLOOR MANAGER [facility] Blood Venipuncture / Unknown 03/08/2025 4:29 PM SALES FLOOR MANAGER 03/08/2025 4:39 PM SALES FLOOR MANAGER Karen Porras MD CHEMISTRY ORDERABLES Final Result Performing Organization Address [facility] Co de Phone Number [facility] CLIA # [id number] [address] [address] * BRAIN NATRIURETIC PEPTIDE, BNP OR PROBNP (03/08/2025 4:29 PM SALES FLOOR MANAGER) PROBNP, N TERMINAL 388 0 - 450 pg/mL 03/08/2025 6:58 PM SALES FLOOR MANAGER [facility] [employer] [facility] Comment: INTERPRETIVE COMMENT based on diagnosis: Diagnostic NT pro-BNP cutoffs for Heart Failure in the absence of renal failure is suggested for the following ranges <75 years: <125 pg/mL >=75 years: <450 pg/mL Exclusionary rule out cut-point for Acute Decompensated Heart Failure(ADHF) All ages: <300 pg/mL Diagnostic NT pro-BNP cutoffs for Acute Decompensated Heart Failure(ADHF) in the absence of renal failure is suggested for the following ages <50 years: > 450 pg/mL 50-75 years: > 900 pg/mL >75 years: >1800 pg/mL Blood Venipuncture / Unknown 03/08/2025 4:29 PM SALES FLOOR MANAGER 03/08/2025 4:39 PM SALES FLOOR MANAGER Karen Porras MD CHEMISTRY ORDERABLES Final Result Performing Organization Address [facility] Co de Phone Number [facility] CLIA # [id number] [address] [address] * EXTRA TUBE (URINE KAMARA) (03/08/2025 4:11 PM SALES FLOOR MANAGER) Urine URINE SPECIMEN OBTAINED BY CLEAN CATCH PROCEDURE / Unknown Collection / Unknown 03/08/2025 4:11 PM SALES FLOOR MANAGER 03/08/2025 4:24 PM SALES FLOOR MANAGER us Emil Brewer APRN URINE ORDERABLES Final Resul t Performing Organization Address [facility] de Phone Number [facility] CLIA # [id number] [address] [address] * (ABNORMAL) URINALYSIS WITH REFLEX MICROSCOPIC (03/08/2025 4:11 PM SALES FLOOR MANAGER) COLOR UA Pale Yellow Pale to Dark Yellow 03/08/2025 4:31 PM [facility] CLARITY UA Clear Clear 03/08/2025 4:31 PM [facility] SPECIFIC GRAVITY UA 1.020 1.003 - 1.035 03/08/2025 4:31 PM [facility] PH UA 5.5 5.0 - 8.0 03/08/2025 4:31 PM [facility] LEUKOCYTE ESTERASE UA Negative Negative 03/08/2025 4:31 PM [facility] NITRITE UA Negative Negative 03/08/2025 4:31 PM [facility] PROTEIN UA Trace(A) Negative 03/08/2025 4:31 PM [facility] GLUCOSE UA 1+(A) Negative 03/08/2025 4:31 PM SALES FLOOR MANAGER [facility] KETONES UA Negative Negative 03/08/2025 4:31 PM SALES FLOOR MANAGER [facility] UROBILINOGEN UA <2.0 <2.0 mg/dL 4:31 PM SALES FLOOR MANAGER [facility] BILIRUBIN UA Negative Negative 03/08/2025 4:31 PM SALES FLOOR MANAGER [facility] BLOOD UA Negative Negative 03/08/2025 4:31 PM [facility] Urine URINE SPECIMEN OBTAINED BY CLEAN CATCH PROCEDURE / Unknown Collection / Unknown 03/08/2025 4:11 PM SALES FLOOR MANAGER 03/08/2025 4:24 PM SALES FLOOR MANAGER Emil Brewer IGNITION MECHANIC URINE ORDERABLES Final Resul t Performing Organization Address [facility] Co de Phone Number [facility] CLIA # [id number] [address] [address] [place] [address] * (ABNORMAL) TROPONIN BASELINE, 5TH GEN (03/08/2025 3:02 PM SALES FLOOR MANAGER) TROPONIN T, BASELINE 5TH GEN 35(H) <=10 ng/L 03/08/2025 4:10 PM SALES FLOOR MANAGER [facility] Blood Venipuncture / Unknown 03/08/2025 3:02 PM SALES FLOOR MANAGER 03/08/2025 3:28 PM SALES FLOOR MANAGER Narrative [facility] - 03/08/2025 4:10 PM SALES FLOOR MANAGER Troponin elevated. Emil Brewer IGNITION MECHANIC CHEMISTRY ORDERABLES Final R esult Performing Organization Address City/[facility]/ZIP Co de Phone Number [facility] CLIA # [id number] [address] [address] [place] [address] * (ABNORMAL) CBC WITH DIFFERENTIAL (03/08/2025 3:02 PM SALES FLOOR MANAGER) WBC 14.7(H) 4.8 - 10.8 K/uL 03/08/2025 3:34 PM [facility] RBC 3.80(L) 4.20 - 5.40 M/uL 03/08/2025 3:34 PM [facility] HEMOGLOBIN 11.0(L) 12.0 - 16.0 g/dL 03/08/2025 3:34 PM [facility] HEMATOCRIT 34.8(L) 36.0 - 46.0 % 03/08/2025 3:34 PM [facility] MCV 91.6 84.0 - 103.0 fL 03/08/2025 3:34 PM [facility] MCH 28.9 27.0 - 34.0 pg 03/08/2025 3:34 PM [facility] MCHC 31.6 30.0 - 35.0 g/dL 03/08/2025 3:34 PM [facility] PLATELETS 279 140 - 440 K/uL 03/08/2025 3:34 PM [facility] MPV 10.2 8.9 - 12.8 fL 03/08/2025 3:34 PM [facility] RDW 14.6(H) 11.0 - 14.5 % 03/08/2025 3:34 PM [facility] RDW-STDEV 49.1 37.0 - 54.0 fL 03/08/2025 3:34 PM [facility] NEUTROPHILS 80(H) 42 - 75 % 03/08/2025 3:34 PM [facility] LYMPHOCYTES 14(L) 24 - 44 % 03/08/2025 3:34 PM [facility] MONOCYTES 5 2 - 10 % 03/08/2025 3:34 PM [facility] EOSINOPHILS 0 0 - 7 % 03/08/2025 3:34 PM [facility] BASOPHILS 0 0 - 1 % 03/08/2025 3:34 PM [facility] IMMATURE GRANULOCYTES 1 0 - 2 % 03/08/2025 3:34 PM [facility] NEUTROPHIL ABSOLUTE 11.76(H) 2.00 - 8.00 K/uL 03/08/2025 3:34 PM [facility] LYMPHOCYTE ABSOLUTE 2.05 1.20 - 4.00 K/uL 03/08/2025 3:34 PM [facility] MONOCYTE ABSOLUTE 0.75(H) 0.10 - 0.60 K/uL 03/08/2025 3:34 PM [facility] EOSINOPHIL ABSOLUTE 0.03 0.00 - 0.70 K/uL 03/08/2025 3:34 PM [facility] BASOPHILS ABSOLUTE 0.04 0.00 - 0.20 K/uL 03/08/2025 3:34 PM [facility] IMMATURE GRANULOCYTES ABSOLUTE 0.07 0.00 - 0.10 K/uL 03/08/2025 3:34 PM [facility] SMEAR REVIEWED: NA - Not Applicable 03/08/2025 3:34 PM [facility] Blood Venipuncture / Unknown 03/08/2025 3:02 PM SALES FLOOR MANAGER 03/08/2025 3:27 PM SALES FLOOR MANAGER Emil Brewer IGNITION MECHANIC HEMATOLOGY ORDERABLES Final Result Performing Organization Address City/[facility]/ZIP Co de Phone Number [facility] CLIA # [id number] [address] [address] [place] [address] * TSH (03/08/2025 3:02 PM SALES FLOOR MANAGER) TSH 1.22 0.27 - 4.20 uIU/mL 03/08/2025 4:10 PM SALES FLOOR MANAGER [facility] Blood Venipuncture / Unknown 03/08/2025 3:02 PM SALES FLOOR MANAGER 03/08/2025 3:28 PM SALES FLOOR MANAGER us Emil Brewer IGNITION MECHANIC CHEMISTRY ORDERABLES Final R esult [facility] CLIA # [id number] [address] [address] * MAGNESIUM LEVEL (03/08/2025 3:02 PM SALES FLOOR MANAGER) [facility] MAGNESIUM 2.1 1.6 - 2.4 mg/dL 03/08/2025 4:18 PM [facility] Blood Venipuncture / Unknown 03/08/2025 3:02 PM SALES FLOOR MANAGER 03/08/2025 3:28 PM SALES FLOOR MANAGER Emil Brewer IGNITION MECHANIC CHEMISTRY ORDERABLES Final R esult [facility] CLIA # [id number] [address] [place] [address] * (ABNORMAL) COMPREHENSIVE METABOLIC PANEL (03/08/2025 3:02 PM SALES FLOOR MANAGER) [facility] SODIUM 138 136 - 145 mmol/L 03/08/2025 4:18 PM [facility] POTASSIUM 5.5(H) 3.5 - 5.1 mmol/L 03/08/2025 4:18 PM [facility] CHLORIDE 104 98 - 107 mmol/L 03/08/2025 4:18 PM [facility] CO2 20(L) 22 - 29 mmol/L 03/08/2025 4:18 PM [facility] CALCIUM 9.7 8.8 - 10.2 mg/dL 03/08/2025 4:18 PM [facility] BUN 76(H) 8 - 23 mg/dL 03/08/2025 4:18 PM [facility] CREATININE 1.88(H) 0.51 - 0.95 mg/dL 03/08/2025 4:18 PM [facility] Comment:The GFR result is no t clinically significant on patients <18 or >70 years of age. GLUCOSE 95 74 - 99 mg/dL 03/08/2025 4:18 PM [facility] TOTAL PROTEIN 7.2 6.4 - 8.3 g/dL 03/08/2025 4:18 PM [facility] ALBUMIN 3.7 3.5 - 5.2 g/dL 03/08/2025 4:18 PM [facility] BILIRUBIN TOTAL 0.5 0.0 - 1.0 mg/dL 03/08/2025 4:18 PM [facility] ALKALINE PHOSPHATASE 98 35 - 104 U/L 03/08/2025 4:18 PM [facility] AST 27 10 - 35 U/L 03/08/2025 4:18 PM [facility] ALT 18 <=35 U/L 03/08/2025 4:18 PM [facility] GFR 27 mL/min/1. 73 sq meter 03/08/2025 4:18 PM [facility] Comment:eGFR calculated with 2020 CKD-EPI equation. Vegetarian diet, extremely high or low muscle mass, and may affect results. Cystatin C with Glomerular Filtration Rate is a suitable alternative for these patients. ANION GAP 14 9 - 20 mmol/L 03/08/2025 4:18 PM [facility] Blood Venipuncture / Unknown 03/08/2025 3:02 PM SALES FLOOR MANAGER 03/08/2025 3:28 PM SALES FLOOR MANAGER us Emil Brewer IGNITION MECHANIC CHEMISTRY ORDERABLES Final R esult [facility] CLIA # [id number] [address] [place] [address] * XR CHEST PA OR AP 1 VW (03/08/2025 1:53 PM SALES FLOOR MANAGER) Anatomical Region Laterality Modality Chest Computed Radiogr aphy 03/08/2025 1:53 PM SALES FLOOR MANAGER Impressions 03/08/2025 2:21 PM SALES FLOOR MANAGER IMPRESSION: See below. Exam: XR CHEST PA OR AP 1 VW Date/Time of Exam: 03/08/2025 1:53 PM Reason For Exam: Shortness of Breath SOB. Diagnosis: See Reason for Exam. Findings: There is a small pleural effusion on the left and a trace pleural effusion on the right. Mild nonspecific opacity in the left lower lung, possibly atelectasis. No pneumothorax. Nonspecific mediastinal contours. Narrative Procedure Note Zachery Manzano MD - 03/08/2025 IMPRESSION: See below. Exam: XR CHEST PA OR AP 1 VW Date/Time of Exam: 03/08/2025 1:53 PM Reason For Exam: Shortness of Breath SOB. Diagnosis: See Reason for Exam. Findings: There is a small pleural effusion on the left and a trace pleural effusion on the right. Mild nonspecific opacity in the left lower lung, possibly atelectasis. No pneumothorax. Nonspecific mediastinal contours. us Asa Yonissweta Brewer IGNITION MECHANIC DIAGNOSTIC IMAGING ORDERABLE S Final Result * EKG 12-LEAD (03/08/2025 1:01 PM SALES FLOOR MANAGER) 03/08/2025 1:01 PM SALES FLOOR MANAGER Narrative INTERFACE SYSTEM - 03/08/2025 7:59 PM [place] [address] Test Date: 2025-03-08 Pat Name: MICHELLE DENSON Department: 11 Room: Gender: Female Railroad Track Inspector: [id number] : 1945 Requested By: Order Number: [id number] Reading MD: Carlee Ortiz Measurements Intervals [place] Rate: 78 P: 79 TN: 134 QRS: 49 QRSD: 74 T: 65 QT: 368 QTc: 419 Interpretive Statements Normal sinus rhythm Low voltage QRS Borderline ECG Electronically Signed On 03-08-2025 19:59:29 SALES FLOOR MANAGER by Carlee Ortiz Procedure Note Carlee Ortiz MD - 03/08/[address] [address] Test Date: 2025-03-08 Pat Name: MICHELLE DENSON Department: 11 Room: Gender: Female Railroad Track Inspector: [id number] : 1945 Requested By: Order Number: [id number] Reading MD: Carlee Ortiz Measurements Intervals [place] Rate: 78 P: 79 TN: 134 QRS: 49 QRSD: 74 T: 65 QT: 368 QTc: 419 Interpretive Statements Normal sinus rhythm Low voltage QRS Borderline ECG Electronically Signed On 03-08-2025 19:59:29 SALES FLOOR MANAGER by Carlee Ortiz us Karen Porras MD ECG ORDERABLES Lara l Result INTERFACE SYSTEM Refer to clinic/hospital department from Last 3 Months Insurance RX [employer] Medicare Part D RX [employer]ANS (INTERNAL) [facility] Advance Directives For more information, please contact: [phone] * Full Code (Latest Code Status on File) Date Activated Date Inactivated Comments 03/08/2025 7:47 PM 03/10/2025 3:06 PM Care Teams Hospice Social Worker Relationship Specialty Start Date End Date Zachery Orourke MD [address] [place] [phone] PCP - General Family Practice 03/12/25
--- NOTE | 2025-03-28 16:25 | W.ED.RECABL ---
HPI - Recheck/Abnormal Lab/Rx General: Chief Complaint: Recheck/Abnormal Lab/Rx Stated Complaint: abn labs (sent by Sharad) Time Seen by Provider: 03/28/25 16:20 Source: patient Mode of arrival: ambulatory Limitations: no limitations History of Present Illness: 80-year-old female states she has been having some general fatigue over the last week. Patient states she has chronic anemia and went to her PCP office if she had blood drawn and was called today and told that she needed to have a blood transfusion. She denies have any blood in her stool denies any pain anywhere denies any fevers. Related Data Home Medications ?Medication ?Instructions ?Recorded ?Confirmed albuterol sulfate 1.25 mg/3 mL 1.25 mg inhalation Q6H PRN 01/17/20 10/04/24 solution for nebulization Shortness Of Breath levothyroxine 75 mcg tablet 37.5 mcg PO QAM 01/17/20 10/04/24 (Synthroid) cholecalciferol (vitamin D3) 25 25 mcg PO QAM 03/10/22 10/04/24 mcg (1,000 unit) capsule (Vitamin D3) ferrous sulfate 325 mg (65 mg 325 mg PO DAILY 10/15/23 10/04/24 iron) tablet (FeroSul) fluticasone fur. 200 mcg-umeclid 1 inh inhalation DAILY 10/15/23 10/04/24 62.5 mcg-vilant 25 mcg inhalat.powder (Trelegy Ellipta) trazodone 150 mg tablet 150 mg PO BEDTIME sleep 10/15/23 10/04/24 apixaban 5 mg tablet (Eliquis) 2.5 mg PO BID@0900,2100 10/04/24 10/04/24 hydrochlorothiazide 12.5 mg tablet 12.5 mg PO DAILY 10/04/24 10/04/24 hydrocodone 10 mg-acetaminophen 1 tab PO Q6H PRN Pain 10/04/24 10/04/24 325 mg tablet triamcinolone acetonide 0.1 % See Rx Instructions .Route .COMPLEX 10/04/24 10/04/24 topical cream Previous Rx's ?Medication ?Instructions ?Recorded atorvastatin 40 mg tablet 40 mg PO BEDTIME #90 tabs 03/11/22 clopidogrel 75 mg tablet 75 mg PO DAILY #90 tabs 03/11/22 ondansetron 4 mg disintegrating 4 mg PO TID PRN nausea and 10/06/23 tablet vomiting #14 tabs polyethylene glycol 3350 17 gram 17 g PO DAILY PRN constipation #30 04/07/24 oral powder packet (Miralax) ea sacubitril 49 mg-valsartan 51 mg 1 tab PO BID #180 tabs 09/12/24 tablet ipratropium 0.5 mg-albuterol 3 mg 3 ml inhalation Q4H PRN shortness 10/04/24 (2.5 mg base)/3 mL nebulization of breath or wheezing #90 mL soln methylprednisolone 4 mg tablets in See Rx Instructions PO .COMPLEX 10/04/24 a dose pack (Medrol (Ryan)) #21 ea Allergies Allergy/AdvReac Type Severity Reaction Status Date / Time ibuprofen Allergy ALGY-Rash Verified 03/28/25 16:20 naproxen (From Aleve) Allergy ALGY-Rash Verified 03/28/25 16:20 Review of Systems Const: Reports: fatigue PFSH ED PFSH: Medical History (Updated 03/28/25 @ 18:09 by Arcadio Parsons MD) Elevated troponin level COPD (chronic obstructive pulmonary disease) Community acquired pneumonia LV (left ventricular) mural thrombus Ischemic cardiomyopathy Supplemental oxygen dependent HTN (hypertension) Depression Breast cancer Non-ST elevation GA (NSTEMI) Hyperlipidemia Chronic back pain Hypothyroidism COPD (chronic obstructive pulmonary disease) Surgical History Hx of hysterectomy, total Hx of hernia repair H/O lumpectomy Family History Brother CAD (coronary artery disease) Cancer Chronic kidney disease (CKD) Denies family history of Clotting disorder Dementia Suicide Anesthesia complication Bleeding disorder Lung disease Stroke Social History Smoking and tobacco/nicotine status: former use of tobacco/nicotine Alcohol intake: never Substance/Drug Use: never Marital status: / Marital status details: She lost her 6 months ago Physical Exam Const: COMMON NORMALS: patient oriented x3 HENMT: COMMON NORMALS: normocephalic and atraumatic HEAD & SCALP: normocephalic and atraumatic Eye: COMMON NORMALS: conjunctivae normal CONJUNCTIVA: Yes conjunctivae normal Neck/C-Spine: COMMON NORMALS: full ROM and supple Chest: COMMONS NORMALS: normal inspection of the chest Resp: COMMON NORMALS: normal respiratory effort, No retractions, No use of accessory muscles and clear to auscultation bilaterally AUSCULTATION: clear to auscultation bilaterally Cardio: COMMON NORMALS: regular rate, regular rhythm and No murmurs present (Cardio) RATE: regular rate RHYTHM: regular rhythm Extremity: COMMON NORMALS: normal to inspection and full ROM Neuro: COMMON NORMALS: patient oriented x3, moves all extremities and no focal motor deficits Psych: COMMON NORMALS: mental status grossly normal, Normal thought process present and cooperative THOUGHT PROCESS: Normal thought process present Skin: COMMON NORMALS: no rashes or lesions noted and no wounds GENERAL SKIN EXAM: no rashes or lesions noted Course Vital Signs: Vital signs: Vital Signs Temperature 98.2 F 03/28/25 16:13 Pulse Rate 79 03/28/25 17:00 Blood Pressure 128/72 03/28/25 17:00 Pulse Oximetry 100 03/28/25 17:37 Oxygen Delivery Me thod Nasal Cannula 03/28/25 17:37 Oxygen Flow Rate 3 03/28/25 17:37 MDM - Recheck/Abnormal Lab/Rx Medical Decision Making 80-year-old female presents for generalized weakness center by her PCP for possible anemia. Differential includes anemia, infection. Patient's vitals here been normal. Her hemoglobin here is 8.3 is chronically anemic does not require an emergent transfusion at this time. Her blood pressures here been normal EKG here showed normal sinus rhythm heart rate [address] elevation QRS 84 QTc 390. Patient has no signs of pneumonia on exam. Electrolytes here showed no significant abnormalities urinalysis showed no UTI. She is stable for discharge she is follow-up her PCP and return if worsening she understands agrees to plan. Medical Records I reviewed the patient's medical records. Lab Data I reviewed the patient's lab results. 03/28/25 16:31 03/28/25 16:31 Laboratory Results WBC 7.61 10^3/uL (3.29-11.43) 03/28/25 16:31 RBC 2.83 10^6/uL (3.85-5.65) L 03/28/25 16:31 Hgb 8.30 g/dL (11.27-16.99) L 03/28/25 16: Hct 27.2 % (36-47) L 03/28/25 16: MCV 96.1 fl (85-98) 03/28/25 16: MCH 29.3 pg (27-33) 03/28/25 16: MCHC 30.5 g/dL (30-55) 03/28/25 16: RDW 16.5 % (12.1-15.1) H 03/28/25 16: Plt Count 274 10^3/cmm (157-399) 03/28/25 16: MPV 9.4 fL (7.4-10.4) 03/28/25 16: Neut % (Auto) 66.7 % 03/28/25 16: Lymph % (Auto) 20.8 % 03/28/25 16: [place] % (Auto) 10.2 % 03/28/25 16: Eos % (Auto) 1.6 % 03/28/25 16: Baso % (Auto) 0.3 % 03/28/25 16: Neut # (Auto) 5.08 10^3/uL (1.8-7.7) 03/28/25 16: Lymph # (Auto) 1.6 10^3/uL (0.8-4.8) 03/28/25 16: [place] # (Auto) 0.8 10^3/uL (0.2-0.9) 03/28/25 16: Eos # (Auto) 0.1 10^3/uL (0.0-0.8) 03/28/25 16: Baso # (Auto) 0.0 10^3/uL (0.0-0.1) 03/28/25 16: Nucleated RBC % (auto) 0 % 03/28/25: Nucleated RBCs # 0.0 /100WBC 03/28/25 16: Sodium 143 mmol/L (136-145) 03/28/25 16: Potassium 4.7 mmol/L (3.5-5.1) 03/28/25 16: Chloride 107 mmol/L (98-107) 11/26/25 16:31 Carbon Dioxide 23 mmol/L (22-29) 03/28/25 16:31 Anion Gap 17.7 (5-19) 03/28/25 16:31 BUN 40 mg/dL (8-23) H 03/28/25 16:31 Creatinine 1.4 mg/dL (0.5-0.9) H 03/28/25 16:31 GFR Calculation Not Reportable 03/28/25 16:31 Glucose 106 mg/dL (65-115) 03/28/25 16:31 Calculated Osmolality 306 mOsm/kg (285-295) H 03/28/25 16:31 Calcium 8.8 mg/dL (8.5-10.5) 03/28/25 16:31 Total Bilirubin 0.3 mg/dL (0.15-1.2) 03/28/25 16:31 AST 15 U/L (0-32) 03/28/25 16:31 ALT 12 U/L (0-33) 03/28/25 16:31 Alkaline Phosphatase 56 U/L (35-105) 03/28/25 16:31 Total Protein 6.5 g/dL (6.6-8.7) L 03/28/25 16:31 Albumin 3.3 g/dL (3.5-5.2) L 03/28/25 16:31 Globulin 3.2 g/dL (1.3-4.6) 03/28/25 16:31 Urine Color Yellow (Yellow) 03/28/25 17:43 Urine Appearance Clear (CLEAR) 03/28/25 17:43 Urine pH 8.0 (5-7) A 03/28/25 17:43 Ur Specific [place] 1.017 (1.005-1.030) 03/28/25 17:43 Urine Protein Trace (Negative) A 03/28/25 17:43 Urine Glucose (UA) Negative (Normal) 03/28/25 17:43 Urine Ketones Negative (Negative) 03/28/25 17:43 Urine Blood Negative (Negative) 03/28/25 17:43 Urine Nitrate Negative (Negative) 03/28/25 17:43 Urine Bilirubin Negative (Negative) 03/28/25 17:43 Urine Urobilinogen 0.2 mg/dL (Negative) 03/28/25 17:43 Ur Leukocyte Esterase Negative (Negative) 03/28/25 17:43 Urine RBC 0-2 /hpf (0-2) 03/28/25 17:43 Urine WBC 0-5 /hpf (0-5) 03/28/25 17:43 Ur Squamous Epith Cells 0-5 /hpf (0-5) 03/28/25 17:43 Amorphous Sediment Not Reportable 03/28/25 17:43 Urine Bacteria None seen /hpf (NONE) 03/28/25 17:43 Hyaline Casts 0.40 /lpf 03/28/25 17:43 Blood Type AB Positive 03/28/25 16:31 Rho(D) Type Rh positive 03/28/25 16:31 Antibody Screen Negative 03/28/25 16:31 No radiology studies performed this visit EKG Data EKG 1: I personally reviewed and interpreted this EKG as follows: EKG interpretation date: 03/28/25 EKG interpretation time: 17:26 Interpretation: nsr hr [address] elevation qrs 84 qtc 390 Discharge Plan Discharge Patient Disposition: Home Clinical Impression: Generalized weakness, Chronic anemia Condition: Stable Prescriptions: No Action sacubitril-valsartan 49-51 mg tablet 1 tab PO BID Qty: 180 3RF albuterol sulfate 1.25 mg/3 mL solution for nebulization 1.25 mg inhalation Q6H PRN (Reason: Shortness Of Breath) levothyroxine [Synthroid] 75 mcg tablet 37.5 mcg PO QAM cholecalciferol (vitamin D3) [Vitamin D3] 25 mcg (1,000 unit) Capsule 25 mcg PO QAM atorvastatin 40 mg Tablet 40 mg PO BEDTIME Qty: 90 3RF clopidogrel 75 mg Tablet 75 mg PO DAILY Qty: 90 3RF polyethylene glycol 3350 [Miralax] 17 gram powder in packet 17 g PO DAILY PRN (Reason: constipation) Qty: 30 0RF hydrocodone-acetaminophen 10-325 mg tablet 1 tab PO Q6H MDD 4 per day PRN (Reason: Pain) Eliquis 5 mg tablet 2.5 mg PO BID@0900,2100 triamcinolone acetonide 0.1 % cream See Rx Instructions .ROUTE .COMPLEX Rx Instructions: APPLY TOPICALLY TO THE AFFECTED AREA 2 TO 3 TIMES A DAY NEEDED. hydrochlorothiazide 12.5 mg tablet 12.5 mg PO DAILY ipratropium-albuterol 0.5 mg-3 mg(2.5 mg base)/3 mL solution for nebulization 3 ml inhalation Q4H PRN (Reason: shortness of breath or wheezing) Qty: 90 0RF methylprednisolone [Medrol (Ryan)] 4 mg tablets,dose pack See Rx Instructions .ROUTE .COMPLEX Qty: 21 0RF Rx Instructions: orally per package directions ondansetron 4 mg tablet,disintegrating 4 mg PO TID PRN (Reason: nausea and vomiting) Qty: 14 0RF trazodone 150 mg tablet 150 mg PO BEDTIME ferrous sulfate [FeroSul] 325 mg (65 mg iron) tablet 325 mg PO DAILY Trelegy Ellipta 200-62.5-25 mcg blister with device 1 inh INHALATION DAILY Discharge Orders: Discharge ED (Routine); Ordered 03/28/25 Ordered By: Arcadio Parsons Referrals: Zachery Orourke MD [Primary Care Provider, [facility]] - 4-7 days Discharge Diet: Advance as tolerated Discharge Activity: Resume usual activity Patient Instructions: Weakness (ED) Print Language: Hungarian Coding Level of Care Code ED Home Care Specialist for Mari Zambrano
[2025-03-28 16:39] LABS: Hematocrit 27.2 % (36-47); Hemoglobin 8.30 g/dL (11.27-16.99); Mean Corpuscular HGB Conc 30.5 g/dL (30-55); Mean Corpuscular Hemoglobin 29.3 pg (27-33); Mean Corpuscular Volume 96.1 fl (85-98); Nucleated Red Blood Cells % 0 %; Platelet Count 274 10^3/cmm (157-399); Red Blood Count 2.83 10^6/uL (3.85-5.65); White Blood Count 7.61 10^3/uL (3.29-11.43)
--- NOTE | 2025-03-28 16:41 | ECG_ITS ---
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 Measurements Intervals [place] Rate: 75 P: 60 [place]: 120 QRS: 31 QRSD: 84 T: 43 QT: 361 QTc: 404 Interpretive Statements SINUS RHYTHM LOW QRS VOLTAGE IN PRECORDIAL LEADS [QRS DEFLECTION < 1.0 mV IN CHEST LEADS] POSSIBLE RIGHT VENTRICULAR CONDUCTION DELAY [RSR (QR) IN V1/V2] Compared to ECG 10/04/2024 13:25:40 No significant changes Electronically Signed On 03-29-2025 17:27:03 [employer]ENT[employer]ENT by Janiya Haque M.D. [email or web address]
[2025-03-28 16:57] LABS: Alanine Aminotransferase 12 U/L (0-33); Albumin Level 3.3 g/dL (3.5-5.2); Alkaline Phosphatase 56 U/L (35-105); Anion Gap 17.7 (5-19); Aspartate Amino Transferase 15 U/L (0-32); Blood Urea Nitrogen 40 mg/dL (8-23); Calcium 8.8 mg/dL (8.5-10.5); Carbon Dioxide 23 mmol/L (22-29); Chloride 107 mmol/L (98-107); Globulin 3.2 g/dL (1.3-4.6); Glucose 106 mg/dL (65-115); Osmolality Calculated 306 mOsm/kg (285-295); Potassium 4.7 mmol/L (3.5-5.1); Sodium 143 mmol/L (136-145); Total Protein 6.5 g/dL (6.6-8.7)
[2025-03-28 17:00] VITALS: BP 128/72; PULSE 79; O2SAT 97
[2025-03-28 17:37] VITALS: O2SAT 100
[2025-03-28 17:56] LABS: Glucose Urine UA Negative (Normal); Nitrate Urine Negative (Negative); Specific Gravity, Urine 1.017 (1.005-1.030)
[2025-03-28 18:01] LABS: Add Urine Microscopic? YES
[2025-03-28 18:36] VITALS: BP 151/74; PULSE 87; O2SAT 97
== END 2025-03-28 18:39 | disposition home or self-care (01) ==
PROVIDERS: Emergency Provider Emergency Medicine; PCP Family Medicine
DX: R53.1 Weakness (principal); D64.89 Other specified anemias; Z79.01 Long term (current) use of anticoagulants; Z79.02 Long term (current) use of antithrombotics/antiplatelets; Z87.891 Personal history of nicotine dependence; J44.9 Chronic obstructive pulmonary disease, unspecified; E78.5 Hyperlipidemia, unspecified; Z85.3 Personal history of malignant neoplasm of breast
CPT/HCPCS: 36415; 80053; 81001; 85025; 86850; 86900; 93005; 99284